=== PATIENT | female | born 1940 | race Hispanic/Latino ===

== ENCOUNTER 2017-06-21 03:33 | Inpatient (IN) | payer MEDICARE, OTHER ==
[~2017-06-21] VITALS: Ht 157.5 cm; Wt 52.2 kg
[~2017-06-21 03:33] MED LIST: ACETAMINOPHN-T1 EACH PO; ALENDRONATE SOD70 MG PO; AMBIEN5 MG PO; Apixaban PO; BENTYL20 MG PO; CETIRIZINE HCL10 MG PO; CITRACAL; CITRACAL + D M1 EACH PO; DETROL LA4 MG PO; ESCITALOPRAM OX10 MG PO; FERROUS SULFAT325 M1 PO; LEVAQUIN500 MG PO; LISINOPRIL10 MG PO; LOPERAMIDE2 MG PO; LORATADINE10 MG PO; LOVASTATIN20 MG PO; MEDROL4 MG/DOSE- PO; METOPROLOL TART25 MG PO; METRONIDAZOLE500 MG PO; PANTOPRAZOLE IV; PENTASA500 MG PO; POTASSIUM GLU2.5 MEQ PO; PREVACID; PREVACID30 MG PO; QUESTRAN PACKET4 GM PO; ULTRAM50 MG PO; Z.0.AMBIEN10 MG PO; Z.0.LEXAPRO10 MG PO; ZOFRAN ODT4 MG PO; [UNRECOGNIZED DRUG - OTHER] PO
[2017-06-21] MEDS ORDERED: SODIUM CHLORIDE 0.9% 1000ML 1,000 ML IV STA ×2 (04:08→06:14)
[2017-06-21] MEDS ORDERED: ONDANSETRON HCL INJ 2 MG/ML VIAL IV STA (04:08)
[2017-06-21] MEDS ORDERED: PANTOPRAZOLE 40 MG 10ML VIAL IV STA (04:08)
[2017-06-21 04:30] LABS: BASOPHILS # (AUTO) 0.1 (0.0-0.1); BASOPHILS % 0.5 % (0.0-1.0); EOSINOPHILS % 0.1 % (0.0-6.0); HEMATOCRIT 32.9 % (34.2-44.1); HEMOGLOBIN 10.3 g/dL (12.0-16.0); LYMPHOCYTES # (AUTO) 0.3 (1.0-3.2); LYMPHOCYTES % 2.4 % (18.0-39.1); MEAN CORPUSCULAR HEMOGLOBIN 26.9 pg (28-32); MEAN CORPUSCULAR HGB CONC 31.3 g/dL (31-35); MEAN CORPUSCULAR VOLUME 85.9 fL (81-99); MONOCYTES # (AUTO) 0.1 (0.2-0.8); MONOCYTES % 1.2 % (4.4-11.3); NEUTROPHILS # (AUTO) 11.4 (2.1-6.9); NEUTROPHILS % 95.5 % (38.7-80.0); PLATELET COUNT 305 x10e3/uL (140-360); RED BLOOD COUNT 3.83 x10e6/uL (3.6-5.1); RED CELL DISTRIBUTION WIDTH 17.4 % (11.7-14.4)
[2017-06-21 04:39] LABS: INR 0.98; PROTHROMBIN TIME 13.5 seconds (11.9-14.5)
[2017-06-21 04:40] LABS: PARTIAL THROMBOPLASTIN TIME 26.7 seconds (23.8-35.5)
[2017-06-21 04:50] LABS: ALANINE AMINOTRANSFERASE 9 IU/L (0-55); ALBUMIN 2.8 g/dL (3.5-5.0); ALBUMIN/GLOBULIN RATIO 0.8 (0.8-2.0); ALKALINE PHOSPHATASE 96 IU/L (40-150); AMYLASE 51 U/L (25-125); ANION GAP 14.3 mmol/L (8-16); BLOOD UREA NITROGEN 15 mg/dL (7-26); BUN/CREATININE RATIO 20 (6-25); CALCIUM 8.2 mg/dL (8.4-10.2); CARBON DIOXIDE 18 mmol/L (22-29); CHLORIDE 109 mmol/L (98-107); CREATINE KINASE 55 IU/L (29-168); CREATININE, SERUM 0.76 mg/dL (0.57-1.11); EST GLOMERULAR FILTRATION RATE > 60 ML/MIN (60-); GLUCOSE 147 mg/dL (74-118); LIPASE 17 U/L (8-78); MAGNESIUM 1.5 MG/DL (1.3-2.1); POTASSIUM 3.3 mmol/L (3.5-5.1); SODIUM 138 mmol/L (136-145)
[2017-06-21 04:52] LABS: B-TYPE NATRIURETIC PEPTIDE2 95.6 pg/mL (0-100)
[2017-06-21 04:56] LABS: TROPONIN I 0.743 ng/mL (0-0.300)
--- NOTE | 2017-06-21 05:09 | Diagnostic Imaging Report ---
EXAM: CHEST 2 VIEWS, PA and lateral DATE: 06/21/2017 4:08 AM Time stamp on exam: 0421 hours INDICATION: Nausea, vomiting COMPARISON: None FINDINGS: LINES/TUBES: None LUNGS: No consolidations or edema. PLEURA: No effusions or pneumothorax. HEART AND MEDIASTINUM: Normal size and contour. BONES AND SOFT TISSUES: No acute findings. Hiatal hernia. IMPRESSION: No acute thoracic abnormality. Signed by: Dr. Deepika Jessica M.D. on 06/21/2017 5:05 AM
--- NOTE | 2017-06-21 05:13 | Diagnostic Imaging Report ---
Exam: Head CT without contrast History: Nausea, vomiting, headache Comparison studies: Previous head CT of 01/07/2014 is currently unavailable on the PACS for comparison. Technique: Axial images were obtained from the skull base to the vertex. Coronal and sagittal images reconstructed from the axial data. Intravenous contrast: None Findings: Scalp: No abnormalities. Bones: The sphenoid wings are demineralized bilaterally with lytic changes. No associated soft tissue mass is identified. Brain sulci: Appropriate for age. Ventricles: Normal in size and configuration. No hydrocephalus. Extra-axial spaces: Mildly prominent axial spaces of CSF density along the right anterior temporal convexity is most likely represents a small arachnoid cyst. Parenchyma: No mass, acute hemorrhage or acute cortical vascular insults. Scattered hypodensities in the supratentorial white matter are nonspecific but most compatible with chronic small vessel ischemic changes. Sellar/suprasellar region: No abnormalities. Craniocervical junction: Patent foramen magnum. No Chiari one malformation. Included paranasal sinuses: Mild inflammatory mucosal thickening in the left maxillary sinus. Incidental findings: Atherosclerotic calcifications in the carotid siphons and intradural vertebral arteries. Bilateral lens replacements related to previous cataract surgery. IMPRESSION: 1. No acute intracranial abnormalities. 2. Mild generalized volume loss. 3. Moderate supratentorial chronic microvascular ischemic changes. 4. Incidental bilateral sphenoid demineralization with lytic changes. Signed by: Dr. Jose Fields M.D. on 06/21/2017 5:47 AM
[2017-06-21] MEDS ORDERED: FAMOTIDINE20 MG PO (05:25)
[2017-06-21] MEDS ORDERED: MOBIC7.5 MG PO (05:25)
[2017-06-21] MEDS ORDERED: ASPIR 8181 MG PO (05:25)
[2017-06-21] MEDS ORDERED: RESTORIL15 MG PO (05:25)
[2017-06-21] MEDS ORDERED: PANTOPRAZOLE SO40 MG PO (05:25)
[2017-06-21] MEDS ORDERED: ASPIRIN 81 MG CHEW TAB PO ONE (05:30)
[2017-06-21] MEDS ORDERED: SODIUM CHLORIDE 0.9% 50ML 50 ML ONE (05:41)
[2017-06-21] MEDS ORDERED: IOPAMIDOL 370 MG/ML 200 ML INFUS..BTL INJ ONE (05:41)
--- NOTE | 2017-06-21 05:48 | Diagnostic Imaging Report ---
EXAM: CT ABDOMEN AND PELVIS with IV CONTRAST DATE: 06/21/2017 4:08 AM Time stamp on Exam: 0512 hours INDICATION: Abdominal pain COMPARISON: None available TECHNIQUE: The abdomen and pelvis were scanned using a multidetector helical scanner. Coronal and sagittal reformations were obtained. Routine protocol performed. IV Contrast: 100 cc Isovue-370 Oral Contrast: Water CTDIvol has been reviewed. It is below the limits set by the Radiation Protocol Committee (RPC). FINDINGS: LOWER THORAX: No consolidations LIVER: No masses BILIARY: Cholelithiasis. No wall thickening or ductal dilation. SPLEEN: No masses PANCREAS: No masses ADRENALS: No nodules KIDNEYS: Symmetric perfusion. No enhancing masses. No hydronephrosis. GI TRACT: Several loops of small bowel with enhancing thickened fletcher and adjacent vascular engorgement. No bowel obstruction. Moderate to large hiatal hernia. Incidental duodenal diverticulum. VESSELS: Marked atherosclerotic change of the abdominal aorta and branches. PERITONEUM/RETROPERITONEUM: Trace free pelvic fluid. LYMPH NODES: Prominent mesenteric lymph nodes. REPRODUCTIVE ORGANS: The uterus and ovaries are not visualized. BLADDER: Unremarkable SOFT TISSUES: Unremarkable BONES: No suspicious bone lesions. IMPRESSION: Nonspecific enteritis involving the distal and terminal ileum with associated vascular congestion and mesenteric lymphadenopathy. These findings were described in a report of a CT of the abdomen and pelvis in 2014 (images not available for comparison), making inflammatory enteritis (Crohn's) a likely cause. Signed by: Dr. Deepika Jessica M.D. on 06/21/2017 5:44 AM
[2017-06-21] MEDS: METRONIDAZOLE 500MG/NS 100ML 100 ML IV SCH ×3 (06:10→17:47)
[2017-06-21 06:11] LABS: BILIRUBIN,URINE 2+ (NEGATIVE); KETONES,URINE NEGATIVE (NEGATIVE); LEUKOCYTE ESTERASE ,URINE TRACE (NEGATIVE); URINE UROBILINOGEN 0.2 mg/dL (0.2 - 1)
[2017-06-21] MEDS ORDERED: ASPIRIN 81 MG CHEW TAB ONE (06:11)
[2017-06-21 06:13] LABS: CLARITY,URINE SL CLOUDY (CLEAR); COLOR,URINE YELLOW (YELLOW); NITRITE,URINE POSITIVE (NEGATIVE); PROTEIN,URINE DIPSTICK 1+ (NEGATIVE)
[2017-06-21] MEDS ORDERED: D5.45%NS/KCL 20MEQ 1,000 ML IV SCH (06:14)
[2017-06-21] MEDS ORDERED: ONDANSETRON HCL INJ 2 MG/ML VIAL IV PRN (06:15)
[2017-06-21 06:35] LABS: RBC,URINE 0-5 /HPF (0-5); WBC,URINE (MAN) 0-5 /HPF (0-5)
[2017-06-21 06:36] LABS: EPITHELIAL CELLS,URINE MODERATE /LPF
[2017-06-21] MEDS: POTASSIUM CHLORIDE 10MEQ/100ML 100 ML IV SCH ×2 (06:49→09:37)
[2017-06-21] MEDS ORDERED: NOREPINEPHRINE BITARTRATE/ NS 250 ML IV STA (07:13)
[2017-06-21] MEDS ORDERED: SODIUM CHLORIDE 0.9% 1000ML 1,000 ML IV SCH (07:15)
[2017-06-21] MEDS ORDERED: NOREPINEPHRINE BITARTRATE/ NS 250 ML ONE ×2 (07:17→07:18)
[2017-06-21] MEDS ORDERED: VANCOMYCIN 1GM/NS 250 ML 250 ML IV ONE (07:30)
--- NOTE | 2017-06-21 08:12 | History and Physical ---
PRIMARY CARE PHYSICIAN: Dr. Fernandez CHIEF COMPLAINT: Nausea, vomiting and diarrhea. HISTORY OF PRESENT ILLNESS: This is a 77-year-old woman with a history of colitis and enteritis, who has had an initial diagnosis of Crohn and subsequent testing revealed that it probably was not Crohn, who has been having intermittent diarrhea for the past 3 years now with worsening symptoms. Therefore, came to the hospital. Here, she was found to have acute enteritis and also found to be hypotensive. She was admitted for further evaluation and management. PAST MEDICAL HISTORY: Acute enteritis, hypokalemia, hypertension, gastroenteritis, atrial fibrillation, depression, Clostridium difficile colitis, urinary tract infection, iron deficiency anemia. PAST SURGICAL HISTORY: Unknown. ALLERGIES: PER ELECTRONIC MEDICAL RECORDS. FAMILY HISTORY/SOCIAL HISTORY: Patient appears to have drank a lot of alcohol. Now does not. She denies any cigarettes or illicits. She lives alone. She is . REVIEW OF SYSTEMS: Denies any dizziness or chest pain. PHYSICAL EXAMINATION VITAL SIGNS: Reviewed. GENERAL: A tired-appearing woman resting in bed. HEENT: Anicteric. CARDIOVASCULAR: Normal S1 and S2. LUNGS: Moderate breath sounds. ABDOMEN: Soft and nondistended. She has tenderness in the right lower quadrant. EXTREMITIES: No edema. SKIN: Dry. PSYCHIATRIC: Flat affect. LABS: Reviewed. MEDICATIONS: Reviewed. ASSESSMENT AND PLAN: This is 77-year-old woman with: 1. Acute enteritis: Will treat with intravenous fluids and broad-spectrum antibiotics. One dose of vancomycin. Continue Flagyl and Zosyn. Follow up cultures. Consult Dr. Helton. 2. Urinary tract infection: Continue Zosyn. Follow up cultures. 3. Gastrointestinal bleed: Positive stool occult blood. Gastroenterology service is consulted. Continue intravenous proton pump inhibitor q.12 h. 4. Severe sepsis: On antibiotics as described above and intravenous fluids. Follow up cultures. Will admit to the intensive care unit. Will treat her with hydrocortisone 100 mg intravenously q.8 h. 5. Atrial fibrillation: Heart rate currently controlled. Will treat with intravenous fluids. Heart rate initially was 115. 6. Normocytic anemia, mild: Will follow. 7. Hypokalemia: Replace and recheck. 8. Prophylaxis: Will use sequential compression devices and proton pump inhibitor. 9. Disposition: Will recheck labs this afternoon. Critical care time more than 35 minutes. Job#: [id number] RI
--- NOTE | 2017-06-21 08:20 | Diagnostic Imaging Report ---
PROCEDURE: A single AP view of the chest. COMPARISON: Chest 2 views 06/21/2017. INDICATIONS: CENTRAL LINE PLACEMENT FINDINGS: Lines/tubes: Right internal jugular temporary central venous catheter with tip projecting over the expected region of the right atrium. Lungs: The lungs are well inflated and clear. There is no evidence of pneumonia or pulmonary edema. Pleura: There is no pleural effusion or pneumothorax. Heart and mediastinum: The heart and the mediastinum are unremarkable. Atherosclerotic calcifications. Bones: No acute bony abnormality. Degenerative changes of the thoracic spine. IMPRESSION: No acute radiographic abnormality. Dictated by: Isaac Dick M.D. on 06/21/2017 at 8:29 Electronically approved by: Isaac Dick M.D. on 06/21/2017 at 8:29
[2017-06-21 08:36] LABS: AMPHETAMINES SCREEN,URINE NEGATIVE (NEGATIVE); BENZODIAZEPINES SCREEN,URINE POSITIVE (NEGATIVE); PHENCYCLIDINE SCREEN,URINE POSITIVE (NEGATIVE)
[2017-06-21] MEDS: PIPER-TAZ 3.375 GM 50 ML IV SCH ×3 (08:43→17:10)
[2017-06-21] MEDS ORDERED: POTASSIUM CHLORIDE 20 MEQ TAB CR PO STA (09:17)
[2017-06-21] MEDS: METOPROLOL TARTRATE 25 MG TAB PO SCH ×2 (09:37→15:59)
[2017-06-21] MEDS: PANTOPRAZOLE 40 MG 10ML VIAL IV SCH ×2 (09:37→22:41)
[2017-06-21] MEDS: SODIUM CHLORIDE 0.9% 1000ML 1,000 ML IV SCH ×2 (09:37→17:10)
[2017-06-21] MEDS: FERROUS SULFATE 325 MG TAB PO SCH (09:37)
--- NOTE | 2017-06-21 10:11 | Consultation ---
DATE OF CONSULTATION: June 21, 2017 CARDIOLOGY CONSULTATION REASON FOR CONSULTATION: Elevated troponin. HPI: This is a 77-year-old female that presented with vomiting, diarrhea and abdominal cramps. According to the patient, for the last 2-3 days she has been having intermittent abdominal pain with nausea, mild vomiting, and cramping. She has a history of Crohn disease in the past. She stated also that emesis was tinged with blood, and she decided to come into the emergency room for evaluation. She had a history of CAD and had a cardiac catheterization in 2015 with medical management. She denies any chest pain, any palpitations, any diaphoresis, or any dizziness. She was found to have a low blood pressure, and she was started on Levophed drip. PAST MEDICAL HISTORY: GERD, depression, CVA, hypertension, ulcerative colitis, anemia, UTI, C. diff, and osteoarthritis. PAST SURGICAL HISTORY: Hysterectomy, left knee surgery. She had appendectomy and cholecystectomy also. FAMILY HISTORY: Noncontributory. SOCIAL HISTORY: She lives at home with family. MEDICATIONS: See med list. ALLERGIES: SHE IS NOT ALLERGIC TO ANY MEDICATIONS. REVIEW OF SYSTEMS: Negative except as mentioned above. PHYSICAL EXAMINATION VITAL SIGNS: Temperature 99, heart rate 95, blood pressure 123/60, respiration 18, oxygen saturation 99% on room. GENERAL: She is alert, awake and oriented times 3. HEENT: Mucous membrane moist. NECK: Supple. LUNGS: With decreased breath sounds. CARDIOVASCULAR: S1 and S2 present. ABDOMEN: Soft. NEUROLOGICAL: Intact. EXTREMITIES: No edema. LABS: Sodium 138, potassium 3.3, chloride 109, CO2 18, BUN 15, creatinine 0.76, glucose 147. White blood cell 11.8, hemoglobin 10.3, hematocrit 32.9, and platelets 305,000. PT 13.5, PTT 26.7 and INR 0.98. IMPRESSION 1. Eez-TD-srzoxvg elevation myocardial infarction. 2. Hypotension. 3. Gastrointestinal bleed. 4. Gastroenteritis. 6. Hypokalemia. ASSESSMENT AND PLAN: Will go ahead and get an echo to reassess the LV and the valve function. Will get serial cardiac enzymes. Try to wean off Levophed drip. Replace potassium. She had a cardiac catheterization in June 2015 with medical management. Further cardiac workup pending clinical course. Thank you for this consultation. DICTATED BY MEAGAN AVENDANO NP Job#: [id number] RI
[2017-06-21 12:29] LABS: CREATINE KINASE MB 9.1 ng/mL (0.00-5.00)
[2017-06-21 12:31] LABS: TROPONIN I 1.973 ng/mL (0-0.300)
[2017-06-21] MEDS: ENOXAPARIN SOD INJ 60 MG/0.6 ML SYR SC SCH ×2 (13:10→22:41)
[2017-06-21] MEDS: HYDROCORTISONE SOD SUCCINATE 100 MG VIAL IV SCH ×2 (13:10→22:51)
[2017-06-21 15:03] LABS: BASOPHILS # (AUTO) 0.1 (0.0-0.1); BASOPHILS % 0.4 % (0.0-1.0); EOSINOPHILS % 0.1 % (0.0-6.0); HEMATOCRIT 27.9 % (34.2-44.1); HEMOGLOBIN 8.7 g/dL (12.0-16.0); LYMPHOCYTES # (AUTO) 0.7 (1.0-3.2); LYMPHOCYTES % 6.1 % (18.0-39.1); MEAN CORPUSCULAR HEMOGLOBIN 26.9 pg (28-32); MEAN CORPUSCULAR HGB CONC 31.2 g/dL (31-35); MEAN CORPUSCULAR VOLUME 86.4 fL (81-99); MONOCYTES # (AUTO) 0.3 (0.2-0.8); MONOCYTES % 2.2 % (4.4-11.3); NEUTROPHILS # (AUTO) 10.2 (2.1-6.9); NEUTROPHILS % 90.8 % (38.7-80.0); PLATELET COUNT 265 x10e3/uL (140-360); RED BLOOD COUNT 3.23 x10e6/uL (3.6-5.1); RED CELL DISTRIBUTION WIDTH 17.6 % (11.7-14.4)
[2017-06-21 16:55] LABS: ANION GAP 12.3 mmol/L (8-16); BLOOD UREA NITROGEN 10 mg/dL (7-26); BUN/CREATININE RATIO 16 (6-25); CARBON DIOXIDE 16 mmol/L (22-29); CHLORIDE 115 mmol/L (98-107); CREATININE, SERUM 0.64 mg/dL (0.57-1.11); EST GLOMERULAR FILTRATION RATE > 60 ML/MIN (60-); GLUCOSE 141 mg/dL (74-118); MAGNESIUM 1.2 MG/DL (1.3-2.1); PHOSPHORUS 2.6 MG/DL (2.3-4.7); POTASSIUM 4.3 mmol/L (3.5-5.1); SODIUM 139 mmol/L (136-145)
[2017-06-21 16:58] LABS: CALCIUM 6.8 mg/dL (8.4-10.2)
[2017-06-21] MEDS ORDERED: CALCIUM CHLORIDE 9.3 MEQ in SODIUM CHLORIDE 0.9% 100 ML 100 ML IV ONE (19:00)
--- NOTE | 2017-06-21 19:32 | Diagnostic Imaging Report ---
PROCEDURE:SMALL BOWEL SERIES COMPARISON:[facility], CT, CT ABDOMEN/PELVIS W, 06/21/2017, 5:09. INDICATIONS:ENTERITIS TEQUNIQUE: A registered nurse maternity radiograph was performed. The patient was given barium to drink and sequential images of the abdomen were obtained through 90 minutes until the contrast had reached the colon. Spot images of the small bowel and terminal ileum were obtained. Fluoro time: 3.3 minutes FINDINGS: Pneumatic Riveter: Nonobstructive bowel gas pattern. Contrast is noted in the bladder. Small bowel: Multiple focal outpouchings are noted in the duodenum, consistent with diverticula. Evaluation of the proximal small bowel is limited by flocculation of contrast. Transit time is normal. There are several loops of distal ileum which show long segments of luminal reduction and cobblestoning of the mucosa, corresponding to previously visualized thickened ileum on CT dated 06/21/2017 The terminal ileum is not well-visualized. No focal mass is seen. CONCLUSION: Findings in the distal ileum consistent with previously visualized enteritis on CT dated 06/21/2017. Inflammatory bowel disease (particularly Crohn's) is a consideration despite the patient's age, given the history of prior episodes. Infectious enteritis is less likely. Eamon Collins M.D. Dictated by: Eamon Collins M.D. on 06/21/2017 at 19:40 Electronically approved by: Eamon Collins M.D. on 06/21/2017 at 19:40
[2017-06-21] MEDS ORDERED: TEMAZEPAM 15 MG CAP PO PRN (20:30)
[2017-06-21 21:07] LABS: BASOPHILS % 0.2 % (0.0-1.0); HEMATOCRIT 25.5 % (34.2-44.1); LYMPHOCYTES # (AUTO) 0.6 (1.0-3.2); MEAN CORPUSCULAR HEMOGLOBIN 26.8 pg (28-32); MEAN CORPUSCULAR VOLUME 86.4 fL (81-99); MONOCYTES # (AUTO) 0.2 (0.2-0.8); MONOCYTES % 2.5 % (4.4-11.3); NEUTROPHILS # (AUTO) 7.1 (2.1-6.9); NEUTROPHILS % 89.1 % (38.7-80.0); PLATELET COUNT 240 x10e3/uL (140-360); RED BLOOD COUNT 2.95 x10e6/uL (3.6-5.1); RED CELL DISTRIBUTION WIDTH 17.6 % (11.7-14.4)
[2017-06-21 21:09] LABS: HEMOGLOBIN 7.9 g/dL (12.0-16.0)
[2017-06-21 21:26] LABS: CREATINE KINASE MB 8.7 ng/mL (0.00-5.00)
[2017-06-21 21:30] LABS: TROPONIN I 1.39 ng/mL (0-0.300)
[2017-06-21] MEDS: MESALAMINE 500 MG CAPCR PO SCH (22:41)
[2017-06-21] MEDS: TEMAZEPAM 15 MG CAP PO SCH (22:41)
[2017-06-22] MEDS: METRONIDAZOLE 500MG/NS 100ML 100 ML IV SCH ×4 (00:27→17:03)
[2017-06-22] MEDS: PIPER-TAZ 3.375 GM 50 ML IV SCH ×4 (00:28→17:55)
[2017-06-22 01:09] VITALS: BP 108/71
--- NOTE | 2017-06-22 01:17 | Consultation ---
DATE OF CONSULTATION: June 21, 2017 This is a 77 year old who has a history of chronic diarrhea with some questionable history of Crohn disease, who also has some abdominal pain along with some nausea, vomiting and diarrhea. She denies any bleeding along with this problem. Her workup so far revealed that her white count is a little bit high at 11.8. The BUN was okay. C. diff is still pending at this point. She had a CT scan of the abdomen and pelvis, which showed nonspecific enteritis in the distal and terminal ileum with congestion and adenopathy. Again, this finding was described in the report of the CT scan of the abdomen and pelvis on December 23, 2016. She did have a colonoscopy on February 16, 2015, with biopsies of the small intestine which was negative except for focal active colitis at the time. She also had small bowel x-rays that was done today, which shows possible enteritis that was seen before. Her other medical problems are significant for history of chronic diarrhea as mentioned before, hypertension, history of atrial fibrillation, history of depression, history of C. diff colitis. ALLERGIES: NONE. SOCIAL HISTORY: Denies any alcohol use. FAMILY HISTORY: Noncontributory. CURRENT MEDICATIONS: Include Flagyl, Zosyn, Lovenox, and now on Solu-Cortef, iron, Protonix, lopressor. REVIEW OF SYSTEMS: Denies any chest pain. No shortness of breath. Denies any dysphagia or odynophagia. Denies any dysuria or hematuria. No syncopal episode. PHYSICAL EXAMINATION GENERAL: Awake, alert and appears to be stable. No acute distress at this point. VITAL SIGNS: Afebrile currently. HEENT: Normocephalic. Sclerae anicteric. NECK: Supple. HEART: Regular. ABDOMEN: Soft. There is mild lower abdominal tenderness. There is no rebound or mass. EXTREMITIES: No clubbing, cyanosis or edema. LAB VALUES: Significant for C. diff is pending. WBC 11.19, hemoglobin 9.7, hematocrit 27.9. BUN of 10, creatinine 0.634, calcium of 6.8. IMPRESSION 1. Chronic diarrhea. 2. Abdominal pain, nausea, vomiting, and diarrhea: Possibly gastroenteritis. However, the ileum shows possible enteritis. I doubt that this is inflammatory bowel disease. Patient has been having this chronic diarrhea for a while. We have biopsies of the ileum, which was negative before. Clostridium difficile is pending at this point. 3. History of atrial fibrillation. 4. History of hypertension. We are going to continue with antibiotics. I am going to follow labs clinically. Job#: [id number] RI cc:MD GITA GARCIA MD
[2017-06-22 03:52] LABS: BASOPHILS % 0.3 % (0.0-1.0); HEMATOCRIT 26.5 % (34.2-44.1); HEMOGLOBIN 8.2 g/dL (12.0-16.0); LYMPHOCYTES # (AUTO) 0.6 (1.0-3.2); LYMPHOCYTES % 8.7 % (18.0-39.1); MEAN CORPUSCULAR HEMOGLOBIN 26.8 pg (28-32); MEAN CORPUSCULAR HGB CONC 30.9 g/dL (31-35); MEAN CORPUSCULAR VOLUME 86.6 fL (81-99); MONOCYTES # (AUTO) 0.2 (0.2-0.8); MONOCYTES % 3.2 % (4.4-11.3); NEUTROPHILS # (AUTO) 5.7 (2.1-6.9); NEUTROPHILS % 87.5 % (38.7-80.0); PLATELET COUNT 233 x10e3/uL (140-360); RED BLOOD COUNT 3.06 x10e6/uL (3.6-5.1); RED CELL DISTRIBUTION WIDTH 17.7 % (11.7-14.4)
[2017-06-22] MEDS: HYDROCORTISONE SOD SUCCINATE 100 MG VIAL IV SCH ×3 (05:27→20:46)
[2017-06-22 06:22] VITALS: BP 126/74
[2017-06-22] MEDS: MESALAMINE 500 MG CAPCR PO SCH ×4 (08:32→20:46)
[2017-06-22] MEDS: FERROUS SULFATE 325 MG TAB PO SCH (08:32)
[2017-06-22] MEDS: METOPROLOL TARTRATE 25 MG TAB PO SCH ×2 (08:32→16:38)
[2017-06-22] MEDS: ENOXAPARIN SOD INJ 60 MG/0.6 ML SYR SC SCH ×2 (08:32→20:46)
[2017-06-22] MEDS: PANTOPRAZOLE 40 MG 10ML VIAL IV SCH ×2 (08:32→20:46)
[2017-06-22 09:07] LABS: ALANINE AMINOTRANSFERASE 10 IU/L (0-55); ALBUMIN 2.5 g/dL (3.5-5.0); ALBUMIN/GLOBULIN RATIO 0.8 (0.8-2.0); ALKALINE PHOSPHATASE 65 IU/L (40-150); ANION GAP 12.4 mmol/L (8-16); BLOOD UREA NITROGEN 8 mg/dL (7-26); BUN/CREATININE RATIO 12 (6-25); CALCIUM 7.5 mg/dL (8.4-10.2); CARBON DIOXIDE 17 mmol/L (22-29); CHLORIDE 114 mmol/L (98-107); CREATININE, SERUM 0.68 mg/dL (0.57-1.11); EST GLOMERULAR FILTRATION RATE > 60 ML/MIN (60-); GLUCOSE 179 mg/dL (74-118); POTASSIUM 4.4 mmol/L (3.5-5.1); SODIUM 139 mmol/L (136-145)
--- NOTE | 2017-06-22 10:36 | Progress Note ---
DATE: June 22, 2017 TIME OF SERVICE: 8:57 a.m. OVERNIGHT: Feeling a little better. REVIEW OF SYSTEMS: Denies any dizziness. VITAL SIGNS: Reviewed. PHYSICAL EXAMINATION GENERAL APPEARANCE: Tired-appearing woman resting in bed. HEENT: Anicteric. CARDIOVASCULAR: Normal S1, S2. LUNGS: She has moderate breath sounds. ABDOMEN: Soft, nontender, nondistended. She has right lower quadrant tenderness. EXTREMITIES: No edema. SKIN: Dry. PSYCHIATRIC: Flat affect. LABORATORIES: Reviewed. MEDICATION: Reviewed. ASSESSMENT AND PLAN: A 77-year-old woman: 1. Acute enteritis. 2. Urinary tract infection. 3. Gastrointestinal bleed. 4. Severe sepsis. 5. Atrial fibrillation. 6. Normocytic anemia. 7. Hypokalemia. 8. Lrk-TM-bltbdjeea myocardial infarction. Plan: 1. Continue IV fluids, IV antibiotics. She received vancomycin, Flagyl, Zosyn. Continue IV steroids. 2. Follow up cultures. 3. Continue heart rate control. 4. Follow up blood count. 5. Replace electrolytes. 6. Hemoglobin today is 8.2. Previously 7.9. 7. Leukocytosis has resolved. 8. Hypocalcemia. Follow up labs. Repeat electrolytes this morning. 9. Elevated troponin. Troponin now trending down. Will defer to cardiology. 10. Follow up P-ANCA and other serologic studies. 11. Small-bowel imaging shows distal ileus consistent with enteritis. 12. Patient on Lovenox q.12 and IV PPI q.12. Job#: [id number] [place]
[2017-06-22 12:54] LABS: BASOPHILS % 0.4 % (0.0-1.0); HEMATOCRIT 29.3 % (34.2-44.1); HEMOGLOBIN 8.7 g/dL (12.0-16.0); LYMPHOCYTES # (AUTO) 0.6 (1.0-3.2); MEAN CORPUSCULAR HEMOGLOBIN 26.9 pg (28-32); MEAN CORPUSCULAR HGB CONC 29.7 g/dL (31-35); MEAN CORPUSCULAR VOLUME 90.4 fL (81-99); MONOCYTES # (AUTO) 0.3 (0.2-0.8); MONOCYTES % 3.8 % (4.4-11.3); NEUTROPHILS % 87.3 % (38.7-80.0); PLATELET COUNT 275 x10e3/uL (140-360); RED BLOOD COUNT 3.24 x10e6/uL (3.6-5.1)
[2017-06-22 15:47] VITALS: BP 143/77
[2017-06-22 16:00] VITALS: BP 143/84
[2017-06-22] MEDS ORDERED: SODIUM CHLORIDE 0.9% 250ML 250 ML ONE (16:07)
[2017-06-22 18:37] LABS: BASOPHILS % 0.3 % (0.0-1.0); HEMATOCRIT 30.6 % (34.2-44.1); HEMOGLOBIN 9.3 g/dL (12.0-16.0); LYMPHOCYTES # (AUTO) 0.8 (1.0-3.2); LYMPHOCYTES % 8.6 % (18.0-39.1); MEAN CORPUSCULAR HEMOGLOBIN 26.9 pg (28-32); MEAN CORPUSCULAR HGB CONC 30.4 g/dL (31-35); MEAN CORPUSCULAR VOLUME 88.4 fL (81-99); MONOCYTES # (AUTO) 0.3 (0.2-0.8); MONOCYTES % 3.2 % (4.4-11.3); NEUTROPHILS # (AUTO) 8.5 (2.1-6.9); NEUTROPHILS % 87.5 % (38.7-80.0); PLATELET COUNT 327 x10e3/uL (140-360); RED BLOOD COUNT 3.46 x10e6/uL (3.6-5.1)
[2017-06-22 20:00] VITALS: BP 156/92
[2017-06-22] MEDS: TEMAZEPAM 15 MG CAP PO SCH (20:15)
[2017-06-23] VITALS: BP 152/91
[2017-06-23] MEDS: PIPER-TAZ 3.375 GM 50 ML IV SCH ×4 (00:22→17:59)
[2017-06-23] MEDS: METRONIDAZOLE 500MG/NS 100ML 100 ML IV SCH ×4 (01:00→18:35)
[2017-06-23 01:22] LABS: BASOPHILS % 0.1 % (0.0-1.0); HEMATOCRIT 28.8 % (34.2-44.1); HEMOGLOBIN 8.9 g/dL (12.0-16.0); LYMPHOCYTES # (AUTO) 0.8 (1.0-3.2); LYMPHOCYTES % 9.4 % (18.0-39.1); MEAN CORPUSCULAR HEMOGLOBIN 26.7 pg (28-32); MEAN CORPUSCULAR HGB CONC 30.9 g/dL (31-35); MEAN CORPUSCULAR VOLUME 86.5 fL (81-99); MONOCYTES # (AUTO) 0.3 (0.2-0.8); MONOCYTES % 3.5 % (4.4-11.3); NEUTROPHILS # (AUTO) 7.4 (2.1-6.9); NEUTROPHILS % 86.4 % (38.7-80.0); PLATELET COUNT 288 x10e3/uL (140-360); RED BLOOD COUNT 3.33 x10e6/uL (3.6-5.1); RED CELL DISTRIBUTION WIDTH 17.6 % (11.7-14.4)
[2017-06-23 04:00] VITALS: BP 144/87
[2017-06-23] MEDS: HYDROCORTISONE SOD SUCCINATE 100 MG VIAL IV SCH ×3 (05:22→21:55)
[2017-06-23 06:34] LABS: BASOPHILS % 0.2 % (0.0-1.0); HEMATOCRIT 27.3 % (34.2-44.1); HEMOGLOBIN 8.5 g/dL (12.0-16.0); LYMPHOCYTES # (AUTO) 1.1 (1.0-3.2); LYMPHOCYTES % 13.4 % (18.0-39.1); MEAN CORPUSCULAR HEMOGLOBIN 26.7 pg (28-32); MEAN CORPUSCULAR HGB CONC 31.1 g/dL (31-35); MEAN CORPUSCULAR VOLUME 85.8 fL (81-99); MONOCYTES # (AUTO) 0.5 (0.2-0.8); MONOCYTES % 6.2 % (4.4-11.3); NEUTROPHILS # (AUTO) 6.5 (2.1-6.9); NEUTROPHILS % 79.6 % (38.7-80.0); PLATELET COUNT 265 x10e3/uL (140-360); RED BLOOD COUNT 3.18 x10e6/uL (3.6-5.1); RED CELL DISTRIBUTION WIDTH 17.8 % (11.7-14.4)
[2017-06-23 08:45] VITALS: BP 172/102
[2017-06-23] MEDS: MESALAMINE 500 MG CAPCR PO SCH ×4 (09:00→21:00)
--- NOTE | 2017-06-23 09:02 | Progress Note ---
DATE: June 23, 2017 TIME: 8 a.m. OVERNIGHT: Patient wants "real food". REVIEW OF SYSTEMS: Denies any dizziness. PHYSICAL EXAMINATION VITAL SIGNS: Reviewed. GENERAL: A tired-appearing woman resting in bed. HEENT: Anicteric. CARDIOVASCULAR: Normal S1 and S2. LUNGS: Moderate breath sounds. ABDOMEN: Soft and nondistended. Right lower quadrant mild tenderness. EXTREMITIES: No edema. SKIN: Dry. PSYCHIATRIC: Flat affect. LABS: Reviewed. MEDICATIONS: Reviewed. ASSESSMENT: A 77-year-old woman with: 1. Acute enteritis. 2. Urinary tract infection. 3. Gastrointestinal bleed. 4. Severe sepsis. 5. Atrial fibrillation. 6. Normocytic anemia. 7. Hypokalemia. 8. Jrd-JH-cfvrjkf elevation myocardial infarction. PLAN 1. Continue IV antibiotics. 2. Patient on clear liquid diet now. 3. Heart rate control. 4. Follow up hemoglobin. 5. Follow BMP and other serologic studies. 6. Continue IV steroids. 7. Patient is on Lovenox q.12 h. in the setting of NSTEMI, ekt-WK-rpisiti elevation myocardial infarction. Also, the patient is on beta scooby. 8. Patient is on mesalamine. 9. Physical therapy. 10. Discharge planning. Job#: [id number] BRISSA
[2017-06-23] MEDS: METOPROLOL TARTRATE 25 MG TAB PO SCH ×2 (09:25→17:59)
[2017-06-23] MEDS: PANTOPRAZOLE 40 MG 10ML VIAL IV SCH ×2 (09:28→21:00)
[2017-06-23] MEDS: FERROUS SULFATE 325 MG TAB PO SCH (09:28)
[2017-06-23] MEDS: ENOXAPARIN SOD INJ 60 MG/0.6 ML SYR SC SCH ×2 (09:28→21:00)
[2017-06-23 12:19] VITALS: BP 155/99
[2017-06-23 12:34] LABS: BASOPHILS % 0.1 % (0.0-1.0); HEMATOCRIT 30.1 % (34.2-44.1); HEMOGLOBIN 9.5 g/dL (12.0-16.0); LYMPHOCYTES % 10.5 % (18.0-39.1); MEAN CORPUSCULAR HEMOGLOBIN 26.8 pg (28-32); MEAN CORPUSCULAR HGB CONC 31.6 g/dL (31-35); MONOCYTES # (AUTO) 0.5 (0.2-0.8); MONOCYTES % 4.9 % (4.4-11.3); NEUTROPHILS # (AUTO) 8.3 (2.1-6.9); PLATELET COUNT 320 x10e3/uL (140-360); RED BLOOD COUNT 3.54 x10e6/uL (3.6-5.1); RED CELL DISTRIBUTION WIDTH 17.7 % (11.7-14.4)
[2017-06-23 16:00] VITALS: BP 137/68
[2017-06-23 20:02] LABS: BASOPHILS % 0.2 % (0.0-1.0); EOSINOPHILS % 0.1 % (0.0-6.0); HEMATOCRIT 28.5 % (34.2-44.1); HEMOGLOBIN 8.9 g/dL (12.0-16.0); LYMPHOCYTES # (AUTO) 0.8 (1.0-3.2); LYMPHOCYTES % 7.6 % (18.0-39.1); MEAN CORPUSCULAR HEMOGLOBIN 26.7 pg (28-32); MEAN CORPUSCULAR HGB CONC 31.2 g/dL (31-35); MEAN CORPUSCULAR VOLUME 85.6 fL (81-99); MONOCYTES # (AUTO) 0.4 (0.2-0.8); MONOCYTES % 3.7 % (4.4-11.3); NEUTROPHILS # (AUTO) 8.5 (2.1-6.9); NEUTROPHILS % 86.1 % (38.7-80.0); PLATELET COUNT 303 x10e3/uL (140-360); RED BLOOD COUNT 3.33 x10e6/uL (3.6-5.1); RED CELL DISTRIBUTION WIDTH 17.8 % (11.7-14.4)
[2017-06-23 20:56] LABS: LYMPHOCYTES % (MANUAL) 7 % (19-48); MONOCYTES % (MANUAL) 4 % (3.4-9.0); NEUTROPHILS % (MANUAL) 89 % (40-74)
[2017-06-23] MEDS: TEMAZEPAM 15 MG CAP PO SCH (21:00)
[2017-06-23 21:01] LABS: ELLIPTOCYTE, RBC MODERATE
[2017-06-23 21:02] LABS: PLATELET ESTIMATE ADEQUATE; PLATELET MORPHOLOGY COMMENT NORMAL; POIKILOCYTOSIS MODERATE; RBC MORPHOLOGY COMMENT ABNORMAL; TEAR DROP CELLS FEW
[2017-06-23 21:04] VITALS: BP 154/96
[2017-06-24] VITALS (7 sets, daily range): BP systolic 136–164; BP diastolic 66–96
[2017-06-24 01:07] LABS: BASOPHILS % 0.2 % (0.0-1.0); HEMATOCRIT 27.9 % (34.2-44.1); HEMOGLOBIN 8.7 g/dL (12.0-16.0); LYMPHOCYTES # (AUTO) 0.7 (1.0-3.2); LYMPHOCYTES % 8.5 % (18.0-39.1); MEAN CORPUSCULAR HEMOGLOBIN 26.9 pg (28-32); MEAN CORPUSCULAR HGB CONC 31.2 g/dL (31-35); MEAN CORPUSCULAR VOLUME 86.1 fL (81-99); MONOCYTES # (AUTO) 0.3 (0.2-0.8); MONOCYTES % 3.4 % (4.4-11.3); NEUTROPHILS # (AUTO) 7.1 (2.1-6.9); NEUTROPHILS % 86.8 % (38.7-80.0); PLATELET COUNT 287 x10e3/uL (140-360); RED BLOOD COUNT 3.24 x10e6/uL (3.6-5.1); RED CELL DISTRIBUTION WIDTH 17.9 % (11.7-14.4)
[2017-06-24] MEDS: HYDROCORTISONE SOD SUCCINATE 100 MG VIAL IV SCH ×3 (05:15→21:50)
[2017-06-24] MEDS: METRONIDAZOLE 500MG/NS 100ML 100 ML IV SCH ×4 (05:15→16:00)
[2017-06-24] MEDS: PIPER-TAZ 3.375 GM 50 ML IV SCH ×4 (05:55→18:08)
[2017-06-24 07:38] LABS: BASOPHILS % 0.1 % (0.0-1.0); HEMATOCRIT 28.2 % (34.2-44.1); HEMOGLOBIN 8.7 g/dL (12.0-16.0); LYMPHOCYTES % 13.2 % (18.0-39.1); MEAN CORPUSCULAR HEMOGLOBIN 26.6 pg (28-32); MEAN CORPUSCULAR HGB CONC 30.9 g/dL (31-35); MEAN CORPUSCULAR VOLUME 86.2 fL (81-99); MONOCYTES # (AUTO) 0.4 (0.2-0.8); MONOCYTES % 5.5 % (4.4-11.3); NEUTROPHILS # (AUTO) 6.1 (2.1-6.9); NEUTROPHILS % 80.3 % (38.7-80.0); PLATELET COUNT 295 x10e3/uL (140-360); RED BLOOD COUNT 3.27 x10e6/uL (3.6-5.1)
[2017-06-24] MEDS: ENOXAPARIN SOD INJ 60 MG/0.6 ML SYR SC SCH ×2 (09:24→21:50)
[2017-06-24] MEDS: MESALAMINE 500 MG CAPCR PO SCH ×4 (09:24→21:00)
[2017-06-24] MEDS: PANTOPRAZOLE 40 MG 10ML VIAL IV SCH ×2 (09:24→21:50)
[2017-06-24] MEDS: FERROUS SULFATE 325 MG TAB PO SCH (09:24)
[2017-06-24] MEDS: METOPROLOL TARTRATE 25 MG TAB PO SCH ×2 (09:24→18:08)
[2017-06-24 11:58] LABS: BASOPHILS % 0.3 % (0.0-1.0); HEMATOCRIT 31.4 % (34.2-44.1); HEMOGLOBIN 9.6 g/dL (12.0-16.0); LYMPHOCYTES # (AUTO) 0.9 (1.0-3.2); LYMPHOCYTES % 7.8 % (18.0-39.1); MEAN CORPUSCULAR HEMOGLOBIN 26.4 pg (28-32); MEAN CORPUSCULAR HGB CONC 30.6 g/dL (31-35); MEAN CORPUSCULAR VOLUME 86.5 fL (81-99); MONOCYTES # (AUTO) 0.7 (0.2-0.8); MONOCYTES % 6.2 % (4.4-11.3); NEUTROPHILS # (AUTO) 9.9 (2.1-6.9); PLATELET COUNT 319 x10e3/uL (140-360); RED BLOOD COUNT 3.63 x10e6/uL (3.6-5.1); RED CELL DISTRIBUTION WIDTH 18.1 % (11.7-14.4)
[2017-06-24 18:24] LABS: BASOPHILS % 0.2 % (0.0-1.0); EOSINOPHILS % 0.1 % (0.0-6.0); HEMATOCRIT 28.7 % (34.2-44.1); HEMOGLOBIN 8.9 g/dL (12.0-16.0); LYMPHOCYTES % 10.2 % (18.0-39.1); MEAN CORPUSCULAR HEMOGLOBIN 26.7 pg (28-32); MEAN CORPUSCULAR VOLUME 86.2 fL (81-99); MONOCYTES # (AUTO) 0.7 (0.2-0.8); MONOCYTES % 7.5 % (4.4-11.3); NEUTROPHILS # (AUTO) 7.9 (2.1-6.9); NEUTROPHILS % 80.2 % (38.7-80.0); PLATELET COUNT 286 x10e3/uL (140-360); RED BLOOD COUNT 3.33 x10e6/uL (3.6-5.1)
[2017-06-24] MEDS: TEMAZEPAM 15 MG CAP PO SCH (22:38)
[2017-06-25] VITALS (7 sets, daily range): BP systolic 145–175; BP diastolic 9–99
[2017-06-25] MEDS: PIPER-TAZ 3.375 GM 50 ML IV SCH ×4 (00:20→17:34)
[2017-06-25] MEDS: METRONIDAZOLE 500MG/NS 100ML 100 ML IV SCH ×5 (00:20→18:08)
[2017-06-25] MEDS: HYDROCORTISONE SOD SUCCINATE 100 MG VIAL IV SCH ×3 (05:07→22:00)
[2017-06-25] MEDS: METOPROLOL TARTRATE 25 MG TAB PO SCH (08:45)
[2017-06-25] MEDS: PANTOPRAZOLE 40 MG 10ML VIAL IV SCH ×2 (08:45→21:01)
[2017-06-25] MEDS: ENOXAPARIN SOD INJ 60 MG/0.6 ML SYR SC SCH ×2 (08:45→21:02)
[2017-06-25] MEDS: FERROUS SULFATE 325 MG TAB PO SCH (08:45)
[2017-06-25] MEDS: MESALAMINE 500 MG CAPCR PO SCH ×5 (09:00→21:02)
--- NOTE | 2017-06-25 09:44 | Progress Note ---
DATE: June 25, 2017 TIME: 7:55 a.m. OVERNIGHT: No events. REVIEW OF SYSTEMS: Denies any dizziness. VITAL SIGNS: Reviewed. PHYSICAL EXAMINATION GENERAL: A tired-appearing woman resting in bed. HEENT: Anicteric. CARDIOVASCULAR: Normal S1 and S2. LUNGS: Moderate breath sounds. ABDOMEN: Soft and nontender. EXTREMITIES: No edema. SKIN: Dry. PSYCHIATRIC: Flat affect. LABS: Reviewed. MEDICATIONS: Reviewed. ASSESSMENT: A 77-year-old woman. 1. Acute enteritis. 2. Urinary tract infection. 3. Gastrointestinal bleed. 4. Severe sepsis. 5. Atrial fibrillation. 6. Normocytic anemia. 7. Hypokalemia. 8. Aod-NU-hmmdmmo elevation myocardial infarction. 9. Escherichia coli urinary tract infection. PLAN 1. Continue IV antibiotics. 2. Continue liquid diet. 3. Continue IV steroids. 4. Continue mesalamine. 5. Patient is on Lovenox treatment dose b.i.d. and beta scooby. 6. E. coli urinary tract infection. Patient is on IV Zosyn. 7. Continue physical therapy. 8. Discharge planning. Job#: [id number]
[2017-06-25] MEDS: NIFEDIPINE CR 30 MG TAB PO SCH ×2 (12:27→21:02)
[2017-06-25] MEDS: METOPROLOL TARTRATE 50 MG TAB PO SCH (21:01)
[2017-06-25] MEDS: TEMAZEPAM 15 MG CAP PO SCH (21:02)
[2017-06-26] VITALS: BP 148/76
[2017-06-26] MEDS: METRONIDAZOLE 500MG/NS 100ML 100 ML IV SCH ×4 (00:31→17:29)
[2017-06-26 04:00] VITALS: BP 132/69
[2017-06-26] MEDS: PIPER-TAZ 3.375 GM 50 ML IV SCH ×5 (06:00→23:48)
[2017-06-26] MEDS: HYDROCORTISONE SOD SUCCINATE 100 MG VIAL IV SCH ×3 (06:00→21:07)
[2017-06-26 07:51] LABS: BASOPHILS % 0.3 % (0.0-1.0); HEMATOCRIT 31.7 % (34.2-44.1); HEMOGLOBIN 10.2 g/dL (12.0-16.0); LYMPHOCYTES # (AUTO) 1.6 (1.0-3.2); LYMPHOCYTES % 13.8 % (18.0-39.1); MEAN CORPUSCULAR HGB CONC 32.2 g/dL (31-35); MEAN CORPUSCULAR VOLUME 83.9 fL (81-99); MONOCYTES # (AUTO) 0.9 (0.2-0.8); MONOCYTES % 7.6 % (4.4-11.3); NEUTROPHILS # (AUTO) 8.8 (2.1-6.9); NEUTROPHILS % 76.7 % (38.7-80.0); PLATELET COUNT 360 x10e3/uL (140-360); RED BLOOD COUNT 3.78 x10e6/uL (3.6-5.1); RED CELL DISTRIBUTION WIDTH 17.9 % (11.7-14.4)
[2017-06-26 08:00] VITALS: BP 136/63
[2017-06-26 08:18] LABS: BLOOD UREA NITROGEN 7 mg/dL (7-26); BUN/CREATININE RATIO 11 (6-25); CALCIUM 7.6 mg/dL (8.4-10.2); CARBON DIOXIDE 32 mmol/L (22-29); CHLORIDE 96 mmol/L (98-107); CREATININE, SERUM 0.65 mg/dL (0.57-1.11); EST GLOMERULAR FILTRATION RATE > 60 ML/MIN (60-); GLUCOSE 170 mg/dL (74-118); SODIUM 140 mmol/L (136-145)
[2017-06-26] MEDS: NIFEDIPINE CR 30 MG TAB PO SCH ×2 (08:51→21:05)
[2017-06-26] MEDS: ENOXAPARIN SOD INJ 60 MG/0.6 ML SYR SC SCH ×2 (08:51→21:06)
[2017-06-26] MEDS: FERROUS SULFATE 325 MG TAB PO SCH (08:51)
[2017-06-26] MEDS: MESALAMINE 500 MG CAPCR PO SCH ×3 (08:51→17:57)
[2017-06-26] MEDS: PANTOPRAZOLE 40 MG 10ML VIAL IV SCH ×2 (08:51→21:05)
[2017-06-26] MEDS: METOPROLOL TARTRATE 50 MG TAB PO SCH ×2 (08:52→21:05)
[2017-06-26 09:22] LABS: BLOOD UREA NITROGEN 7 mg/dL (7-26); BUN/CREATININE RATIO 11 (6-25); CALCIUM 7.4 mg/dL (8.4-10.2); CARBON DIOXIDE 28 mmol/L (22-29); CHLORIDE 98 mmol/L (98-107); CREATININE, SERUM 0.66 mg/dL (0.57-1.11); EST GLOMERULAR FILTRATION RATE > 60 ML/MIN (60-); GLUCOSE 282 mg/dL (74-118); SODIUM 141 mmol/L (136-145)
[2017-06-26] MEDS ORDERED: POTASSIUM CHLORIDE 20MEQ/100ML 200 ML IV ONE (10:30)
[2017-06-26] MEDS ORDERED: POTASSIUM CHLORIDE 20 MEQ TAB CR PO ONE ×2 (10:30→11:15)
[2017-06-26] MEDS: ALPRAZOLAM 0.25 MG TAB PO SCH ×3 (11:05→21:07)
[2017-06-26 12:00] VITALS: BP 142/65
[2017-06-26 16:00] VITALS: BP 123/60
[2017-06-26] MEDS ORDERED: POTASSIUM CHLORIDE 20 MEQ TAB CR PO STA (17:10)
[2017-06-26 20:00] VITALS: BP 125/75
[2017-06-26] MEDS: MESALAMINE 400 MG CAP PO SCH (21:05)
[2017-06-26] MEDS: TEMAZEPAM 15 MG CAP PO SCH (22:56)
[2017-06-27] VITALS (8 sets, daily range): BP systolic 125–170; BP diastolic 18–79
[2017-06-27] MEDS ORDERED: SODIUM CHLORIDE 0.9% 50ML 50 ML ONE (00:24)
[2017-06-27] MEDS: METRONIDAZOLE 500MG/NS 100ML 100 ML IV SCH ×4 (00:42→16:30)
[2017-06-27] MEDS: ALPRAZOLAM 0.25 MG TAB PO SCH ×3 (05:14→21:30)
[2017-06-27] MEDS: HYDROCORTISONE SOD SUCCINATE 100 MG VIAL IV SCH ×3 (05:14→21:30)
[2017-06-27] MEDS: PIPER-TAZ 3.375 GM 50 ML IV SCH ×3 (06:21→17:13)
[2017-06-27 07:26] LABS: BASOPHILS % 0.2 % (0.0-1.0); EOSINOPHILS % 0.3 % (0.0-6.0); HEMATOCRIT 28.3 % (34.2-44.1); HEMOGLOBIN 8.9 g/dL (12.0-16.0); LYMPHOCYTES # (AUTO) 1.4 (1.0-3.2); LYMPHOCYTES % 14.8 % (18.0-39.1); MEAN CORPUSCULAR HEMOGLOBIN 26.9 pg (28-32); MEAN CORPUSCULAR HGB CONC 31.4 g/dL (31-35); MEAN CORPUSCULAR VOLUME 85.5 fL (81-99); MONOCYTES # (AUTO) 0.8 (0.2-0.8); MONOCYTES % 8.8 % (4.4-11.3); NEUTROPHILS # (AUTO) 6.9 (2.1-6.9); NEUTROPHILS % 74.3 % (38.7-80.0); PLATELET COUNT 289 x10e3/uL (140-360); RED BLOOD COUNT 3.31 x10e6/uL (3.6-5.1); RED CELL DISTRIBUTION WIDTH 18.5 % (11.7-14.4)
[2017-06-27 07:39] LABS: ANION GAP 12.8 mmol/L (8-16); BLOOD UREA NITROGEN 8 mg/dL (7-26); BUN/CREATININE RATIO 14 (6-25); CARBON DIOXIDE 31 mmol/L (22-29); CHLORIDE 100 mmol/L (98-107); CREATININE, SERUM 0.58 mg/dL (0.57-1.11); EST GLOMERULAR FILTRATION RATE > 60 ML/MIN (60-); GLUCOSE 139 mg/dL (74-118); SODIUM 141 mmol/L (136-145)
[2017-06-27 07:41] LABS: POTASSIUM 2.8 mmol/L (3.5-5.1)
[2017-06-27] MEDS ORDERED: POTASSIUM CHLORIDE 20MEQ/100ML 200 ML IV ONE (07:45)
--- NOTE | 2017-06-27 08:04 | Progress Note ---
DATE: June 24, 2017 TIME: 8:45 a.m. OVERNIGHT: No events. REVIEW OF SYSTEMS: Denies any dizziness. PHYSICAL EXAMINATION: VITAL SIGNS: Reviewed. GENERAL APPEARANCE: Tired-appearing woman resting in bed. HEENT: Anicteric. CARDIOVASCULAR: Normal S1 and S2. LUNGS: Moderate breath sounds. ABDOMEN: Soft, nontender. EXTREMITIES: No edema. SKIN: Dry. PSYCHIATRIC: Flat affect. LABS: Reviewed. MEDICATIONS: Reviewed. ASSESSMENT: A 77-year-old woman: 1. Acute enteritis. 2. Urinary tract infection with Escherichia coli. 3. Gastrointestinal bleed. 4. Severe sepsis. 5. Atrial fibrillation. 6. Normocytic anemia. 7. Hypokalemia. 8. Non-ST elevation myocardial infarction. PLAN: 1. Continue IV antibiotics. 2. Continue diet. 3. Continue IV steroids. 4. Continue mesalamine. 5. Continue Lovenox b.i.d. and beta scooby. 6. Continue Zosyn for E. coli UTI. 7. Discharge planning. Job#: [id number]
--- NOTE | 2017-06-27 08:06 | Progress Note ---
DATE: June 27, 2017 TIME: 7 a.m. OVERNIGHT: She had some diarrhea. REVIEW OF SYSTEMS: Denies any dizziness. PHYSICAL EXAMINATION VITAL SIGNS: Reviewed. GENERAL: A tired-appearing woman resting in bed. HEENT: Anicteric. CARDIOVASCULAR: Normal S1 and S2. LUNGS: Moderate breath sounds. ABDOMEN: Soft and nontender. EXTREMITIES: No edema. SKIN: Dry. PSYCHIATRIC: Flat affect. LABS: Reviewed. MEDICATIONS: Reviewed. ASSESSMENT: A 77-year-old woman with: 1. Acute enteritis. 2. Severe hypokalemia. 3. Urinary tract infection. 4. Gastrointestinal bleed. 5. Severe sepsis. 6. Atrial fibrillation. 7. Diarrhea. 8. Normocytic anemia. 9. Jpc-EP-ylzqzpo elevation myocardial infarction. 10. Escherichia coli urinary tract infection. PLAN 1. Continue IV antibiotics. 2. Continue IV fluids. 3. Continue IV steroids. 4. Continue mesalamine. 5. Patient on Lovenox. 6. Follow up labs this morning. 7. Replace potassium as appropriate. Job#: [id number] [place]
[2017-06-27] MEDS: PANTOPRAZOLE 40 MG 10ML VIAL IV SCH ×2 (09:10→21:27)
[2017-06-27] MEDS: METOPROLOL TARTRATE 50 MG TAB PO SCH ×2 (09:10→21:29)
[2017-06-27] MEDS: MESALAMINE 400 MG CAP PO SCH ×3 (09:10→21:29)
[2017-06-27] MEDS: FERROUS SULFATE 325 MG TAB PO SCH (09:10)
[2017-06-27] MEDS: NIFEDIPINE CR 30 MG TAB PO SCH ×2 (09:11→21:29)
[2017-06-27] MEDS: ENOXAPARIN SOD INJ 60 MG/0.6 ML SYR SC SCH ×2 (09:11→21:29)
[2017-06-27] MEDS ORDERED: POTASSIUM CHLORIDE 20 MEQ TAB CR PO STA (14:23)
[2017-06-27] MEDS: TEMAZEPAM 15 MG CAP PO SCH (23:08)
[2017-06-28] VITALS (7 sets, daily range): BP systolic 108–188; BP diastolic 59–93
[2017-06-28] MEDS: PIPER-TAZ 3.375 GM 50 ML IV SCH ×4 (00:16→17:36)
[2017-06-28] MEDS: METRONIDAZOLE 500MG/NS 100ML 100 ML IV SCH ×4 (00:51→17:59)
[2017-06-28] MEDS: HYDROCORTISONE SOD SUCCINATE 100 MG VIAL IV SCH ×3 (05:28→22:56)
[2017-06-28] MEDS: ALPRAZOLAM 0.25 MG TAB PO SCH ×3 (05:28→23:55)
[2017-06-28] MEDS: FERROUS SULFATE 325 MG TAB PO SCH (09:29)
[2017-06-28] MEDS: PANTOPRAZOLE 40 MG 10ML VIAL IV SCH ×2 (09:29→20:47)
[2017-06-28] MEDS: NIFEDIPINE CR 30 MG TAB PO SCH ×2 (09:30→20:48)
[2017-06-28] MEDS: MESALAMINE 400 MG CAP PO SCH ×3 (09:30→20:48)
[2017-06-28] MEDS: ENOXAPARIN SOD INJ 60 MG/0.6 ML SYR SC SCH ×2 (09:30→20:48)
[2017-06-28] MEDS: METOPROLOL TARTRATE 50 MG TAB PO SCH ×2 (09:30→20:48)
[2017-06-28] MEDS ORDERED: PEG (High)/E-LYTE SOLN 4,000 ML BTL PO ONE (14:00)
[2017-06-28] MEDS ORDERED: BISACODYL 5 MG TAB EC PO ONE (14:00)
[2017-06-28] MEDS: TEMAZEPAM 15 MG CAP PO SCH (21:36)
[2017-06-29] VITALS (7 sets, daily range): BP systolic 136–195; BP diastolic 71–96
[2017-06-29] MEDS ORDERED: SODIUM CHLORIDE 0.9% 250ML 250 ML ONE (00:12)
[2017-06-29] MEDS: PIPER-TAZ 3.375 GM 50 ML IV SCH ×4 (00:14→23:14)
[2017-06-29] MEDS: METRONIDAZOLE 500MG/NS 100ML 100 ML IV SCH ×4 (00:45→23:13)
[2017-06-29] MEDS: ALPRAZOLAM 0.25 MG TAB PO SCH ×2 (06:00→20:57)
[2017-06-29 06:09] LABS: BASOPHILS % 0.1 % (0.0-1.0); EOSINOPHILS % 0.1 % (0.0-6.0); HEMATOCRIT 30.7 % (34.2-44.1); HEMOGLOBIN 9.6 g/dL (12.0-16.0); LYMPHOCYTES # (AUTO) 1.6 (1.0-3.2); LYMPHOCYTES % 21.6 % (18.0-39.1); MEAN CORPUSCULAR HEMOGLOBIN 27.1 pg (28-32); MEAN CORPUSCULAR HGB CONC 31.3 g/dL (31-35); MEAN CORPUSCULAR VOLUME 86.7 fL (81-99); MONOCYTES # (AUTO) 0.4 (0.2-0.8); MONOCYTES % 5.7 % (4.4-11.3); NEUTROPHILS % 69.4 % (38.7-80.0); PLATELET COUNT 297 x10e3/uL (140-360); RED BLOOD COUNT 3.54 x10e6/uL (3.6-5.1); RED CELL DISTRIBUTION WIDTH 18.9 % (11.7-14.4)
[2017-06-29] MEDS: HYDROCORTISONE SOD SUCCINATE 100 MG VIAL IV SCH (06:19)
[2017-06-29 06:38] LABS: ALANINE AMINOTRANSFERASE 9 IU/L (0-55); ALBUMIN 2.6 g/dL (3.5-5.0); ALKALINE PHOSPHATASE 39 IU/L (40-150); ANION GAP 13.5 mmol/L (8-16); BLOOD UREA NITROGEN 7 mg/dL (7-26); BUN/CREATININE RATIO 13 (6-25); CALCIUM 7.3 mg/dL (8.4-10.2); CARBON DIOXIDE 30 mmol/L (22-29); CHLORIDE 102 mmol/L (98-107); CREATININE, SERUM 0.55 mg/dL (0.57-1.11); EST GLOMERULAR FILTRATION RATE > 60 ML/MIN (60-); GLUCOSE 141 mg/dL (74-118); SODIUM 143 mmol/L (136-145)
[2017-06-29 06:42] LABS: POTASSIUM 2.5 mmol/L (3.5-5.1)
[2017-06-29] MEDS ORDERED: POTASSIUM CHLORIDE 20MEQ/100ML 300 ML IV ONE (07:30)
[2017-06-29] MEDS: FERROUS SULFATE 325 MG TAB PO SCH (07:54)
[2017-06-29] MEDS: MESALAMINE 400 MG CAP PO SCH ×3 (07:55→20:57)
[2017-06-29] MEDS: PANTOPRAZOLE 40 MG 10ML VIAL IV SCH ×2 (08:09→20:57)
[2017-06-29] MEDS: METOPROLOL TARTRATE 50 MG TAB PO SCH ×2 (09:00→15:33)
[2017-06-29] MEDS: NIFEDIPINE CR 30 MG TAB PO SCH ×2 (09:00→15:33)
[2017-06-29] MEDS: ENOXAPARIN SOD INJ 60 MG/0.6 ML SYR SC SCH ×2 (09:00→20:57)
[2017-06-29] MEDS ORDERED: FLUCONAZOLE 100 MG TAB PO ONE (14:00)
[2017-06-29] MEDS ORDERED: ONDANSETRON HCL INJ 2 MG/ML VIAL IV PRN (15:15)
[2017-06-29] MEDS ORDERED: PROPOFOL IV EMULSION 10 MG/ML 50 ML VIAL ONE (16:59)
[2017-06-29] MEDS ORDERED: PROMETHAZINE 12.5MG/ NACL 0.9% 12.5 MG/50 ML BAG IV PRN (17:00)
[2017-06-29] MEDS: HYDRALAZINE HCL 25 MG TAB PO SCH ×2 (17:06→22:30)
--- NOTE | 2017-06-29 17:25 | Progress Note ---
DATE: June 28, 2017 TIME OF SERVICE: 3:30 p.m. SUBJECTIVE: Overnight the patient had some diarrhea. REVIEW OF SYSTEMS: Denies any dizziness. PHYSICAL EXAMINATION VITAL SIGNS: Reviewed. GENERAL: A tired-appearing woman resting in bed. HEENT: Anicteric. CARDIOVASCULAR: Normal S1 and S2. No murmurs. LUNGS: Moderate breath sounds. ABDOMEN: Soft and nontender. EXTREMITIES: No edema. SKIN: Dry. PSYCHIATRIC: Normal affect. LABS: Reviewed. MEDICATIONS: Reviewed. ASSESSMENT: A 77-year-old woman with: 1. Acute enteritis. 2. Severe hypokalemia. 3. Urinary tract infection. 4. Gastrointestinal bleed. 5. Severe sepsis. 6. Atrial fibrillation. 7. Diarrhea. 8. Normocytic anemia. 9. Dkf-BZ-zsflvlj elevation myocardial infarction. 10. Escherichia coli urinary tract infection. PLAN 1. Continue IV antibiotics. 2. Continue replacement of potassium. 3. Continue steroid therapy. 4. Reintroduce diet and use antiemetics. 5. Discharge planning. Job#: [id number]
--- NOTE | 2017-06-29 17:35 | Progress Note ---
DATE: June 29, 2017 TIME OF SERVICE: 4:55 p.m. SUBJECTIVE: Overnight no events. REVIEW OF SYSTEMS: Denies any dizziness. PHYSICAL EXAMINATION VITAL SIGNS: Reviewed. GENERAL: A tired-appearing woman resting in bed. HEENT: Anicteric. CARDIOVASCULAR: Normal S1 and S2. No murmurs. LUNGS: Moderate breath sounds. ABDOMEN: Soft and nontender. EXTREMITIES: No edema. SKIN: Dry. PSYCHIATRIC: Flat affect. LABS: Reviewed. MEDICATIONS: Reviewed. ASSESSMENT: A 77-year-old woman with: 1. Acute enteritis. 2. Severe hypokalemia. 3. Urinary tract infection. 4. Gastrointestinal bleed. 5. Severe sepsis. 6. Atrial fibrillation. 7. Diarrhea. 8. Normocytic anemia. 9. Kww-NK-gcdoqob elevation myocardial infarction. 10. Escherichia coli urinary tract infection. PLAN 1. Continue IV antibiotics. 2. Continue Azolimine. 3. Continue Apresoline. 4. Continue fluconazole. 5. Continue Flagyl and Zosyn. 6. Potassium has improved. 7. The patient has tolerated diet. Will continue antiemetics and replace potassium as appropriate. 8. Plan discharge planning tomorrow. Job#: [id number]
[2017-06-29] MEDS ORDERED: TEMAZEPAM 15 MG CAP PO SCH (21:00)
[2017-06-29] MEDS: POTASSIUM CHLORIDE 20 MEQ TAB CR PO SCH ×2 (22:30→22:46)
[2017-06-30] VITALS: BP 108/65
[2017-06-30 04:00] VITALS: BP 138/78
[2017-06-30] MEDS: PIPER-TAZ 3.375 GM 50 ML IV SCH ×2 (05:41→12:45)
[2017-06-30] MEDS: METRONIDAZOLE 500MG/NS 100ML 100 ML IV SCH ×2 (05:41→11:33)
[2017-06-30] MEDS: HYDRALAZINE HCL 25 MG TAB PO SCH ×2 (05:41→16:24)
[2017-06-30] MEDS: ALPRAZOLAM 0.25 MG TAB PO SCH ×2 (05:42→16:23)
[2017-06-30 06:54] LABS: BASOPHILS % 0.3 % (0.0-1.0); EOSINOPHILS # (AUTO) 0.1 (0.0-0.4); EOSINOPHILS % 0.8 % (0.0-6.0); HEMATOCRIT 31.9 % (34.2-44.1); HEMOGLOBIN 9.9 g/dL (12.0-16.0); LYMPHOCYTES # (AUTO) 2.9 (1.0-3.2); LYMPHOCYTES % 25.9 % (18.0-39.1); MEAN CORPUSCULAR HEMOGLOBIN 27.1 pg (28-32); MEAN CORPUSCULAR VOLUME 87.4 fL (81-99); MONOCYTES # (AUTO) 0.7 (0.2-0.8); MONOCYTES % 5.8 % (4.4-11.3); NEUTROPHILS # (AUTO) 7.5 (2.1-6.9); NEUTROPHILS % 65.9 % (38.7-80.0); PLATELET COUNT 276 x10e3/uL (140-360); RED BLOOD COUNT 3.65 x10e6/uL (3.6-5.1); RED CELL DISTRIBUTION WIDTH 19.9 % (11.7-14.4)
[2017-06-30 07:09] LABS: ANION GAP 13.7 mmol/L (8-16); BLOOD UREA NITROGEN 8 mg/dL (7-26); BUN/CREATININE RATIO 14 (6-25); CALCIUM 7.6 mg/dL (8.4-10.2); CARBON DIOXIDE 27 mmol/L (22-29); CHLORIDE 105 mmol/L (98-107); CREATININE, SERUM 0.57 mg/dL (0.57-1.11); EST GLOMERULAR FILTRATION RATE > 60 ML/MIN (60-); GLUCOSE 136 mg/dL (74-118); POTASSIUM 3.7 mmol/L (3.5-5.1); SODIUM 142 mmol/L (136-145)
[2017-06-30 08:00] VITALS: BP 114/61
[2017-06-30] MEDS ORDERED: POTASSIUM CHLO20 ME1 PO (08:33)
[2017-06-30] MEDS ORDERED: HYDRALAZINE HCL25 MG PO (08:33)
[2017-06-30] MEDS ORDERED: ZOFRAN ODT4 MG PO (08:33)
[2017-06-30] MEDS ORDERED: NIFEDIPINE ER30 M1 PO (08:33)
[2017-06-30] MEDS ORDERED: Mesalamine PO (08:33)
[2017-06-30] MEDS ORDERED: PANTOPRAZOLE SO40 MG PO (08:33)
[2017-06-30] MEDS ORDERED: FLUCONAZOLE 100 MG TAB PO SCH ×2 (09:00)
[2017-06-30] MEDS ORDERED: POTASSIUM CHLORIDE 20 MEQ TAB CR PO SCH (09:00)
[2017-06-30] MEDS ORDERED: FERROUS SULFATE 325 MG TAB PO SCH (09:00)
[2017-06-30] MEDS: PANTOPRAZOLE 40 MG 10ML VIAL IV SCH (09:07)
[2017-06-30] MEDS: MESALAMINE 400 MG CAP PO SCH ×2 (09:08→16:23)
[2017-06-30] MEDS: NIFEDIPINE CR 30 MG TAB PO SCH (09:08)
[2017-06-30] MEDS: METOPROLOL TARTRATE 50 MG TAB PO SCH (09:08)
[2017-06-30] MEDS: ENOXAPARIN SOD INJ 60 MG/0.6 ML SYR SC SCH (09:08)
[2017-06-30] MEDS ORDERED: FLAGYL500 MG PO (09:41)
--- NOTE | 2017-06-30 10:27 | Discharge Summary ---
PRINCIPAL DIAGNOSES 1. Acute enteritis. 2. Severe hypokalemia. 3. Escherichia coli urinary tract infection. 4. Recurrent gastrointestinal bleed. 5. Severe sepsis. 6. Atrial fibrillation. 7. Diarrhea. 8. Normocytic anemia. 9. Mxq-YN-pplgzsiir myocardial infarction. SECONDARY DIAGNOSIS: Atrial fibrillation. CHIEF COMPLAINT: Nausea, vomiting, diarrhea. HISTORY OF PRESENT ILLNESS: This is a 77-year-old women developing nausea, vomiting, and diarrhea. Please refer to the H and P for further details. HOSPITAL COURSE: The patient had diarrhea with severe hypokalemia. She received repeated doses of IV potassium and oral potassium. She had acute enteritis. Testing for recurrent metabolic disease was negative. GI service assisted in management. The patient will need to follow up closely as an outpatient. The patient has been started on mesalamine. The patient has received IV antibiotics throughout the hospitalization. She had a urinary tract infection treated with antibiotics. She had bleeding that has resolved. The severe sepsis has also resolved. Atrial fibrillation: The heart rate is controlled. The diarrhea is intermittent but is somewhat resolved. She had tdc-CU-abzfcjvqn SC and E. coli urinary tract infection. The nss-AG-xgimteitu SC was treated medically. The patient will need to follow up with cardiology as an outpatient and with GI service. DISCHARGE MEDICATIONS: Per electronic medical record and include mesalamine and Flagyl. FOLLOWUP 1. Follow up with primary care doctor in 1 week. 2. Follow up with GI service in 2 weeks. 3. Follow up with cardiology in 2 weeks. CONDITION ON DISCHARGE: Stable and improving. DISCHARGE LOCATION: Home with home health and physical therapy. GITA KERR MD Job#: [id number]
[2017-06-30 10:32] VITALS: BP 114/61
[2017-06-30 12:00] VITALS: BP 136/79
[2017-06-30 16:00] VITALS: BP 128/79
== END 2017-06-30 19:01 | disposition home health service (06) | DRG 871 ==
LOC: ER 03:33 → ERHOLD 06:39 → EDBEDREQSVC 07:47 → MED/SURG2 06-22 15:08 → UNDODISIN 06-29 14:12
PROVIDERS: ADMIT Internal Medicine; ATTEND Internal Medicine
PROC: 3E033XZ Introduction of Vasopressor into Peripheral Vein, Percutaneous Approach (ICD-10-PCS; 2017-06-21)
PROC: 02H633Z Insertion of Infusion Device into Right Atrium, Percutaneous Approach (ICD-10-PCS; 2017-06-21)
PROC: 0DB98ZX Excision of Duodenum, Via Natural or Artificial Opening Endoscopic, Diagnostic (ICD-10-PCS; 2017-06-29)
PROC: 0DB78ZX Excision of Stomach, Pylorus, Via Natural or Artificial Opening Endoscopic, Diagnostic (ICD-10-PCS; 2017-06-29)
PROC: 0DB38ZX Excision of Lower Esophagus, Via Natural or Artificial Opening Endoscopic, Diagnostic (ICD-10-PCS; 2017-06-29)
PROC: 0DBB8ZX Excision of Ileum, Via Natural or Artificial Opening Endoscopic, Diagnostic (ICD-10-PCS; principal; 2017-06-29 13:30)
PROC: 0DBE8ZX Excision of Large Intestine, Via Natural or Artificial Opening Endoscopic, Diagnostic (ICD-10-PCS; 2017-06-29 13:30)
DX: A41.9 Sepsis, unspecified organism (principal); I21.4 Non-ST elevation (NSTEMI) myocardial infarction; I95.9 Hypotension, unspecified; E86.0 Dehydration; I48.91 Unspecified atrial fibrillation; B37.81 Candidal esophagitis; N39.0 Urinary tract infection, site not specified; K52.9 Noninfective gastroenteritis and colitis, unspecified; R65.20 Severe sepsis without septic shock; I10 Essential (primary) hypertension; E87.6 Hypokalemia; F32.9 Major depressive disorder, single episode, unspecified; M19.90 Unspecified osteoarthritis, unspecified site; K29.70 Gastritis, unspecified, without bleeding; K44.9 Diaphragmatic hernia without obstruction or gangrene; D64.9 Anemia, unspecified; Z79.01 Long term (current) use of anticoagulants; Z79.82 Long term (current) use of aspirin; B96.20 Unspecified Escherichia coli [E. coli] as the cause of diseases classified elsewhere
CPT/HCPCS: 36415; 43239; 45380; 70450; 71010; 71020; 74177; 74250; 80048; 80053; 80307; 81001; 82150; 82270; 82550; 82553; 83605; 83690; 83735; 83880; 84100; 84132; 84484; 85025; 85610; 85651; 85730; 86021; 86140; 86850; 86900; 87040; 87086; 87186; 87400; 87493; 88305; 88312; 93005; 93306; 99284; J1650; J1720; J2405; J2543; J3370; J3480; J7030; J7050; Q9967

== ENCOUNTER 2017-09-08 09:58 | Emergency (ER) | payer MEDICARE ==
[~2017-09-08] VITALS: Ht 157.5 cm; Wt 52.2 kg
[~2017-09-08 09:58] MED LIST changes: +ASPIR 8181 MG PO; +FAMOTIDINE20 MG PO; +FLAGYL500 MG PO; +HYDRALAZINE HCL25 MG PO; +MOBIC7.5 MG PO; +Mesalamine PO; +NIFEDIPINE ER30 M1 PO; +PANTOPRAZOLE SO40 MG PO; +POTASSIUM CHLO20 ME1 PO; +RESTORIL15 MG PO
--- OUTSIDE RECORDS SUMMARY | 2017-09-08 10:01 | XMS REPORT ---
Author Author [facility] Address Unknown Phone Unavailable Care Team Providers Care [employer] Manager Name Role Phone GITA KERR Unavailable Unavailable Problems This patient has no known problems. Allergies, Adverse Reactions, Alerts This patient has no known allergies or adverse reactions. Medications This patient has no known medications. Results Test Description Test Time Test Comments Text Results Atomic Results Result Comments SMALL BOWEL SERIES [place] [address] Patient Name: NIKA BLAKE MR #: [id number] : 1940 Age/Sex: 77/F Req #: [id number] Adm Physician: GITA KERR MD Ordered by: TAYA ARTHUR MD Report #: [id number] Location: [facility] Room/Bed: [place] [address] Procedure: [id number] DX/SMALL BOWEL SERIES Exam Date : 06/21/17 Exam Time: 1400 REPORT STATUS: Signed PROCEDURE: SMALL BOWEL SERIES COMPARISON: [facility], CT, CT ABDOMEN/PELVIS W, 06/21/2017, 5:09. INDICATIONS: ENTERITIS TEQUNIQUE: A powdered metal supervisor radiograph was performed. The patient was given barium to drink and sequential images of the abdomen were obtained through 90 minutes until the contrast had reached the colon. Spot images of the small bowel and terminal ileum were obtained. Fluoro time: 3.3 minutes FINDINGS: Reporter: Nonobstructive bowel gas pattern. Contrast is noted in the bladder. Small bowel: Multiple focal outpouchings are noted in the duodenum, consistent with diverticula. Evaluation of the proximal small bowel is limited by flocculation of contrast. Transit time is normal. There are several loops of distal ileum which show long segments of luminal reduction and cobblestoning of the mucosa, corresponding to previously visualized thickened ileum on CT dated 06/21/2017 The terminal ileum is not well-visualized. No focal mass is seen. CONCLUSION: Findings in the distal ileum consistent with previously visualized enteritis on CT dated 06/21/2017. Inflammatory bowel disease (particularly Crohn's) is a consideration despite the patient's age, given the history of prior episodes. Infectious enteritis is less likely. Thanh Collins M.D. Dictated by: Thanh Collins M.D. on 06/21/2017 at 19:40 Electronically approved by: Thanh Collins M.D. on 06/21/2017 at 19:40 Dictated By: THANH COLLINS MD 39 Transcribed By: MEGHAN on 06/21/171939 COPY TO: TAYA ARTHUR MD CHEST XRAY LINE PLACEMENT [place] [address] Patient Name: NIKA BLAKE MR #: [id number] : 1940 Age/Sex: 77/F Req #: [id number] Adm Physician: GITA EKRR MD Ordered by: MILLA LEON MD Report #: [id number] Location: [facility] Room/Bed: [place] [address] Procedure: [id number] DX/CHEST XRAY LINE PLACEMENT Exam Date: Exam Time: REPORT STATUS: Signed PROCEDURE: A single AP view of the chest. COMPARISON: Chest 2 views . INDICATIONS: CENTRAL LINE PLACEMENT FINDINGS: Lines/tubes: Right internal jugular temporary central venous catheter with tip projecting over the expected region of the right atrium. Lungs: The lungs are well inflated and clear. There is no evidence of pneumonia or pulmonary edema. Pleura: There is no pleural effusion or pneumothorax. Heart and mediastinum: The heart and the mediastinum are unremarkable. Atherosclerotic calcifications. Bones: No acute bony abnormality. Degenerative changes of the thoracic spine. IMPRESSION: No acute radiographic abnormality. Dictated by: Usha Shah M.D. on 2017 at 8:29 Electronically approved by: Usha Shah M.D. on 06/21/2017 at 8:29 Dictated By: USHA SHAH MD 8 Transcribed By: MEGHAN on 06/21/17828 COPY TO: MILLA LEON MD CHEST 2 VIEWS [place] [address] Patient Name: NIKA BLAKE MR #: [id number] : 1940 Age/Sex: 77/F Req # : [id number] Adm Physician: Ordered by: DRE TAVERA MD Report #: [id number] Location: ER Room/Bed: Procedure: [id number] DX/CHEST 2 VIEWS Exam Date: Exam Time: REPORT STATUS: Signed EXAM: CHEST 2 VIEWS, PA and lateral DATE: 06/21/2017 4 :08 AM Time stamp on exam: 0421 hours INDICATION: Nausea, vomiting COMPARISON: None FINDINGS: LINES/TUBES: None LUNGS: No consolidations or edema. PLEURA: No effusions or pneumothorax. HEART AND MEDIASTINUM: Normal size and contour. BONES AND SOFT TISSUES: No acute findings. Hiatal hernia. IMPRESSION: No acute thoracic abnormality. Signed by: Dr. Taryn Dsouza M.D. on 06/21/2017 5:05 AM Dictated By: TARYN DSOUZA MD 4 COPY TO: DRE TAVERA MD CT ABDOMEN/PELVIS W [place] [address] Patient Name: NIKA BLAKE MR #: [id number] : 1940 Age/Sex: 77/F Req #: [id number] Adm Physician: Ordered by: DRE TAVERA MD Report #: [id number] Location: ER Room/Bed: Procedure: [id number] CT/CT ABDOMEN/PELVIS W Exam Date: Exam Time: REPORT STATUS: Signed EXAM: CT ABDOMEN AND PELVIS with IV CONTRAST DATE: 06/21/2017 4:08 AM Time stamp on Exam: 0512 hours INDICATION: Abdominal pain COMPARISON: None available TECHNIQUE: The abdomen and pelvis were scanned using a multidetector helical scanner. Coronal and sagittal reformations were obtained. Routine protocol performed. IV Contrast: 100 cc Isovue-370 Oral Contrast: Water CTDIvol has been reviewed. It is below the limits set by the Radiation Protocol Committee (RPC) . FINDINGS: LOWER THORAX: No consolidations LIVER: No masses BILIARY: Cholelithiasis. No wall thickening or ductal dilation. SPLEEN: No masses PANCREAS: No masses ADRENALS: No nodules KIDNEYS: Symmetric perfusion. No enhancing masses. No hydronephrosis. GI TRACT: Several loops of small bowel with enhancing thickened fletcher and adjacent vascular engorgement. No bowel obstruction. Moderate to large hiatal hernia. Incidental duodenal diverticulum. VESSELS: Marked atherosclerotic change of the abdominal aorta and branches. PERITONEUM/RETROPERITONEUM: Trace free pelvic fluid. LYMPH NODES: Prominent mesenteric lymph nodes. REPRODUCTIVE ORGANS: The uterus and ovaries are not visualized. BLADDER: Unremarkable SOFT TISSUES: Unremarkable BONES: No suspicious bone lesions. IMPRESSION: Nonspecific enteritis involving the distal and terminal ileum with associated vascular congestion and mesenteric lymphadenopathy. These findings were described in a report of a CT of the abdomen and pelvis in 2013 (images not available for comparison), making inflammatory enteritis (Crohn's) a likely cause. Signed by: Dr. Taryn Dsouza M.D. on 06/21/2017 5:44 AM Dictated By: TARYN DSOUZA MD Transcribed By: NINO on 06/21/17543 COPY TO: DRE TAVERA MD CT BRAIN WO [place] [address] Patient Name: NIKA BLAKE MR #: [id number] : 1940 Age/Sex: 77/F Req # : [id number] Adm Physician: Ordered by: DRE TAVERA MD Report #: [id number] Location: ER Room/Bed: Procedure: [id number] CT/CT BRAIN WO Exam Date: Exam Time: REPORT STATUS: Signed Exam: Head CT without contrast History: Nausea, vomiting, headache Comparison studies: Previous head CT of 01/07/2014 is currently unavailable on the PACS for comparison. Technique: Axial images were obtained from the skull base to the vertex. Coronal and sagittal images reconstructed from the axial data. Intravenous contrast: None Findings: Scalp: No abnormalities. Bones: The sphenoid wings are demineralized bilaterally with lytic changes. No associated soft tissue mass is identified. Brain sulci: Appropriate for age. Ventricles: Normal in size and configuration. No hydrocephalus. Extra-axial spaces: Mildly prominent axial spaces of CSF density along the right anterior temporal convexity is most likely represents a small arachnoid cyst. Parenchyma: No mass, acute hemorrhage or acute cortical vascular insults. Scattered hypodensities in the supratentorial white matter are nonspecific but most compatible with chronic small vessel ischemic changes. Sellar/suprasellar region: No abnormalities. Craniocervical junction: Patent foramen magnum. No Chiari one malformation. Included paranasal sinuses: Mild inflammatory mucosal thickening in the left maxillary sinus. Incidental findings: Atherosclerotic calcifications in the carotid siphons and intradural vertebral arteries. Bilateral lens replacements related to previous cataract surgery. IMPRESSION: 1. No acute intracranial abnormalities. 2. Mild generalized volume loss. 3. Moderate supratentorial chronic microvascular ischemic changes. 4. Incidental bilateral sphenoid demineralization with lytic changes. Signed by: Dr. Claudia Fields M.D. on 06/21/2017 5:47 AM Dictated By: CLAUDIA FIELDS MD 6 Transcribed By: NINO on 06/21/17546 COPY TO: DRE TAVERA MD
[2017-09-08 10:28] LABS: BASOPHILS # (AUTO) 0.1 (0.0-0.1); BASOPHILS % 0.7 % (0.0-1.0); EOSINOPHILS % 0.3 % (0.0-6.0); HEMOGLOBIN 10.4 g/dL (12.0-16.0); LYMPHOCYTES # (AUTO) 0.8 (1.0-3.2); LYMPHOCYTES % 12.2 % (18.0-39.1); MEAN CORPUSCULAR HEMOGLOBIN 27.4 pg (28-32); MEAN CORPUSCULAR HGB CONC 31.5 g/dL (31-35); MEAN CORPUSCULAR VOLUME 87.1 fL (81-99); MONOCYTES # (AUTO) 0.9 (0.2-0.8); MONOCYTES % 12.6 % (4.4-11.3); NEUTROPHILS % 73.8 % (38.7-80.0); PLATELET COUNT 280 x10e3/uL (140-360); RED BLOOD COUNT 3.79 x10e6/uL (3.6-5.1); RED CELL DISTRIBUTION WIDTH 16.4 % (11.7-14.4)
[2017-09-08 10:29] LABS: BILIRUBIN,URINE 1+ (NEGATIVE); KETONES,URINE NEGATIVE (NEGATIVE); LEUKOCYTE ESTERASE ,URINE 1+ (NEGATIVE); NITRITE,URINE POSITIVE (NEGATIVE); PROTEIN,URINE DIPSTICK NEGATIVE (NEGATIVE); URINE UROBILINOGEN 0.2 mg/dL (0.2 - 1)
[2017-09-08 10:30] LABS: CLARITY,URINE CLOUDY (CLEAR); COLOR,URINE YELLOW (YELLOW)
[2017-09-08] MEDS: SODIUM CHLORIDE 0.9% 1000ML 1,000 ML IV STA ×2 (10:38→12:00)
[2017-09-08 10:48] LABS: ALANINE AMINOTRANSFERASE 6 IU/L (0-55); ALBUMIN 2.5 g/dL (3.5-5.0); ALBUMIN/GLOBULIN RATIO 0.7 (0.8-2.0); ALKALINE PHOSPHATASE 62 IU/L (40-150); ANION GAP 11.5 mmol/L (8-16); BLOOD UREA NITROGEN 13 mg/dL (7-26); BUN/CREATININE RATIO 17 (6-25); CARBON DIOXIDE 19 mmol/L (22-29); CHLORIDE 110 mmol/L (98-107); CREATINE KINASE 30 IU/L (29-168); CREATININE, SERUM 0.76 mg/dL (0.57-1.11); EST GLOMERULAR FILTRATION RATE > 60 ML/MIN (60-); GLUCOSE 111 mg/dL (74-118); POTASSIUM 3.5 mmol/L (3.5-5.1); SODIUM 137 mmol/L (136-145)
[2017-09-08] MEDS ORDERED: MECLIZINE HCL 12.5 MG TAB PO ONE (11:00)
--- NOTE | 2017-09-08 11:01 | Diagnostic Imaging Report ---
EXAMINATION: Head CT HISTORY: Weakness, vertigo, pain COMPARISON: Head CT on 06/21/2017 TECHNIQUE: Multidetector axial images were obtained without contrast from the foramen magnum to the vertex . The images were reconstructed using brain and bone algorithms. Thin section brain images were reformatted into coronal and sagittal planes. Intravenous contrast: None. Motion/streaking artifact limits the evaluation of the skull base and posterior cranial fossa. FINDINGS: Parenchyma: 1. Unchanged nonspecific moderate confluent white matter chronic microvascular ischemic changes. 2. No mass or hemorrhage. No CT evidence of acute territorial vascular insult. Extra-axial spaces:No abnormal density. No extra-axial fluid collections Brain volume: Normal for age. Ventricles: No hydrocephalus or displacement. Arteries: No density suggestive of thrombus. Dural sinuses: No abnormal density. Extra-axial spaces: No abnormal density. Foramen magnum: No mass, Chiari malformation, or basilar invagination. Sella: No obvious mass. Paranasal/mastoid sinuses: Imaged portions unremarkable. Skull/Scalp: Unchanged previously described bilateral sphenoid demineralization with lytic changes, no associated soft tissue mass IMPRESSION: 1. No acute intracranial hemorrhage or CT evidence of acute territorial cortical vascular insults. 2. Stable moderate chronic microvascular ischemic changes. 3. Unchanged nonspecific lytic lesions in the sphenoid bone bilaterally compared to head CT on 06/21/2017. Correlation with past medical history and/or bone scan is recommended for further evaluation if clinically indicated. Signed by: Dr. Елена Maxwell M.D. on 09/08/2017 10:58 AM
[2017-09-08 11:05] LABS: BACTERIA,URINE MODERATE /HPF; EPITHELIAL CELLS,URINE RARE /LPF; URIC ACID CRYSTALS,URINE MANY (FEW)
[2017-09-08 11:19] LABS: BAND NEUTROPHILS % (MANUAL) 18 %; EOSINOPHILS % (MANUAL) 1 % (0-7); LYMPHOCYTES % (MANUAL) 14 % (19-48); MONOCYTES % (MANUAL) 15 % (3.4-9.0); NEUTROPHILS % (MANUAL) 50 % (40-74)
[2017-09-08 11:20] LABS: PLATELET ESTIMATE ADEQUATE; PLATELET MORPHOLOGY COMMENT NORMAL; RBC MORPHOLOGY COMMENT NORMAL
--- NOTE | 2017-09-08 11:31 | Diagnostic Imaging Report ---
PROCEDURE: Frontal and lateral views of the chest. COMPARISON: Portable chest 06/21/2017. INDICATIONS: WEAKNESS, RIGHT ARM PAIN FINDINGS: Lines/tubes: None. Lungs: The lungs are well inflated and clear. There is no evidence of pneumonia or pulmonary edema. Pleura: There is no pleural effusion or pneumothorax. Heart and mediastinum: The heart and the mediastinum are normal. Atherosclerotic calcifications. Bones: No acute bony abnormality. Degenerative changes of the thoracic spine. IMPRESSION: No acute radiographic abnormality. Dictated by: Isaac Dick M.D. on 09/08/2017 at 11:32 Electronically approved by: Isaac Dick M.D. on 09/08/2017 at 11:32
[2017-09-08 13:48] VITALS: BP 121/64
[2017-09-13] MEDS ORDERED: KEFLEX500 MG PO (08:00)
[2017-09-13] MEDS ORDERED: ZOFRAN ODT4 MG PO (08:00)
[2017-11-09] MEDS ORDERED: FLAGYL500 MG PO (06:17)
[2017-11-09] MEDS ORDERED: PREDNISONE20 MG PO (06:17)
[2017-11-09] MEDS ORDERED: CIPRO500 MG PO (06:17)
[2017-11-09] MEDS ORDERED: ZOFRAN ODT4 MG PO (06:17)
== END 2017-09-08 14:15 | disposition home or self-care (01) ==
LOC: ER 09:58
DX: R42 Dizziness and giddiness (principal); N39.0 Urinary tract infection, site not specified; R11.0 Nausea
CPT/HCPCS: 36415; 70450; 71046; 80053; 81001; 82550; 82553; 84484; 85025; 85730; 87400; 93005; 99284; J7030

== ENCOUNTER 2017-09-09 18:30 | Inpatient (IN) | payer MEDICARE ==
[~2017-09-09] VITALS: Ht 157.5 cm; Wt 56.8 kg
[2017-09-09 19:09] LABS: BASOPHILS # (AUTO) 0.1 (0.0-0.1); BASOPHILS % 0.6 % (0.0-1.0); EOSINOPHILS % 0.1 % (0.0-6.0); HEMATOCRIT 30.8 % (34.2-44.1); HEMOGLOBIN 10.1 g/dL (12.0-16.0); LYMPHOCYTES # (AUTO) 0.4 (1.0-3.2); LYMPHOCYTES % 3.5 % (18.0-39.1); MEAN CORPUSCULAR HEMOGLOBIN 27.6 pg (28-32); MEAN CORPUSCULAR HGB CONC 32.8 g/dL (31-35); MEAN CORPUSCULAR VOLUME 84.2 fL (81-99); MONOCYTES # (AUTO) 0.9 (0.2-0.8); MONOCYTES % 7.2 % (4.4-11.3); PLATELET COUNT 286 x10e3/uL (140-360); RED BLOOD COUNT 3.66 x10e6/uL (3.6-5.1); RED CELL DISTRIBUTION WIDTH 16.3 % (11.7-14.4)
[2017-09-09 19:19] LABS: INR 1.22; PARTIAL THROMBOPLASTIN TIME 30.9 seconds (23.8-35.5); PROTHROMBIN TIME 14.5 seconds (11.9-14.5)
--- NOTE | 2017-09-09 19:26 | Diagnostic Imaging Report ---
EXAMINATION: Head CT HISTORY: Status post fall, dizziness, weakness, fever COMPARISON: Head CT on 08/29/2017 TECHNIQUE: Multidetector axial images were obtained without contrast from the foramen magnum to the vertex . The images were reconstructed using brain and bone algorithms. Thin section brain images were reformatted into coronal and sagittal planes. Intravenous contrast: None. Motion/streaking artifact limits the evaluation of the skull base and posterior cranial fossa. FINDINGS: Parenchyma: 1. Persistent moderate confluent chronic microvascular ischemic changes in the supratentorial white matter. 2. No mass or hemorrhage. No CT evidence of acute territorial vascular insult. Extra-axial spaces:No abnormal density. No extra-axial fluid collections Brain volume: Normal for age. Ventricles: No hydrocephalus or displacement. Arteries: No density suggestive of thrombus. Dural sinuses: No abnormal density. Extra-axial spaces: No abnormal density. Foramen magnum: No mass, Chiari malformation, or basilar invagination. Sella: No obvious mass. Paranasal/mastoid sinuses: Imaged portions unremarkable. Skull/Scalp: Unchanged previously described bilateral sphenoid demineralization with lytic changes, no associated soft tissue mass IMPRESSION: 1. No acute intracranial hemorrhage or cortical infarct. 2. Moderate chronic microvascular ischemic changes, stable when compared to recent head CTs on 09/08/2017 and 06/21/2017 Signed by: Dr. Елена Maxwell M.D. on 09/09/2017 7:22 PM
--- NOTE | 2017-09-09 19:28 | Diagnostic Imaging Report ---
CHEST SINGLE (PORTABLE), 09/09/2017 6:32 PM Technique: CHEST SINGLE (PORTABLE) Comparison: 09/08/2017 Clinical history: Fall, weakness, fever Findings: Heart/mediastinum: Mildly enlarged cardiomediastinal silhouette, accentuated by portable technique. Aortic calcifications. Hiatal hernia. Lungs/pleural spaces: No consolidation or edema. No effusion or pneumothorax. Impression: 1. Lines/Tubes: None 2. No acute abnormality. Signed by: Dr Merry Stovall MD on 09/09/2017 7:24 PM
[2017-09-09 19:37] LABS: ALANINE AMINOTRANSFERASE 8 IU/L (0-55); ALBUMIN 2.6 g/dL (3.5-5.0); ALBUMIN/GLOBULIN RATIO 0.8 (0.8-2.0); ALKALINE PHOSPHATASE 109 IU/L (40-150); BLOOD UREA NITROGEN 11 mg/dL (7-26); BUN/CREATININE RATIO 15 (6-25); CALCIUM 8.2 mg/dL (8.4-10.2); CARBON DIOXIDE 17 mmol/L (22-29); CHLORIDE 109 mmol/L (98-107); CREATINE KINASE 66 IU/L (29-168); CREATININE, SERUM 0.71 mg/dL (0.57-1.11); EST GLOMERULAR FILTRATION RATE > 60 ML/MIN (60-); GLUCOSE 206 mg/dL (74-118); SODIUM 137 mmol/L (136-145)
[2017-09-09] MEDS ORDERED: POTASSIUM CHLORIDE 20MEQ/15ML UDC PO STA (19:57)
[2017-09-09] MEDS ORDERED: ONDANSETRON HCL INJ 2 MG/ML VIAL IV PRN (20:00)
[2017-09-09] MEDS ORDERED: ACETAMINOPHEN 325 MG TAB PO PRN (20:00)
[2017-09-09] MEDS ORDERED: KCL 20MEQ/.9 SOD CHL 1,000 ML IV ONE (20:00)
[2017-09-09] MEDS ORDERED: SODIUM CHLORIDE 0.9% 1000ML 1,000 ML IV ONE (20:00)
[2017-09-09] MEDS ORDERED: MAGNESIUM SULFATE 2GM/50ML 50 ML IV ONE ×2 (20:15→23:00)
[2017-09-09 20:24] LABS: CLARITY,URINE CLOUDY (CLEAR); LEUKOCYTE ESTERASE ,URINE 1+ (NEGATIVE)
[2017-09-09] MEDS ORDERED: PANTOPRAZOLE 40 MG 10ML VIAL IV STA (20:24)
[2017-09-09 20:25] LABS: BILIRUBIN,URINE NEGATIVE (NEGATIVE); COLOR,URINE YELLOW (YELLOW); KETONES,URINE NEGATIVE (NEGATIVE); NITRITE,URINE POSITIVE (NEGATIVE); PROTEIN,URINE DIPSTICK TRACE (NEGATIVE); URINE UROBILINOGEN 0.2 mg/dL (0.2 - 1)
[2017-09-09] MEDS ORDERED: ASPIRIN 81 MG CHEW TAB PO ONE (20:30)
[2017-09-09] MEDS: CEFTRIAXONE SOD 1 GM VIAL IV SCH (20:33)
[2017-09-09 20:35] LABS: ANISOCYTOSIS SLIGHT; BAND NEUTROPHILS % (MANUAL) 14 %; LYMPHOCYTES % (MANUAL) 4 % (19-48); MONOCYTES % (MANUAL) 2 % (3.4-9.0); NEUTROPHILS % (MANUAL) 80 % (40-74); PLATELET ESTIMATE ADEQUATE; PLATELET MORPHOLOGY COMMENT NORMAL; RBC MORPHOLOGY COMMENT NORMAL
[2017-09-09 20:43] LABS: WBC,URINE (MAN) >50 /HPF (0-5)
[2017-09-09 20:44] LABS: BACTERIA,URINE MANY /HPF; EPITHELIAL CELLS,URINE MANY /LPF; RBC,URINE 21-50 /HPF (0-5)
[2017-09-09] MEDS ORDERED: SODIUM CHLORIDE 0.9% 500ML 500 ML ONE ×2 (20:46→22:06)
[2017-09-09] MEDS ORDERED: SODIUM CHLORIDE 0.9% 500ML 500 ML IV ONE ×4 (21:00→23:15)
[2017-09-09 23:20] LABS: BASOPHILS % 0.5 % (0.0-1.0); EOSINOPHILS % 0.1 % (0.0-6.0); HEMATOCRIT 26.2 % (34.2-44.1); HEMOGLOBIN 8.2 g/dL (12.0-16.0); LYMPHOCYTES # (AUTO) 0.9 (1.0-3.2); LYMPHOCYTES % 11.3 % (18.0-39.1); MEAN CORPUSCULAR HEMOGLOBIN 27.8 pg (28-32); MEAN CORPUSCULAR HGB CONC 31.3 g/dL (31-35); MONOCYTES # (AUTO) 0.7 (0.2-0.8); NEUTROPHILS # (AUTO) 6.5 (2.1-6.9); NEUTROPHILS % 79.6 % (38.7-80.0); RED BLOOD COUNT 2.95 x10e6/uL (3.6-5.1); RED CELL DISTRIBUTION WIDTH 16.5 % (11.7-14.4)
[2017-09-09 23:26] LABS: MEAN CORPUSCULAR VOLUME 88.8 fL (81-99); PLATELET COUNT 238 x10e3/uL (140-360)
[2017-09-09 23:38] LABS: INR 1.33; PARTIAL THROMBOPLASTIN TIME 33.2 seconds (23.8-35.5); PROTHROMBIN TIME 15.5 seconds (11.9-14.5)
[2017-09-09 23:41] LABS: ANION GAP 11.3 mmol/L (8-16); BLOOD UREA NITROGEN 9 mg/dL (7-26); BUN/CREATININE RATIO 14 (6-25); CALCIUM 7.3 mg/dL (8.4-10.2); CARBON DIOXIDE 16 mmol/L (22-29); CHLORIDE 112 mmol/L (98-107); CREATININE, SERUM 0.65 mg/dL (0.57-1.11); EST GLOMERULAR FILTRATION RATE > 60 ML/MIN (60-); GLUCOSE 171 mg/dL (74-118); MAGNESIUM 2.3 MG/DL (1.3-2.1); POTASSIUM 3.3 mmol/L (3.5-5.1); SODIUM 136 mmol/L (136-145)
[2017-09-09 23:44] LABS: CREATINE KINASE 135 IU/L (29-168)
[2017-09-10] VITALS (49 sets, daily range): BP systolic 80–154; BP diastolic 51–113
[2017-09-10] MEDS ORDERED: FUROSEMIDE INJ 10 MG/ML 2 ML VIAL IV PRN
[2017-09-10] MEDS ORDERED: SODIUM CHLORIDE 0.9% 250ML 250 ML IV ONE
[2017-09-10 00:01] LABS: THYROID STIMULATING HORMONE 1.924 uIU/mL (0.350-4.940)
[2017-09-10] MEDS ORDERED: VANCOMYCIN 1GM/NS 250 ML 250 ML ONE (00:28)
[2017-09-10] MEDS ORDERED: VANCOMYCIN 1GM/NS 250 ML 250 ML IV STA (00:54)
[2017-09-10] MEDS ORDERED: NOREPINEPHRINE INJ 4MG/4ML 8 MG in DEXTROSE 5% 250ML 242 ML IV PRN (01:00)
[2017-09-10] MEDS ORDERED: NOREPINEPHRINE 8 MG/D5W 250 ML 250 ML ONE (01:12)
[2017-09-10] MEDS ORDERED: SODIUM CHLORIDE 0.9% 1000ML 1,000 ML ONE (01:26)
--- NOTE | 2017-09-10 01:34 | Diagnostic Imaging Report ---
CHEST SINGLE (PORTABLE), 09/10/2017 12:54 AM Technique: CHEST SINGLE (PORTABLE) Comparison: Previous day Clinical history: \S\RIGHT SC CENTRAL LINE PLACEMENT Findings: See Impression Impression: 1. Lines/Tubes: Right subclavian central venous catheter placement with tip overlying the jugular vein; recommend repositioning. 2. Otherwise stable chest. No pneumothorax. Signed by: Dr Merry Stovall MD on 09/10/2017 1:30 AM
[2017-09-10] MEDS: PANTOPRAZOLE 40 MG 10ML VIAL IV SCH (08:22)
[2017-09-10] MEDS: CEFTRIAXONE SOD 1 GM VIAL IV SCH ×2 (08:22→20:45)
[2017-09-10 08:53] LABS: BASOPHILS % 0.5 % (0.0-1.0); EOSINOPHILS # (AUTO) 0.1 (0.0-0.4); EOSINOPHILS % 1.2 % (0.0-6.0); HEMATOCRIT 28.9 % (34.2-44.1); HEMOGLOBIN 9.2 g/dL (12.0-16.0); LYMPHOCYTES # (AUTO) 1.2 (1.0-3.2); LYMPHOCYTES % 15.8 % (18.0-39.1); MEAN CORPUSCULAR HEMOGLOBIN 27.8 pg (28-32); MEAN CORPUSCULAR HGB CONC 31.8 g/dL (31-35); MEAN CORPUSCULAR VOLUME 87.3 fL (81-99); MONOCYTES # (AUTO) 0.8 (0.2-0.8); MONOCYTES % 10.3 % (4.4-11.3); NEUTROPHILS # (AUTO) 5.3 (2.1-6.9); NEUTROPHILS % 71.1 % (38.7-80.0); PLATELET COUNT 267 x10e3/uL (140-360); RED BLOOD COUNT 3.31 x10e6/uL (3.6-5.1); RED CELL DISTRIBUTION WIDTH 16.6 % (11.7-14.4)
[2017-09-10 09:31] LABS: ALANINE AMINOTRANSFERASE 8 IU/L (0-55); ALBUMIN 2.2 g/dL (3.5-5.0); ALBUMIN/GLOBULIN RATIO 0.9 (0.8-2.0); ALKALINE PHOSPHATASE 81 IU/L (40-150); ANION GAP 8.8 mmol/L (8-16); BLOOD UREA NITROGEN 7 mg/dL (7-26); BUN/CREATININE RATIO 13 (6-25); CALCIUM 7.1 mg/dL (8.4-10.2); CARBON DIOXIDE 16 mmol/L (22-29); CHLORIDE 115 mmol/L (98-107); CREATININE, SERUM 0.56 mg/dL (0.57-1.11); EST GLOMERULAR FILTRATION RATE > 60 ML/MIN (60-); GLUCOSE 109 mg/dL (74-118); POTASSIUM 3.8 mmol/L (3.5-5.1); SODIUM 136 mmol/L (136-145)
[2017-09-10 09:38] LABS: CREATINE KINASE MB 6.6 ng/mL (0-5.0)
[2017-09-10 11:11] LABS: BAND NEUTROPHILS % (MANUAL) 24 %; EOSINOPHILS % (MANUAL) 2 % (0-7); LYMPHOCYTES % (MANUAL) 19 % (19-48); MONOCYTES % (MANUAL) 5 % (3.4-9.0); NEUTROPHILS % (MANUAL) 50 % (40-74); PLATELET ESTIMATE ADEQUATE; PLATELET MORPHOLOGY COMMENT NORMAL; RBC MORPHOLOGY COMMENT NORMAL
[2017-09-10 14:46] LABS: CREATINE KINASE MB 5.5 ng/mL (0-5.0)
--- NOTE | 2017-09-10 19:15 | History and Physical ---
PRIMARY CARE PHYSICIAN: Dr. Fernandez. CHIEF COMPLAINT: Fever, low blood pressure, nausea and vomiting. HISTORY OF PRESENT ILLNESS: This is a 77-year-old woman with a history of E. coli urinary tract infection now developing fever, nausea and vomiting and urinary discomfort and was brought to the hospital. Here she was found to have urinary tract infection with low blood pressure, signs of sepsis. She is admitted to the ICU for further management. Denies any chest pain or shortness of breath. PAST MEDICAL HISTORY: E. coli urinary tract infection, severe hypokalemia, acute enteritis, recurrent intestinal bleeding, severe sepsis, atrial fibrillation, diarrhea, normocytic anemia, non-ST elevation DC, depression, Clostridium difficile colitis, iron deficiency anemia. PAST SURGICAL HISTORY: None. ALLERGIES: PER ELECTRONIC MEDICAL RECORDS. FAMILY HISTORY/SOCIAL HISTORY: History of alcohol use but quit. No illicits, no cigarettes. She lives alone and she is . MEDICATIONS: Per electronic medical records. REVIEW OF SYSTEMS: Denies any chest pain. PHYSICAL EXAMINATION VITAL SIGNS: Reviewed. GENERAL APPEARANCE: A tired-appearing woman resting in the bed. HEENT: Anicteric. Pupils responsive to light. No oral lesions. CARDIOVASCULAR: She has a 3/6 systolic ejection murmur. LUNGS: Moderate breath sounds, ABDOMEN: Soft and nontender. Nondistended. EXTREMITIES: There is no edema or calf tenderness. NEUROLOGIC: Alert and oriented x3. Moving all extremities. SKIN: Dry. PSYCHIATRIC: Normal affect. LABS: Reviewed. MEDICATIONS: Reviewed. ASSESSMENT AND PLAN: A 77-year-old woman. 1. Sepsis. This is due to urinary tract infection. Continue antibiotics and fluids. 2. Urinary tract infection. Continue antibiotics and she has received fluid. 3. Coronary artery disease. Continue home medication. Will continue aspirin. 4. Atrial fibrillation. Rate currently controlled. Monitor by telemetry. 5. Normocytic anemia. Mild to moderate. Will continue to follow. 6. Hypomagnesemia. Replace and recheck. 7. Hypokalemia. Replace potassium. 8. Elevated troponin. This seems to be non-evolving. Will follow. 9. Prophylaxis: Use proton pump inhibitor and Lovenox. DISPOSITION: Monitor closely in the ICU. She can be transitioned out to the floor with telemetry. Continue vancomycin and ceftriaxone. Critical care time more than 35 minutes. Job#: [id number] GH
[2017-09-11] VITALS (7 sets, daily range): BP systolic 126–147; BP diastolic 62–72
[2017-09-11 04:02] LABS: CREATINE KINASE MB 3.3 ng/mL (0-5.0)
[2017-09-11] MEDS: CEFTRIAXONE SOD 1 GM VIAL IV SCH ×2 (08:00→21:31)
[2017-09-11] MEDS: PANTOPRAZOLE 40 MG 10ML VIAL IV SCH (09:00)
--- NOTE | 2017-09-11 11:03 | Diagnostic Imaging Report ---
Non-tunneled Central Venous Catheter Revision 09/11/2017 Pre-Procedure Diagnosis: Malpositioned right subclavian central venous catheter. Post-procedure Diagnosis:Malpositioned right subclavian central venous catheter Textbook Associate: Priti Vaz Runner Man: None Sedation: None. 1% lidocaine local anesthesia. Radiation Dose:1.12 mGy (cumulative air kerma) Fluoroscopy time:0.3 minutes Estimate blood loss: <5 mL Blood administered: None Complications: None Implants/Grafts: 16 cm 7-Cuban 3 lumen CVC Specimen: None Procedure: Informed consent was obtained and the patient positioned supine in the fluoroscopy suite. The indwelling subclavian central venous catheter was prepped and draped in standard fashion. The indwelling catheter was removed over an 035 wire. The wire was repositioned from the right internal jugular vein to the superior vena cava under fluoroscopic guidance. A new 7-Cuban 16 cm 3 lm central venous catheter was positioned at the low SVC/superior atrial-caval junction under fluoroscopy. At the end of the procedure the catheter was flushed, secured to the skin and a sterile dressing applied. The patient tolerated the procedure well and without immediate complication. Findings: Initial radiograph demonstrated the previously placed subclavian central venous catheter was malpositioned in the right internal jugular vein. Impression: Successful repositioning/exchange of a non-tunneled right subclavian central venous catheter using fluoroscopic guidance. This report was generated with voice-recognition technology. Errors in roller helper can occur. Please interpret accordingly and contact a radiologist if there are any questions regarding the report. Signed by: Dr. Mayur Vaz M.D. on 09/11/2017 10:59 AM
--- NOTE | 2017-09-11 11:03 | Diagnostic Imaging Report ---
Non-tunneled Central Venous Catheter Revision 09/11/2017 Pre-Procedure Diagnosis: Malpositioned right subclavian central venous catheter. Post-procedure Diagnosis:Malpositioned right subclavian central venous catheter [employer] Officer: Priti Vaz Solution Professional: None Sedation: None. 1% lidocaine local anesthesia. Radiation Dose:1.12 mGy (cumulative air kerma) Fluoroscopy time:0.3 minutes Estimate blood loss: <5 mL Blood administered: None Complications: None Implants/Grafts: 16 cm 7-Niuean 3 lumen CVC Specimen: None Procedure: Informed consent was obtained and the patient positioned supine in the fluoroscopy suite. The indwelling subclavian central venous catheter was prepped and draped in standard fashion. The indwelling catheter was removed over an 035 wire. The wire was repositioned from the right internal jugular vein to the superior vena cava under fluoroscopic guidance. A new 7-Niuean 16 cm 3 lm central venous catheter was positioned at the low SVC/superior atrial-caval junction under fluoroscopy. At the end of the procedure the catheter was flushed, secured to the skin and a sterile dressing applied. The patient tolerated the procedure well and without immediate complication. Findings: Initial radiograph demonstrated the previously placed subclavian central venous catheter was malpositioned in the right internal jugular vein. Impression: Successful repositioning/exchange of a non-tunneled right subclavian central venous catheter using fluoroscopic guidance. This report was generated with voice-recognition technology. Errors in ingot supervisor can occur. Please interpret accordingly and contact a radiologist if there are any questions regarding the report. Signed by: Dr. Mayur Vaz M.D. on 09/11/2017 10:59 AM
[2017-09-11 11:24] LABS: ANION GAP 11.1 mmol/L (8-16); BLOOD UREA NITROGEN 5 mg/dL (7-26); BUN/CREATININE RATIO 8 (6-25); CALCIUM 7.8 mg/dL (8.4-10.2); CARBON DIOXIDE 21 mmol/L (22-29); CHLORIDE 111 mmol/L (98-107); CREATININE, SERUM 0.61 mg/dL (0.57-1.11); EST GLOMERULAR FILTRATION RATE > 60 ML/MIN (60-); GLUCOSE 111 mg/dL (74-118); PHOSPHORUS 2.5 MG/DL (2.3-4.7); POTASSIUM 4.1 mmol/L (3.5-5.1); SODIUM 139 mmol/L (136-145)
[2017-09-11] MEDS: ENOXAPARIN SOD INJ 40 MG/0.4 ML SYR SC SCH (17:00)
[2017-09-11] MEDS: TEMAZEPAM 15 MG CAP PO PRN (22:38)
[2017-09-12] VITALS: BP 124/71
[2017-09-12 04:05] VITALS: BP 148/78
--- NOTE | 2017-09-12 07:33 | Progress Note ---
DATE: September 11, 2017 TIME: 6 a.m. OVERNIGHT: No events. REVIEW OF SYSTEMS: Denies any dizziness. PHYSICAL EXAMINATION VITAL SIGNS: Reviewed. GENERAL: A tired-appearing woman resting in bed. HEENT: Anicteric. CARDIOVASCULAR: Normal S1 and S2. A 3/6 systolic murmur. LUNGS: Moderate breath sounds. ABDOMEN: Soft, nontender and nondistended. EXTREMITIES: No edema. SKIN: Dry. PSYCHIATRIC: Flat affect. NEUROLOGICAL: Alert and oriented times 3. LABS: Reviewed. MEDICATIONS: Reviewed. ASSESSMENT: A 77-year-old woman with: 1. Sepsis. 2. Urinary tract infection. 3. Coronary artery disease. 4. Atrial fibrillation. 5. Normocytic anemia. 6. Hypomagnesemia. 7. Hypokalemia. 8. Elevated troponin. PLAN 1. This is not acute coronary syndrome. 2. Continue antibiotics. 3. Follow up cultures. 4. Continue other medications for coronary artery disease and atrial fibrillation. 5. Continue to follow up blood counts. Job#: [id number] BRISSA
--- NOTE | 2017-09-12 07:36 | Progress Note ---
DATE: September 12, 2017 TIME: 7:10 a.m. OVERNIGHT: No events. REVIEW OF SYSTEMS: Denies any dizziness. PHYSICAL EXAMINATION VITAL SIGNS: Reviewed. GENERAL: A tired-appearing woman resting in bed. HEENT: Anicteric. CARDIOVASCULAR: Normal S1 and S2. A 2-3/6 systolic murmur. LUNGS: Moderate breath sounds. ABDOMEN: Soft and nontender. EXTREMITIES: No edema. SKIN: Dry. PSYCHIATRIC: Normal affect. LABS: Reviewed. MEDICATIONS: Reviewed. ASSESSMENT: A 77-year-old woman with: 1. Sepsis. 2. Urinary tract infection with gram-negative agustina. 3. Coronary artery disease. 4. Atrial fibrillation. 5. Normocytic anemia. 6. Hypomagnesemia. 7. Hypokalemia. 8. Elevated troponin without acute coronary syndrome. PLAN 1. Continue antibiotics. The patient remains on IV ceftriaxone. 2. Leukocytosis, resolving. 3. Gram-negative agustina in the urine. Awaiting speciation and sensitivity. 4. Hemoglobin has remained stable. Continue to follow. 5. Follow up labs. 6. Continue current care. Discharge planning. Job#: [id number] BRISSA
[2017-09-12 07:54] VITALS: BP 144/74
[2017-09-12] MEDS: CEFTRIAXONE SOD 1 GM VIAL IV SCH ×2 (08:00→20:43)
[2017-09-12] MEDS: PANTOPRAZOLE 40 MG 10ML VIAL IV SCH (09:00)
[2017-09-12 12:28] VITALS: BP 122/70
[2017-09-12 16:18] VITALS: BP 152/72
[2017-09-12] MEDS: ENOXAPARIN SOD INJ 40 MG/0.4 ML SYR SC SCH (17:00)
[2017-09-12 20:00] VITALS: BP 152/77
[2017-09-12] MEDS: TEMAZEPAM 15 MG CAP PO PRN (22:42)
[2017-09-13] VITALS: BP 144/70
[2017-09-13 01:20] VITALS: BP 152/77
[2017-09-13 04:00] VITALS: BP 152/79
[2017-09-13 07:46] VITALS: BP 162/81
[2017-09-13] MEDS ORDERED: ZOFRAN ODT4 MG PO (08:00)
[2017-09-13] MEDS ORDERED: KEFLEX500 MG PO (08:00)
[2017-09-13] MEDS: CEFTRIAXONE SOD 1 GM VIAL IV SCH (08:00)
[2017-09-13] MEDS: PANTOPRAZOLE 40 MG 10ML VIAL IV SCH (09:00)
--- NOTE | 2017-09-14 07:55 | Discharge Summary ---
PRINCIPAL DIAGNOSES 1. Sepsis. 2. Urinary tract infection with Escherichia coli. 3. Coronary artery disease. 4. Atrial fibrillation. 5. Normocytic anemia. 6. Hypomagnesemia. 7. Hypokalemia. 8. Elevated troponin without acute coronary syndrome. SECONDARY DIAGNOSIS: Atrial fibrillation. CHIEF COMPLAINT: Fever with low blood pressure. HISTORY OF PRESENT ILLNESS: This is a 77-year-old woman who developed fever and low blood pressure. Refer to the H and P for further details. HOSPITAL COURSE: The patient was found to be septic. She had a urinary tract infection with E. coli treated with antibiotics. She will be discharged home with Keflex for an additional day. She had coronary artery disease and atrial fibrillation treated with medications. Will continue. Blood pressure has improved prior to being discharged home. She had normocytic anemia. Her hypomagnesemia and hypokalemia were both replaced. Her troponin was not evolving, and this did not represent acute coronary syndrome. The patient was subsequently transitioned out of the hospital for continued care. DISCHARGE MEDICATIONS: Per electronic medical record and include Keflex. FOLLOWUP: Primary care doctor in 1 week. CONDITION ON DISCHARGE: Stable and improving. DISCHARGE LOCATION: Home. GITA KERR MD Job#: [id number] [place]
== END 2017-09-13 09:50 | disposition home or self-care (01) | DRG 853 ==
LOC: ER 18:30 → ERHOLD 20:11 → MED/SURG 20:19 → ERHOLD 23:01 → ICU 09-10 00:13 → MED/SURG3 09-10 17:46 → ICU 09-10 17:48 → MED/SURG3 09-10 20:06
PROVIDERS: ADMIT Internal Medicine; ATTEND Internal Medicine
PROC: 02HV33Z Insertion of Infusion Device into Superior Vena Cava, Percutaneous Approach (ICD-10-PCS; principal; 2017-09-09)
PROC: 02PY33Z Removal of Infusion Device from Great Vessel, Percutaneous Approach (ICD-10-PCS; 2017-09-11)
PROC: 02HV33Z Insertion of Infusion Device into Superior Vena Cava, Percutaneous Approach (ICD-10-PCS; 2017-09-11)
DX: A41.9 Sepsis, unspecified organism (principal); R65.21 Severe sepsis with septic shock; I21.4 Non-ST elevation (NSTEMI) myocardial infarction; I95.9 Hypotension, unspecified; I48.91 Unspecified atrial fibrillation; N30.00 Acute cystitis without hematuria; D64.9 Anemia, unspecified; E83.42 Hypomagnesemia; T82.524A Displacement of infusion catheter, initial encounter; E87.6 Hypokalemia; R53.1 Weakness; W19.XXXA Unspecified fall, initial encounter; I25.10 Atherosclerotic heart disease of native coronary artery without angina pectoris; B96.20 Unspecified Escherichia coli [E. coli] as the cause of diseases classified elsewhere
CPT/HCPCS: 36415; 36555; 36580; 70450; 71045; 74470; 80048; 80053; 81001; 82550; 82553; 83605; 83735; 84100; 84443; 84484; 85025; 85610; 85730; 86850; 86900; 86920; 87040; 87086; 87186; 87400; 93005; 96360; 96365; 96374; 97139; 99284; C1751; J0696; J1650; J3370; J7030; J7040

== ENCOUNTER 2017-11-07 12:20 | Observation (INO) | payer MEDICARE ==
[~2017-11-07] VITALS: Ht 157.5 cm; Wt 53.8 kg
[~2017-11-07 12:20] MED LIST changes: +KEFLEX500 MG PO
--- OUTSIDE RECORDS SUMMARY | 2017-11-07 12:23 | XMS REPORT | Continuity of Care Document ---
Author Author [facility] Organization [facility] Address [address] [place] [address] Phone Unavailable Care Team Providers Care Clinical Informatics Specialist Name Role Phone CLAUDIA GOODWIN (NON STAFF) PCP Insurance Providers Guarantor McintyreGeorgeSoni Address [address] [place] [address] Email PTDECLINED Payer Copiny [facility] Policy Number [id number] Subscriber's Name Soni Mcintyre Relationship 18 Self / Same As Patient Group Name [facility] [facility] Effective Date 15 Payer Medicare A & B Policy Number [id number] Subscriber's Name Soni Mcintyre Relationship 18 Self / Same As Patient Group Number [id number] Group Name RETIRED Effective Date 04 Advance Directives Directive Response Recorded Date/Time Does the patient have an advance directive? No 09/10/17 2:38am If yes, [facility]? No 09/10/17 2:38am If not on file with [facility] will patient provide a copy? No 09/10/17 2:38am Do you have a Directive to Physician? No 09/09/17 7:16pm Do you have a Medical Power of Research Instructor? No 09/09/17 7:16pm Do you have an out of hospital Do Not Resuscitate Order? No 09/09/17 7:16pm Do you have any special needs we should be aware of? No 09/09/17 7:16pm Do you have a support person here with you today? Yes 09/09/17 7:16pm Did patient receive Notice of Privacy Practices? Yes 09/09/17 7:16pm Did patient receive patient rights and responsibilities? Yes 09/09/17 7:16pm Problems Medical Problem Onset Date Status Abdominal pain 02/12/2015 Acute Chest pain 06/19/2015 Acute Chronic anemia Unknown Colitis 02/12/2015 Acute Elevated troponin 12/26/2014 Acute Enteritis 12/26/2014 Acute Fall Unknown Fever 12/26/2014 Acute Fever 06/19/2015 Acute Guaiac positive stools Unknown Non-STEMI (non-ST elevated myocardial infarction) Unknown UTI (urinary tract infection) 06/19/2015 Acute Volume depletion 06/19/2015 Acute Vomiting 06/19/2015 Acute Vomiting and diarrhea Unknown Weakness 02/12/2015 Acute Medications Current Home Medications Medication Dose Units Route Directions Days Qty Instructions Start Date Alendronate Sodium 70 Mg Tablet 70 Mg Oral Use As Directed as needed for Mild Pain (1-3) take 1 TABLET EVERY WEEK FOR BONES. Apixaban 2.5 Mg Tablet 5 Mg Oral Every 12 Hours 30 Days 11/20/15 Aspirin (Aspir 81) 81 Mg Tablet. 81 Mg Oral Daily Calcium Citrate/Vitamin D3 (Citracal + D Maximum Caplet) 1 Each Tablet 1 Tab Oral Daily Cephalexin Monohydrate (Keflex) 500 Mg Capsule 500 Mg Oral Every 12 Hours 10 09/13/17 Cetirizine Hcl 10 Mg Tablet 10 Mg Oral Daily Cholestyramine (With Sugar) (Questran Packet) 4 Gm Packet 4 Gm Oral Twice A Day Dicyclomine Hcl (Bentyl) 20 Mg Tablet 20 Mg Oral Four Times Daily 90 Tab 02/18/15 Escitalopram Oxalate 10 Mg Tablet 10 Mg Oral Daily Famotidine 20 Mg Tab 20 Mg Oral Twice A Day 30 Tab Ferrous Sulfate 325 Mg Tablet. 325 Mg Oral Daily Hydralazine Hcl 25 Mg Tab 25 Mg Oral Every 8 Hours 30 Days 06/30/17 Lansoprazole (Prevacid) 30 Mg Capsule. 30 Mg Oral Daily Lisinopril 10 Mg Tablet 10 Mg Oral Daily 30 Tab Loperamide Hcl (Loperamide) 2 Mg Tablet 2 Mg Oral Before Meals as needed for Diarrhea Loratadine 10 Mg Tablet 10 Mg Oral Daily 30 Tab Lovastatin 20 Mg Tablet 20 Mg Oral Daily Mesalamine 400 Mg Cap 800 Mg Oral Three Times A Day 30 Days Mesalamine (Pentasa) 500 Mg Capcr 1,000 Mg Oral Four Times Daily 30 Tab 02/18/15 Metoprolol Tartrate 25 Mg Tablet 25 Mg Oral Twice A Day Metronidazole (Flagyl) 500 Mg Tablet 500 Mg Oral Three Times A Day 7 Days 06/30/17 Nifedipine (Nifedipine Er) 30 Mg Tab.er.24 30 Mg Oral Every 12 Hours 30 Days 06/30/17 Ondansetron (Zofran Odt) 4 Mg Tab.rapdis 4 Mg Oral Twice A Day as needed for Nausea And Vomiting Ondansetron (Zofran Odt) 4 Mg Tab.rapdis 4 Mg Oral Every 6 Hours 10 Days 06/30/17 Ondansetron (Zofran Odt) 4 Mg Tab.rapdis 4 Mg Oral Q4-6H Prn 12 Pantoprazole Sodium (Protonix) 40 Mg Tablet. 40 Mg Oral Daily Pantoprazole Sodium (Protonix) 40 Mg Tablet. 40 Mg Oral Every 12 Hours 30 Days 06/30/17 Potassium Chloride 20 Meq Tab.er.prt 20 Meq Oral Daily 10 Days Potassium Gluconate 2.5 Meq Tablet 1 Cap Oral Twice A Day as needed for Diarrhea 7 Days Temazepam (Restoril) 15 Mg Capsule 15 Mg Oral Bedtime 30 Tab Tolterodine Tartrate (Detrol La) 4 Mg Cap.er.24h 4 Mg Oral Daily 30 Cap Past Home Medications Medication Directions Ordered Status Levofloxacin (Levaquin) 500 Mg Tablet, 500 Mg Oral Daily 11/20/15 Discontinued Levofloxacin (Levaquin) 500 Mg Tablet, 500 Mg Oral Daily 02/18/15 Discontinued Meloxicam (Mobic*) 7.5 Mg Tablet, 7.5 Mg Oral Daily Discontinued Methylprednisolone (Medrol Dose Pack) 4 Mg/Dose Pack Tab, 4 Mg Oral Daily 03/27 Discontinued Metronidazole 500 Mg Tablet, 500 Mg Oral Three Times A Day 02/18/15 Discontinued Pantoprazole , 40 Mg Intraven Daily Discontinued Tramadol Hcl (Ultram) 50 Mg Tablet, 50 Mg Oral Twice A Day as needed for Pain Discontinued Tramadol Hcl/Acetaminophen (Acetaminophn-Tramadol 325-37.5) 1 Each Tablet, 37.5 -325 Mg Oral Every 6 Hours Discontinued Zolpidem Tartrate (Ambien) 5 Mg Tablet, 5 Mg Oral As Needed as needed for Insomnia Discontinued Social History Social History Problem Response Recorded Date/Time Onset Date Status Hx Psychiatric Problems No 09/10/2017 2:38am Not Applicable Not Applicable Hx Eating Disorder No 09/10/2017 2:38am Not Applicable Not Applicable Hx Substance Use Disorder No 09/10/2017 2:38am Not Applicable Not Applicable Hx Depression Yes 09/10/2017 2:38am Not Applicable Not Applicable Hx Alcohol Use No 09/10/2017 2:38am Not Applicable Not Applicable Hx Substance Use Treatment No 09/10/2017 2:38am Not Applicable Not Applicable Hx Physical Abuse No 09/10/2017 2:38am Not Applicable Not Applicable Smoking Status Start Date Stop Date Never Smoker Hospital Discharge Instructions No hospital discharge instruction information available. Plan of Care Discharge Date 09/13/17 9:50am Disposition HOME, SELF-CARE Instructions/Education Provided Urinary Tract Infection - Women Prescriptions See Medication Section Referrals pcp (Internal Medicine) Order Date: 5-7 Days Entered Date: 09/13/2017 8:00am Functional Status Query Response Date Recorded Assistive Devices None September 10, 2017 2:48am Ambulation Ability Independent September 10, 2017 2:48am Toileting Ability Independent September 12, 2017 6:42pm Allergies, Adverse Reactions, Alerts No known allergies. Immunizations No immunization information available. Vital Signs Acute Vital Signs Vital Response Date/Time Temperature (Fahrenheit) 96.9 degrees F (97.6 - 99.5) 09/13/2017 7:46am Pulse Pulse Rate (adult) 72 bpm (60 - 90) 09/13/2017 7:46am Respiratory Rate 18 bpm (12 - 24) 09/13/2017 7:46am Blood Pressure 162/81 mm Hg 09/13/2017 7:46am Height 5 ft 2 in 09/09/2017 6:48pm Weight 125.19 lb 09/11/2017 12:20am Body Mass Index 22.9 kg/m^2 09/11/2017 12:20am Results Laboratory Results Test Name Result Units Flags Reference Collection Date/Time Result Date/ Time Comments Poikilocytosis MODERATE 06/23/2017 7:44pm 06/23/2017 9:02pm Tear Drop Cells FEW 06/23/2017 7:44pm 06/23/2017 9:02pm Elliptocytes MODERATE 06/23/2017 7:44pm 06/23/2017 9:02pm Erythrocyte Sedimentation Rate 16 mm/hr 0-20 06/23/2017 12:23pm 2017 1:10pm Urine Opiates Screen NEGATIVE NEGATIVE 06/21/2017 6:00am 06/21/2017 8 :37am Urine Barbiturates Screen NEGATIVE NEGATIVE 06/21/2017 6:00am 2017 8:37am Urine Phencyclidine Screen POSITIVE H NEGATIVE 06/21/2017 6:00am 06/21 8:37am This test provides only a screen. Positive results should be repeated by a confirmatory test. Urine Amphetamines Screen NEGATIVE NEGATIVE 06/21/2017 6:00am 2017 8:37am Urine Benzodiazepines Screen POSITIVE H NEGATIVE 06/21/2017 6:00am 03/2018 8:37am This test provides only a screen. Positive results should be repeated by a confirmatory test. Urine Cocaine Screen NEGATIVE NEGATIVE 06/21/2017 6:00am 06/21/2017 8 :37am Urine Cannabinoids Screen NEGATIVE NEGATIVE 06/21/2017 6:00am 2017 8:37am THESE RESULTS ARE FOR MEDICAL TREATMENT ONLY *THIS REPORT CONTAINS UNCONFIRMED SCREENING RESULTS* POSITIVE RESULTS WILL BE CONFIRMED BY REFERENCE LAB UPON REQUEST CUT-OFF DRUG CLASS CONCENTRATION ng/mL Amphetamines 1000 Methamphetamines 1000 Cocaine 300 Opiate 300 Phencyclidine 25 Cannabinoid 50 Barbiturates 300 Benzodiazepine 300 Methadone 300 B-Type Natriuretic Peptide 95.6 pg/mL 0-100 06/21/2017 4:00am 2017 4:55am Amylase Level 51 U/L 25-125 06/21/2017 4:00am 06/21/2017 4:51am Lipase 17 U/L 8-78 06/21/2017 4:00am 06/21/2017 4:51am p-ANCA Titer <1:20 titer Neg:<1:20 06/21/2017 8:37am 06/26/2017 9:20pm The presence of positive fluorescence exhibiting P-ANCA or C-ANCA patterns alone is not specific for the diagnosis of Conor's Granulomatosis (WG) or microscopic polyangiitis. Decisions about treatment should not be based solely on ANCA IFA results. The International ANCA Group Consensus recommends follow up testing of positive sera with both OK- 3 and MPO-ANCA enzyme immunoassays. As many as 5% serum samples are positive only by EIA. Ref. AM J Clin Pathol 1999;111:507-513. c-ANCA Titer <1:20 titer Neg:<1:20 06/21/2017 8:37am 06/26/2017 9:20pm Atypical p-ANCA <1:20 titer Neg:<1:20 06/21/2017 8:37am 06/26/2017 9: 20pm The atypical pANCA pattern has been observed in a significant percentage of patients with ulcerative colitis, primary sclerosing cholangitis and autoimmune hepatitis. Performed at: - [facility] [id number] [place]: Jan Vaz MD, Phone: [phone] C-Reactive Protein 110.5 mg/L H 0.0-4.9 06/22/2017 8:07am 06/23/2017 10: 22am Performed at: - [facility] [id number] [place]: Gregg Rivera MD, Phone: [phone] Stool Occult Blood POSITIVE H NEGATIVE 06/21/2017 5:10am 06/21/2017 5: 48am Clostridium Difficile Toxin A & B NEGATIVE NEGATIVE 06/21/2017 2:40pm 06/22/2017 1:01pm Testing on stool aspirate specimens is outside nurse coordinator claims since specimen type not validated on this assay. Basophils % (Manual) 1 % 0-1.5 09/08/2017 10:12am 09/08/2017 11:20am Reactive Lymphocytes 1 09/08/2017 10:12am 09/08/2017 11:20am Urine Uric Acid Crystals MANY H FEW 09/08/2017 10:01am 09/08/2017 11: 06am White Blood Count 7.48 x10e3/uL 4.8-10.8 09/10/2017 8:37am 09/10/2017 9 :39am Red Blood Count 3.31 x10e6/uL L 3.6-5.1 09/10/2017 8:37am 09/10/2017 9: 39am Hemoglobin 9.2 g/dL L 12.0-16.0 09/10/2017 8:37am 09/10/2017 9:39am Hematocrit 28.9 % L 34.2-44.1 09/10/2017 8:37am 09/10/2017 9:39am Mean Corpuscular Volume 87.3 fL 81-99 09/10/2017 8:37am 09/10/2017 9: 39am Mean Corpuscular Hemoglobin 27.8 pg L 28-32 09/10/2017 8:37am 2017 9:39am Mean Corpuscular Hemoglobin Concent 31.8 g/dL 31-35 09/10/2017 8:37am 09/10/2017 9:39am Red Cell Distribution Width 16.6 % H 11.7-14.4 09/10/2017 8:37am 2017 9:39am Platelet Count 267 x10e3/uL 140-360 09/10/2017 8:37am 09/10/2017 9: 39am Neutrophils (%) (Auto) 71.1 % 38.7-80.0 09/10/2017 8:37am 09/10/2017 9: 39am Lymphocytes (%) (Auto) 15.8 % L 18.0-39.1 09/10/2017 8:37am 09/10/2017 9 :39am Monocytes (%) (Auto) 10.3 % 4.4-11.3 09/10/2017 8:37am 09/10/2017 9: 39am Eosinophils (%) (Auto) 1.2 % 0.0-6.0 09/10/2017 8:37am 09/10/2017 9: 39am Basophils (%) (Auto) 0.5 % 0.0-1.0 09/10/2017 8:37am 09/10/2017 9:39am IM GRANULOCYTES % 1.1 % H 0.0-1.0 09/10/2017 8:3709/10/2017 9:39am Neutrophils # (Auto) 5.3 2.1-6.9 09/10/2017 8:37am 09/10/2017 9:39am Lymphocytes # (Auto) 1.2 1.0-3.2 09/10/2017 8:37am 09/10/2017 9:39am Monocytes # (Auto) 0.8 0.2-0.8 09/10/2017 8:37am 09/10/2017 9:39am Eosinophils # (Auto) 0.1 0.0-0.4 09/10/2017 8:37am 09/10/2017 9:39am Basophils # (Auto) 0.0 0.0-0.1 09/10/2017 8:3709/10/2017 9:39am Absolute Immature Granulocyte (auto 0.08 x10e3/uL 0-0.1 09/10/2017 8: 3709/10/2017 9:39am Differential Total Cells Counted 100 09/10/2017 8:37am 09/10/2017 11:11am Neutrophils % (Manual) 50 % 40-74 09/10/2017 8:3709/10/2017 11:11am Band Neutrophils % 24 % 09/10/2017 8:37am 09/10/2017 11:11am Lymphocytes % (Manual) 19 % 19-48 09/10/2017 8:37am 09/10/2017 11:11am Monocytes % (Manual) 5 % 3.4-9.0 09/10/2017 8:37am 09/10/2017 11:11am Eosinophils % (Manual) 2 % 0-7 09/10/2017 8:3709/10/2017 11:11am Platelet Estimate ADEQUATE 09/10/2017 8:37am 09/10/2017 11:11am Platelet Morphology Comment NORMAL 09/10/2017 8:37am 09/10/2017 11: 11am Anisocytosis SLIGHT 09/09/2017 6:50pm 09/09/2017 8:35pm Red Cell Morphology Comment NORMAL 09/10/2017 8:37am 09/10/2017 11: 11am Prothrombin Time 15.5 seconds H 11.9-14.5 09/09/2017 11:25pm 09/09/2017 11:40pm Prothromb Time International Ratio 1.33 09/09/2017 11:25pm 2017 11:40pm Oral Anticoagulant Therapy INR Values: 1. Low Intensity Therapy 1.5 - 2.0 2. Moderate Intensity Therapy 2.0 - 3.0 3. High Intensity Therapy(1) 2.5 - 3.5 4. High Intensity Therapy(2) 3.0 - 4.0 5. Panic Value INR > 5.0 Activated Partial Thromboplast Time 33.2 seconds 23.8-35.5 09/09/2017 11 :25pm 09/09/2017 11:40pm Urine Color YELLOW YELLOW 09/09/2017 7:53pm 09/09/2017 8:25pm Urine Clarity CLOUDY H CLEAR 09/09/2017 7:53pm 09/09/2017 8:25pm Urine Specific [place] 1.015 1.010-1.025 09/09/2017 7:53pm 2017 8:25pm Urine pH 5 5 - 7 09/09/2017 7:53pm 09/09/2017 8:25pm Urine Leukocyte Esterase 1+ H NEGATIVE 09/09/2017 7:53pm 09/09/2017 8: 25pm Urine Nitrite POSITIVE H NEGATIVE 09/09/2017 7:53pm 09/09/2017 8:25pm Urine Protein TRACE H NEGATIVE 09/09/2017 7:53pm 09/09/2017 8:25pm Urine Glucose (UA) NEGATIVE NEGATIVE 09/09/2017 7:53pm 09/09/2017 8: 25pm Urine Ketones NEGATIVE NEGATIVE 09/09/2017 7:53pm 09/09/2017 8:25pm Urine Urobilinogen 0.2 mg/dL 0.2 - 1 09/09/2017 7:53pm 09/09/2017 8: 25pm Urine Bilirubin NEGATIVE NEGATIVE 09/09/2017 7:53pm 09/09/2017 8: 25pm Urine Blood 4+ H NEGATIVE 09/09/2017 7:53pm 09/09/2017 8:25pm Urine WBC >50 /HPF H 0-5 09/09/2017 7:53pm 09/09/2017 8:44pm Urine RBC 21-50 /HPF H 0-5 09/09/2017 7:53pm 09/09/2017 8:44pm Urine Bacteria MANY /HPF H NONE 09/09/2017 7:53pm 09/09/2017 8:44pm Urine Epithelial Cells MANY /LPF NONE 09/09/2017 7:53pm 09/09/2017 8: 44pm Sodium Level 139 mmol/L 136-145 09/11/2017 10:49am 09/11/2017 11:26am Potassium Level 4.1 mmol/L 3.5-5.1 09/11/2017 10:49am 09/11/2017 11: 26am Chloride Level 111 mmol/L H 98-107 09/11/2017 10:49am 09/11/2017 11: 26am Influenza Virus Types A,B Antigen NEGATIVE NEGATIVE 09/09/2017 6:50pm 09/09/2017 7:43pm Carbon Dioxide Level 21 mmol/L L 22-29 09/11/2017 10:49am 09/11/2017 11: 26am Anion Gap 11.1 mmol/L 8-16 09/11/2017 10:49am 09/11/2017 11:26am Blood Urea Nitrogen 5 mg/dL L 7-09/11/2017 10:49am 09/11/2017 11: 26am Creatinine 0.61 mg/dL 0.57-1.11 09/11/2017 10:49am 09/11/2017 11:26am BUN/Creatinine Ratio 8 6-25 09/11/2017 10:49am 09/11/2017 11:26am Estimat Glomerular Filtration Rate > 60 ML/MIN 60- 09/11/2017 10:49am 09/11/2017 11:26am Ranges were taken from the National Kidney Disease Education Program and the National Kidney Foundation literature. Reference ranges: 60 or greater: Normal 16-59 (for 3 consecutive months): Chronic kidney disease 15 or less: Kidney failure Glucose Level 111 mg/dL 74-118 09/11/2017 10:49am 09/11/2017 11:26am Calcium Level 7.8 mg/dL L 8.4-10.2 09/11/2017 10:49am 09/11/2017 11: 26am Lactic Acid Level 17.4 MG/DL 4.5-19.8 09/09/2017 11:25pm 09/09/2017 11: 44pm Phosphorus Level 2.5 MG/DL 2.3-4.7 09/11/2017 10:49am 09/11/2017 11: 26am Magnesium Level 2.0 MG/DL 1.3-2.1 09/11/2017 10:49am 09/11/2017 11: 26am Total Bilirubin 0.2 mg/dL 0.2-1.2 09/10/2017 8:37am 09/10/2017 9:39am Aspartate Amino Transf (AST/SGOT) 16 IU/L 5-34 09/10/2017 8:37am 2017 9:39am Alanine Aminotransferase (ALT/SGPT) 8 IU/L 0-55 09/10/2017 8:37am 09/10 9:39am Total Protein 4.7 g/dL L 6.5-8.1 09/10/2017 8:37am 09/10/2017 9:39am Albumin 2.2 g/dL L 3.5-5.0 09/10/2017 8:37am 09/10/2017 9:39am Globulin 2.5 g/dL 2.3-3.5 09/10/2017 8:37am 09/10/2017 9:39am Albumin/Globulin Ratio 0.9 0.8-2.0 09/10/2017 8:37am 09/10/2017 9: 39am Alkaline Phosphatase 81 IU/L 40-150 09/10/2017 8:37am 09/10/2017 9: 39am Creatine Kinase 136 IU/L 29-168 09/11/2017 12:20am 09/11/2017 3:57am Creatine Kinase MB 3.30 ng/mL 0-5.0 09/11/2017 12:20am 09/11/2017 4: 04am Troponin I 0.355 ng/mL H 0-0.300 09/11/2017 12:20am 09/11/2017 4:04am Thyroid Stimulating Hormone (TSH) 1.924 uIU/mL 0.350-4.940 09/09/2017 11 :05pm 09/10/2017 12:03am Microbiology Results Procedure Source Organism/Result Collection Date/Time Result Date/Time Result Status Urine Culture Urine,Clean Catch ESCHERICHIA COLI 06/21/2017 6:00am 2017 8:22am Final Urine Culture Urine,Catheterized ESCHERICHIA COLI 09/09/2017 7:53pm 2017 7:48am Final Blood Culture Blood NO GROWTH AFTER 72 HOURS 7:40pm 09/12/2017 8:02pm Preliminary Procedures Procedure Status Date Provider(s) EXCISION OF ILEUM, ENDO, DIAGN Completed 06/29/17 TAYA ARTHUR MD EXCISION OF LARGE INTESTINE, ENDO, DIAGN Completed 06/29/17 TAYA ARTHUR MD EXCISION OF DUODENUM, ENDO, DIAGN Completed 06/29/17 TAYA ARTHUR MD EXCISION OF STOMACH, PYLORUS, ENDO, DIAGN Completed 06/29/17 TAYA ARTHUR MD EXCISION OF LOWER ESOPHAGUS, ENDO, DIAGN Completed 06/29/17 TAYA ARTHUR MD INTRODUCTION OF VASOPRESSOR INTO PERIPH VEIN, PERC APPROACH Completed DRE TAVERA MD INSERTION OF INFUSION DEVICE INTO R ATRIUM, PERC APPROACH Completed 06/21/17 MILLA LEON MD Computed tomography of brain without radiopaque contrast Active 06/21/17 DRE TAVERA MD Computed tomography of abdomen and pelvis with contrast Active 06/21/17 DRE TAVERA MD X-ray of chest, two views Active 06/21/17 DRE TAVERA MD Computed tomography of brain without radiopaque contrast Active 09/08/17 RASHID CRUZ CHEF CONCIERGE X-ray of chest, two views Active 09/08/17 RASHID PAT CHEF CONCIERGE Computed tomography of brain without radiopaque contrast Active 09/09/17 ADAM LO CHEF CONCIERGE Encounters Encounter Location Arrival/Admit Date Discharge/Depart Date Attending Provider Discharged Inpatient [facility] 09/09/17 8:11pm 09/13/17 9:50am GITA KERR MD Departed Emergency Room [facility] 09/08/17 9:58am 2:15pm GERTRUDE CHANEY MD Discharged Inpatient [facility] 06/21/17 6:39am 06/30/17 7:01pm GITA KERR MD
[2017-11-07] MEDS ORDERED: MELOXICAM7.5 MG PO (12:45)
[2017-11-07] MEDS ORDERED: ONDANSETRON HCL INJ 2 MG/ML VIAL IV STA (12:46)
[2017-11-07] MEDS ORDERED: SODIUM CHLORIDE 0.9% 1000ML 1,000 ML IV SCH (13:00)
[2017-11-07] MEDS ORDERED: ONDANSETRON HCL 4 MG ORAL DISINTEGRATING TAB SL ONE (13:00)
[2017-11-07 13:01] LABS: BASOPHILS # (AUTO) 0.1 (0.0-0.1); BASOPHILS % 0.8 % (0.0-1.0); EOSINOPHILS # (AUTO) 0.1 (0.0-0.4); EOSINOPHILS % 0.7 % (0.0-6.0); HEMATOCRIT 33.4 % (34.2-44.1); HEMOGLOBIN 10.5 g/dL (12.0-16.0); LYMPHOCYTES # (AUTO) 1.5 (1.0-3.2); LYMPHOCYTES % 21.1 % (18.0-39.1); MEAN CORPUSCULAR HEMOGLOBIN 26.7 pg (28-32); MEAN CORPUSCULAR HGB CONC 31.4 g/dL (31-35); MONOCYTES # (AUTO) 0.8 (0.2-0.8); MONOCYTES % 11.6 % (4.4-11.3); NEUTROPHILS # (AUTO) 4.7 (2.1-6.9); NEUTROPHILS % 65.4 % (38.7-80.0); PLATELET COUNT 320 x10e3/uL (140-360); RED BLOOD COUNT 3.93 x10e6/uL (3.6-5.1); RED CELL DISTRIBUTION WIDTH 16.2 % (11.7-14.4)
[2017-11-07 13:19] LABS: ALANINE AMINOTRANSFERASE 7 IU/L (0-55); ALBUMIN 2.7 g/dL (3.5-5.0); ALBUMIN/GLOBULIN RATIO 0.8 (0.8-2.0); ALKALINE PHOSPHATASE 69 IU/L (40-150); ANION GAP 12.8 mmol/L (8-16); BLOOD UREA NITROGEN 12 mg/dL (7-26); BUN/CREATININE RATIO 16 (6-25); CALCIUM 7.9 mg/dL (8.4-10.2); CARBON DIOXIDE 24 mmol/L (22-29); CHLORIDE 105 mmol/L (98-107); CREATINE KINASE 47 IU/L (29-168); CREATININE, SERUM 0.77 mg/dL (0.57-1.11); EST GLOMERULAR FILTRATION RATE > 60 ML/MIN (60-); GLUCOSE 90 mg/dL (74-118); LIPASE 12 U/L (8-78); SODIUM 139 mmol/L (136-145)
[2017-11-07 13:23] LABS: POTASSIUM 2.8 mmol/L (3.5-5.1)
[2017-11-07] MEDS ORDERED: POTASSIUM CHLORIDE 20 MEQ TAB CR PO NR (14:30)
[2017-11-07 14:36] LABS: BILIRUBIN,URINE NEGATIVE (NEGATIVE); CLARITY,URINE CLEAR (CLEAR); COLOR,URINE YELLOW (YELLOW); KETONES,URINE NEGATIVE (NEGATIVE); LEUKOCYTE ESTERASE ,URINE NEGATIVE (NEGATIVE); NITRITE,URINE NEGATIVE (NEGATIVE); PROTEIN,URINE DIPSTICK NEGATIVE (NEGATIVE); URINE UROBILINOGEN 0.2 mg/dL (0.2 - 1)
[2017-11-07 14:48] LABS: EPITHELIAL CELLS,URINE MANY /LPF; MUCUS,URINE FEW (RARE); RBC,URINE 0-5 /HPF (0-5); WBC,URINE (MAN) 0-5 /HPF (0-5)
--- NOTE | 2017-11-07 14:57 | Diagnostic Imaging Report ---
PROCEDURE: CT ABDOMEN AND PELVIS WITH CONTRAST TECHNIQUE: The abdomen and pelvis were scanned utilizing a multidetector helical scanner from the diaphragm to the lesser trochanter after the IV administration of 100 cc of Isovue 370 and the oral administration of water. Coronal and sagittal multiplanar reformations were obtained. COMPARISON: [facility], CT, CT ABDOMEN/PELVIS W, 12/25/2014, 23:02. [facility], CT, CT ABDOMEN/PELVIS W, 06/21/2017, 5:09. INDICATIONS: ABDOMEN PAIN FINDINGS: LOWER THORAX: Stable moderate hiatal hernia. Mild atelectatic changes in bilateral lower lobes. Mild cardiomegaly. HEPATOBILIARY: No focal hepatic lesions. Stable mild central intrahepatic biliary ductal dilatation and mild dilation of the common bile duct. No intraluminal filling defects. Cholelithiasis. No wall thickening or pericholecystic fluid.. SPLEEN: No splenomegaly. PANCREAS: No focal masses or ductal dilatation. 2.4 x 3.0 cm duodenal diverticulum between the second portion of the duodenum and pancreatic head (series 2, image 35). ADRENALS: No adrenal nodules. KIDNEYS/URETERS: No hydronephrosis, stones, or solid mass lesions. PELVIC ORGANS/BLADDER: Moderately distended bladder, without focal lesions. Uterus is not visualized. No adnexal masses. PERITONEUM / RETROPERITONEUM: Trace free fluid in the pelvic cul-de-sac. LYMPH NODES: Enlarged mesenteric node, measuring 1.1 cm in short axis (series 2, image 52). There are multiple prominent mesenteric nodes, which measure 0.8-0.9 cm in short axis (for example series 2, images 55, 51, 57 and, 59). VESSELS: Moderate calcification of the aorta and iliac vessels. Celiac trunk, superior and inferior mesenteric, and bilateral renal arteries are patent. Portal, superior mesenteric, and splenic veins are patent. GI TRACT: Multiple loops of distal ileum, extending to the terminal ileum show moderate to marked wall thickening with mucosal enhancement, increased vascularity and mild surrounding stranding, similar in appearance to prior CT dated 06/21/2017, 12/25/2014 and 06/19/2015. No foci of extraluminal air or well-defined enhancing fluid collections. Duodenum and jejunum show no wall thickening. Large bowel is unremarkable. No bowel obstruction or dilation. BONES AND SOFT TISSUES: Unremarkable. IMPRESSION: 1. Findings consistent with enteritis involving the ilium and extending to the terminal ileum. Given the recurrent nature of the findings, as noted on prior CTs, inflammatory bowel disease (particularly Crohn's) is a primary consideration, despite the patient's advanced age. No evidence of perforation or abscess formation. 2. Prominent and single enlarged mesenteric nodes, likely reactive. 3. Stable mild central intrahepatic biliary ductal dilation and mild dilation of the common bile duct. Cholelithiasis, without CT evidence of cholecystitis. 4. Stable moderate hiatal hernia. Eamon Collins M.D. Dictated by: Eamon Collins M.D. on 11/07/2017 at 15:00 Electronically approved by: Eamon Collins M.D. on 11/07/2017 at 15:00
[2017-11-07] MEDS ORDERED: MORPHINE SULFATE 2 MG/ML SYR IV PRN (15:45)
[2017-11-07] MEDS ORDERED: ONDANSETRON HCL INJ 2 MG/ML VIAL IV PRN (15:45)
[2017-11-07] MEDS: SODIUM CHLORIDE 0.9% 1000ML 1,000 ML IV SCH ×2 (16:58→23:43)
[2017-11-07] MEDS ORDERED: ONDANSETRON HCL 4 MG ORAL DISINTEGRATING TAB PO PRN (17:45)
--- NOTE | 2017-11-07 20:25 | Consultation ---
DATE OF CONSULTATION: November 07, 2017 GASTROENTEROLOGY CONSULTATION REASON FOR CONSULTATION: Gastroenteritis. HISTORY OF PRESENT ILLNESS: Ms. Mcintyre is a pleasant 77-year-old woman with a history of chronic ileitis and recurrent gastroenteritis. She is followed with Dr. Helton. She has been accused of having Crohn's disease in the past, but most recently says Dr. Helton did not think that she actually had Crohn's. She is not on any chronic medications for this. She does report several recent episodes and that she gets better when she is on antibiotics. The abdominal pain is primarily in the right lower midquadrant and nonradiating aside for some generalization of nausea and vomiting. She has had diarrhea with multiple episodes. She has some subjective fever. She has not had any travel or sick exposures nor any unusual foods as a trigger. PAST MEDICAL HISTORY: Enteritis, E. coli urinary tract infections, history of hyperkalemia, gastrointestinal bleeding, history of atrial fibrillation, diarrhea, anemia, coronary artery disease with [id number] [place], depression, history of C. diff, and iron deficiency anemia. Outpatient chart from Dr. Helton is reviewed. SURGICAL HISTORY: None significant. MEDICATIONS: Reviewed. Please see MAR medication reconciliation form. ALLERGIES: REVIEWED. SOCIAL HISTORY: Prior alcohol. No tobacco or illicit substances. She is . REVIEW OF SYSTEMS: Reviewed and positive for that mentioned in HPI, as well as generalized fatigue, malaise and weakness. PHYSICAL EXAMINATION GENERAL: Pleasant, alert and in no acute distress. Laying in bed. HEENT: Pupils equal, round and reactive to light. NECK: Supple. LUNGS: Clear. CARDIOVASCULAR: S1 and S2. She has a systolic ejection murmur. ABDOMEN: Soft. Is tender in the right lower quadrant. Rest of the abdomen reviewed. No guarding or mass. EXTREMITIES: No clubbing, cyanosis or edema. PSYCH: Calm and cooperative. NEUROLOGIC: Nonfocal. HEM/ONC: No adenopathy. Electronic health records were reviewed for laboratory and radiological data, as well as history. ASSESSMENT 1. Diarrhea. 2. Right lower quadrant pain. 3. Enteritis. 4. Possible history of Crohn's disease, but with negative pathology on prior colonoscopy in 2014. Apparently, had a history of Clostridium difficile per some of the chart. Will go ahead and order stool studies. Agree with enteric antibodies. Here at least the last 2 C. diff have been checked, including one in June and were negative. It may be that she would benefit from mesalamine or steroids. For now, will go ahead and rule out infectious and treat with antibiotics and see how she progresses. Thank you very much for asking me to see Ms. Mcintyre. Any questions or concerns, please do not hesitate to contact me. I will follow with you. Job#: [id number]
[2017-11-07] MEDS ORDERED: SODIUM CHLORIDE 0.9% 50ML 50 ML ONE (20:41)
[2017-11-07] MEDS ORDERED: IOPAMIDOL 370 MG/ML 200 ML INFUS..BTL INJ ONE (20:41)
[2017-11-07 21:24] VITALS: BP 145/78
[2017-11-07 21:27] VITALS: BP 145/78
[2017-11-07] MEDS: CIPROFLOXACIN 400 MG/D5W 200ML 200 ML IV SCH (21:39)
[2017-11-07] MEDS: METRONIDAZOLE 500MG/NS 100ML 100 ML IV SCH (22:54)
[2017-11-07] MEDS: TEMAZEPAM 15 MG CAP PO PRN (23:30)
[2017-11-08] VITALS (7 sets, daily range): BP systolic 121–147; BP diastolic 62–72
[2017-11-08 06:14] LABS: BASOPHILS % 0.6 % (0.0-1.0); EOSINOPHILS # (AUTO) 0.1 (0.0-0.4); EOSINOPHILS % 1.9 % (0.0-6.0); HEMATOCRIT 28.6 % (34.2-44.1); HEMOGLOBIN 8.9 g/dL (12.0-16.0); LYMPHOCYTES # (AUTO) 1.1 (1.0-3.2); LYMPHOCYTES % 22.7 % (18.0-39.1); MEAN CORPUSCULAR HEMOGLOBIN 26.6 pg (28-32); MEAN CORPUSCULAR HGB CONC 31.1 g/dL (31-35); MEAN CORPUSCULAR VOLUME 85.4 fL (81-99); MONOCYTES # (AUTO) 0.7 (0.2-0.8); MONOCYTES % 15.2 % (4.4-11.3); NEUTROPHILS # (AUTO) 2.8 (2.1-6.9); NEUTROPHILS % 59.2 % (38.7-80.0); PLATELET COUNT 286 x10e3/uL (140-360); RED BLOOD COUNT 3.35 x10e6/uL (3.6-5.1); RED CELL DISTRIBUTION WIDTH 16.5 % (11.7-14.4)
[2017-11-08] MEDS: METRONIDAZOLE 500MG/NS 100ML 100 ML IV SCH ×3 (06:37→21:51)
[2017-11-08 06:38] LABS: ALANINE AMINOTRANSFERASE 6 IU/L (0-55); ALBUMIN 2.1 g/dL (3.5-5.0); ALBUMIN/GLOBULIN RATIO 0.8 (0.8-2.0); ALKALINE PHOSPHATASE 60 IU/L (40-150); ANION GAP 11.5 mmol/L (8-16); BLOOD UREA NITROGEN 9 mg/dL (7-26); BUN/CREATININE RATIO 15 (6-25); CALCIUM 7.5 mg/dL (8.4-10.2); CARBON DIOXIDE 20 mmol/L (22-29); CHLORIDE 114 mmol/L (98-107); CREATININE, SERUM 0.59 mg/dL (0.57-1.11); EST GLOMERULAR FILTRATION RATE > 60 ML/MIN (60-); GLUCOSE 88 mg/dL (74-118); POTASSIUM 3.5 mmol/L (3.5-5.1); SODIUM 142 mmol/L (136-145)
--- NOTE | 2017-11-08 07:36 | History and Physical ---
PRIMARY CARE PHYSICIAN: Dr. Fernandez. CHIEF COMPLAINT: Diarrhea, nausea and vomiting. HISTORY OF PRESENT ILLNESS: This 77-year-old woman, with a history of C. difficile colitis and possible Crohn's disease, is now developing nausea, vomiting, and diarrhea, ongoing for about 3 days. Therefore, she came to the hospital. She described the diarrhea as watery. Had mild abdominal discomfort. PAST MEDICAL HISTORY 1. E. coli urinary tract infection. 2. Severe hypokalemia. 3. Acute gastroenteritis. 4. Recurrent intestinal bleeding. 5. Severe sepsis. 6. Atrial fibrillation. 7. Diarrhea. 8. Normocytic anemia. 9. Nbc-AM-uwlhfnqhj AL. 10. Depression. 11. C. difficile colitis. 12. Iron deficiency anemia. 13. Sepsis. 14. Hypomagnesemia. 15. Hypokalemia. PAST SURGICAL HISTORY: None. ALLERGIES: PER ELECTRONIC MEDICAL RECORD. FAMILY HISTORY AND SOCIAL HISTORY: History of alcohol, but quit. No illicits or cigarettes. She lives alone and is . MEDICATIONS: Per electronic medical record. REVIEW OF SYSTEMS: Denies any dizziness or chest pain. PHYSICAL EXAMINATION VITAL SIGNS: Reviewed. GENERAL: A tired-appearing woman resting in bed. HEENT: Anicteric. Pupils are responsive to light. No oral lesions. CARDIOVASCULAR: Normal S1 and S2. LUNGS: Moderate breath sounds. ABDOMEN: Soft, nondistended. Lower abdominal discomfort. No rebound or guarding. EXTREMITIES: No edema. SKIN: Dry. PSYCHIATRIC: Flat affect. LABS: Reviewed. MEDICATIONS: Reviewed. ASSESSMENT AND PLAN: A 77-year-old woman. 1. Acute enteritis. Continue Flagyl and Levaquin and rehydration. 2. Hypokalemia. Replace and recheck. 3. Atrial fibrillation. Rate control. 4. Iron deficiency anemia. Transfusion, ferrous sulfate. 5. Hypertension. Add antihypertensive medication. 6. Prophylaxis: Use SCDs and Pepcid. 7. Disposition: Obtain stool for C. diff. Continue with Flagyl and Cipro. Follow up GI recommendations. Job#: [id number]
[2017-11-08] MEDS: SODIUM CHLORIDE 0.9% 1000ML 1,000 ML IV SCH ×3 (07:43→21:00)
[2017-11-08] MEDS: POTASSIUM CHLORIDE 20 MEQ TAB CR PO SCH (10:38)
[2017-11-08] MEDS: FERROUS SULFATE 325 MG TAB PO SCH (10:38)
[2017-11-08] MEDS: CIPROFLOXACIN 400 MG/D5W 200ML 200 ML IV SCH ×2 (10:38→20:11)
[2017-11-08] MEDS: LORATADINE 10 MG TAB PO SCH (10:38)
[2017-11-08] MEDS: METOPROLOL TARTRATE 25 MG TAB PO SCH ×2 (10:39→17:43)
[2017-11-08] MEDS: LISINOPRIL 10 MG TAB PO SCH (10:39)
[2017-11-08] MEDS: PANTOPRAZOLE SOD 40 MG TABEC PO SCH (10:39)
[2017-11-08] MEDS: FAMOTIDINE 20 MG TAB PO SCH ×2 (10:39→17:43)
[2017-11-08] MEDS: MESALAMINE 500 MG CAPCR PO SCH ×4 (10:39→21:00)
[2017-11-08] MEDS: HYDRALAZINE HCL 25 MG TAB PO SCH ×2 (14:04→21:51)
[2017-11-08] MEDS ORDERED: TEMAZEPAM 15 MG CAP PO SCH (21:00)
[2017-11-08] MEDS: TEMAZEPAM 15 MG CAP PO PRN (23:28)
[2017-11-09] VITALS: BP 110/58
[2017-11-09 05:00] VITALS: BP 146/69
[2017-11-09] MEDS: METRONIDAZOLE 500MG/NS 100ML 100 ML IV SCH ×2 (05:25→13:25)
[2017-11-09] MEDS: HYDRALAZINE HCL 25 MG TAB PO SCH ×2 (05:25→13:25)
[2017-11-09] MEDS ORDERED: CIPRO500 MG PO (06:17)
[2017-11-09] MEDS ORDERED: FLAGYL500 MG PO (06:17)
[2017-11-09] MEDS ORDERED: PREDNISONE20 MG PO (06:17)
[2017-11-09] MEDS ORDERED: ZOFRAN ODT4 MG PO (06:17)
[2017-11-09 07:25] VITALS: BP 154/79
--- NOTE | 2017-11-09 07:40 | Discharge Summary ---
PRINCIPAL DIAGNOSES 1. Acute enteritis. 2. Hypokalemia. 3. Atrial fibrillation. 4. Iron deficiency anemia. 5. Hypertension. SECONDARY DIAGNOSIS: Hypertension. CHIEF COMPLAINT: Nausea, vomiting and diarrhea. HISTORY OF PRESENT ILLNESS: A 77-year-old woman with nausea, vomiting and diarrhea. Please refer to the H and P for further details. HOSPITAL COURSE: The patient was found to have acute enteritis treated with Flagyl, Levaquin and steroids. She had hypokalemia, which was replaced. Atrial fibrillation with rate control. Iron deficiency anemia treated with ferrous sulfate. She had hypertension. Blood pressure controlled with medication regimen. The patient is doing well. No diarrhea overnight. Will recheck the potassium this morning, and discharge the patient later on today. DISCHARGE MEDICATIONS: Per electronic medical records. FOLLOWUP 1. Primary care doctor in 1 week. 2. GI service in 2 weeks. GITA KERR MD Job#: [id number] [place]
[2017-11-09 07:51] VITALS: BP 154/79
[2017-11-09] MEDS: POTASSIUM CHLORIDE 20 MEQ TAB CR PO SCH (09:30)
[2017-11-09] MEDS: SODIUM CHLORIDE 0.9% 1000ML 1,000 ML IV SCH (09:30)
[2017-11-09] MEDS: CIPROFLOXACIN 400 MG/D5W 200ML 200 ML IV SCH (09:30)
[2017-11-09] MEDS: MESALAMINE 500 MG CAPCR PO SCH ×2 (09:30→13:25)
[2017-11-09] MEDS: LORATADINE 10 MG TAB PO SCH (09:30)
[2017-11-09] MEDS: FERROUS SULFATE 325 MG TAB PO SCH (09:30)
[2017-11-09] MEDS: PANTOPRAZOLE SOD 40 MG TABEC PO SCH (09:31)
[2017-11-09] MEDS: LISINOPRIL 10 MG TAB PO SCH (09:31)
[2017-11-09] MEDS: FAMOTIDINE 20 MG TAB PO SCH (09:31)
[2017-11-09] MEDS: METOPROLOL TARTRATE 25 MG TAB PO SCH (09:32)
[2017-11-09 11:32] VITALS: BP 151/75
[2017-11-09 15:34] VITALS: BP 147/67
== END 2017-11-09 16:29 | disposition home or self-care (01) ==
LOC: ER 12:20 → ERHOLD 15:49 → IMCU 20:10
PROVIDERS: ADMIT Internal Medicine; ATTEND Internal Medicine
DX: K52.9 Noninfective gastroenteritis and colitis, unspecified (principal); E87.6 Hypokalemia; I10 Essential (primary) hypertension; E78.5 Hyperlipidemia, unspecified; Z91.81 History of falling; Z87.440 Personal history of urinary (tract) infections; I48.91 Unspecified atrial fibrillation; Z79.01 Long term (current) use of anticoagulants; D50.9 Iron deficiency anemia, unspecified
CPT/HCPCS: 36415 ×3; 74177; 80053 ×2; 81001; 82550; 82553; 83690; 84132; 84484; 85025 ×2; 87045; 87177; 87328; 87493; 93005; 97116; 97161; 99284; G0378 ×3; G8978; G8979; J0744 ×2; J7030 ×3; Q9967; S0164 ×2

== ENCOUNTER 2017-12-21 08:16 | Inpatient (IN) | payer MEDICARE ==
[~2017-12-21] VITALS: Ht 157.5 cm; Wt 55.4 kg
[~2017-12-21 08:16] MED LIST changes: +CIPRO500 MG PO; +MELOXICAM7.5 MG PO; +PREDNISONE20 MG PO
[2017-12-21] MEDS ORDERED: DICYCLOMINE HCL 20 MG/2 ML VIAL IM ONE (09:15)
[2017-12-21] MEDS ORDERED: SODIUM CHLORIDE 0.9% 1000ML 1,000 ML IV ONE (09:15)
[2017-12-21 09:18] LABS: BILIRUBIN,URINE NEGATIVE (NEGATIVE); CLARITY,URINE CLOUDY (CLEAR); COLOR,URINE YELLOW (YELLOW); KETONES,URINE NEGATIVE (NEGATIVE); LEUKOCYTE ESTERASE ,URINE NEGATIVE (NEGATIVE); NITRITE,URINE NEGATIVE (NEGATIVE); PROTEIN,URINE DIPSTICK NEGATIVE (NEGATIVE); URINE UROBILINOGEN 0.2 mg/dL (0.2 - 1)
[2017-12-21] MEDS ORDERED: KETOROLAC TROMETHAMINE 30 MG/ML VIAL IV ONE (09:30)
[2017-12-21 09:34] LABS: BASOPHILS # (AUTO) 0.1 (0.0-0.1); BASOPHILS % 0.4 % (0.0-1.0); EOSINOPHILS % 0.3 % (0.0-6.0); HEMATOCRIT 38.4 % (34.2-44.1); HEMOGLOBIN 12.2 g/dL (12.0-16.0); LYMPHOCYTES # (AUTO) 0.8 (1.0-3.2); LYMPHOCYTES % 7.2 % (18.0-39.1); MEAN CORPUSCULAR HEMOGLOBIN 27.9 pg (28-32); MEAN CORPUSCULAR HGB CONC 31.8 g/dL (31-35); MEAN CORPUSCULAR VOLUME 87.7 fL (81-99); MONOCYTES # (AUTO) 0.9 (0.2-0.8); MONOCYTES % 7.8 % (4.4-11.3); NEUTROPHILS # (AUTO) 9.7 (2.1-6.9); PLATELET COUNT 259 x10e3/uL (140-360); RED BLOOD COUNT 4.38 x10e6/uL (3.6-5.1); RED CELL DISTRIBUTION WIDTH 17.2 % (11.7-14.4)
[2017-12-21 09:35] LABS: URIC ACID CRYSTALS,URINE MODERATE (FEW)
[2017-12-21 09:37] LABS: EPITHELIAL CELLS,URINE RARE /LPF
[2017-12-21 09:53] LABS: ALBUMIN/GLOBULIN RATIO 0.9 (0.8-2.0); ALKALINE PHOSPHATASE 60 IU/L (40-150); ANION GAP 15.5 mmol/L (8-16); BLOOD UREA NITROGEN 10 mg/dL (7-26); BUN/CREATININE RATIO 13 (6-25); CALCIUM 8.7 mg/dL (8.4-10.2); CARBON DIOXIDE 24 mmol/L (22-29); CHLORIDE 101 mmol/L (98-107); CREATININE, SERUM 0.78 mg/dL (0.57-1.11); EST GLOMERULAR FILTRATION RATE > 60 ML/MIN (60-); GLUCOSE 164 mg/dL (74-118); LIPASE 10 U/L (8-78); POTASSIUM 3.5 mmol/L (3.5-5.1); SODIUM 137 mmol/L (136-145)
[2017-12-21 09:56] LABS: ALANINE AMINOTRANSFERASE < 6 IU/L (0-55)
--- NOTE | 2017-12-21 10:03 | Diagnostic Imaging Report ---
PROCEDURE:X-RAY ABDOMEN, ACUTE SERIES COMPARISON:CT abdomen/pelvis 11/07/17. INDICATIONS:EPIGASTRIC PAIN FINDINGS: There are dilated small bowel loops which measure up to 3.7 cm. There is air within nondilated large bowel loops. Multiple air-fluid levels are seen on the upright radiograph. Findings are consistent with partial small bowel obstruction. No evidence of free air. Calcifications in the right lower quadrant represent calcified lymph nodes as seen on prior CT. Single AP radiograph of the chest demonstrates clear lungs and unremarkable cardiomediastinal silhouette. Atherosclerotic calcifications are present in the aortic arch. No acute bony findings. CONCLUSION: Findings consistent with partial small bowel obstruction. No evidence of free air. Clear lungs. Dictated by: MEDINA IVAN M.D. on 12/21/2017 at 10:08 Electronically approved by: MEDINA IVNA M.D. on 12/21/2017 at 10:08
[2017-12-21] MEDS ORDERED: DIATRIZOATE MEGL/DIATRIZOA SOD 30 ML BTL PO ONE (10:56)
--- NOTE | 2017-12-21 13:07 | Diagnostic Imaging Report ---
PROCEDURE: CT ABDOMEN AND PELVIS WITH CONTRAST TECHNIQUE: The abdomen and pelvis were scanned utilizing a multidetector helical scanner from the diaphragm to the lesser trochanter after the IV administration of 100 cc of Isovue 370 and the oral administration of dilute Gastrografin. Coronal and sagittal multiplanar reformations were obtained. COMPARISON: [facility], CT, CT ABDOMEN/PELVIS W, 11/16/2015, 11:37. [facility], CT, CT ABDOMEN/PELVIS W, 06/21/2017, 5:09. [facility], CT, CT ABDOMEN/PELVIS W, 11/07/2017, 13:48. INDICATIONS: ABDOMINAL PAIN. R/O OBSTRUCTION FINDINGS: LOWER THORAX: Linear atelectatic changes in the posterior right lower lobe (series 2, image 11). Stable moderate hiatal hernia. Mild cardiomegaly. HEPATOBILIARY: No focal hepatic lesions. Decreased prominence of the central intrahepatic bile ducts. Stable mild dilation of the common bile duct, which measures approximately 7 mm at the tariq hepatis. Stable gallstones, with the largest measuring approximate 7 mm in the dependent portion of the gallbladder lumen. No wall thickening. SPLEEN: No splenomegaly. PANCREAS: No focal masses or ductal dilatation. Stable duodenal diverticulum between the second portion of the duodenum and pancreatic head (series 2 image 33). ADRENALS: No adrenal nodules. KIDNEYS/URETERS: No hydronephrosis, stones, or solid mass lesions. PELVIC ORGANS/BLADDER: Bladder is moderately distended, without focal lesions. Uterus is not visualized. No adnexal masses. PERITONEUM / RETROPERITONEUM: Small amount of free fluid in the posterior pelvis (series 2, image 71). No free air. LYMPH NODES: Multiple enlarged lymph nodes are again noted in the central mesentery, which measure 1.1 cm in short axis (series 2, images 51, 53). There are multiple prominent mesenteric lymph nodes which measure approximately 8-9 mm, similar to prior exam, particularly along the ileocolic vessel distribution. No retroperitoneal, pelvic, or inguinal adenopathy. VESSELS: Moderate calcification of the aorta and iliac vessels. Celiac trunk, superior and inferior mesenteric, and bilateral renal arteries are patent. Portal, superior mesenteric, and splenic veins are patent. GI TRACT: Multiple loops of moderately dilated small bowel involving predominantly the ileum are noted in the anterior peritoneum, with a maximal measurement of approximately 3.2 cm (for example series 2, images 41 and 53). Several loops of distal ileum show moderate wall thickening, prominent wall enhancement and increased vascularity/prominence of the vasa recta, extending to the terminal ileum (for example, series 2, images 65, 70 and sagittal image 47 and coronal image 35). No obstructing mass. Jejunum, stomach, and duodenum are unremarkable. Large bowel is mostly decompressed and unremarkable. BONES AND SOFT TISSUES: No aggressive lytic lesions. Soft tissues are grossly unremarkable.. IMPRESSION: 1. Findings consistent with enteritis involving the ilium and extending to the terminal ileum, similar in appearance to prior exams dated 11/07/2017, 11/16/2015 and 06/21/2017. Given the recurrent nature of the findings, inflammatory bowel disease is a primary consideration (particularly Crohn's disease) despite the patient's age. Infectious enteritis is less likely. No evidence of perforation or adjacent abscess formation. 2. Multiple loops of moderately dilated small bowel, without a definite transition point, likely representing a reactive ileus. 3. Prominent mesenteric nodes, likely reactive. 4. Small amount of free fluid in the pelvis, likely reactive. 5. Stable cholelithiasis and mild dilation of the common bile duct. No CT evidence of cholecystitis. 6. Stable moderate hiatal hernia. Eamon Collins M.D. Dictated by: Eamon Collins M.D. on 12/21/2017 at 13:11 Electronically approved by: Eamon Collins M.D. on 12/21/2017 at 13:11
[2017-12-21] MEDS ORDERED: METHYLPREDNISOLONE SOD SUCC 125 MG/2ML VIAL IV ONE (14:00)
[2017-12-21] MEDS ORDERED: ONDANSETRON HCL INJ 2 MG/ML VIAL IV PRN (15:00)
[2017-12-21] MEDS ORDERED: SODIUM CHLORIDE 0.9% 50ML 50 ML ONE (15:02)
[2017-12-21] MEDS ORDERED: IOPAMIDOL 370 MG/ML 200 ML INFUS..BTL INJ ONE (15:02)
[2017-12-21] MEDS: DICYCLOMINE HCL 10 MG CAP PO SCH ×2 (15:17→21:00)
[2017-12-21] MEDS: SODIUM CHLORIDE 0.9% 1000ML 1,000 ML IV SCH (15:25)
[2017-12-21 16:30] VITALS: BP 145/68
[2017-12-21] MEDS: FAMOTIDINE 20 MG/2 ML VIAL IV SCH (17:38)
[2017-12-21] MEDS: TEMAZEPAM 15 MG CAP PO SCH (21:00)
[2017-12-21] MEDS: METHYLPREDNISOLONE SOD SUCC 40 MG/ML VIAL IV SCH (22:00)
[2017-12-22] MEDS: SODIUM CHLORIDE 0.9% 1000ML 1,000 ML IV SCH ×3 (00:50→16:16)
[2017-12-22 05:38] LABS: BASOPHILS % 0.1 % (0.0-1.0); HEMATOCRIT 32.4 % (34.2-44.1); HEMOGLOBIN 10.2 g/dL (12.0-16.0); LYMPHOCYTES # (AUTO) 0.5 (1.0-3.2); LYMPHOCYTES % 5.5 % (18.0-39.1); MEAN CORPUSCULAR HEMOGLOBIN 27.7 pg (28-32); MEAN CORPUSCULAR HGB CONC 31.5 g/dL (31-35); MONOCYTES # (AUTO) 0.3 (0.2-0.8); MONOCYTES % 3.3 % (4.4-11.3); NEUTROPHILS # (AUTO) 7.7 (2.1-6.9); NEUTROPHILS % 90.9 % (38.7-80.0); PLATELET COUNT 249 x10e3/uL (140-360); RED BLOOD COUNT 3.68 x10e6/uL (3.6-5.1); RED CELL DISTRIBUTION WIDTH 17.2 % (11.7-14.4)
[2017-12-22 05:59] LABS: ALANINE AMINOTRANSFERASE < 6 IU/L (0-55); ALBUMIN 2.6 g/dL (3.5-5.0); ALKALINE PHOSPHATASE 54 IU/L (40-150); ANION GAP 11.4 mmol/L (8-16); BLOOD UREA NITROGEN 9 mg/dL (7-26); BUN/CREATININE RATIO 13 (6-25); CALCIUM 7.8 mg/dL (8.4-10.2); CARBON DIOXIDE 21 mmol/L (22-29); CHLORIDE 108 mmol/L (98-107); CREATININE, SERUM 0.67 mg/dL (0.57-1.11); EST GLOMERULAR FILTRATION RATE > 60 ML/MIN (60-); GLUCOSE 181 mg/dL (74-118); POTASSIUM 4.4 mmol/L (3.5-5.1); SODIUM 136 mmol/L (136-145)
[2017-12-22] MEDS: METHYLPREDNISOLONE SOD SUCC 40 MG/ML VIAL IV SCH ×3 (06:00→21:48)
[2017-12-22 08:00] VITALS: BP 152/70
--- NOTE | 2017-12-22 08:32 | History and Physical ---
PRIMARY CARE PHYSICIAN: Dr. Fernandez CHIEF COMPLAINT: Abdominal pain. HISTORY OF PRESENT ILLNESS: A 77-year-old woman who developed midabdominal pain prompting visit to the hospital. She admits to being constipated as well. Here she was found to have a partial small-bowel obstruction/ileus and enteritis. She is admitted for further evaluation and management. PAST MEDICAL HISTORY: E. coli urinary tract infection, severe hypokalemia, acute gastroenteritis, recurrent intestinal bleeding, severe sepsis, atrial fibrillation, diarrhea, normocytic anemia, yuj-EM-kyyonunsq AK, depression, C. difficile colitis, iron deficiency anemia, sepsis, hypomagnesemia, hypokalemia, acute enteritis. PAST SURGICAL HISTORY: None. ALLERGIES: PER ELECTRONIC MEDICAL RECORD. FAMILY HISTORY/SOCIAL HISTORY: Patient lives alone and is . History of alcohol but quit. No illicits or cigarettes. MEDICATIONS: Per electronic medical record. REVIEW OF SYSTEMS: Denies any dizziness, chest pain, shortness of breath, fever, chills, sweats, nausea, vomiting, diarrhea, leg pain, or back pain. PHYSICAL EXAMINATION VITAL SIGNS: Have been reviewed. GENERAL: A tired-appearing woman resting in bed. HEENT: Anicteric. Pupils respond to light. No oral lesions. CARDIOVASCULAR: Normal S1 and S2. LUNGS: Moderate breath sounds. ABDOMEN: Soft and nondistended. Minimal tenderness in the midabdomen. EXTREMITIES: No edema or calf tenderness. NEUROLOGICAL: Alert and oriented times 3. Moving all extremities. SKIN: Dry. PSYCHIATRIC: Normal affect. LABS: Reviewed. MEDICATIONS: Reviewed. ASSESSMENT: A 77-year-old woman with: 1. Partial small-bowel obstruction/ileus. 2. Acute enteritis. 3. Cholelithiasis. 4. Atrial fibrillation. 5. Depression. 6. Normocytic anemia. 7. Metabolic acidosis. PLAN 1. Will treat with Flagyl and IV fluids. 2. Continue steroid treatment. 3. Consultation with Dr. Osullivan. 4. Mesalamine. 5. Follow up labs. 6. Use SCD and Pepcid for prophylaxis. Job#: [id number] CT
[2017-12-22] MEDS: FAMOTIDINE 20 MG/2 ML VIAL IV SCH ×2 (08:36→17:46)
[2017-12-22] MEDS: DICYCLOMINE HCL 10 MG CAP PO SCH ×3 (08:37→21:48)
[2017-12-22] MEDS: MESALAMINE 400 MG CAP PO SCH (08:37)
[2017-12-22 09:00] VITALS: BP 152/70
[2017-12-22] MEDS ORDERED: MESALAMINE 400 MG CAP PO ONE (09:00)
[2017-12-22 12:00] VITALS: BP 149/69
[2017-12-22] MEDS ORDERED: METRONIDAZOLE 500MG/NS 100ML 100 ML IV SCH (14:00)
[2017-12-22] MEDS: METRONIDAZOLE 500 MG TAB PO SCH ×2 (14:21→21:48)
[2017-12-22 16:00] VITALS: BP 150/76
[2017-12-22 20:00] VITALS: BP 139/72
--- NOTE | 2017-12-22 20:09 | Consultation ---
DATE OF CONSULTATION: December 22, 2017 GASTROENTEROLOGY CONSULTATION REASON FOR CONSULTATION: Chronic midabdominal with recurrent lower abdominal pain for more than 4 years. HISTORY OF PRESENT ILLNESS: A 77-year-old female who has been admitted in this hospital several times in the last 4 years with midabdominal pain. Abdominal pain is 6/10 in intensity, mostly in the lower quadrant, nonradiating and intermittent in nature. Has no exacerbation, exacerbating or relieving factor. It has some relation with meals. She has noticed with some meals she gets more pain than when she is fasting. She has had upper endoscopy, as well as colonoscopy in June this year. Upper endoscopy was unremarkable. Small bowel biopsy and gastric biopsies were also nonspecific. Small bowel biopsy was normal. Colonoscopy with terminal ileal intubation showed normal colonic mucosa. Biopsy from the terminal ileum was normal. Random colon biopsies were normal. On this admission, the patient presented with the same screening complaint of abdominal pain, which sort of became more recurrent in the last couple of days, more intensified. CT of the abdomen on this admission showed terminal ileal dilated loops with some enteritis and ileal wall thickening concerning for inflammatory versus ischemic enteritis. Blood work unremarkable with white count of 11.61. She is not anemic. Hemoglobin is 12.2. Hematocrit 38.4. She denies any extra intestinal complains. On anticoagulant. REVIEW OF SYSTEMS: A 12-point system reviewed. Symptomatology is limited to the GI system. PAST SURGICAL HISTORY: None. PAST MEDICAL HISTORY: Recurrent UTI, atrial fibrillation (not on any anticoagulants), intermittent diarrhea, coronary artery disease history, prior MRI, depression, history of C. difficile colitis. FAMILY HISTORY: Negative for any GI or [employer] malignancies. SOCIAL HISTORY: Lives by herself and . No smoking, alcohol or any illicit drug use. ALLERGIES: NO KNOWN DRUG ALLERGIES. HOME MEDICATIONS: Alendronate, aspirin, calcium, sertraline, cholestyramine, ciprofloxacin, dicyclomine, citalopram, famotidine, ferrous sulfate, hydralazine, lansoprazole, lisinopril, loperamide, loratadine, lovastatin, meloxicam, mesalamine, metronidazole, nifedipine, Zofran, pantoprazole, potassium chloride, prednisone, temazepam, and apixaban. PHYSICAL EXAMINATION VITAL SIGNS: Temperature 96.4, pulse 76, respirations 18, blood pressure 150/76, oxygen saturation 95% on room air. GENERAL: Not in any acute distress. HEENT: Oral mucosa is moist. Anicteric sclerae. NECK: No neck or axillary adenopathy. CV: S1 and S2 regular. LUNGS: Bilaterally grossly clear. ABDOMEN: Soft. Mild lower quadrant tenderness on deep palpation without rebound, rigidity or guarding. No palpable mass or hernia. EXTREMITIES: Warm. No leg edema. LABS: WBC 8.5, hemoglobin 10.2, hematocrit 32.4, MCV 88, platelet count 249,000. Sodium 136, potassium 4.4, chloride 108, bicarb 21, BUN 9, creatinine 0.67, glucose 181. Liver enzymes showed total bilirubin 0.6, AST 10, ALT 6, alkaline phosphatase 54. CT of the abdomen and pelvis with IV and oral contrast showed finding consistent with: 1. Enteritis involving the ileum and extending to the terminal ileum, similar in appearance to prior exam dated November 07, 2017, November 15, 2017, and June 21, 2017. Given the recurrent nature of the findings, inflammatory bowel disease is a primary consideration (particularly Crohn's disease), despite the patient's age. Infectious enteritis is less likely. No evidence of perforation or and adjacent abscess. 2. Multiple loops of moderately dilated small bowel without definite transition point, likely representing reactive ileus. 3. Prominent mesenteric lymph node, likely reactive. 4. Small amount of free fluid in the pelvis, likely reactive. 5. Stable cholelithiasis and mild dilatation of common bile duct. No CT evidence of cholecystitis. 6. Stable moderate hiatal hernia. IMPRESSION: Chronic abdominal pain, which is intermittent in nature with off and on diarrhea. Computerized tomography finding which described above is quite chronic. PLAN: Continue present medical management. Supportive care. Check inflammatory marker, such as sed rate or C-reactive protein. If the patient develops any diarrhea, then send the stool studies for culture, wbcs lactoferrin, calprotectin, rule out C. diff as well. I strongly suspect the patient may be having chronic mesenteric ischemia causing this abdominal pain. However, her symptoms are not classic. Usually, a patient develops postprandial abdominal pain in mesenteric ischemia with a profound weight loss. Patient's are usually afraid of eating. However, given the chronicity without much diarrhea, I will entertain CT angiogram of the abdomen to demonstrate the anatomy of the vascularity of the distal structure. Outpatient small bowel capsule exam that was also done will also give a better picture of small bowel mucosa. Surgical consult will also be helpful. Will continue to monitor her clinically. I thank Dr. Luiz Gray for allowing me to participate in the care of this patient. Job#: [id number] [place]
--- NOTE | 2017-12-22 20:42 | Progress Note ---
DATE: December 22, 2017 SUBJECTIVE: Patient reports diffuse lower abdominal pain. She has had a few loose stools today. No blood in the stool. REVIEW OF SYSTEMS GENERAL: No fever or chills. RESPIRATORY: No cough or expectoration. CVS: No chest pain, palpitations. MEDICATIONS: Reviewed MAR. She is being given Solu-Medrol 40 mg IV q.8 h. PHYSICAL EXAMINATION VITAL SIGNS: Temperature 96.4, pulse 76, respiration 18, blood pressure 150/76, oxygen saturation 95% on room air. GENERAL: Not in any acute distress. HEENT: Oral mucosa is moist. Anicteric sclerae. CVS: S1, S2 regular. LUNGS: Bilaterally grossly clear. ABDOMEN: Soft, mild lower quadrant tenderness on deep palpation, without rebound, rigidity or guarding. Positive bowel sound. EXTREMITIES: Warm. No leg edema. LABS: WBC 10.2 down from 12.2, hemoglobin 8.5 from 11.61, hematocrit 32.4, platelet count 249,000. Chemistry, sodium 136, potassium 4.4, chloride 108, bicarb 21, BUN 9, creatinine 0.67, glucose 181. Liver enzymes normal. ASSESSMENT 1. Chronic lower abdominal pain, with off and on diarrhea. Lower abdominal bloating especially after eating. CT showing distal small bowel thickening, which is chronic. Prometheus test has been done in the office by Dr. Osullivan that is highly suspicious for inflammatory bowel disease. C-reactive protein is pending. Patient is empirically being treated with the steroid on the line of acute exacerbation of Crohn's disease. 2. I suspect possibility of chronic mesenteric ischemia; therefore, CT angiogram of the abdomen and pelvis is being ordered. 3. There is a possibility of bacterial overgrowth. Therefore, give her a trial of Xifaxan. PLAN: Continue present care. Obtain surgical consult. Add sed rate. My partner, Dr. Abraham, will follow the patient tomorrow. Job#: [id number] CQ
--- NOTE | 2017-12-22 21:11 | Consultation ---
DATE OF CONSULTATION: December 22, 2017 CHIEF COMPLAINT: Abdominal distention. HISTORY OF PRESENT ILLNESS: The patient is 77-year-old female with history of recurrent abdominal distention with constipations in the last 3 weeks, worsening in the last few days. She denies vomiting, fever, chills, or diarrhea. PAST MEDICAL HISTORY: Significant for atrial fibrillation, chronic anemia, hyperlipidemia, hypertension, history of [place], depression. SURGICAL HISTORY: Positive for hysterectomy. SOCIAL HABITS: No smoking or alcohol abuse. REVIEW OF SYSTEMS: No chest pain, shortness of breath, or cough. ALLERGIES: NO DRUG ALLERGIES. PHYSICAL EXAMINATION: VITAL SIGNS: Stable, afebrile. GENERAL: Patient is awake, alert, in mild discomfort. HEENT: Sclerae anicteric. NECK: Supple. LUNGS: Clear. HEART: Irregular rate and rhythm. No murmurs. ABDOMEN: Mild to moderate distention with mild guarding in the periumbilical area without rebound. EXTREMITIES: Without cyanosis or edema. LABORATORY DATA: White cell count is 8.5, creatinine is 0.7. Liver function tests within normal limits. CT of the abdomen showed evidence of enteritis involving the terminal ileum. There are multiple loops of moderately dilated small bowel without transitional point suggesting ileus. ASSESSMENT: Chronic recurrent abdominal distention with small bowel dilatation without obvious transitional point. This could represent a partial obstruction from adhesions. PLAN: Monitor abdominal exam and x-ray. Repeat CT scan if symptoms worsen. Thank you for consultation. Job#: [id number]
[2017-12-22] MEDS: RIFAXIMIN 200 MG TAB PO SCH (21:48)
[2017-12-22] MEDS: TEMAZEPAM 15 MG CAP PO SCH (21:48)
[2017-12-23] VITALS (7 sets, daily range): BP systolic 140–179; BP diastolic 67–84
[2017-12-23] MEDS: SODIUM CHLORIDE 0.9% 1000ML 1,000 ML IV SCH ×2 (02:50→16:45)
--- NOTE | 2017-12-23 05:05 | Diagnostic Imaging Report ---
EXAM: CTA ABD/PELVIS DATE: 12/23/2017 2:52 AM INDICATION: \S\CT Angio of ABD/Pelvis r/o mesenteric ischemia \[id number] \S\0350 \S\Y COMPARISON: 12.21.17 TECHNIQUE: The abdomen and pelvis were scanned using a multidetector helical scanner. Coronal and sagittal reformations were obtained. CT angiogram mesenteric ischemia protocol was performed. IV Contrast: 100 ml Isovue 300/370 FINDINGS: Evaluation of abdominal pelvic organs is somewhat degraded due to arterial phase imaging. LOWER THORAX: Increased small effusions with associated atelectasis. LIVER/BILIARY: No masses. No ductal dilatation. GALLBLADDER: Cholelithiasis. SPLEEN: Unremarkable PANCREAS: Unremarkable ADRENALS: No nodules KIDNEYS: Symmetric perfusion. No enhancing masses. No hydronephrosis. GI TRACT: Stable moderate hiatal hernia. Persistent distal/ileal small bowel wall segmental thickening and hyperemia, seen over multiple priors. Interval improvement in small bowel dilatation. VESSELS: Aorta, iliac and visualized femoral arteries are patent, normal caliber. Moderate calcified and noncalcified atherosclerotic plaque of the abdominal aorta and common iliac arteries, mild of the external and internal iliac arteries. Celiac axis, SMA, bilateral renal arteries, and SEBASTIAN are patent, normal caliber. PERITONEUM/RETROPERITONEUM: Mild abdominal and mesenteric edema/free fluid, decreased from prior. No free air. LYMPH NODES: Scattered prominent mesenteric lymph nodes, likely reactive. REPRODUCTIVE ORGANS/BLADDER: Hysterectomy. Otherwise unremarkable. SOFT TISSUES: Unremarkable BONES: No suspicious bone lesions. IMPRESSION: 1. Enteritis, similar in appearance and location over multiple priors from 2013. Favor inflammatory etiology such as Crohn's. Improved small bowel dilation and free fluid/edema from most recent prior. 2. Central mesenteric arteries are patent, normal caliber. Signed by: Dr Merry Stovall MD on 12/23/2017 5:02 AM
[2017-12-23] MEDS: METHYLPREDNISOLONE SOD SUCC 40 MG/ML VIAL IV SCH ×3 (05:28→22:00)
[2017-12-23] MEDS: METRONIDAZOLE 500 MG TAB PO SCH ×3 (05:28→22:00)
[2017-12-23] MEDS ORDERED: IOPAMIDOL 370 MG/ML 200 ML INFUS..BTL INJ ONE (07:12)
[2017-12-23] MEDS ORDERED: SODIUM CHLORIDE 0.9% 100 ML ONE (07:12)
[2017-12-23] MEDS: FAMOTIDINE 20 MG/2 ML VIAL IV SCH ×2 (08:57→16:47)
[2017-12-23] MEDS: MESALAMINE 400 MG CAP PO SCH (08:57)
[2017-12-23] MEDS: RIFAXIMIN 200 MG TAB PO SCH ×2 (08:57→21:00)
[2017-12-23] MEDS: DICYCLOMINE HCL 10 MG CAP PO SCH ×3 (08:57→21:00)
[2017-12-23] MEDS: HYDRALAZINE HCL 25 MG TAB PO SCH ×2 (16:45→21:00)
[2017-12-23] MEDS: NIFEDIPINE CR 30 MG TAB PO SCH (16:47)
[2017-12-23] MEDS: TEMAZEPAM 15 MG CAP PO SCH (22:00)
[2017-12-24] VITALS: BP 156/76
[2017-12-24] MEDS: SODIUM CHLORIDE 0.9% 1000ML 1,000 ML IV SCH ×2 (02:50→12:50)
[2017-12-24] MEDS: METRONIDAZOLE 500 MG TAB PO SCH ×2 (05:23→14:00)
[2017-12-24] MEDS: METHYLPREDNISOLONE SOD SUCC 40 MG/ML VIAL IV SCH ×2 (05:23→14:00)
[2017-12-24 05:43] VITALS: BP_SYST 138
[2017-12-24 08:00] VITALS: BP 159/77
[2017-12-24] MEDS: FAMOTIDINE 20 MG/2 ML VIAL IV SCH (08:27)
[2017-12-24] MEDS: DICYCLOMINE HCL 10 MG CAP PO SCH (08:28)
[2017-12-24] MEDS: HYDRALAZINE HCL 25 MG TAB PO SCH (08:28)
[2017-12-24] MEDS: MESALAMINE 400 MG CAP PO SCH (08:29)
[2017-12-24] MEDS: NIFEDIPINE CR 30 MG TAB PO SCH (08:30)
[2017-12-24] MEDS: RIFAXIMIN 200 MG TAB PO SCH (08:43)
[2017-12-24 09:00] VITALS: BP 159/77
[2017-12-24] MEDS ORDERED: LISINOPRIL 10 MG TAB PO SCH (09:00)
[2017-12-24 12:23] VITALS: BP 170/78
[2017-12-24] MEDS ORDERED: DICYCLOMINE HCL10 MG PO (12:30)
[2017-12-24] MEDS ORDERED: XIFAXAN200 MG PO (12:30)
[2017-12-24] MEDS ORDERED: Mesalamine PO (12:30)
--- NOTE | 2017-12-24 17:05 | Discharge Summary ---
PRINCIPAL DIAGNOSES 1. Acute enteritis. 2. Cholelithiasis. 3. Atrial fibrillation. 4. Depression. 5. Normocytic anemia. 6. Metabolic acidosis. SECONDARY DIAGNOSES 1. Escherichia coli urinary tract infection. 2. Severe hypokalemia. 3. Acute gastroenteritis. 4. Recurrent intestinal bleeding. 5. Severe sepsis. 6. Atrial fibrillation. 7. Diarrhea. 8. Normocytic anemia. 9. Yye-YT-hkijkll elevation myocardial infarction. 10. Depression. 11. Clostridium difficile colitis. 12. Iron deficiency anemia. 13. Sepsis. 14. Hypomagnesemia. 15. Hypokalemia. 16. Acute enteritis. CHIEF COMPLAINT: This 77-year-old woman developed midabdominal pain on the day she was admitted. The patient presented with report of constipation as well. HOSPITAL COURSE: Upon admission, the patient was found to have partial small-bowel obstruction, ileus and enteritis, and was admitted for workup with IV fluids, Flagyl, steroid treatments, GI consult, and mesalamine, and followup labs. Consult was obtained the same day at which time GI obtained surgical consult and sed rate, and a trial of Xifaxan. On that day the evening of December 22, 2017, surgical consult was obtained at which time surgery recommended to monitor abdominal exam and x-ray. Repeat CT scan if symptoms worsened. CT was performed on the early a.m. of December 23, 2017. She was found to have positive enteritis similar in appearance and location as prior imaging all the way back to 2013. Positive inflammatory etiology indicative of Crohn. However, had improved small bowel dilation and improved free fluid edema from previous imaging. Of note, the central mesenteric arteries were patent with normal caliber. Thus, surgery deferred further intervention depending on abdominal exam. Over the course of the next 24 hours following imaging, symptoms improved dramatically per the patient and per provider exams. GI continued with recommendation of anti-infectives and considered enteritis most likely Crohn disease. On the day, December 24, 2017, the patient was found to have no fever, marked reduction in abdominal symptoms, ambulating ad mynor, and advancing diet as tolerated with flatus and 1 small bowel movement this day per RN. DISCHARGE MEDICATIONS: New prescriptions include: 1. Dicyclomine 10 mg p.o. t.i.d. 2. Rifaximin 200 mg tablets 2.5 tablets or 500 mg p.o. q.12 h. 3. Mesalamine 400 mg p.o. once daily. 4. The patient is to continue her home medications which include sodium 70 mg p.o. once daily as needed for mild pain. 5. Aspirin 81 mg. 6. Citracal plus D-max once daily. 7. Sertraline 10 mg p.o. daily. 8. Questran packet twice daily. 9. Escitalopram oxalate 10 mg tab once daily. 10. Pepcid 20 mg b.i.d. 11. Ferrous sulfate 325 mg once daily. 12. Hydralazine 25 mg q.8 h. 13. Prevacid 30 mg p.o. daily. 14. Lisinopril 10 mg p.o. daily. 15. Loperamide as needed p.r.n. diarrhea. 16. Loratadine 10 mg p.o. daily. 17. Lovastatin 20 mg p.o. daily. 18. Meloxicam 7.5 mg once daily. 19. Nifedipine 30 mg tabs ER once every 12 hours. 20. Zofran q.6 h. as needed. 21. Protonix 40 mg once daily. 22. Supplemental potassium chloride 20 mEq every day. 23. Prednisone 20 mg tablets once daily. 24. Restoril at night 50 mg. 25. Detrol LA 4 mg daily. 26. Eliquis 5 mg p.o. q.12 h. FOLLOWUP/REFERRALS: The patient was to notify Dr. Jose Fernandez, PCP, for followup with him in 5-7 days, and to notify gastroenterology, Dr. Kofi Pandya, tomorrow on Monday for followup appointment within 3 days, or to seek care for fever or any other concerns. CONDITION ON DISCHARGE: Improved. DICTATED BY BRITTNEY HORTON, PATRICIA GITA KERR MD Job#: [id number] MS
[2017-12-27 04:10] LABS: ENDOMYSIAL ANTIBODIES, IGA Negative (Negative)
== END 2017-12-24 14:16 | disposition home or self-care (01) | DRG 386 ==
LOC: ER 08:16 → ERHOLD 14:50 → MED/SURG2 16:39
PROVIDERS: ADMIT Internal Medicine; ATTEND Internal Medicine
DX: K50.90 Crohn's disease, unspecified, without complications (principal); E87.2 Acidosis; K80.20 Calculus of gallbladder without cholecystitis without obstruction; I48.91 Unspecified atrial fibrillation; D64.9 Anemia, unspecified; F32.9 Major depressive disorder, single episode, unspecified; B96.20 Unspecified Escherichia coli [E. coli] as the cause of diseases classified elsewhere; E87.6 Hypokalemia
CPT/HCPCS: 36415; 74022; 74174; 74177; 80053; 81001; 82784; 83516; 83605; 83690; 84550; 85025; 85651; 86140; 86256; 87340; 96361; 99284; J0500; J1885; J2920; J2930; J7030; J7050; Q9967

== ENCOUNTER 2018-08-27 09:47 | Emergency (ER) | payer MEDICARE, OTHER ==
[~2018-08-27] VITALS: Ht 157.5 cm; Wt 55.3 kg
[~2018-08-27 09:47] MED LIST changes: +DICYCLOMINE HCL10 MG PO; +XIFAXAN200 MG PO
--- OUTSIDE RECORDS SUMMARY | 2018-08-27 09:52 | XMS REPORT | CCD ---
Author Author Auto Generated Organization [facility] Address Unknown Phone Unavailable Care Team Providers Care Assistant Professor Of Criminal Justice Name Role Phone Charisma Negro CP Unavailable Beryl Guevara CP Unavailable Opal Alanis CP Dakota Velazquez CP Unavailable Cora Preston CP Unavailable Alena Bhandari CP Linn Ricci CP Unavailable ChartServer, Login CP Unavailable Bayron Valdez CP Victorina Hernandez CP Maurice Julien CP Unavailable Gi Staley CP Unavailable Mel Esparza CP Unavailable SYSTEM, SYSTEM CP Unavailable Carlos Pfeiffer CP Unavailable Matteo Storey CP Jose Fernandez CP Bri Conn CP Madelaine Proctor CP [phone] Allergies, Adverse Reactions, Alerts Substance Reaction Status NKDA ?? Active Medications Medication Instructions Start Date End Date Status ondansetron 4 mg 1 tab, Route: PO, ONCE, Start date: 02/23/2011 02/23/2011 Completed oral tablet, 02/23/11 17:25:00, Stop date: disintegrating 02/23/11 17:25:00 morphine Sulfate 4 mg, Route: IM, ONCE, Start date: 02/23/2011 02/23/2011 Completed 02/23/11 17:25:00, Stop date: 02/23/11 17:25:00 Unknown Home Substitution Allowed 02/23/2011 ?? Ordered Medication Vital Signs Most recent to oldest [Reference Range]: 1 2 3 Height 157.48 cm (02/23/2011 11:22:00) ? Temperature Oral [96.4-99.1 DegF] 97.8 DegF (02/23/2011 13:47:00) ?? 97.6 DegF (02/23/2011 11:22:00) ? Systolic Blood Pressure [90-140 mmHg] 171 mmHg *HI* (02/23/2011 20:52:00) ?? 148 mmHg *HI* (02/23/2011 13:47:00) ?? 148 mmHg *HI* (02/23/2011 11:22:00) ?? Diastolic Blood Pressure [60-90 mmHg] 73 mmHg (02/23/2011 20:52:00) ?? 75 mmHg (02/23/2011 13:47:00) ?? 80 mmHg (02/23/2011 11:22:00) ?? Respiratory Rate [14-20 BRMIN] 16 BRMIN (02/23/2011 20:52:00) ?? 18 BRMIN (02/23/2011 13:47:00) ?? 17 BRMIN (02/23/2011 11:22:00) ?? Peripheral Pulse Rate [60-100 bpm] 79 bpm (02/23/2011 20:52:00) ?? 73 bpm (02/23/2011 13:47:00) ?? 83 bpm (02/23/2011 11:22:00) ?? Weight 55.000 kg (02/23/2011 11:22:00) ? Results URINALYSIS Most recent to oldest [Reference Range]: 1 UA Turbidity [>Clear] Slight *ABN* (02/23/2011 20:45:00) ?? UA Color [>Yellow] Yellow *NA* (02/23/2011 20:45:00) ?? UA pH [5.0-8.0] 6.5 (02/23/2011 20:45:00) ?? UA Spec Grav [<<=1.030] 1.020 (02/23/2011 20:45:00) ?? UA Glucose [>Negative mg/dL] Negative mg/dL *NA* (02/23/2011 20:45:00) ?? UA Blood [>Negative] Negative (02/23/2011 20:45:00) ?? UA Ketones [>Negative mg/dL] Negative mg/dL *NA* (02/23/2011 20:45:00) ?? UA Protein [>Negative mg/dL] Negative mg/dL (02/23/2011 20:45:00) ?? UA Urobilinogen [0.1-1.0 mg/dL] <=1.0 mg/dL *NA* (02/23/2011 20:45:00) ?? UA Bili [>Negative] Negative *NA* (02/23/2011 20:45:00) ?? UA Leuk Est [>Negative] Small *ABN* (02/23/2011 20:45:00) ?? UA Nitrite [>Negative] Negative (02/23/2011 20:45:00) ?? UA WBC [0-5 /HPF] 4 /HPF (02/23/2011 20:45:00) ?? UA RBC [0-2 /HPF] 1 /HPF (02/23/2011 20:45:00) ?? UA Bacteria [>None Seen /HPF] Occasional /HPF *NA* (02/23/2011 20:45:00) ?? UA Sq Epi [>Few /LPF] Many /LPF *ABN* (02/23/2011 20:45:00) ?? UA Mucus [>None Seen /LPF] Few /LPF *NA* (02/23/2011 20:45:00) ?? CHEMISTRY Most recent to oldest [Reference Range]: 1 Sodium Lvl [135-145 mEq/L] 140 mEq/L (02/23/2011 20:45:00) ?? Potassium Lvl [3.5-5.1 mEq/L] 3.6 mEq/L (02/23/2011 20:45:00) ?? Chloride Lvl [95-109 mEq/L] 106 mEq/L (02/23/2011 20:45:00) ?? CO2 [24-32 mEq/L] 25 mEq/L (02/23/2011 20:45:00) ?? AGAP [10.0-20.0 mEq/L] 12.6 mEq/L (02/23/2011 20:45:00) ?? Creatinine Lvl [0.5-1.4 mg/dL] 0.7 mg/dL (02/23/2011 20:45:00) ?? BUN [7-22 mg/dL] 9 mg/dL (02/23/2011 20:45:00) ?? B/C Ratio [6-25] 13 (02/23/2011 20:45:00) ?? Glucose Lvl 124 mg/dL 1 *NA* (02/23/2011 20:45:00) ?? Total Protein [6.4-8.4 g/dL] 7.0 g/dL (02/23/2011 20:45:00) ?? Albumin Lvl [3.5-5.0 g/dL] 3.0 g/dL *LOW* (02/23/2011 20:45:00) ?? Globulin [2.0-4.0 g/dL] 4.0 g/dL (02/23/2011 20:45:00) ?? A/G Ratio [0.7-1.6] 0.8 (02/23/2011 20:45:00) ?? Calcium Lvl [8.5-10.5 mg/dL] 8.2 mg/dL *LOW* (02/23/2011 20:45:00) ?? ALT [0-65 U/L] 14 U/L (02/23/2011 20:45:00) ?? AST [0-37 U/L] 12 U/L (02/23/2011 20:45:00) ?? Alk Phos [39-136 U/L] 55 U/L (02/23/2011 20:45:00) ?? Bili Total [0.2-1.3 mg/dL] 0.3 mg/dL (02/23/2011 20:45:00) ?? 1Interpretive Data: Reference Ranges : 0 - 7 days : 41 - 90 mg/dL7 days - 150 yrs : 70 - 99 mg/dL (fasting), based on the clinical recommendations of the [employer]. HEMATOLOGY Most recent to oldest [Reference Range]: 1 WBC [3.7-10.4 K/CMM] 7.3 K/CMM (02/23/2011 20:45:00) ?? RBC [4.20-5.40 M/CMM] 3.54 M/CMM *LOW* (02/23/2011 20:45:00) ?? Hgb [12.0-16.0 g/dL] 9.3 g/dL *LOW* (02/23/2011 20:45:00) ?? Hct [36.0-48.0 %] 28.7 % *LOW* (02/23/2011 20:45:00) ?? MCV [81.0-99.0 fL] 81.2 fL (02/23/2011 20:45:00) ?? MCH [27.0-31.0 pg] 26.3 pg *LOW* (02/23/2011 20:45:00) ?? MCHC [32.0-36.0 g/dL] 32.4 g/dL (02/23/2011 20:45:00) ?? RDW [11.5-14.5 %] 18.8 % *HI* (02/23/2011 20:45:00) ?? Platelet [133-450 K/CMM] 373 K/CMM (02/23/2011 20:45:00) ?? MPV [7.4-10.4 fL] 7.6 fL (02/23/2011 20:45:00) ?? Segs [45.0-75.0 %] 77.9 % *HI* (02/23/2011 20:45:00) ?? Lymphocytes [20.0-40.0 %] 15.0 % *LOW* (02/23/2011 20:45:00) ?? Monocytes [2.0-12.0 %] 5.7 % (02/23/2011 20:45:00) ?? Eosinophils [0.0-4.0 %] 0.7 % (02/23/2011 20:45:00) ?? Basophils [0.0-1.0 %] 0.7 % (02/23/2011 20:45:00) ?? Segs-Bands # [1.5-8.1 K/CMM] 5.7 K/CMM (02/23/2011 20:45:00) ?? Lymphocytes # [1.0-5.5 K/CMM] 1.1 K/CMM (02/23/2011 20:45:00) ?? Monocytes # [0.0-0.8 K/CMM] 0.4 K/CMM (02/23/2011 20:45:00) ?? Eosinophils # [0.0-0.5 K/CMM] 0.0 K/CMM (02/23/2011 20:45:00) ?? Basophils # [0.0-0.2 K/CMM] 0.0 K/CMM (02/23/2011 20:45:00) ?? PT [12.0-14.7 seconds] 13.6 seconds (02/23/2011 20:45:00) ?? INR [0.85-1.17] 1.04 2 (02/23/2011 20:45:00) ?? PTT [22.9-35.8 seconds] 27.5 seconds 3 (02/23/2011 20:45:00) ?? 2Interpretive Data: RECOMMENDED RANGES FOR PROTIME INR: 2.0-3.0 for most medical and surgical thromboembolic states. 2.5-3.5 for artificial heart valves and recurrent embolism.INR SHOULD BE USED ONLY FOR PATIENTS ON STABLE ANTICOAGULANT THERAPY. 3Interpretive Data: Heparin Therapeutic Range: 57 - 92 Seconds
--- OUTSIDE RECORDS SUMMARY | 2018-08-27 09:52 | XMS REPORT | Summary of Care ---
Author Author [facility] [place] Organization [facility] [place] Address Unknown Phone Unavailable Encounter HQ Encntr_alias(FIN) [id number] Date(s): 09/22/17 - 09/22/17 [facility] [place] [address] [place] [phone] Discharge Disposition: Home or Self Care Attending Physician: Jose Fernandez MD Vital Signs No data available for this section Problem List No data available for this section Allergies, Adverse Reactions, Alerts Substance Reaction Severity Status NKDA Active Medications No data available for this section Results No data available for this section Immunizations No data available for this section Procedures No data available for this section Social History No data available for this section Assessment and Plan No data available for this section
--- OUTSIDE RECORDS SUMMARY | 2018-08-27 09:52 | XMS REPORT | Continuity of Care Document ---
Author Author [facility] Interface Address Unknown Phone Unavailable Problems Problem Status Onset Date Classification Date Reported Comments Source M81.0 - AGE-RELATED OSTEOPOROSIS W/O C Active 09/13/2017 [facility] [place] M25.561 - PAIN IN RIGHT KNEE Active 03/31/2016 [facility] [place] BENIGN THYROID CYST Active 2012 [place] Active 02/23/2011 [facility] CEREBRAL CONTUSION, LEWIS ZYGOMATIC ARCH FX Active 02/23/2011 [facility] CYST OF THYROID Active [facility] Medications Medication Details Route Status Patient Instructions Ordering Provider Order Date Source Vicodin 5/500 oral tablet 1 tab, PO, Q4-6H, PRN, 30 tab, for Pain, Substitution Allowed, Maintenance PO Active [facility] 02/24/2011 [facility] acetaminophen-hydrocodone 500 mg-5 mg oral tablet 1 tab, Route: PO, Drug Form: TAB, ONCE, STAT, Start date: 02/24/11 0:11:00, Stop date: 02/24/11 0:11:00 PO No Longer Active Wyatt 02/24/2011 [facility] morphine Sulfate 2 mg, Route: IVP, ONCE, Priority: STAT, Start date: 02/23/11 22:35:00, Stop date: 02/23/11 22:35:00 IVP No Longer Active Yoel 02/24/2011 [facility] Unknown Home Medication Substitution Allowed Active 02/23/2011 [facility] ondansetron 4 mg oral tablet, disintegrating 1 tab, Route: PO, ONCE, Start date: 02/23/11 17:25:00, Stop date: 02/23/11 17:25:00 PO No Longer Active David 02/23/2011 [facility] morphine Sulfate 4 mg, Route: IM, ONCE, Start date: 02/23/11 17:25:00, Stop date: 02/23/11 17:25:00 IM No Longer Active David 02/23/2011 [facility] Allergies, Adverse Reactions, Alerts Substance Category Reaction Severity Reaction type Status Date Reported Comments Source Immunizations Immunization Date Given Site Status Last Updated Comments Source Results Order Name Results Value Reference Range Date Interpretation Comments Source Bone Density DXA [employer] MA Bone Density DXA [employer] MA BONE DENSITY ASSESSMENT: 09/22/2017 CLINICAL DATA: Post menopausal. Osteoporosis. Osteoporosis/Osteoporosis RISK FACTORS: . FINDINGS: Bone density evaluation was performed 09/22/2017 on the right femur neck using a Hologic unit. The BMD average for the exam is 0.591 g/cm2. The T-score is -2.30 and the Z-score is -0.20. This matches the World Health Organization's criteria for osteopenia and places the patient at a medium risk for fracture. An additional bone density evaluation was performed 09/22/2017 on the left femur neck using a Hologic unit. The BMD average for the exam is 0.586 g/cm2. The T- score is -2.40 and the Z-score is -0.20. This matches the World Health Organization's criteria for osteopenia and places the patient at a medium risk for fracture. An additional bone density evaluation was performed 09/22/2017 on the right hip using a Hologic unit. The BMD average for the exam is 0.606 g/cm2. The T-score is -2.80 and the Z-score is -0.70. This matches the World Health Organization's criteria for osteoporosis and places the patient at a high risk for fracture. An additional bone density evaluation was performed 09/22/2017 on the left hip using a Hologic unit. The BMD average for the exam is 0.627 g/cm2. The T-score is -2.60 and the Z-score is -0.50. This matches the World Health Organization's criteria for osteoporosis and places the patient at a high risk for fracture. An additional bone density evaluation was performed 09/22/2017 on the AP L1-L4 region of spine using a Hologic unit. Complete risk assessment of this region was not determined. An additional bone density evaluation was performed 09/22/2017 on the AP L1-L4 region of spine using a Hologic unit. The BMD average for the exam is 0.764 g/cm2. The T-score is -2.60. This matches the World Health Organization's criteria for osteoporosis and places the patient at a high risk for fracture. IMPRESSION: OSTEOPOROSIS Patient is at high risk for fracture. This exam was interpreted at [id number] for SARAH Alvarez 15. Bo Delgado M.D., cm/slim:09/22/2017 11:51:51 Cigar Bander Hand(s): Lauren BASURTO)(Taylor), [facility] 09/22/2017 - - Read by: Ismael Brice MD Dictated Date/time: 09/22/17 11:51 Electronically Signed by: Ismael Brice MD 09/22/17 11:51 [facility] K[facility] 1-2 Views unilateral DX Knee 1-2 Views unilateral DX Right Knee x-ray 2 views History: 76-year-old female with right knee pain. Comparison: None. Findings: Bones are osteopenic. Bones are aligned and there is no fracture or subluxation. Joint spaces are narrowed at all 3 compartments suggesting cartilage loss. There are small osteophytes at posterior tibial plateau margin and at superior patellar contour. A small knee effusion is present. The patella appears eccentric and mild displaced lateral. No soft tissue calcifications seen. Impression: No acute knee abnormality. Bones are osteopenic with narrowing of 4 Narrowing of 3 compartments of knee with small tibial plateau osteophytes concordant with moderate osteoarthritis. 04/04/2016 - - Read by: Sriram Rutledge MD Dictated Date/time: 04/04/16 14:23 Electronically Signed by: Sriram Rutledge 04/04/16 14:29 FINAL REPORT [place] Bone Density-Dual Energy Absorptionmetry Bone Density-Dual Energy Absorptionmetry - Bone Density-Dual Energy Absorptionmetry BONE DENSITY EVALUATION: 12/17/2012 CLINICAL DATA: Post menopausal. RISK FACTORS: . FINDINGS: Bone density evaluation was performed 12/17/2012 on the AP L1-L4 region of spine using Lunar [employer] Energy X-Ray Absorptiometry. The BMD average for the exam is 0.850 g/cm2. The T-score is -2.70 and the Z-score is -0.80. These values indicate 90.0% for age-matched controls. This matches the World Health Organization's criteria for osteoporosis and places the patient at a high risk for fracture. An additional bone density evaluation was performed 12/17/2012 on the right femur neck using Lunar [employer] Energy X-Ray Absorptiometry. The BMD average for the exam is 0.800 g/cm2. The T-score is -1.70 and the Z-score is 0.30. These values indicate 106.0% for age-matched controls. This matches the World Health Organization's criteria for osteopenia and places the patient at a medium risk for fracture. An additional bone density evaluation was performed 12/17/2012 on the right hip using Lunar [employer] Energy X-Ray Absorptiometry. The BMD average for the exam is 0.756 g/cm2. The T-score is -2.00 and the Z-score is -0.20. These values indicate 97.0% for age-matched controls. This matches the World Health Organization's criteria for osteopenia and places the patient at a medium risk for fracture. An additional bone density evaluation was performed 12/17/2012 on the left femur neck using Lunar Dual Energy X-Ray Absorptiometry. The BMD average for the exam is 0.783 g/cm2. The T-score is -1.80 and the Z-score is 0.20. These values indicate 103.0% for age-matched controls. This matches the World Health Organization's criteria for osteopenia and places the patient at a medium risk for fracture. An additional bone density evaluation was performed 12/17/2012 on the left hip using Lunar [employer] X-Ray Absorptiometry. The BMD average for the exam is 0.738 g/cm2. The T-score is -2.10 and the Z-score is -0.30. These values indicate 95.0% for age-matched controls. This matches the World Health Organization's criteria for osteopenia and places the patient at a medium risk for fracture. IMPRESSION: OSTEOPOROSIS Patient is at high risk for fracture. Patient consult w/primary care provider is recommended. Brisa webb/slim:12/17/2012 15:36:20 Cigar Bander Hand: [place] Alexander [facility] 12/17/2012 - - Read by: Brisa Alanis Dictated Date/time: 12/17/12 15:36 Electronically Signed by: Brisa Alanis MD 12/17/12 15:36 FINAL REPORT [facility] [place] Digital Mammo Screening Lewis MA Digital Mammo Screening Lewis MA - DIGITAL MAMMO SCREENING LEWIS MA BILATERAL DIGITAL SCREENING MAMMOGRAM WITH CAD: 12/17/2012 CLINICAL: Routine. Current study was evaluated with a Computer Aided Detection (CAD) system. No prior exams were available for comparison. There are scattered fibroglandular elements in both breasts that could obscure a lesion on mammography. No significant masses, calcifications, or other findings are seen in either breast. IMPRESSION: NEGATIVE There is no mammographic evidence of malignancy. A screening mammogram in one year is recommended. Dr. Carson Hale M.D. eoc/penrad:12/26/2012 17:10:22 Cigar Bander Hand: Shahida LISA(Chuy)(Taylor), [facility] letter sent: Normal exam Mammogram BI-RADS: 1 Negative 12/17/2012 - - Read by: Carson Hale Dictated Date/time: 12/26/12 17:10 Electronically Signed by: Carson Hale MD 12/26/12 17:10 FINAL REPORT [facility] CHEMISTRY BUN 9.0 mg/dL 7 - 22 02/24/2011 Normal [facility] CHEMISTRY Creatinine Lvl 0.7 mg/dL 0.5 - 1.4 02/24/2011 Normal [facility] CHEMISTRY Chloride Lvl 106.0 meq/L 95 - 109 02/24/2011 Normal [facility] CHEMISTRY Sodium Lvl 140.0 meq/L 135 - 145 02/24/2011 Normal [facility] CHEMISTRY Potassium Lvl 3.6 meq/L 3.5 - 5.1 02/24/2011 Normal [facility] CHEMISTRY Alk Phos 55.0 U/L 39 - 136 02/24/2011 Normal [facility] CHEMISTRY Bili Total 0.3 mg/dL 0.2 - 1.3 02/24/2011 Normal [facility] CHEMISTRY Glucose Lvl 124.0 mg/dL 02/24/2011 NA 1Interpretive Data: Reference Ranges : 0 - 7 days : 41 - 90 mg/dL7 days - 150 yrs : 70 - 99 mg/dL (fasting), based on the clinical recommendations of the [place] [employer]. [facility] CHEMISTRY AST 12.0 U/L 0 - 37 02/24/2011 Normal [facility] CHEMISTRY CO2 25.0 meq/L 24 - 32 02/24/2011 Normal [facility] CHEMISTRY Albumin Lvl 3.0 g/dL 3.5 - 5.0 02/24/2011 LOW [facility] CHEMISTRY ALT 14.0 U/L 0 - 65 02/24/2011 Normal [facility] CHEMISTRY Calcium Lvl 8.2 mg/dL 8.5 - 10.5 02/24/2011 LOW [facility] CHEMISTRY Total Protein 7.0 g/dL 6.4 - 8.4 02/24/2011 Normal [facility] CHEMISTRY Globulin 4.0 g/dL 2.0 - 4.0 02/24/2011 Normal [facility] CHEMISTRY A/G Ratio 0.8 0.7 - 1.6 02/24/2011 Normal [facility] CHEMISTRY B/C Ratio 13.0 6 - 25 02/24/2011 Normal [facility] CHEMISTRY AGAP 12.6 meq/L 10.0 - 20.0 02/24/2011 Normal [facility] HEMATOLOGY INR 1.04 0.85 - 1.17 02/24/2011 Normal 2Interpretive Data: RECOMMENDED RANGES FOR PROTIME INR: 2.0-3.0 for most medical and surgical thromboembolic states. 2.5-3.5 for artificial heart valves and recurrent embolism.INR SHOULD BE USED ONLY FOR PATIENTS ON STABLE ANTICOAGULANT THERAPY. [facility] HEMATOLOGY PT 13.6 s 12.0 - 14.7 02/24/2011 [facility] HEMATOLOGY PTT 27.5 s 22.9 - 35.8 02/24/2011 Normal 3Interpretive Data: Heparin Therapeutic Range: 57 - 92 Seconds [facility] HEMATOLOGY Hgb 9.3 g/dL 12.0 - 16.0 02/24/2011 [facility] HEMATOLOGY MCV 81.2 fL 81.0 - 99.0 02/24/2011 Normal [facility] HEMATOLOGY Hct 28.7 % 36.0 - 48.0 02/24/2011 [facility] HEMATOLOGY MCHC 32.4 g/dL 32.0 - 36.0 02/24/2011 Normal [facility] HEMATOLOGY MCH 26.3 pg 27.0 - 31.0 02/24/2011 [facility] HEMATOLOGY RDW 18.8 % 11.5 - 14.5 02/24/2011 [place] [facility] HEMATOLOGY MPV 7.6 fL 7.4 - 10.4 02/24/2011 Normal [facility] HEMATOLOGY Platelet 373.0 K/CMM 133 - 450 02/24/2011 Normal [facility] HEMATOLOGY WBC 7.3 K/CMM 3.7 - 10.4 02/24/2011 Normal [facility] HEMATOLOGY RBC 3.54 M/CMM 4.20 - 5.40 02/24/2011 LOW [facility] HEMATOLOGY Basophils # 0.0 K/CMM 0.0 - 0.2 02/24/2011 Normal [facility] HEMATOLOGY Monocytes # 0.4 K/CMM 0.0 - 0.8 02/24/2011 Normal [facility] HEMATOLOGY Eosinophils # 0.0 K/CMM 0.0 - 0.5 02/24/2011 Normal [facility] HEMATOLOGY Segs 77.9 % 45.0 - 75.0 02/24/2011 HI [facility] HEMATOLOGY Basophils 0.7 % 0.0 - 1.0 02/24/2011 Normal [facility] HEMATOLOGY Segs-Bands # 5.7 K/CMM 1.5 - 8.1 02/24/2011 Normal [facility] HEMATOLOGY Eosinophils 0.7 % 0.0 - 4.0 02/24/2011 Normal [facility] HEMATOLOGY Lymphocytes # 1.1 K/CMM 1.0 - 5.5 02/24/2011 Normal [facility] HEMATOLOGY Monocytes 5.7 % 2.0 - 12.0 02/24/2011 Normal [facility] HEMATOLOGY Lymphocytes 15.0 % 20.0 - 40.0 02/24/2011 LOW [facility] URINALYSIS UA Urobilinogen <=1.0 mg/dL
*NA*
(02/23/2011 20:45:00) <sup>??</sup> 0.1 - 1.0 02/24/2011 NA [facility] URINALYSIS UA Leuk Est Small *ABN* (02/23/2011 20:45:00) ?? >Negative 02/24/2011 ABN [facility] URINALYSIS UA Nitrite Negative (02/23/2011 20:45:00) ?? >Negative 02/24/2011 Normal [facility] URINALYSIS UA RBC 1.0 /HPF 0 - 2 02/24/2011 Normal [facility] URINALYSIS UA WBC 4.0 /HPF 0 - 5 02/24/2011 Normal [facility] URINALYSIS UA Sq Epi Many /LPF *ABN* (02/23/2011 20:45:00) ?? >Few 02/24/2011 ABN [facility] URINALYSIS UA Bacteria Occasional /HPF *NA* (02/23/2011 20:45:00) ?? >None Seen 02/24/2011 NA [facility] URINALYSIS UA Mucus Few /LPF *NA* (02/23/2011 20:45:00) ?? >None Seen 02/24/2011 NA [facility] URINALYSIS UA Bili Negative *NA* (02/23/2011 20:45:00) ?? >Negative 02/24/2011 NA [facility] URINALYSIS UA Blood Negative (02/23/2011 20:45:00) ?? >Negative 02/24/2011 Normal [facility] URINALYSIS UA Ketones Negative mg/dL *NA* (02/23/2011 20:45:00) ?? >Negative 02/24/2011 NA [facility] URINALYSIS UA Turbidity Slight *ABN* (02/23/2011 20:45:00) ?? >Clear 02/24/2011 ABN [facility] URINALYSIS UA Spec Grav 1.02 <<=1.030 02/24/2011 Normal [facility] URINALYSIS UA Color Yellow *NA* (02/23/2011 20:45:00) ?? >Yellow 02/24/2011 NA [facility] URINALYSIS UA pH 6.5 5.0 - 8.0 02/24/2011 Normal [facility] URINALYSIS UA Protein Negative mg/dL (02/23/2011 20:45:00) ?? >Negative 02/24/2011 Normal [facility] URINALYSIS UA Glucose Negative mg/dL *NA* (02/23/2011 20:45:00) ?? >Negative 02/24/2011 [facility] Vital Signs Vital Sign Value Date Comments Source Temperature Oral (F) 97.1 F 02/24/2011 [facility] Systolic (mm Hg) 119.0 02/24/2011 [facility] Diastolic (mm Hg) 62.0 02/24/2011 [facility] Peripheral Pulse Rate 71.0 02/24/2011 [facility] Respitory Rate 18.0 02/24/2011 [facility] Height 157.48 cm 02/24/2011 [facility] Weight 54.545 02/24/2011 [facility] Respitory Rate 16.0 02/24/2011 [facility] Peripheral Pulse Rate 72.0 02/24/2011 [facility] Temperature Oral (F) 98.0 F 02/24/2011 [facility] Systolic (mm Hg) 161.0 02/24/2011 [facility] Diastolic (mm Hg) 81.0 02/24/2011 [facility] Respitory Rate 16.0 02/24/2011 [facility] Peripheral Pulse Rate 79.0 02/24/2011 [facility] Diastolic (mm Hg) 73.0 02/24/2011 [facility] Systolic (mm Hg) 171.0 02/24/2011 [facility] Weight 54.545 02/24/2011 [facility] Height 157.48 cm 02/24/2011 [facility] Diastolic (mm Hg) 89.0 02/24/2011 [facility] Systolic (mm Hg) 157.0 02/24/2011 [facility] Respitory Rate 18.0 02/24/2011 [facility] Peripheral Pulse Rate 74.0 02/24/2011 [facility] Respitory Rate 18.0 02/23/2011 [facility] Temperature Oral (F) 97.8 F 02/23/2011 [facility] Peripheral Pulse Rate 73.0 02/23/2011 [facility] Diastolic (mm Hg) 75.0 02/23/2011 [facility] Systolic (mm Hg) 148.0 02/23/2011 [facility] Weight 55.0 02/23/2011 [facility] Height 157.48 cm 02/23/2011 [facility] Respitory Rate 17.0 02/23/2011 [facility] Peripheral Pulse Rate 83.0 02/23/2011 [facility] Temperature Oral (F) 97.6 F 02/23/2011 [facility] Diastolic (mm Hg) 80.0 02/23/2011 [facility] Systolic (mm Hg) 148.0 02/23/2011 [facility] Encounters Location Location Details Encounter Type Encounter Number Reason For Visit Attending Provider ADM Date DC Date Status Source [facility] Emergency [id number] KARIE CARRASCO 02/23/2011 02/23/2011 Active [facility] Emergency [id number] MARIANO CAICEDO 02/23/2011 02/24/2011 Active [facility] Not Sent Outpatient [id number] BENIGN THYROID CYST NON PHYSICIAN 03/12/2012 Active [facility] [place] Out[facility] Diag Services [id number] Jose Fernandez 04/04/2016 04/05/2016 [facility] [place] [facility] [place] Out[facility] [id number] Jose Fernandez 09/22/2017 09/23/2017 [facility] [place] Procedures Procedure Code Date Perfomer Comments Source
--- OUTSIDE RECORDS SUMMARY | 2018-08-27 09:52 | XMS REPORT | CCD ---
Author Author Auto Generated Organization [facility] Address Unknown Phone Unavailable Care Team Providers Care Metal Storage Worker Name Role Phone ChartServer, Login CP Unavailable Madelaine Proctor CP [phone] Allergies, Adverse Reactions, Alerts Substance Reaction Status NKDA ?? Active
--- OUTSIDE RECORDS SUMMARY | 2018-08-27 09:52 | XMS REPORT | CCD ---
Author Author Auto Generated Organization [facility] [place] Address Unknown Phone Unavailable Care Team Providers Care Clinical Practitioner Name Role Phone Jessica Hennessy CP Allergies, Adverse Reactions, Alerts Substance Reaction Status NKDA Active
--- OUTSIDE RECORDS SUMMARY | 2018-08-27 09:52 | XMS REPORT | Summary of Care ---
Author Author [facility] [place] Organization [facility] [place] Address Unknown Phone Unavailable Encounter HQ Encntr_alias(FIN) [id number] Date(s): 04/04/16 - 04/04/16 [facility] [place] [address] [place] [address]- [phone] Discharge Disposition: Home or Self Care Attending [...]
--- OUTSIDE RECORDS SUMMARY | 2018-08-27 09:52 | XMS REPORT | CCD ---
Author Author Auto Generated Organization [facility] Address Unknown Phone Unavailable Care Team Providers Care Inside Phone Sales Name Role Phone Ayla Gonzalez CP Mamta Judd Riaz CP [phone] Na Henriquez V CP [phone] Mahogany Diallo CP Unavailable Betsey Sanabria CP ChartServer, Login CP Unavailable Bayron Valdez RP Tato Schneider CP Claribel Barton CP Unavailable Eladio Masterson CP Unavailable [facility] Unavailable Madelaine Proctor CP [phone] Isaac Pineda CP Allergies, Adverse Reactions, Alerts Substance Reaction Status NKDA ?? Active Medications Medication Instructions Start Date End Date Status acetaminophen-hydroc 1 tab, Route: PO, Drug Form: TAB, 02/24/2011 02/24/2011 Completed odone 500 mg-5 mg ONCE, STAT, Start date: 02/24/11 oral tablet 0:11:00, Stop date: 02/24/11 0:11:00 morphine Sulfate 2 mg, Route: IVP, ONCE, Priority: 02/23/2011 02/23/2011 Completed STAT, Start date: 02/23/11 22:35:00, Stop date: 02/23/11 22:35:00 Vicodin 5/500 oral 1 tab, PO, Q4-6H, PRN, 30 tab, for 02/24/2011 03/01/2011 Ordered tablet Pain, Substitution Allowed, Maintenance Vital Signs Most recent to oldest [Reference Range]: 1 2 3 Height 157.48 cm (02/23/2011 22:05:00) ?? 157.48 cm (02/23/2011 20:17:00) ? Temperature Oral [96.4-99.1 DegF] 97.1 DegF (02/24/2011 01:20:00) ?? 98.0 DegF (02/23/2011 22:05:00) ? Systolic Blood Pressure [90-140 mmHg] 119 mmHg (02/24/2011 01:20:00) ?? 161 mmHg *HI* (02/23/2011 22:05:00) ?? 157 mmHg *HI* (02/23/2011 20:17:00) ?? Diastolic Blood Pressure [60-90 mmHg] 62 mmHg (02/24/2011 01:20:00) ?? 81 mmHg (02/23/2011 22:05:00) ?? 89 mmHg (02/23/2011 20:17:00) ?? Respiratory Rate [14-20 BRMIN] 18 BRMIN (02/24/2011 01:20:00) ?? 16 BRMIN (02/23/2011 22:05:00) ?? 18 BRMIN (02/23/2011 20:17:00) ?? Peripheral Pulse Rate [60-100 bpm] 71 bpm (02/24/2011 01:20:00) ?? 72 bpm (02/23/2011 22:05:00) ?? 74 bpm (02/23/2011 20:17:00) ?? Weight 54.545 kg (02/23/2011 22:05:00) ?? 54.545 kg (02/23/2011 20:17:00) ?
[2018-08-27 11:19] LABS: BASOPHILS % 0.6 % (0.0-1.0); EOSINOPHILS % 0.9 % (0.0-6.0); HEMOGLOBIN 11.4 g/dL (12.0-16.0); LYMPHOCYTES # (AUTO) 0.7 (1.0-3.2); LYMPHOCYTES % 20.7 % (18.0-39.1); MEAN CORPUSCULAR HEMOGLOBIN 28.8 pg (28-32); MEAN CORPUSCULAR HGB CONC 30.8 g/dL (31-35); MEAN CORPUSCULAR VOLUME 93.4 fL (81-99); MONOCYTES # (AUTO) 0.4 (0.2-0.8); MONOCYTES % 10.3 % (4.4-11.3); NEUTROPHILS # (AUTO) 2.3 (2.1-6.9); NEUTROPHILS % 67.2 % (38.7-80.0); PLATELET COUNT 244 x10e3/uL (140-360); RED BLOOD COUNT 3.96 x10e6/uL (3.6-5.1); RED CELL DISTRIBUTION WIDTH 16.7 % (11.7-14.4)
[2018-08-27 11:40] LABS: ALANINE AMINOTRANSFERASE 6 IU/L (0-55); ALBUMIN 3.2 g/dL (3.5-5.0); ALKALINE PHOSPHATASE 45 IU/L (40-150); BLOOD UREA NITROGEN 8 mg/dL (7-26); BUN/CREATININE RATIO 11 (6-25); CALCIUM 8.4 mg/dL (8.4-10.2); CARBON DIOXIDE 27 mmol/L (22-29); CHLORIDE 108 mmol/L (98-107); CREATINE KINASE 34 IU/L (29-168); CREATININE, SERUM 0.74 mg/dL (0.57-1.11); EST GLOMERULAR FILTRATION RATE > 60 ML/MIN (60-); GLUCOSE 150 mg/dL (74-118); SODIUM 144 mmol/L (136-145)
--- NOTE | 2018-08-27 12:02 | Diagnostic Imaging Report ---
EXAM: CHEST 2 VIEWS, PA and lateral DATE: 08/27/2018 Time stamp on exam: 10:31 AM INDICATION: Cough COMPARISON: None FINDINGS: LINES/TUBES: None LUNGS: No consolidations or edema. PLEURA: No effusions or pneumothorax. HEART AND MEDIASTINUM: Normal size and contour. Calcification within the aorta. BONES AND SOFT TISSUES: No acute findings. Large air-containing middle mediastinal structure compatible with a hiatal hernia. IMPRESSION: No acute thoracic abnormality. Signed by: Dr. Memo Merrill DO on 08/27/2018 11:59 AM
[2018-08-27 12:31] VITALS: BP 156/72
== END 2018-08-27 12:40 | disposition home or self-care (01) ==
LOC: ER 09:47
DX: R05 Cough (principal); J20.9 Acute bronchitis, unspecified; R00.2 Palpitations; R73.9 Hyperglycemia, unspecified; I10 Essential (primary) hypertension; E78.5 Hyperlipidemia, unspecified; K21.9 Gastro-esophageal reflux disease without esophagitis
CPT/HCPCS: 36415; 71046; 80053; 82550; 82553; 84484; 85025; 87400; 93005; 99284

== ENCOUNTER 2018-12-26 21:25 | Observation (INO) | payer MEDICARE ==
[~2018-12-26] VITALS: Ht 157.5 cm; Wt 56.8 kg
--- OUTSIDE RECORDS SUMMARY | 2018-12-26 21:29 | XMS REPORT | Continuity of Care Document ---
Author Author [employer] Organization [employer] Address Unknown Phone Unavailable Care Team Providers [employer] Name Role Phone [employer] Unavailable Unavailable Problems Problem Status Onset Date Classification Date Reported Comments Source M81.0 - AGE-RELATED OSTEOPOROSIS W/O C Active 09/13/2017 [facility] [place] M25.561 - PAIN IN RIGHT KNEE Active 03/31/2016 [facility] [place] BENIGN THYROID CYST Active 2012 [place] Active 02/23/2011 [facility] [place] CEREBRAL CONTUSION, LEWIS ZYGOMATIC ARCH FX Active 02/23/2011 [facility] CYST OF THYROID Active [facility] Medications Medication Details Route Status Patient Instructions Ordering Provider Order Date Source Vicodin 5/500 oral tablet 1 tab, PO, Q4-6H, PRN, 30 tab, for Pain, Substitution Allowed, Maintenance PO Active [facility] 02/24/2011 [facility] acetaminophen-hydrocodone 500 mg-5 mg oral tablet 1 tab, Route: PO, Drug Form: TAB, ONCE, STAT, Start date: 02/24/11 0:11:00, Stop date: 02/24/11 0:11:00 PO No Longer Active Wyatt 02/24/2011 [facility] morphine Sulfate 2 mg, Route: IVP, ONCE, Priority: STAT, Start date: 02/23/11 22:35:00, Stop date: 02/23/11 22:35:00 IVP No Longer Active Yoel 02/24/2011 [facility] Unknown Home Medication Substitution Allowed Active 02/23/2011 [facility] [place] ondansetron 4 mg oral tablet, disintegrating 1 tab, Route: PO, ONCE, Start date: 02/23/11 17:25:00, Stop date: 02/23/11 17:25:00 PO No Longer Active David 02/23/2011 [facility] [place] morphine Sulfate 4 mg, Route: IM, ONCE, Start date: 02/23/11 17:25:00, Stop date: 02/23/11 17:25:00 IM No Longer Active David 02/23/2011 [facility] [place] Allergies, Adverse Reactions, Alerts No Known Medication Allergies Immunizations No Data Provided for This Section Results Order Name Results Value Reference Range Date Interpretation Comments Source CHEMISTRY BUN 9.0 7 - 22 02/24/2011 Normal [facility] [place] CHEMISTRY Creatinine Lvl 0.7 0.5 - 1.4 02/24/2011 Normal [facility] [place] CHEMISTRY Chloride Lvl 106.0 95 - 109 02/24/2011 Normal [facility] [place] CHEMISTRY Sodium Lvl 140.0 135 - 145 02/24/2011 Normal [facility] [place] CHEMISTRY Potassium Lvl 3.6 3.5 - 5.1 02/24/2011 Normal [facility] [place] CHEMISTRY Alk Phos 55.0 39 - 136 02/24/2011 Normal [facility] [place] CHEMISTRY Bili Total 0.3 0.2 - 1.3 02/24/2011 Normal [facility] [place] CHEMISTRY Glucose Lvl 124.0 02/24/2011 NA <sup>1</sup>Interpretive Data: Reference Ranges : 0 - 7 days : 41 - 90 mg/dL 7 days - 150 yrs : 70 - 99 mg/dL (fasting), based on the clinical recommendations of the [place] [employer]. [facility] [place] CHEMISTRY AST 12.0 0 - 37 02/24/2011 Normal [facility] [place] CHEMISTRY CO2 25.0 24 - 32 02/24/2011 Normal [facility] [place] CHEMISTRY Albumin Lvl 3.0 3.5 - 5.0 02/24/2011 LOW [facility] [place] CHEMISTRY ALT 14.0 0 - 65 02/24/2011 Normal [facility] [place] CHEMISTRY Calcium Lvl 8.2 8.5 - 10.5 02/24/2011 LOW [facility] [place] CHEMISTRY Total Protein 7.0 6.4 - 8.4 02/24/2011 Normal [facility] [place] CHEMISTRY Globulin 4.0 2.0 - 4.0 02/24/2011 Normal [facility] [place] CHEMISTRY A/G Ratio 0.8 0.7 - 1.6 02/24/2011 Normal [facility] [place] CHEMISTRY B/C Ratio 13.0 6 - 25 02/24/2011 Normal [facility] [place] CHEMISTRY AGAP 12.6 10.0 - 20.0 02/24/2011 Normal [facility] [place] HEMATOLOGY INR 1.04 0.85 - 1.17 02/24/2011 Normal <sup>2</sup>Interpretive Data: RECOMMENDED RANGES FOR PROTIME INR: 2.0-3.0 for most medical and surgical thromboembolic states. 2.5-3.5 for artificial heart valves and recurrent embolism. INR SHOULD BE USED ONLY FOR PATIENTS ON STABLE ANTICOAGULANT THERAPY. [facility] [place] HEMATOLOGY PT 13.6 12.0 - 14.7 02/24/2011 Normal [facility] [place] HEMATOLOGY PTT 27.5 22.9 - 35.8 02/24/2011 Normal <sup>3</sup>Interpretive Data: Heparin Therapeutic Range: 57 - 92 Seconds [facility] [place] HEMATOLOGY Hgb 9.3 12.0 - 16.0 02/24/2011 [facility] HEMATOLOGY MCV 81.2 81.0 - 99.0 02/24/2011 Normal [facility] [place] HEMATOLOGY Hct 28.7 36.0 - 48.0 02/24/2011 [facility] HEMATOLOGY MCHC 32.4 32.0 - 36.0 02/24/2011 Normal [facility] [place] HEMATOLOGY MCH 26.3 27.0 - 31.0 02/24/2011 [facility] HEMATOLOGY RDW 18.8 11.5 - 14.5 02/24/2011 [facility] HEMATOLOGY MPV 7.6 7.4 - 10.4 02/24/2011 Normal [facility] [place] HEMATOLOGY Platelet 373.0 133 - 450 02/24/2011 Normal [facility] [place] HEMATOLOGY WBC 7.3 3.7 - 10.4 02/24/2011 Normal [facility] [place] HEMATOLOGY RBC 3.54 4.20 - 5.40 02/24/2011 [facility] HEMATOLOGY Basophils # 0.0 0.0 - 0.2 02/24/2011 Normal [facility] [place] HEMATOLOGY Monocytes # 0.4 0.0 - 0.8 02/24/2011 [facility] HEMATOLOGY Eosinophils # 0.0 0.0 - 0.5 02/24/2011 Normal [facility] [place] HEMATOLOGY Segs 77.9 45.0 - 75.0 02/24/2011 [facility] HEMATOLOGY Basophils 0.7 0.0 - 1.0 02/24/2011 Normal [facility] [place] HEMATOLOGY Segs-Bands # 5.7 1.5 - 8.1 02/24/2011 [facility] HEMATOLOGY Eosinophils 0.7 0.0 - 4.0 02/24/2011 [facility] HEMATOLOGY Lymphocytes # 1.1 1.0 - 5.5 02/24/2011 [facility] HEMATOLOGY Monocytes 5.7 2.0 - 12.0 02/24/2011 Normal [facility] [place] HEMATOLOGY Lymphocytes 15.0 20.0 - 40.0 02/24/2011 LOW [facility] [place] URINALYSIS UA Urobilinogen ?? 0.1 - 1.0 02/24/2011 NA [facility] [place] URINALYSIS UA Leuk Est Small *ABN* (02/23/2011 20:45:00) ?? >Negative 02/24/2011 ABN [facility] [place] URINALYSIS UA Nitrite Negative (02/23/2011 20:45:00) ?? >Negative 02/24/2011 Normal [facility] [place] URINALYSIS UA RBC 1.0 0 - 2 02/24/2011 Normal [facility] [place] URINALYSIS UA WBC 4.0 0 - 5 02/24/2011 Normal [facility] [place] URINALYSIS UA Sq Epi Many /LPF *ABN* (02/23/2011 20:45:00) ?? >Few 02/24/2011 ABN [facility] [place] URINALYSIS UA Bacteria Occasional /HPF *NA* (02/23/2011 20:45:00) ?? >None Seen 02/24/2011 NA [facility] [place] URINALYSIS UA Mucus Few /LPF *NA* (02/23/2011 20:45:00) ?? >None Seen 02/24/2011 [facility] URINALYSIS UA Bili Negative *NA* (02/23/2011 20:45:00) ?? >Negative 02/24/2011 NA [facility] URINALYSIS UA Blood Negative (02/23/2011 20:45:00) ?? >Negative 02/24/2011 Normal [facility] [place] URINALYSIS UA Ketones Negative mg/dL *NA* (02/23/2011 20:45:00) ?? >Negative 02/24/2011 NA [facility] URINALYSIS UA Turbidity Slight *ABN* (02/23/2011 20:45:00) ?? >Clear 02/24/2011 ABN [facility] URINALYSIS UA Spec Grav 1.02 <<=1.030 02/24/2011 Normal [facility] [place] URINALYSIS UA Color Yellow *NA* (02/23/2011 20:45:00) ?? >Yellow 02/24/2011 [facility] URINALYSIS UA pH 6.5 5.0 - 8.0 02/24/2011 Normal [facility] [place] URINALYSIS UA Protein Negative mg/dL (02/23/2011 20:45:00) ?? >Negative 02/24/2011 Normal [facility] [place] URINALYSIS UA Glucose Negative mg/dL *NA* (02/23/2011 20:45:00) ?? >Negative 02/24/2011 NA [facility] Pathology Reports No Data Provided for This Section Diagnostic Reports Report Value Date Source Bone Density DXA [employer] MA BONE [...] for fracture. This exam was interpreted at [id number] for SARAH Cohen 15. Bo Delgado M.D. cm/penrad:09/22/2017 11:51:51 Assistant Mechanic(s): Lauren Hamilton RT(R)(M), [facility] 09/22/2017 [place] [facility] Knee 1-2 Views unilateral DX Right Knee [...] plateau osteophytes concordant with moderate osteoarthritis. 04/04/2016 [place] Bone Density-Dual Energy Absorptionmetry - Bone Density- [employer] Absorptionmetry BONE DENSITY EVALUATION: 12/17/2012 CLINICAL [...] consult w/primary care provider is recommended. Brisa Alanis /penrad:12/17/2012 15:36:20 Assistant Mechanic: Dallas Alexander [facility] 12/17/2012 [facility] Digital Mammo Screening Lewis MA - DIGITAL [...] recommended. Dr. Carson Hale M.D. eoc/penrad:12/26/2012 17:10:22 Assistant Mechanic: Shhaida Elkins RT(Chuy)(M), [facility] letter sent: Normal exam Mammogram BI-RADS: 1 Negative 12/17/2012 [place] [facility] Consultation Notes No Data Provided for This Section Discharge Summaries No Data Provided for This Section History and Physicals No Data Provided for This Section Vital Signs Vital Sign Value Date Comments Source Temperature Oral (F) 97.1 F 02/24/2011 [facility] Systolic (mm Hg) 119.0 02/24/2011 [facility] Diastolic (mm Hg) 62.0 02/24/2011 [facility] Peripheral Pulse Rate 71.0 02/24/2011 [facility] Respitory Rate 18.0 02/24/2011 [facility] Height 157.48 cm 02/24/2011 [facility] Weight 54.545 02/24/2011 [facility] Respitory Rate 16.0 02/24/2011 [facility] Peripheral Pulse Rate 72.0 02/24/2011 [facility] Temperature Oral (F) 98.0 F 02/24/2011 [facility] Systolic (mm Hg) 161.0 02/24/2011 [facility] Diastolic (mm Hg) 81.0 02/24/2011 [facility] Respitory Rate 16.0 02/24/2011 [facility] [place] Peripheral Pulse Rate 79.0 02/24/2011 [facility] [place] Diastolic (mm Hg) 73.0 02/24/2011 [facility] Systolic (mm Hg) 171.0 02/24/2011 [facility] Weight 54.545 02/24/2011 [facility] Height 157.48 cm 02/24/2011 [facility] Diastolic (mm Hg) 89.0 02/24/2011 [facility] Systolic (mm Hg) 157.0 02/24/2011 [facility] Respitory Rate 18.0 02/24/2011 [facility] Peripheral Pulse Rate 74.0 02/24/2011 [facility] Respitory Rate 18.0 02/23/2011 [facility] [place] Temperature Oral (F) 97.8 F 02/23/2011 [facility] [place] Peripheral Pulse Rate 73.0 02/23/2011 [facility] [place] Diastolic (mm Hg) 75.0 02/23/2011 [facility] [place] Systolic (mm Hg) 148.0 02/23/2011 [facility] Weight 55.0 02/23/2011 [facility] Height 157.48 cm 02/23/2011 [facility] Respitory Rate 17.0 02/23/2011 [facility] Peripheral Pulse Rate 83.0 02/23/2011 [facility] Temperature Oral (F) 97.6 F 02/23/2011 [facility] [place] Diastolic (mm Hg) 80.0 02/23/2011 [facility] Systolic (mm Hg) 148.0 02/23/2011 [facility] [place] Encounters Location Location Details Encounter Type Encounter Number Reason For Visit Attending Provider ADM Date DC Date Status Source [facility] Emergency [id number] KARIE DANILO 02/23/2011 02/23/2011 Discharged [facility] Emergency [id number] MARIANO CAICEDO 02/23/2011 02/24/2011 Discharged [facility] Not Sent Outpatient [id number] BENIGN THYROID CYST NON PHYSICIAN 03/12/2012 [place] [facility] [place] [facility] [id number] Jose Fernandez 04/04/2016 04/05/2016 [facility] [place] [facility] [id number] Jose Fernandez 09/22/2017 09/23/2017 [facility] [place] Procedures No Data Provided for This Section Assessment and Plan No Data Provided for This Section Plan of Care No Data Provided for This Section Social History Social History Date Source No data available for this section 09/23/2017 [facility] [place] Family History No Data Provided for This Section Advance Directives No Data Provided for This Section Functional Status No Data Provided for This Section
[2018-12-26] MEDS ORDERED: ONDANSETRON HCL INJ 2MG/ML 2ML 2 MG/ML VIAL IV STA (22:24)
[2018-12-26] MEDS ORDERED: SODIUM CHLORIDE 0.9% 1000ML 1,000 ML IV ONE (22:30)
[2018-12-26 22:49] LABS: BASOPHILS # (AUTO) 0.1 (0.0-0.1); BASOPHILS % 0.6 % (0.0-1.0); EOSINOPHILS % 0.2 % (0.0-6.0); HEMOGLOBIN 11.3 g/dL (12.0-16.0); LYMPHOCYTES # (AUTO) 0.7 (1.0-3.2); LYMPHOCYTES % 4.8 % (18.0-39.1); MEAN CORPUSCULAR HGB CONC 32.3 g/dL (31-35); MONOCYTES # (AUTO) 0.7 (0.2-0.8); NEUTROPHILS # (AUTO) 12.5 (2.1-6.9); NEUTROPHILS % 88.6 % (38.7-80.0); PLATELET COUNT 380 x10e3/uL (140-360); RED BLOOD COUNT 3.89 x10e6/uL (3.6-5.1); RED CELL DISTRIBUTION WIDTH 16.9 % (11.7-14.4)
[2018-12-26 23:07] LABS: ALANINE AMINOTRANSFERASE < 6 IU/L (0-55); ALBUMIN 3.4 g/dL (3.5-5.0); ALKALINE PHOSPHATASE 60 IU/L (40-150); ANION GAP 14.7 mmol/L (8-16); BLOOD UREA NITROGEN 12 mg/dL (7-26); BUN/CREATININE RATIO 17 (6-25); CALCIUM 9.3 mg/dL (8.4-10.2); CARBON DIOXIDE 23 mmol/L (22-29); CHLORIDE 103 mmol/L (98-107); CREATINE KINASE 50 IU/L (29-168); CREATININE, SERUM 0.71 mg/dL (0.57-1.11); EST GLOMERULAR FILTRATION RATE > 60 ML/MIN (60-); GLUCOSE 178 mg/dL (74-118); POTASSIUM 3.7 mmol/L (3.5-5.1); SODIUM 137 mmol/L (136-145)
[2018-12-26 23:18] LABS: AMYLASE 60 U/L (25-125); LIPASE 36 U/L (8-78)
[2018-12-26] MEDS ORDERED: IOPAMIDOL 370 MG/ML 200 ML INFUS..BTL INJ ONE (23:21)
[2018-12-26] MEDS ORDERED: SODIUM CHLORIDE 0.9% 50ML 50 ML ONE (23:21)
[2018-12-26 23:44] LABS: BILIRUBIN,URINE NEGATIVE (NEGATIVE); CLARITY,URINE CLOUDY (CLEAR); COLOR,URINE YELLOW (YELLOW); KETONES,URINE NEGATIVE (NEGATIVE); LEUKOCYTE ESTERASE ,URINE NEGATIVE (NEGATIVE); NITRITE,URINE NEGATIVE (NEGATIVE); PROTEIN,URINE DIPSTICK NEGATIVE (NEGATIVE); URINE UROBILINOGEN 0.2 mg/dL (0.2 - 1)
[2018-12-26 23:54] LABS: BACTERIA,URINE MANY /HPF; EPITHELIAL CELLS,URINE FEW /LPF
[2018-12-27] VITALS (8 sets, daily range): BP systolic 110–144; BP diastolic 57–67
--- NOTE | 2018-12-27 00:03 | Diagnostic Imaging Report ---
EXAMINATION: Head CT without contrast. HISTORY:Headache, high blood pressure. COMPARISON:CT brain from 09/09/2017. TECHNIQUE: Multidetector axial images were obtained from the foramen magnum to the vertex without contrast. The images were reconstructed using brain and bone algorithms. Thin section brain images were reformatted into coronal and sagittal planes. Dose modulation, iterative reconstruction, and/or weight based adjustment of the mA/kV was utilized to reduce the radiation dose to as low as reasonably achievable. Intravenous contrast: None IMAGE QUALITY: Acceptable. FINDINGS: Skull/scalp: No lytic or blastic. lesions. No surgical changes. Unchanged bilateral sphenoid wing osseous demineralization with lytic changes. Parenchyma: Nonspecific bilateral frontoparietal patchy white matter hypodensity are likely related to small vessel ischemic changes. No acute hemorrhage, mass or acute major vascular territorial infarct. Arteries: No density suggestive of thrombosis. Dural sinuses: No abnormal density suggestive of thrombosis. Ventricles: No hydrocephalus or displacement. Extra-axial spaces: No abnormal density. Brain volume: Generalized age-related cerebral volume loss. Craniocervical junction: No mass, Chiari malformation, or basilar invagination. Sella: No mass. Paranasal/mastoid sinuses: Imaged portions unremarkable. IMPRESSION: No acute intracranial abnormality, particularly no acute hemorrhage, mass or acute major vascular territorial infarct. Mild to moderate supratentorial white matter microvascular ischemic changes. Generalized age-related cerebral volume loss. Signed by: Dr. Geraldine Peralta M.D. on 12/26/2018 11:59 PM
--- NOTE | 2018-12-27 00:22 | Diagnostic Imaging Report ---
EXAM: CT of the abdomen and pelvis WITH contrast HISTORY: High blood pressure, abdominal pain, vomiting COMPARISON: CT of the pelvis December 23, 2017. TECHNIQUE: The abdomen and pelvis were scanned utilizing a multidetector helical scanner. Coronal and sagittal reformats are provided. PROTOCOL: Routine IV CONTRAST: 100 cc of Isovue-370. ORAL CONTRAST: Water RADIATION DOSE: Total DLP: 209.34 mGy*cm Estimated effective dose: (DLP x 0.015 x size factor) Dose modulation, iterative reconstruction, and/or weight based adjustment of the mA/kV was utilized to reduce the radiation dose to as low as reasonably achievable. COMPLICATIONS: None FINDINGS: LOWER THORAX: Interval resolution of the pleural effusions and adjacent atelectasis. LIVER/BILIARY: No masses. The common bile duct remains prominent, 1 cm in diameter. GALLBLADDER: Cholelithiasis. SPLEEN: Unremarkable PANCREAS: Unremarkable ADRENALS: No nodules KIDNEYS: Symmetric perfusion. No enhancing masses. No hydronephrosis. GI TRACT: Stable moderate hiatal hernia containing the proximal stomach. Additional segmentals of small bowel wall thickening and hyperemia, for example the right lower quadrant coronal image 19 Persistent distal/ileal small bowel wall segmental thickening and hyperemia, seen over multiple priors. Multiple loops of fluid-filled more proximal small bowel measuring up to 3.2 cm in diameter. VESSELS: Diffuse scattered atherosclerotic vascular calcifications. PERITONEUM/RETROPERITONEUM: Slightly increased free fluid within the pelvis. No free air. LYMPH NODES: Scattered prominent mesenteric lymph nodes, measuring up to 1 cm in short axis, likely reactive. REPRODUCTIVE ORGANS/BLADDER: Hysterectomy. The urinary bladder is predominantly decompressed. SOFT TISSUES: Unremarkable BONES: Stable hemangioma and bone islands within the L5 vertebral body. IMPRESSION: 1. Findings remain compatible with multifocal enteritis, increased hyperemia, bowel wall thickening and segmental narrowing since December 2017. Crohn's disease remains a favored diagnosis. Findings compatible with associated partial functional distal small bowel obstruction. 2. Cholelithiasis with persistent prominence of the common bile duct, but no CT findings to suggest acute cholecystitis. Signed by: Dr. Marc Mejias D.O., M.M.M. on 12/27/2018 12:19 AM
[2018-12-27] MEDS: SODIUM CHLORIDE 0.9% 1000ML 1,000 ML IV SCH ×3 (00:40→12:36)
[2018-12-27] MEDS ORDERED: ONDANSETRON HCL INJ 2MG/ML 2ML 2 MG/ML VIAL IV PRN (00:45)
--- OUTSIDE RECORDS SUMMARY | 2018-12-27 00:47 | XMS REPORT | Continuity of Care Document ---
Author Author [place] Organization [place] Address Unknown Phone Unavailable Care Team Providers Care Director Software Development Name Role Phone [email or web address] Unavailable Unavailable Problems Problem Status Onset Date Classification Date Reported Comments Source M81.0 - AGE-RELATED OSTEOPOROSIS W/O C Active 09/13/2017 [facility] M25.561 - PAIN IN RIGHT KNEE Active 03/31/2016 [facility] BENIGN THYROID CYST Active [place] Active 02/23/2011 [facility] CEREBRAL CONTUSION, LEWIS ZYGOMATIC ARCH FX Active 02/23/2011 [facility] CYST OF THYROID Active [facility] Medications Medication Details Route Status Patient Instructions Ordering Provider Order Date Source Vicodin 5/500 oral tablet 1 tab, PO, Q4-6H, PRN, 30 tab, for Pain, Substitution Allowed, Maintenance PO Active [facility] 02/24/2011 [facility] acetaminophen-hydrocodone 500 mg-5 mg oral tablet 1 tab, Route: PO, Drug Form: TAB, ONCE, STAT, Start date: 02/24/11 0:11:00, Stop date: 02/24/11 0:11:00 PO No Longer Active Wyatt 02/24/2011 [facility] morphine Sulfate 2 mg, Route: IVP, ONCE, Priority: STAT, Start date: 02/23/11 22:35:00, Stop date: 02/23/11 22:35:00 IVP No Longer Active Yeol 02/24/2011 [facility] Unknown Home Medication Substitution Allowed Active 02/23/2011 [facility] ondansetron 4 mg oral tablet, disintegrating 1 tab, Route: PO, ONCE, Start date: 02/23/11 17:25:00, Stop date: 02/23/11 17:25:00 PO No Longer Active David 02/23/2011 [facility] morphine Sulfate 4 mg, Route: IM, ONCE, Start date: 02/23/11 17:25:00, Stop date: 02/23/11 17:25:00 IM No Longer Active David 02/23/2011 [facility] Allergies, Adverse Reactions, Alerts No Known Medication Allergies Immunizations No Data Provided for This Section Results Order Name Results Value Reference Range Date Interpretation Comments Source CHEMISTRY BUN 9.0 7 - 22 02/24/2011 Normal [facility] CHEMISTRY Creatinine Lvl 0.7 0.5 - 1.4 02/24/2011 Normal [facility] CHEMISTRY Chloride Lvl 106.0 95 - 109 02/24/2011 Normal [facility] CHEMISTRY Sodium Lvl 140.0 135 - 145 02/24/2011 Normal [facility] CHEMISTRY Potassium Lvl 3.6 3.5 - 5.1 02/24/2011 Normal [facility] CHEMISTRY Alk Phos 55.0 39 - 136 02/24/2011 Normal [facility] CHEMISTRY Bili Total 0.3 0.2 - 1.3 02/24/2011 Normal [facility] CHEMISTRY Glucose Lvl 124.0 02/24/2011 NA <sup>1</sup>Interpretive Data: Reference Ranges : 0 - 7 days : 41 - 90 mg/dL 7 days - 150 yrs : 70 - 99 mg/dL (fasting), based on the clinical recommendations of the [employer]. [facility] CHEMISTRY AST 12.0 0 - 37 02/24/2011 Normal [facility] CHEMISTRY CO2 25.0 24 - 32 02/24/2011 Normal [facility] CHEMISTRY Albumin Lvl 3.0 3.5 - 5.0 02/24/2011 LOW [facility] CHEMISTRY ALT 14.0 0 - 65 02/24/2011 Normal [facility] CHEMISTRY Calcium Lvl 8.2 8.5 - 10.5 02/24/2011 LOW [facility] CHEMISTRY Total Protein 7.0 6.4 - 8.4 02/24/2011 Normal [facility] CHEMISTRY Globulin 4.0 2.0 - 4.0 02/24/2011 Normal [facility] CHEMISTRY A/G Ratio 0.8 0.7 - 1.6 02/24/2011 Normal [facility] CHEMISTRY B/C Ratio 13.0 6 - 25 02/24/2011 Normal [facility] CHEMISTRY AGAP 12.6 10.0 - 20.0 02/24/2011 Normal [facility] HEMATOLOGY INR 1.04 0.85 - 1.17 02/24/2011 Normal <sup>2</sup>Interpretive Data: RECOMMENDED RANGES FOR PROTIME INR: 2.0-3.0 for most medical and surgical thromboembolic states. 2.5-3.5 for artificial heart valves and recurrent embolism. INR SHOULD BE USED ONLY FOR PATIENTS ON STABLE ANTICOAGULANT THERAPY. [facility] HEMATOLOGY PT 13.6 12.0 - 14.7 02/24/2011 Normal [facility] HEMATOLOGY PTT 27.5 22.9 - 35.8 02/24/2011 Normal <sup>3</sup>Interpretive Data: Heparin Therapeutic Range: 57 - 92 Seconds [facility] HEMATOLOGY Hgb 9.3 12.0 - 16.0 02/24/2011 [facility] HEMAT[facility] MCV 81.2 81.0 - 99.0 02/24/2011 Normal [facility] HEMATOLOGY Hct 28.7 36.0 - 48.0 02/24/2011 [facility] HEMATOLOGY MCHC 32.4 32.0 - 36.0 02/24/2011 Normal [facility] HEMATOLOGY MCH 26.3 27.0 - 31.0 02/24/2011 [facility] HEMATOLOGY RDW 18.8 11.5 - 14.5 02/24/2011 [facility] HEMATOLOGY MPV 7.6 7.4 - 10.4 02/24/2011 Normal [facility] HEMATOLOGY Platelet 373.0 133 - 450 02/24/2011 Normal [facility] HEMATOLOGY WBC 7.3 3.7 - 10.4 02/24/2011 Normal [facility] HEMATOLOGY RBC 3.54 4.20 - 5.40 02/24/2011 [facility] HEMATOLOGY Basophils # 0.0 0.0 - 0.2 02/24/2011 Normal [facility] HEMATOLOGY Monocytes # 0.4 0.0 - 0.8 02/24/2011 [facility] HEMATOLOGY Eosinophils # 0.0 0.0 - 0.5 02/24/2011 Normal [facility] HEMATOLOGY Segs 77.9 45.0 - 75.0 02/24/2011 [facility] HEMATOLOGY Basophils 0.7 0.0 - 1.0 02/24/2011 Normal [facility] HEMATOLOGY Segs-Bands # 5.7 1.5 - 8.1 02/24/2011 [facility] HEMATOLOGY Eosinophils 0.7 0.0 - 4.0 02/24/2011 [facility] HEMATOLOGY Lymphocytes # 1.1 1.0 - 5.5 02/24/2011 [facility] HEMATOLOGY Monocytes 5.7 2.0 - 12.0 02/24/2011 Normal [facility] HEMATOLOGY Lymphocytes 15.0 20.0 - 40.0 02/24/2011 LOW [facility] URINALYSIS UA Urobilinogen ?? 0.1 - 1.0 02/24/2011 NA [facility] URINALYSIS UA Leuk Est Small *ABN* (02/23/2011 20:45:00) ?? >Negative 02/24/2011 ABN [facility] URINALYSIS UA Nitrite Negative (02/23/2011 20:45:00) ?? >Negative 02/24/2011 Normal [facility] URINALYSIS UA RBC 1.0 0 - 2 02/24/2011 Normal [facility] URINALYSIS UA WBC 4.0 0 - 5 02/24/2011 Normal [facility] URINALYSIS UA Sq Epi Many /LPF *ABN* (02/23/2011 20:45:00) ?? >Few 02/24/2011 ABN [facility] URINALYSIS UA Bacteria Occasional /HPF *NA* (02/23/2011 20:45:00) ?? >None Seen 02/24/2011 NA [facility] URINALYSIS UA Mucus Few /LPF *NA* (02/23/2011 20:45:00) ?? >None Seen 02/24/2011 [facility] URINALYSIS UA Bili Negative *NA* (02/23/2011 20:45:00) ?? >Negative 02/24/2011 NA [facility] URINALYSIS UA Blood Negative (02/23/2011 20:45:00) ?? >Negative 02/24/2011 Normal [facility] URINALYSIS UA Ketones Negative mg/dL *NA* (02/23/2011 20:45:00) ?? >Negative 02/24/2011 NA [facility] URINALYSIS UA Turbidity Slight *ABN* (02/23/2011 20:45:00) ?? >Clear 02/24/2011 ABN [facility] URINALYSIS UA Spec Grav 1.02 <<=1.030 02/24/2011 Normal [facility] URINALYSIS UA Color Yellow *NA* (02/23/2011 20:45:00) ?? >Yellow 02/24/2011 [facility] URINALYSIS UA pH 6.5 5.0 - 8.0 02/24/2011 Normal [facility] URINALYSIS UA Protein Negative mg/dL (02/23/2011 20:45:00) ?? >Negative 02/24/2011 Normal [facility] URINALYSIS UA Glucose Negative mg/dL *NA* (02/23/2011 20:45:00) ?? >Negative 02/24/2011 NA [facility] Pathology Reports No Data Provided for This [...] for fracture. This exam was interpreted at [id number] for SARAH Cohen 15. Bo Delgado M.D. cm/penrad:09/22/2017 11:51:51 Bucket Chucker(s): Lauren Hamilton RT(R)(M), [facility] 09/22/2017 [place] Knee 1-2 Views unilateral [...] provider is recommended. Brisa Alanis /penrad:12/17/2012 15:36:20 Bucket Chucker: Dallas Alexander [facility] 12/17/2012 [facility] Digital Mammo Screening Lewis MA - DIGITAL [...] recommended. Dr. Carson Hale M.D. eoc/penrad:12/26/2012 17:10:22 Bucket Chucker: Shahida Elkins RT(Chuy)(M[facility]: Normal exam Mammogram BI-RADS: 1 Negative 12/17/2012 [place] [facility] Consultation Notes No Data Provided for This Section Discharge Summaries No Data Provided for This Section History and Physicals No Data Provided for This Section Vital Signs Vital Sign Value Date Comments Source Temperature Oral (F) 97.1 F 02/24/2011 [facility] Systolic (mm Hg) 119.0 02/24/2011 [facility] Diastolic (mm Hg) 62.0 02/24/2011 [facility] Peripheral Pulse Rate 71.0 02/24/2011 [facility] Respitory Rate 18.0 02/24/2011 [facility] Height 157.48 cm 02/24/2011 [facility] Weight 54.545 02/24/2011 [facility] Respitory Rate 16.0 02/24/2011 [facility] Peripheral Pulse Rate 72.0 02/24/2011 [facility] Temperature Oral (F) 98.0 F 02/24/2011 [facility] Systolic (mm Hg) 161.0 02/24/2011 [facility] Diastolic (mm Hg) 81.0 02/24/2011 [facility] Respitory Rate 16.0 02/24/2011 [facility] Peripheral Pulse Rate 79.0 02/24/2011 [facility] Diastolic (mm Hg) 73.0 02/24/2011 [facility] Systolic (mm Hg) 171.0 02/24/2011 [facility] Weight 54.545 02/24/2011 [facility] Height 157.48 cm 02/24/2011 [facility] Diastolic (mm Hg) 89.0 02/24/2011 [facility] Systolic (mm Hg) 157.0 02/24/2011 [facility] Respitory Rate 18.0 02/24/2011 [facility] Peripheral Pulse Rate 74.0 02/24/2011 [facility] Respitory Rate 18.0 02/23/2011 [facility] Temperature Oral (F) 97.8 F 02/23/2011 [facility] Peripheral Pulse Rate 73.0 02/23/2011 [facility] Diastolic (mm Hg) 75.0 02/23/2011 [facility] Systolic (mm Hg) 148.0 02/23/2011 [facility] Weight 55.0 02/23/2011 [facility] Height 157.48 cm 02/23/2011 [facility] Respitory Rate 17.0 02/23/2011 [facility] Peripheral Pulse Rate 83.0 02/23/2011 [facility] Temperature Oral (F) 97.6 F 02/23/2011 [facility] Diastolic (mm Hg) 80.0 02/23/2011 [facility] Systolic (mm Hg) 148.0 02/23/2011 [facility] Encounters Location Location Details Encounter Type Encounter Number Reason For Visit Attending Provider ADM Date DC Date Status Source [facility] Emergency [id number] KARIE DANILO 02/23/2011 02/23/2011 Discharged [facility] Emergency [id number] MARIANO CAICEDO 02/23/2011 02/24/2011 Discharged [facility] Not Sent Outpatient [id number] BENIGN THYROID CYST NON PHYSICIAN 03/12/2012 [place] [facility] [id number] Jose Fernandez 04/04/2016 04/05/2016 [facility] [id number] Jose Fernandez 09/22/2017 09/23/2017 [facility] Procedures No Data Provided for This Section Assessment and Plan No Data Provided for This Section Plan of Care No Data Provided for This Section Social History Social History Date Source No data available for this section 09/23/2017 [facility] Family History No Data Provided for This Section Advance Directives No Data Provided for This Section Functional Status No Data Provided for This Section
[2018-12-27] MEDS: CEFTRIAXONE SOD 1 GM/NS 50 ML 50 ML IV SCH ×2 (00:56→01:33)
[2018-12-27] MEDS ORDERED: SERTRALINE HCL50 MG PO (01:04)
[2018-12-27] MEDS ORDERED: AZATHIOPRINE50 MG PO (01:04)
[2018-12-27] MEDS ORDERED: AMBIEN10 MG PO (01:04)
[2018-12-27] MEDS ORDERED: ZOLPIDEM TARTRATE 10 MG TAB PO PRN (01:45)
--- NOTE | 2018-12-27 02:15 | NUR ---
Pt received from ER. Pt A&O and in no apparent distress. Pt on room air and no tele. All safety measures ensured, bed alarm on, and pt call [facility] near. Pt encouraged to use call [facility] for assistance.
--- NOTE | 2018-12-27 07:00 | NUR ---
BEDSIDE SHIFT REPORT RECEIVED FROM THE MANAGER MECHANICAL RN. PT DENIES NEEDS AT THIS TIME.
--- NOTE | 2018-12-27 11:00 | NUR ---
PT C/O ABDOMINAL PAIN. PAGED DR KERR. NO NEW ORDERS RECEIVED.
--- NOTE | 2018-12-27 12:00 | NUR ---
PAGED DR. KERR REGARDING PAIN MED
--- NOTE | 2018-12-27 13:00 | NUR ---
WALKING ROUNDS COMPLETED. PT RESTING ON BED. DENIES NEEDS AT THIS TIME.
[2018-12-27] MEDS ORDERED: ACETAMINOPHEN 325 MG TAB PO PRN (15:30)
--- NOTE | 2018-12-27 16:21 | NUR ---
PRIMARY CARE PHYSICIAN: Dr. Fernandez CHIEF COMPLAINT: Abdominal pain. HISTORY OF PRESENT ILLNESS: A 78-year-old woman with abdominal pain and diarrhea; Hx of enteritis. PAST MEDICAL HISTORY: E. coli urinary tract infection, severe hypokalemia, acute gastroenteritis, recurrent intestinal bleeding, severe sepsis, atrial fibrillation, diarrhea, normocytic anemia, nnd-YC-svcyjwwte DC, depression, C. difficile colitis, iron deficiency anemia, sepsis, hypomagnesemia, hypokalemia, acute enteritis. PAST SURGICAL HISTORY: None. ALLERGIES: PER ELECTRONIC MEDICAL RECORD. FAMILY HISTORY/SOCIAL HISTORY: Patient lives alone and is . History of alcohol but quit. No illicits or cigarettes. MEDICATIONS: Per electronic medical record. REVIEW OF SYSTEMS: Denies any dizziness, chest pain, shortness of breath, fever, chills, sweats, nausea, vomiting, diarrhea, leg pain, or back pain. PHYSICAL EXAMINATION VITAL SIGNS: Have been reviewed. GENERAL: A tired-appearing woman resting in bed. HEENT: Anicteric. Pupils respond to light. No oral lesions. CARDIOVASCULAR: Normal S1 and S2. LUNGS: Moderate breath sounds. ABDOMEN: diffusely tender abdomen EXTREMITIES: No edema or calf tenderness. NEUROLOGICAL: Alert and oriented times 3. Moving all extremities. SKIN: Dry. PSYCHIATRIC: Normal affect. LABS: Reviewed. MEDICATIONS: Reviewed. ASSESSMENT: A 78-year-old woman with: UTI Enteritis Cholelithiasis- old HTN PAF PLAN IV flagyl/levaquin; IV hydration Resume steroids/mesalamine F/u with GI outpt scd dipso: Luiz Gray MD, PhD.
--- NOTE | 2018-12-27 16:40 | NUR ---
SCD'S ARE ON WITH THE PT
[2018-12-27] MEDS: HYDRALAZINE HCL 25 MG TAB PO SCH ×2 (16:51→22:00)
[2018-12-27] MEDS: METRONIDAZOLE 500MG/NS 100ML 100 ML IV SCH (16:53)
[2018-12-27] MEDS ORDERED: FAMOTIDINE 20 MG TAB PO SCH (17:00)
--- NOTE | 2018-12-27 19:00 | NUR ---
BEDSIDE SHIFT REPORT GIVEN TO THE THREAD TWISTER RN. PT DENIED FURTHER NEEDS.
[2018-12-27] MEDS: NIFEDIPINE CR 30 MG TAB PO SCH (21:00)
[2018-12-27] MEDS: RIFAXIMIN 200 MG TAB PO SCH (22:00)
[2018-12-28] MEDS: CEFTRIAXONE SOD 1 GM/NS 50 ML 50 ML IV SCH (01:11)
[2018-12-28] MEDS: SODIUM CHLORIDE 0.9% 1000ML 1,000 ML IV SCH ×3 (01:11→16:00)
[2018-12-28 04:00] VITALS: BP 136/67
[2018-12-28 05:25] LABS: BASOPHILS # (AUTO) 0.1 (0.0-0.1); BASOPHILS % 1.3 % (0.0-1.0); EOSINOPHILS # (AUTO) 0.1 (0.0-0.4); EOSINOPHILS % 1.9 % (0.0-6.0); HEMATOCRIT 28.3 % (34.2-44.1); HEMOGLOBIN 8.9 g/dL (12.0-16.0); LYMPHOCYTES # (AUTO) 0.7 (1.0-3.2); LYMPHOCYTES % 17.3 % (18.0-39.1); MEAN CORPUSCULAR HEMOGLOBIN 28.9 pg (28-32); MEAN CORPUSCULAR HGB CONC 31.4 g/dL (31-35); MEAN CORPUSCULAR VOLUME 91.9 fL (81-99); MONOCYTES # (AUTO) 0.4 (0.2-0.8); MONOCYTES % 9.9 % (4.4-11.3); NEUTROPHILS # (AUTO) 2.6 (2.1-6.9); NEUTROPHILS % 69.1 % (38.7-80.0); PLATELET COUNT 267 x10e3/uL (140-360); RED BLOOD COUNT 3.08 x10e6/uL (3.6-5.1); RED CELL DISTRIBUTION WIDTH 17.3 % (11.7-14.4)
[2018-12-28 06:01] LABS: ALBUMIN 2.7 g/dL (3.5-5.0); ALKALINE PHOSPHATASE 42 IU/L (40-150); BLOOD UREA NITROGEN 5 mg/dL (7-26); BUN/CREATININE RATIO 9 (6-25); CALCIUM 7.8 mg/dL (8.4-10.2); CARBON DIOXIDE 24 mmol/L (22-29); CHLORIDE 112 mmol/L (98-107); CREATININE, SERUM 0.56 mg/dL (0.57-1.11); EST GLOMERULAR FILTRATION RATE > 60 ML/MIN (60-); GLUCOSE 90 mg/dL (74-118); SODIUM 141 mmol/L (136-145)
[2018-12-28 06:02] LABS: ALANINE AMINOTRANSFERASE < 6 IU/L (0-55)
[2018-12-28] MEDS: METRONIDAZOLE 500MG/NS 100ML 100 ML IV SCH ×2 (06:21→16:20)
[2018-12-28] MEDS: HYDRALAZINE HCL 25 MG TAB PO SCH ×2 (06:29→13:22)
--- NOTE | 2018-12-28 06:48 | NUR ---
IM- progress note o/n no events REVIEW OF SYSTEMS: Denies any dizziness, chest pain, shortness of breath, fever, chills, sweats, nausea, vomiting, diarrhea, leg pain, or back pain. PHYSICAL EXAMINATION VITAL SIGNS: Have been reviewed. GENERAL: A tired-appearing woman resting in bed. HEENT: Anicteric. Pupils respond to light. No oral lesions. CARDIOVASCULAR: Normal S1 and S2. LUNGS: Moderate breath sounds. ABDOMEN: diffusely tender abdomen EXTREMITIES: No edema or calf tenderness. NEUROLOGICAL: Alert and oriented times 3. Moving all extremities. SKIN: Dry. PSYCHIATRIC: Normal affect. LABS: Reviewed. MEDICATIONS: Reviewed. ASSESSMENT: A 78-year-old woman with: UTI Enteritis Cholelithiasis- old HTN PAF PLAN IV flagyl/levaquin; IV hydration Resume steroids/mesalamine F/u with GI outpt scd dipso: 12/27 drop in counts; advance to soft GI diet. Luiz Gray MD, PhD.
[2018-12-28] MEDS ORDERED: FLAGYL500 MG PEG (07:22)
[2018-12-28] MEDS ORDERED: KEFLEX500 MG PO (07:22)
--- NOTE | 2018-12-28 07:24 | NUR ---
Bedside report and walking rounds complete with day shift RN. Pt resting in bed and in no apparent distress.
--- NOTE | 2018-12-28 07:30 | NUR ---
Bedside hand off report received from DARRYL Cagle. Pt is lying in bed, AAOx3 with no acute distress noted, denies having chest pain at this time, resp is even and unlabored. Call light and personal items are within reach, bed is locked and side rails up x2 for safety. Will continue to monitor.
[2018-12-28 08:00] VITALS: BP_SYST 150; BP_DIAS 51; BP_DIAS 69
[2018-12-28] MEDS: RIFAXIMIN 200 MG TAB PO SCH (08:51)
[2018-12-28] MEDS: FAMOTIDINE 20 MG TAB PO SCH ×2 (08:51→16:00)
[2018-12-28] MEDS: NIFEDIPINE CR 30 MG TAB PO SCH (08:51)
[2018-12-28] MEDS ORDERED: FERROUS SULFATE 325 MG TAB PO SCH (09:00)
[2018-12-28] MEDS ORDERED: MESALAMINE 400 MG PO SCH (09:00)
[2018-12-28] MEDS ORDERED: SERTRALINE HCL 50 MG TAB PO SCH (09:00)
[2018-12-28] MEDS ORDERED: PREDNISONE 20 MG TAB PO SCH (09:00)
[2018-12-28] MEDS ORDERED: MESALAMINE 400 MG CAP PO SCH (09:00)
[2018-12-28] MEDS ORDERED: ONDANSETRON HCL 4 MG ORAL DISINTEGRATING TAB PO PRN (09:15)
[2018-12-28 11:55] VITALS: BP 142/69
--- NOTE | 2018-12-28 15:55 | NUR ---
Hand off report given to DARRYL Riebiro. Pt is AAOx3 in no acute distress noted, resp even and unlabored.
[2018-12-28 16:00] VITALS: BP 115/58
--- NOTE | 2018-12-28 16:04 | NUR ---
CALLED [facility] REGARDING PATIENT BEING DISCHARGED, DR. PELAYO DID NOT ANSWER, WILL CALL BACK IF CALL IS NOT RETURNED.
--- NOTE | 2018-12-28 19:00 | NUR ---
Got report from previous nurse. patient is ready to be discharge. sitting in bed. call light within reach.
[2018-12-28] MEDS ORDERED: METRONIDAZOLE500 MG PO ×2 (19:54→20:00)
--- NOTE | 2018-12-28 20:00 | NUR ---
Took out IV and cath attached. Patient given discharge orders and understood them. Patient collected belongs.
--- NOTE | 2018-12-28 20:53 | NUR ---
Patient left via wheelchair to her son's car. Patient in no pain or distress. Patient is A&Ox3.
== END 2018-12-28 20:53 | disposition home or self-care (01) ==
LOC: ER 21:25 → ERHOLD 12-27 00:41 → IMCU 12-27 01:50
PROVIDERS: ADMIT Internal Medicine; ATTEND Internal Medicine
DX: N30.01 Acute cystitis with hematuria (principal); R10.84 Generalized abdominal pain; R11.2 Nausea with vomiting, unspecified; I10 Essential (primary) hypertension; D64.9 Anemia, unspecified; K21.9 Gastro-esophageal reflux disease without esophagitis; E78.5 Hyperlipidemia, unspecified; M19.90 Unspecified osteoarthritis, unspecified site; Z87.440 Personal history of urinary (tract) infections; Z82.49 Family history of ischemic heart disease and other diseases of the circulatory system; Z88.8 Allergy status to other drugs, medicaments and biological substances; Z91.040 Latex allergy status; R51 Headache; K80.20 Calculus of gallbladder without cholecystitis without obstruction; K52.9 Noninfective gastroenteritis and colitis, unspecified; I48.0 Paroxysmal atrial fibrillation
CPT/HCPCS: 36415 ×2; 70450; 74177; 80053 ×2; 81001; 82150; 82550; 82553; 83690; 84484; 85025 ×2; 93005; 99284; G0378 ×2; J0696 ×2; J2405; J7030 ×3; J7512; Q9967

== ENCOUNTER 2020-02-08 10:50 | Emergency (ER) | payer MEDICARE ==
[~2020-02-08] VITALS: Ht 157.5 cm; Wt 56.7 kg
[~2020-02-08 10:50] MED LIST changes: +AMBIEN10 MG PO; +AZATHIOPRINE50 MG PO; +FLAGYL500 MG PEG; +SERTRALINE HCL50 MG PO
[2020-02-08] MEDS ORDERED: SODIUM CHLORIDE 0.9% 1000ML 1,000 ML IV STA (11:10)
[2020-02-08] MEDS ORDERED: ONDANSETRON HCL INJ 2MG/ML 2ML 2 MG/ML VIAL IV ONE (11:30)
[2020-02-08 11:45] LABS: CLARITY,URINE CLEAR (CLEAR); COLOR,URINE YELLOW (YELLOW); LEUKOCYTE ESTERASE ,URINE NEGATIVE (NEGATIVE); NITRITE,URINE NEGATIVE (NEGATIVE); PROTEIN,URINE DIPSTICK 1+ (NEGATIVE)
[2020-02-08 11:46] LABS: BILIRUBIN,URINE SMALL (NEGATIVE); KETONES,URINE TRACE (NEGATIVE); URINE UROBILINOGEN 0.2 mg/dL (0.2 - 1)
[2020-02-08 11:47] LABS: BASOPHILS # (AUTO) 0.1 (0.0-0.1); BASOPHILS % 0.7 % (0.0-1.0); EOSINOPHILS # (AUTO) 0.1 (0.0-0.4); EOSINOPHILS % 0.9 % (0.0-6.0); HEMATOCRIT 33.2 % (34.2-44.1); HEMOGLOBIN 10.4 g/dL (12.0-16.0); LYMPHOCYTES % 12.5 % (18.0-39.1); MEAN CORPUSCULAR HEMOGLOBIN 27.7 pg (28-32); MEAN CORPUSCULAR HGB CONC 31.3 g/dL (31-35); MEAN CORPUSCULAR VOLUME 88.3 fL (81-99); MONOCYTES # (AUTO) 0.8 (0.2-0.8); MONOCYTES % 9.9 % (4.4-11.3); NEUTROPHILS # (AUTO) 5.8 (2.1-6.9); NEUTROPHILS % 75.5 % (38.7-80.0); PLATELET COUNT 334 x10e3/uL (140-360); RED BLOOD COUNT 3.76 x10e6/uL (3.6-5.1)
--- OUTSIDE RECORDS SUMMARY | 2020-02-08 11:50 | XMS REPORT | Continuity of Care Document ---
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 CYST OF THYROID Active [facility] Medications Medication Details Route Status Patient Instructions Ordering Provider Order Date Source Vicodin 5/500 oral tablet 1 ta b, PO, Q4-6H, PRN, 30 tab, for Pain, Substitution Allowed, Maintenance PO Active Brow n 02/24/2011 [facility] acetaminophen-hydrocodone 500 mg-5 mg oral tablet 1 tab, Route: PO, Drug Form: TAB, ONCE, STAT, Start date: 02/24/11 0:11:00, Stop date: 02/24/11 0:11:00 PO No Longer Active Radecki 02/24/2011 [facility] Ce nter morphine Sulfate 2 mg, Route: IVP, ONCE, Priority: STAT, Start date: 02/23/11 22:35:00, Stop date: 02/23/11 22:35:00 IVP No Longer Active Brown 02/24/2011 [facility] Unknown Home Medication Substi tution Allowed Active 02/23/2011 [facility] ondansetron 4 mg oral tablet, disintegrating 1 tab, Route: PO, ONCE, Start date: 02/23/11 17:25:00, Stop date: 02/23/11 17:25:00 PO No Longer Active David 2010 [facility] morphine Sulfate 4 mg, Route: IM, ONCE, Start date: 09/14/11 17:25:00, Stop date: 02/23/11 17:25:00 IM No Longer Active David 02/23/2011 [facility] Allergies, Adverse Reactions, Alerts No Known Medication Allergies Immunizations No Data Provided for This Section Results Order Name Results Value Reference Range Date Interpretation Comments Source CHEMISTRY BUN 9.0 7 - 22 02/24/2011 Normal [facility] CHEMISTRY Creatinine Lvl 0.7 0.5 - 1.4 02/24/2011 Normal [facility] CHEMISTRY Chloride Lvl 106.0 95 - 109 02/24/2011 Normal [facility] CHEMISTRY Sodium Lvl 140.0 135 - 145 02/24/2011 Normal [facility] CHEMISTRY Potassium Lvl 3.6 3.5 - 5.1 02/24/2011 Normal [facility] CHEMISTRY Alk Phos 55.0 39 - 136 02/24/2011 Normal [facility] CHEMISTRY Bili Total 0.3 0.2 - 1.3 02/24/2011 Normal [facility] CHEMISTRY Glucose Lvl 124.0 02/24/2011 NA <sup>1</sup>Interpretive Data: Reference Ranges : 0 - 7 days : 41 - 90 mg/dL 7 days - 150 yrs : 70 - 99 mg/dL (fasting), based on the clinical recommendations of the [place] [employer]. [facility] CHEMISTRY AST 12.0 0 - 37 02/24/2011 Normal [facility] CHEMISTRY CO2 25.0 24 - 32 02/24/2011 Normal [facility] CHEMISTRY Albumin Lvl 3.0 3.5 - 5.0 02/24/2011 LOW [facility] CHEMISTRY ALT 14.0 0 - 65 02/24/2011 Normal [facility] CHEMISTRY Calcium Lvl 8.2 8.5 - 10.5 02/24/2011 LOW [facility] CHEMISTRY Total Protein 7.0 6.4 - 8.4 02/24/2011 Normal [facility] CHEMISTRY Globulin 4.0 2.0 - 4.0 02/24/2011 Normal [facility] CHEMISTRY A/G Ratio 0.8 0.7 - 1.6 02/24/2011 Normal [facility] CHEMISTRY B/C Ratio 13.0 6 - 25 02/24/2011 Normal [facility] CHEMISTRY AGAP 12.6 10.0 - 20.0 02/24/2011 Normal [facility] HEMATOLOGY INR 1.04 0.85 - 1.17 02/24/2011 Normal <sup>2</sup>Interpretive Data: RECOMMEND ED RANGES FOR PROTIME INR: 2.0-3.0 for most medical and surgical thromboembolic states. 2.5-3.5 for artificial heart valves and recurrent embolism. INR SHOULD BE USED ONLY FOR PATIENTS ON STABLE ANTICOAGULANT THERAPY. [facility] HEMATOLOGY PT 13.6 12.0 - 14.7 02/24/2011 Normal [facility] HEMATOLOGY PTT 27.5 22.9 - 35.8 02/24/2011 Normal <sup>3</sup>Interpretive Data: Heparin T herapeutic Range: 57 - 92 Seconds [facility] HEMATOLOGY Hgb 9.3 12.0 - 16.0 02/24/2011 LOW [facility] HEMATOLOGY MCV 81.2 81.0 - 99.0 02/24/2011 Normal [facility] HEMATOLOGY Hct 28.7 36.0 - 48.0 02/24/[address] [facility] HEMATOLOGY MCHC 32.4 32.0 - 36.0 02/24/2011 Normal [facility] HEMATOLOGY MCH 26.3 27.0 - 31.0 02/24/[address] [facility] HEMATOLOGY RDW 18.8 11.5 - 14.5 02/24/2011 [facility] HEMATOLOGY MPV 7.6 7.4 - 10.4 02/24/2011 Normal [facility] HEMATOLOGY Platelet 373.0 133 - 450 02/24/2011 Normal [facility] HEMATOLOGY WBC 7.3 3.7 - 10.4 02/24/2011 [facility] HEMATOLOGY RBC 3.54 4.20 - 5.40 02/24/[address] [facility] HEMATOLOGY Basophils # 0.0 0.0 - 0.2 02/24/2011 Normal [facility] HEMATOLOGY Monocytes # 0.4 0.0 - 0.8 02/24/2011 [facility] HEMATOLOGY Eosinophils # 0.0 0.0 - 0.5 02/24/2011 Normal [facility] HEMATOLOGY Segs 77.9 45.0 - 75.0 02/24/2011 [facility] HEMATOLOGY Basophils 0.7 0.0 - 1.0 02/24/2011 Normal [facility] HEMATOLOGY Segs-Bands # 5.7 1.5 - 8.1 02/24/2011 [facility] HEMATOLOGY Eosinophils 0.7 0.0 - 4.0 02/24/2011 [facility] HEMATOLOGY Lymphocytes # 1.1 1.0 - 5.5 02/24/2011 Normal [facility] HEMATOLOGY Monocytes 5.7 2.0 - 12.0 02/24/2011 Normal [facility] HEMATOLOGY Lymphocytes 15.0 20.0 - 40.0 02/24/2011 LOW [facility] URINALYSIS UA Urobilinogen ?? 0.1 - 1.0 02/24/2011 NA [facility] URINALYSIS UA Leuk Est Small *ABN* (02/23/2011 20:45:00) ?? >Nega tive 02/24/2011 ABN [facility] URINALYSIS UA Nitrite Negat denice (02/23/2011 20:45:00) ?? >Nega tive 02/24/2011 Normal [facility] URINALYSIS UA RBC 1.0 0 - 2 02/24/2011 Normal [facility] URINALYSIS UA WBC 4.0 0 - 5 02/24/2011 Normal [facility] URINALYSIS UA Sq Epi Many /LPF *ABN* (02/23/2011 20:45:00) ?? >Few 02/24/2011 ABN [facility] URINALYSIS UA Bacteria Occas ional /HPF *NA* (02/23/2011 20:45:00) ?? >None Seen 02/24/2011 [facility] URINALYSIS UA Mucus Few / LPF *NA* (02/23/2011 20:45:00) ?? >None Seen 02/24/2011 [facility] URINALYSIS UA Bili Negat denice *NA* (02/23/2011 20:45:00) ?? >Nega tive 02/24/2011 NA [facility] URINALYSIS UA Blood Negat denice (02/23/2011 20:45:00) ?? >Nega tive 02/24/2011 Normal [facility] URINALYSIS UA Ketones Negat denice mg/dL *NA* (02/23/2011 20:45:00) ?? >Nega tive 02/24/2011 [facility] URINALYSIS UA Turbidity Sligh t *ABN* (02/23/2011 20:45:00) ?? >Clear 02/24/2011 ABN [facility] URINALYSIS UA Spec Grav 1.02 <<=1.030 02/24/2011 Normal [facility] URINALYSIS UA Color Yello w *NA* (02/23/2011 20:45:00) ?? >[place] ow 02/24/2011 NA [facility] URINALYSIS UA pH 6.5 5.0 - 8.0 02/24/2011 Normal [facility] URINALYSIS UA Protein Negat denice mg/dL (02/23/2011 20:45:00) ?? >Nega tive 02/24/2011 Normal [facility] URINALYSIS UA Glucose Negat denice mg/dL *NA* (02/23/2011 20:45:00) ?? >Nega tive 02/24/2011 NA [facility] Pathology Reports No Data Provided for This [...] for fracture. This exam was interpreted at [id number] for SARAH Alvarez 15. Bo Delgado M.D., cm/slim:09/22/2017 11:51:51 Derrick Hand(s): Lauren Hamilton RT(R)(M), [facility] [place] 09/22/2017 [place] Floyd Knee 1-2 Views unilateral DX R ight Knee x-ray 2 views History: 76-year-old female [...] the AP L1-L4 region of spine using [employer] X-Ray Absorptiometry. The BMD average [...] care provider is recommended. Brisa webb/slim:12/17/2012 15:36:20 Derrick Hand: Dallas Alexander [facility] 12/17/2012 [place] [facility] MA - DIGITAL [...] recommended. Dr. Carson Hale M.D. eoc/penrad:12/26/2012 17:10:22 Derrick Hand: Shahida Elkins RT(R)(M), [facility] letter sent: Normal exam Mammogram BI[facility]RADS: 1 [facility] [place] [facility] Notes No Data Provided for This Section Discharge Summaries No Data Provided for This Section History and Physicals No Data Provided for This Section Vital Signs Vital Sign Value Date Comments Source Temperature Oral (F) 97.1 F 02/24/2011 [facility] Systolic (mm Hg) 119.0 02/24/2011 [facility] Diastolic (mm Hg) 62.0 02/24/2011 [facility] Peripheral Pulse Rate 71.0 02/24/2011 [facility] Respitory Rate 18.0 02/24/2011 [facility] Height 157.48 cm 02/24/2011 [facility] Weight 54.545 02/24/2011 [facility] Respitory Rate 16.0 02/24/2011 [facility] Peripheral Pulse Rate 72.0 02/24/2011 [facility] Temperature Oral (F) 98.0 F 02/24/2011 [facility] Systolic (mm Hg) 161.0 02/24/2011 [facility] Diastolic (mm Hg) 81.0 02/24/2011 [facility] Respitory Rate 16.0 02/24/2011 [facility] Peripheral Pulse Rate 79.0 02/24/2011 [facility] Diastolic (mm Hg) 73.0 02/24/2011 [facility] Systolic (mm Hg) 171.0 02/24/2011 [facility] Weight 54.545 02/24/2011 [facility] Height 157.48 cm 02/24/2011 [facility] Diastolic (mm Hg) 89.0 02/24/2011 [facility] Systolic (mm Hg) 157.0 02/24/2011 [facility] Respitory Rate 18.0 02/24/2011 [facility] Peripheral Pulse Rate 74.0 02/24/2011 [facility] Respitory Rate 18.0 02/23/2011 [facility] Temperature Oral (F) 97.8 F 02/23/2011 [facility] Peripheral Pulse Rate 73.0 02/23/2011 [facility] Diastolic (mm Hg) 75.0 02/23/2011 [facility] Systolic (mm Hg) 148.0 02/23/2011 [facility] Weight 55.0 02/23/2011 [facility] Height 157.48 cm 02/23/2011 [facility] Respitory Rate 17.0 02/23/2011 [facility] Peripheral Pulse Rate 83.0 02/23/2011 [facility] Temperature Oral (F) 97.6 F 02/23/2011 [facility] Diastolic (mm Hg) 80.0 02/23/2011 [facility] Systolic (mm Hg) 148.0 02/23/2011 [facility] Encounters Location Location Details Encounter Type Encounter Number Reason For Visit Attending Provider ADM Date DC Date Status Source [facility] Emergency [id number] KARIE HAMMERSHABNAM 02/23/2011 02/23/2011 Discharged [facility] Emergency [id number] MARIANO CAICEDO 02/23/2011 02/24/[address] [facility] Not Sent Ou tpatient [id number] BENIGN THYROID CY ST NON PHYSICIAN 03/12/2012 [address] [facility] [place] [facility] [id number] 02 Jose Fernandez 04/04/2016 04/05/[address] [facility] [place] [facility] [place] [facility] [id number] 03 Jose Fernandez 09/22/2017 09/23/2017 [facility] [place] Procedures No Data Provided for This Section Assessment and Plan No Data Provided for This Section Plan of Care No Data Provided for This Section Social History Social History Date Source No data available for this section 09/23/2017 [facility] [place] Family History No Data Provided for This Section Advance Directives No Data Provided for This Section Functional Status No Data Provided for This Section
--- OUTSIDE RECORDS SUMMARY | 2020-02-08 11:51 | XMS REPORT | Continuity of Care Document ---
Author Author [facility] t Organization [facility] Address [address] [phone] Phone Unavailable Care Team Providers Care Rough Patcher Name Role Phone Frankie MCKEE PCP MARIO GARAY Attphys Unavailable Riaz MAO Attphys Unavailable Tre COLLINS Attphys Unavailable LUIZ KERR Attphys Unavailable Brooks Fernandez Attphys GERTRUDE CHANEY Attphys Unavailable LUIZ KERR Admphys Unavailable Payers Payer Name Policy Type Policy Number Effective Date Expiration Date [facility] Medicare A & B [id number] 2004 00:00:00 [facility] TM [id number] [facility] Cigna Hmo [id number] 2015 00:00:00 [facility] Problems Condition Name Condition Details Condition Category Status Onset Date Resolution Date Last Treatment Date Treating Clinician Comments Source M81.0 - AGE-RELATED OSTEOPOROSIS W/O C M81.0 - AGE- RELATED OSTEOPOROSIS W/O C Active 09/13/2017 [facility] [place] Diagnosis Active 2017-09-13 00:01:00 2017-09-22 09:41:00 Taylor Euceda M25.561 - PAIN IN RIGHT KNEE M 25.561 - PAIN IN RIGHT KNEE Active 03/31/2016 [facility] [place] Diagnosis Active 2016-03-31 00:0 1:00 2016-04-04 11:57:00 Todd Euceda Chest pain Chest pain Problem Active 2015-06-19 00:00:00 [facility] Fever Fever Problem Active 2015-06-19 00:00:00 [facility] Urinary tract infection UTI (urinary tract infection) Problem Active 2015-06-19 00:00:00 [facility] Volume depletion Volume depletion Problem Active 2015-06-19 00:00:00 [facility] Vomiting Vomiting Problem Active 2015-06-19 00:00:00 [facility] Abdominal pain Abdominal pain Problem Active 2015-02-12 00:00:00 [facility] Non-specific colitis Colitis Problem Active 2015-02-12 00:00:00 [facility] Weakness Weakness Problem Active 2015-02-12 00:00:00 [facility] Enteritis Enteritis Problem Active 2014-12-26 00:00:00 [facility] Fever Fever Problem Active 2014-12-26 00:00:00 [facility] Elevated troponin level Elevated troponin Problem Active 00:00:00 [facility] BENIGN THYROID CYST THOMAS GN THYROID CYST Active 2012 [facility] Diagnosis Active 2012 00:00:00 2012-03-12 14:25:00 [facility] FALL FALL Active 02/23/2011 [facility] Diagnosis Active 2011-02-23 07:00:00 2011-02-23 18:51:00 [facility] CEREBRAL CONTUSION, MICHELE ZYGOMATIC ARCH FX CEREBRAL CONTUSION, MICHELE ZYGOMATIC ARCH FX Active 02/23/2011 [facility] Diagnosis Active 2011-02-23 00:00:00 2011-02-23 23:41:00 [facility] Chronic anemia Chronic anemia Problem Active [facility] Fall Fall Problem Active [facility] Occult blood in stools Guaiac positive stools Problem Active [facility] Non-ST elevation (NSTEMI) myocardial infarction Non-ST EDMUNDO (non-ST elevated myocardial infarction) Problem Active [facility] Vomiting and diarrhea Vomiting and diarrhea Problem Active [facility] CYST OF THYROID CYST OF THYROID Active [facility] Active 2012-03-12 14:25:00 [facility] Allergies, Adverse Reactions, Alerts Allergy Name Allergy Type Status Severity Reaction(s) Onset Date Inacti ve Date Treating Clinician Comments Source No Known Allergies DA Active U 2019-03-24 00:00:00 [facility] Latex Allergy to Substance Active Moderate Rahses 2018-12-27 00:00:00 [facility] Pregabalin Propensity to adverse reactions Active Moderate Drow siness 2018-12-27 00:00:00 [facility] No Known Allergies DA Active U 2018-07-16 00:00:00 [facility] No Known Allergies DA Active U 2016-05-01 00:00:00 [facility] Social History Social Habit Start Date Stop Date Quantity Comments Source Social History 2017-09-23 04:59:00 2017-09-23 04:59:00 [facility] Medications Ordered Medication Name Filled Medication Name Start Date Stop Da te Current Medication? Ordering Clinician Indication Dosage Frequency Signature (SIG) Comments Components Source Cephalexin Monohydrate (Keflex) 500 Mg Capsule Cephale marvin Monohydrate (Keflex) 500 Mg Capsule 2018-12-28 00:00:00 Yes Luiz Kerr Md 500 Every 12 Hours [facility] Dicyclomine Hcl 10 Mg Capsule Dicyclomine Hcl 10 Mg Capsule 2017 00:00:00 Yes Margo Yañez Np 10 Three Times A Day [facility] Mesalamine 400 Mg Cap Mesalamine 400 Mg Cap 2017-12-24 00:00:00 Yes Margo Yañez Np 400 Daily [facility] Rifaximin (Xifaxan) 200 Mg Tablet Rifaximin (Xifaxan) 200 Mg Tablet 2017-12-24 00:00:00 Yes Margo Yañez Np 500 Every 12 Hours [facility] Prednisone 20 Mg Tab Prednisone 20 Mg Tab 2017-11-09 00:00:00 Yes Luiz Kerr Md 20 Daily [facility] Ciprofloxacin Hcl (Cipro) 500 Mg Tablet, 500 Mg Oral C iprofloxacin Hcl (Cipro) 500 Mg Tablet, 500 Mg Oral 2017-11-09 00:00:00 2017-12-24 00:00:00 No Luiz Kerr Md 500 Every 12 Hours [facility] Metronidazole (Flagyl) 500 Mg Tablet, 500 Mg Oral Metr onidazole (Flagyl) 500 Mg Tablet, 500 Mg Oral 2017-11-09 00:00:00 2017-12-24 00:00:00 No Luiz garcia Md 500 Three Times A Day [facility] Ondansetron (Zofran Odt) 4 Mg Tab.rapdis, 4 Mg Oral On dansetron (Zofran Odt) 4 Mg Tab.rapdis, 4 Mg Oral 2017-11-09 00:00:00 2017-12-24 00:00:00 No Luiz Kerr Md 4 Q4-6H Prn [facility] Ondansetron (Zofran Odt) 4 Mg Tab.rapdis, 4 Mg Oral On dansetron (Zofran Odt) 4 Mg Tab.rapdis, 4 Mg Oral 2017-09-13 00:00:00 2017-12-24 00:00:00 No Luiz Kerr Md 4 Q4-6H Prn [facility] Cephalexin Monohydrate (Keflex) 500 Mg Capsule, 500 Mg Oral Cephalexin Monohydrate (Keflex) 500 Mg Capsule, 500 Mg Oral 2017-09-13 00:00:00 11-09 00:00:00 No Luiz Kerr Md 500 Every 12 Hours [facility] Hydralazine Hcl 25 Mg Tab Hydralazine Hcl 25 Mg Tab 2017-06-30 00:00: 00 Yes Luiz Kerr Md 25 Every 8 Hours [facility] Nifedipine (Nifedipine Er) 30 Mg Tab.er.24 Nifedipine (Nifedipine Er) 30 Mg Tab.er.24 2017-06-30 00:00:00 Yes Luiz Kerr Md 30 Every 12 Hours [facility] Ondansetron (Zofran Odt) 4 Mg Tab.rapdis Ondansetron ( Zofran Odt) 4 Mg Tab.rapdis 2017-06-30 00:00:00 Yes Luiz Kerr Md 4 Ever y 6 Hours [facility] Potassium Chloride 20 Meq Tab.er.prt Potassium Chloride 20 M eq Tab.er.prt 2017-06-30 00:00:00 Yes Luiz Kerr Md 20 Daily [facility] Mesalamine 400 Mg Cap, 800 Mg Oral Mesalamine 400 Mg Cap, 80 0 Mg Oral 2017-06-30 00:00:00 2017-11-09 00:00:00 No Luiz Kerr Md 800 Three Ti mes A Day [facility] Metronidazole (Flagyl) 500 Mg Tablet, 500 Mg Oral Metr onidazole (Flagyl) 500 Mg Tablet, 500 Mg Oral 2017-06-30 00:00:00 2017-11-09 00:00:00 No Luiz garcia Md 500 Three Times A Day [facility] Pantoprazole Sodium (Protonix) 40 Mg Tablet., 40 Mg Oral Pantoprazole Sodium (Protonix) 40 Mg Tablet.dr, 40 Mg Oral 2017-06-30 00:00:00 2017-11-09 00:00:00 No Luiz Kerr Md 40 Every 12 Hours I [facility] Apixaban 2.5 Mg Tablet Apixaban 2.5 Mg Tablet 2015-11-20 00:00:00 Yes Ruy Patel Md 5 Every 12 Hours [facility] Levofloxacin (Levaquin) 500 Mg Tablet, 500 Mg Oral Lev ofloxacin (Levaquin) 500 Mg Tablet, 500 Mg Oral 2015-11-20 00:00:00 2017-06-30 00:00:00 Camelia Patel Md 500 Daily [facility] Methylprednisolone (Medrol Dose Pack) 4 Mg/Dose Pack T ab, 4 Mg Oral Methylprednisolone (Medrol Dose Pack) 4 Mg/Dose Pack Tab, 4 Mg Oral 2015-11-20 00:00:00 2017-06-30 00:00:00 No Ruy Patel Md 4 Daily [facility] Dicyclomine Hcl (Bentyl) 20 Mg Tablet, 20 Mg Oral Dicy clomine Hcl (Bentyl) 20 Mg Tablet, 20 Mg Oral 2015-02-18 00:00:00 2017-12-24 00:00:00 No Marilee Patel Md 20 Four Times Daily [facility] Mesalamine (Pentasa) 500 Mg Capcr, 1000 Mg Oral Mesala mine (Pentasa) 500 Mg Capcr, 1000 Mg Oral 2015-02-18 00:00:00 2017-12-24 00:00:00 Camelia Patel Md 1000 Four Times Daily [facility] Levofloxacin (Levaquin) 500 Mg Tablet, 500 Mg Oral Lev ofloxacin (Levaquin) 500 Mg Tablet, 500 Mg Oral 2015-02-18 00:00:00 2015-11-16 00:00:00 Camelia Patel Md 500 Daily [facility] Metronidazole 500 Mg Tablet, 500 Mg Oral Metronidazole 500 Mg Tablet, 500 Mg Oral 2015-02-18 00:00:00 2015-11-16 00:00:00 Camelia grady Md 500 Three Times A Day [facility] Vicodin 5/500 oral tablet 2011-02-24 05:58:12 Yes Gerardo Diallo 1 tab, PO, Q4-6H, PRN, 30 tab, for Pain, Substit ution Allowed, Maintenance [facility] acetaminophen-hydrocodone 500 mg-5 mg oral tablet 05:11:00 No Tato Schneider 1 tab, Rout e: PO, Drug Form: TAB, ONCE, STAT, Start date: 02/24/11 0:11:00, Stop date: 02/24/11 0:11:00 [facility] morphine Sulfate 2011-02-24 03:35:00 No Mahogany Burrell 2 mg, Route: IVP, ONCE, Priority: STAT, Start date: 02/23/11 22:35:00, Stop date: 02/23/11 22:35:00 [facility] [place] Unknown Home Medication 2011-02-23 22:32:47 Yes Substitution Allowed [facility] ondansetron 4 mg oral tablet, disintegrating 2011-02-23 22 :25:00 No Victorina Hernandez 1 tab, Route: PO , ONCE, Start date: 02/23/11 17:25:00, Stop date: 02/23/11 17:25:00 [facility] morphine Sulfate 2011-02-23 22:25:00 No Victorina Hernandez 4 mg, Route: IM, ONCE, Start date: 02/23/11 17:25:00, Stop date: 02/23/11 17:25:00 [facility] Azathioprine 50 Mg Tab Azathioprine 50 Mg Tab Yes 150 Daily [facility] Calcium Citrate/Vitamin D3 (Citracal + D Maximum Moisés t) 1 Each Tablet Calcium Citrate/Vitamin D3 (Citracal + D Maximum Caplet) 1 Each Tablet Y es 1 Daily [facility] Famotidine 20 Mg Tab Famotidine 20 Mg Tab Yes 20 Twice A Day [facility] Ferrous Sulfate 325 Mg Tablet. Ferrous Sulfate 325 Mg Tablet. Yes 325 Daily [facility] Lisinopril 10 Mg Tablet Lisinopril 10 Mg Tablet Yes 10 Daily [facility] Lovastatin 20 Mg Tablet Lovastatin 20 Mg Tablet Yes 20 Daily [facility] Metronidazole 500 Mg Tablet Metronidazole 500 Mg Tablet Yes 500 Every 8 Hours [facility] Sertraline Hcl 50 Mg Tablet Sertraline Hcl 50 Mg Tablet Yes 25 Daily [facility] Tolterodine Tartrate (Detrol La) 4 Mg Cap.er.24h Tolte rodine Tartrate (Detrol La) 4 Mg Cap.er.24h Yes 4 Daily [facility] Zolpidem Tartrate (Ambien) 10 Mg Tablet Zolpidem Tartrate (A mbien) 10 Mg Tablet Yes 10 Bedtime as needed for Insomnia [facility] Alendronate Sodium 70 Mg Tablet, 70 Mg Oral Alendronat e Sodium 70 Mg Tablet, 70 Mg Oral 2018-12-27 00:00:00 No 70 Use As Directed as needed for Mild Pain (1-3) [facility] Aspirin (Aspir 81) 81 Mg Tablet., 81 Mg Oral Aspirin (Aspir 81) 81 Mg Tablet., 81 Mg Oral 2018-12-27 00:00:00 No 81 Da toya [facility] Cetirizine Hcl 10 Mg Tablet, 10 Mg Oral Cetirizine Hcl 10 Mg Tablet, 10 Mg Oral 2018-12-27 00:00:00 No 10 Daily [facility] Cholestyramine (With Sugar) (Questran Packet) 4 Gm Pac ket, 4 Gm Oral Cholestyramine (With Sugar) (Questran Packet) 4 Gm Packet, 4 Gm Oral 2018-12-27 00:00:00 No 4 Twice A Day [facility] Escitalopram Oxalate 10 Mg Tablet, 10 Mg Oral Escitalo pram Oxalate 10 Mg Tablet, 10 Mg Oral 2018-12-27 00:00:00 No 10 Daily [facility] Lansoprazole (Prevacid) 30 Mg Capsule.dr, 30 Mg Oral L ansoprazole (Prevacid) 30 Mg Capsule.dr, 30 Mg Oral 2018-12-27 00:00:00 No 30 Daily [facility] Loperamide Hcl (Loperamide) 2 Mg Tablet, 2 Mg Oral Lop eramide Hcl (Loperamide) 2 Mg Tablet, 2 Mg Oral 2018-12-27 00:00:00 No 2 Before Meals as needed for Diarrhea [facility] Loratadine 10 Mg Tablet, 10 Mg Oral Loratadine 10 Mg Tablet, 10 Mg Oral 2018-12-27 00:00:00 No 10 Daily [facility] Meloxicam 7.5 Mg Tablet, 7.5 Mg Oral Meloxicam 7.5 Mg Tablet, 7. 5 Mg Oral 2018-12-27 00:00:00 No 7.5 Daily [facility] Pantoprazole Sodium (Protonix) 40 Mg Tablet.dr, 40 Mg Oral Pantoprazole Sodium (Protonix) 40 Mg Tablet., 40 Mg Oral 2018-12-27 00:00:00 No 40 Daily [facility] Temazepam (Restoril) 15 Mg Capsule, 15 Mg Oral Temazep am (Restoril) 15 Mg Capsule, 15 Mg Oral 2018-12-27 00:00:00 No 15 Bedt salvador [facility] Ondansetron (Zofran Odt) 4 Mg Tab.rapdis, 4 Mg Oral On dansetron (Zofran Odt) 4 Mg Tab.rapdis, 4 Mg Oral 2017-12-24 00:00:00 No 4 Twice A Day as needed for Nausea And Vomiting [facility] Metoprolol Tartrate 25 Mg Tablet, 25 Mg Oral Metoprolo l Tartrate 25 Mg Tablet, 25 Mg Oral 2017-11-09 00:00:00 No 25 Twice A Day [facility] Potassium Gluconate 2.5 Meq Tablet, 1 Cap Oral Potassi um Gluconate 2.5 Meq Tablet, 1 Cap Oral 2017-11-09 00:00:00 No 1 Twice A Day as needed for Diarrhea [facility] Meloxicam (Mobic*) 7.5 Mg Tablet, 7.5 Mg Oral Meloxica m (Mobic*) 7.5 Mg Tablet, 7.5 Mg Oral 2017-06-30 00:00:00 No 7.5 Daily [facility] Pantoprazole , 40 Mg Intraven Pantoprazole , 40 Mg Intraven 2017-06-21 00:00:00 No 40 Daily [facility] Tramadol Hcl (Ultram) 50 Mg Tablet, 50 Mg Oral Tramado l Hcl (Ultram) 50 Mg Tablet, 50 Mg Oral 2015-11-16 00:00:00 No 50 Twice A Day as needed for Pain [facility] Zolpidem Tartrate (Ambien) 5 Mg Tablet, 5 Mg Oral Zolp idem Tartrate (Ambien) 5 Mg Tablet, 5 Mg Oral 2015-11-16 00:00:00 No 5 As Needed as needed for Insomnia [facility] Tramadol Hcl/Acetaminophen (Acetaminophn -Tramadol 325-37.5) 1 Each Tablet, 37.5- 325 Mg Oral Tramadol Hcl/Acetaminophen (Acetaminophn -Tramadol 325-37.5) 1 Each Tablet, 37.5-325 Mg Oral 2013-12-09 00:00:00 No Every 6 Hours [facility] Vital Signs Vital Name Observation Time Observation Value Comments Source Temperature Oral (F) 2011-02-24 06:20:00 97.1 F [facility] [place] Systolic (mm Hg) 2011-02-24 06:20:00 [facility] [place] Diastolic (mm Hg) 2011-02-24 06:20:00 [facility] [place] Peripheral Pulse Rate 2011-02-24 06:20:00 [facility] [place] Respitory Rate 2011-02-24 06:20:00 [facility] [place] Height 2011-02-24 03:05:00 157.48 cm [facility] [place] Weight 2011-02-24 03:05:00 [facility] [place] Respitory Rate 2011-02-24 03:05:00 [facility] [place] Peripheral Pulse Rate 2011-02-24 03:05:00 [facility] [place] Temperature Oral (F) 2011-02-24 03:05:00 98.0 F [facility] [place] Systolic (mm Hg) 2011-02-24 03:05:00 Gaeb rial [place] Diastolic (mm Hg) 2011-02-24 03:05:00 Mem [facility] [place] Respitory Rate 2011-02-24 01:52:00 Memori [facility] [place] Peripheral Pulse Rate 2011-02-24 01:52:00 [facility] [place] Diastolic (mm Hg) 2011-02-24 01:52:00 [facility] [place] Systolic (mm Hg) 2011-02-24 01:52:00 Gabe [facility] [place] Weight 2011-02-24 01:17:00 [facility] [place] Height 2011-02-24 01:17:00 157.48 cm [facility] [place] Diastolic (mm Hg) 2011-02-24 01:17:00 [facility] [place] Systolic (mm Hg) 2011-02-24 01:17:00 Gabe [facility] [place] Respitory Rate 2011-02-24 01:17:00 [facility] [place] Peripheral Pulse Rate 2011-02-24 01:17:00 [facility] [place] Respitory Rate 2011-02-23 18:47:00 [facility] [place] Temperature Oral (F) 2011-02-23 18:47:00 97.8 F [facility] [place] Peripheral Pulse Rate 2011-02-23 18:47:00 [facility] [place] Diastolic (mm Hg) 2011-02-23 18:47:00 [facility] [place] Systolic (mm Hg) 2011-02-23 18:47:00 Gabe [facility] [place] Weight 2011-02-23 16:22:00 [facility] [place] Height 2011-02-23 16:22:00 157.48 cm [facility] [place] Respitory Rate 2011-02-23 16:22:00 [facility] [place] Peripheral Pulse Rate 2011-02-23 16:22:00 [facility] [place] Temperature Oral (F) 2011-02-23 16:22:00 97.6 F [facility] [place] Diastolic (mm Hg) 2011-02-23 16:22:00 [facility] [place] Systolic (mm Hg) 2011-02-23 16:22:00 [facility] [place] Procedures Procedure Date / Time Performed Performing Clinician [facility] e Computed tomography of abdomen and pelvis with contrast 2019 00:00:00 DRE TAVERA [facility] Computed tomography of brain without radiopaque contrast 201 02-16-17 00:00:00 RASHID MAO [facility] Computed tomography of abdomen and pelvis with contrast 2018 00:00:00 RASHID MAO [facility] X-ray of chest, two views 2018-08-27 00:00:00 ARTHUR COLLINS V [facility] Encounters Start Date/Time End Date/Time Encounter Type Admission Type Att[facility] Care Department Encounter ID Source 2019-06-22 15:31:00 2019-06-22 23:13:00 Departed Emergency Room 1 MARIO GARAY [facility] [id number] [facility] 2018-12-27 00:41:00 2018-12-28 20:53:00 Discharged Inpatient (obs) 1 RASHID MAO [facility] [id number] [facility] 2018-08-27 09:47:00 2018-08-27 12:40:00 Departed Emergency Room 1 ARTHUR COLLINS [facility] [id number] [facility] 2017-12-21 14:50:00 2017-12-24 14:16:00 Discharged Inpatient 1 LUIZ KERR [facility] [id number] [facility] 2017-11-07 15:49:00 2017-11-09 16:29:00 Discharged Inpatient (obs) 1 ARTHUR COLLINS [facility] [id number] [facility] 2017-09-22 09:32:00 2017-09-22 23:59:00 Outpatient Claudia Delarosa [facility] [id number] 2017-09-09 20:11:00 2017-09-13 09:50:00 Discharged Inpatient ER LUIZ KERR [facility] [id number] [facility] 2017-09-08 09:58:00 2017-09-08 14:15:00 Departed Emergency Room ER GERTRUDE CHANEY [facility] [id number] [facility] 2017-06-21 06:39:00 2017-06-30 19:01:00 Discharged Inpatient ER LUIZ KERR [facility] [id number] [facility] 2016-04-04 11:47:00 2016-04-04 23:59:00 [id number] Results Test Description Test Time Test Comments Results Result Comments Source CT ABDOMEN/PELVIS W 2019-06-22 21:04:00 [place] [address] Patient Name: NIKA BLAKE MR #: [id number] : 1940 Age/Sex: 79/F Req #: [id number] Adm Physician: Ordered by: DRE TAVERA MD Report #: [id number] Location: ER Room/Bed: Procedure: [id number] CT/CT ABDOMEN/PELVIS W Exam Date: 06/22/19 Exam Time: 2049 REPORT STATUS: Signed EXAMINATION: CT of the abdomen and pelvis with contrast. TECHNIQUE: Spiral CT images of the abdomen and pelvis were performed from the lung bases to the lesser trochanters after the intravenous administration of 100 cc Isovue-370. Coronal and sagittal reformatted images were obtained. COMPARISON: CT abdomen and pelvis with contrast 12/26/2018 CLINICAL HISTORY:Right upper quadrant and midepigastric pain, diarrhea DISCUSSION: ABDOMEN/PELVIS: LOWER THORAX:Mild cardiomegaly, unchanged. Linear and reticular opacities in the dependent lower lobes compatible with subsegmental atelectasis. Large hiatal hernia also unc hanged. HEPATOBILIARY: No focal hepatic lesions. No intra-or extrahepatic biliary ductal dilation. Radiopaque calculi within an under distended gallbladder. SPLEEN: No splenomegaly. PANCREAS: No focal masses or ductal dilatation. ADRENALS: No adrenal nodules. KIDNEYS/URETERS: No hydronephrosis, stones, or solid mass lesions. PELVIC ORGANS/BLADDER: The urinary bladder is unremarkable. Uterus is not identified and may have been resected. No adnexal mass. PERITONEUM/RETROPERITONEUM: Small volume pelvic ascites, average attenuation 10-15 Hounsfield units. No pneumoperitoneum. LYMPH NODES: No pelvic sidewall or retroperitoneal lymphadenopathy. Multiple mildly enlarged mesenteric lymph nodes for example in the lower abdomen measuring 1 cm short axis (series 2 image 53). VESSELS: Atherosclerotic calcification of the abdominal aorta, major branch vessels, and iliac arterial systems without aneurysmal dilatation. GI TRACT: The large bowel shows no distention or wall thickening. Narrowing of the transverse colon and at the splenic flexure presumably due to peristalsis. The appendix is not identified. There is concentric wall thickening, mucosal enhancement, and adjacent mesenteric stranding involving the terminal ileum similar to prior. Duodenal diverticulum. Large proximal jejunal diverticulum. The degree of upstream small bowel dilatation is less when compared to 12/26/2018. BONES AND SOFT TISSUE: Diffuse osteopenia. No acute osseous abnormalities. No focal soft tissue abnormalities. IMPRESSION: Overall similar findings of nonspecific distal enteritis with reactive mesenteric lymphadenopathy and free pelvic fluid compared to the examination of 12/26/2018. Findings are again concerning for inflammatory bowel disease (Crohn's disease). No lincoln perforation or drainable fluid collection. No upstream small bowel dilatation to suggest high-grade obstruction. Persistent findings include choleli thiasis, large hiatal hernia, and atherosclerotic vascular disease. Signed by: Dr. Claudia Canas M.D. on 06/22/2019 9:18 PM Dictated By: CLAUDIA CANAS MD 17 Transcribed By: NINO on 06/22/192117 COPY TO: DRE TAVERA MD Creatine Kinase MB 2019-06-22 20:21:00 Test Item Creatine Kinase MB (test code = 60058-7) 1.30 0-5.0 [facility] [id number] 20:21:00* Test Item Value Reference Range Interpretation Comments Troponin I (test code = SOI0798) 0.005 0-0.300 [facility] [id number] 20:06:00* Test Item Value Reference Range Interpretation Comments Sodium Level (test code = 2951-2) 144 136-145 [facility] [id number] 20:06:00* Test Item Value Reference Range Interpretation Comments Potassium Level (test code = 2823-3) 3.2 3.5-5.1 L [facility]lor[facility] [id number] 20:06:00* Test Item Value Reference Range Interpretation Comments Chloride Level (test code = 2075-0) 110 98-107 H [facility]bon Dioxide [id number] 20:06:00* Test Item Value Reference Range Interpretation Comments Carbon Dioxide Level (test code = 2028-9) 23 22-29 [facility] [id number] 20:06:00* Test Item Value Reference Range Interpretation Comments Anion Gap (test code = 86847-0) 14.2 8-16 [facility] Urea [id number] 20:06:00* Test Item Value Reference Range Interpretation Comments Blood Urea Nitrogen (test code = 3094-0) 11 7-26 [facility]ptownCreatinine2020-01-11 20:06:00* Test Item Value Reference Range Interpretation Comments Creatinine (test code = 2160-0) 0.68 0.57-1.11 [facility]ptownBUN/Creatinine Xkikc1831-87-78 20:06:00* Test Item Value Reference Range Interpretation Comments BUN/Creatinine Ratio (test code = 3097-3) 16 6-25 [facility] UptownEstimat Glomerular Filtration Rate 2019-06-22 20:06:00* Test Item Value Reference Range Interpretation Comments Estimat Glomerular Filtration Rate (test code = 198739807) > 60 >60 Ranges were taken from the National Kidney Disease Education Program and the [facility] Foundation literature.Reference ranges:60 or greater: Vsrovk68-41 ( for 3 consecutive months): Chronic kidney disease 15 or less: Kidney failureBaylor Scott & [facility] – UptownGlucose Zvfdd3703-95-59 20:06:00* Test Item Value Reference Range Interpretation Comments Glucose Level (test code = ZNR0915) 129 74-118 H [facility] UptownCalcium Vgwqb2498-54-37 20:06:00* Test Item Value Reference Range Interpretation Comments Calcium Level (test code = 34973-5) 8.5 8.4-10.2 [facility] UptownMagnesium Nfevt3523-17-72 20:06:00* Test Item Value Reference Range Interpretation Comments Magnesium Level (test code = 30860-1) 1.4 1.3-2.1 [facility] UptownTotal Zjfmzierz1901-59-96 20:06:00* Test Item Value Reference Range Interpretation Comments Total Bilirubin (test code = 1975-2) 0.2 0.2-1.2 [facility] UptownAspartate Amino Transf (AST/SGOT) 2019-06-22 20:06:00* Test Item Value Reference Range Interpretation Comments Aspartate Amino Transf (AST/SGOT) (test code = Aspartate Amino Transf (AST/SGOT)) 10 5-34 [facility] UptownAlanine Aminotransferase (ALT/SGPT) 2019-06-22 20:06:00* Test Item Value Reference Range Interpretation Comments Alanine Aminotransferase (ALT/SGPT) (test code = 1742-6) < 6 0-55 [facility] UptownTotal Bajqltk4203-84-36 20:06:00* Test Item Value Reference Range Interpretation Comments Total Protein (test code = 2885-2) 6.8 6.5-8.1 [facility] UptownAlbumin2020-01-11 20:06:00* Test Item Value Reference Range Interpretation Comments Albumin (test code = 1751-7) 3.2 3.5-5.0 L [facility] UptownGlobulin2020-01-11 20:06:00* Test Item Value Reference Range Interpretation Comments Globulin (test code = 14969-9) 3.6 2.3-3.5 H [facility] UptownAlbumin/Globulin Htoty4516-81-55 20:06:00 * Test Item Value Reference Range Interpretation Comments Albumin/Globulin Ratio (test code = 1759-0) 0.9 0.8-2.0 [facility] UptownAlkaline Szhqihqyknn1233-56-81 20:06:00* Test Item Value Reference Range Interpretation Comments Alkaline Phosphatase (test code = 6768-6) 58 40-150 [facility] UptownCreatine Blqgvo1906-13-41 20:06:00* Test Item Value Reference Range Interpretation Comments Creatine Kinase (test code = 2157-6) 57 29-168 [facility] UptownAmylase Qadtl3641-97-68 20:06:00* Test Item Value Reference Range Interpretation Comments Amylase Level (test code = 1798-8) 58 25-125 [facility] UptownLipase2020-01-11 20:06:00* Test Item Value Reference Range Interpretation Comments Lipase (test code = 3040-3) 15 8-78 [facility] UptownProthrombin Fiuw1145-08-94 20:04:00* Test Item Value Reference Range Interpretation Comments Prothrombin Time (test code = 5902-2) 13.5 11.9-14.5 [facility] UptownProthromb Time International Ratio 2019-06-22 20:04:00* Test Item Value Reference Range Interpretation Comments Prothromb Time International Ratio (test code = 6301-6) 0.98 Oral Anticoagulant Therapy INR Values:1. Low Intensity Therapy 1.5 - 2.02 . Moderate Intensity Therapy 2.0 - 3.03. High Intensity Therapy(1) 2.5 - 3. 54. High Intensity Therapy(2) 3.0 - 4.05. Panic Value INR > 5.0 [facility] UptownActivated Partial Thromboplast Time 2019-06-22 20:04:00* Test Item Value Reference Range Interpretation Comments Activated Partial Thromboplast Time (test code = 41847-2) 28.8 23.8-35.5 [facility] UptownWhite Blood Itapp1361-67-80 19:27:00* Test Item Value Reference Range Interpretation Comments White Blood Count (test code = 6690-2) 7.56 4.8-10.8 [facility] UptownRed Blood Pdkvo6977-67-46 19:27:00* Test Item Value Reference Range Interpretation Comments Red Blood Count (test code = 789-8) 3.71 3.6-5.1 [facility] UptownHemoglobin2020-01-11 19:27:00* Test Item Value Reference Range Interpretation Comments Hemoglobin (test code = 66788-8) 10.6 12.0-16.0 L [facility] UptownHematocrit2020-01-11 19:27:00* Test Item Value Reference Range Interpretation Comments Hematocrit (test code = 4544-3) 33.3 34.2-44.1 L [facility] UptownMean Corpuscular Gajvic1177-72-44 19:27:00* Test Item Value Reference Range Interpretation Comments Mean Corpuscular Volume (test code = 787-2) 89.8 81-99 [facility] UptownMean Corpuscular Ynxhxwhnjv6225-53-77 19:27:00* Test Item Value Reference Range Interpretation Comments Mean Corpuscular Hemoglobin (test code = 785-6) 28.6 28-32 [facility] UptownMean Corpuscular Hemoglobin Concent 2019-06-22 19:27:00* Test Item Value Reference Range Interpretation Comments Mean Corpuscular Hemoglobin Concent (test code = 786-4) 31.8 31-35 [facility] UptownRed Cell Distribution Iedrx8010-03-24 19:27:00* Test Item Value Reference Range Interpretation Comments Red Cell Distribution Width (test code = 47436-6) 15.9 11.7 -14.4 H [facility] UptownPlatelet Vsskc9207-30-42 19:27:00* Test Item Value Reference Range Interpretation Comments Platelet Count (test code = 777-3) 295 140-360 [facility] UptownNeutrophils (%) (Auto)2019-06-22 19:27:00 * Test Item Value Reference Range Interpretation Comments Neutrophils (%) (Auto) (test code = 99401-2) 81.8 38.7-80.0 H [facility] UptownLymphocytes (%) (Auto)2019-06-22 19:27:00 * Test Item Value Reference Range Interpretation Comments Lymphocytes (%) (Auto) (test code = 736-9) 10.2 18.0-39.1 L [facility] UptownMonocytes (%) (Auto)2019-06-22 19:27:00* Test Item Value Reference Range Interpretation Comments Monocytes (%) (Auto) (test code = 5905-5) 6.3 4.4-11.3 [facility]ptownEosinophils (%) (Auto)2019-06-22 19:27:00 * Test Item Value Reference Range Interpretation Comments Eosinophils (%) (Auto) (test code = 713-8) 0.5 0.0-6.0 [facility] UptownBasophils (%) (Auto)2019-06-22 19:27:00* Test Item Value Reference Range Interpretation Comments Basophils (%) (Auto) (test code = 706-2) 0.7 0.0-1.0 [facility] UptownIM GRANULOCYTES %2019-06-22 19:27:00* Test Item Value Reference Range Interpretation Comments IM GRANULOCYTES % (test code = IM GRANULOCYTES %) 0.5 0.0- 1.0 [facility] UptownNeutrophils # (Auto)2019-06-22 19:27:00* Test Item Value Reference Range Interpretation Comments Neutrophils # (Auto) (test code = 751-8) 6.2 2.1-6.9 [facility] UptownLymphocytes # (Auto)2019-06-22 19:27:00* Test Item Value Reference Range Interpretation Comments Lymphocytes # (Auto) (test code = 02985-4) 0.8 1.0-3.2 L [facility] UptownMonocytes # (Auto)2019-06-22 19:27:00* Test Item Value Reference Range Interpretation Comments Monocytes # (Auto) (test code = 742-7) 0.5 0.2-0.8 [facility]ptownEosinophils # (Auto)2019-06-22 19:27:00* Test Item Value Reference Range Interpretation Comments Eosinophils # (Auto) (test code = 711-2) 0.0 0.0-0.4 [facility] UptownBasophils # (Auto)2019-06-22 19:27:00* Test Item Value Reference Range Interpretation Comments Basophils # (Auto) (test code = 704-7) 0.1 0.0-0.1 [facility] UptownAbsolute Immature Granulocyte (auto 2019-06-22 19:27:00* Test Item Value Reference Range Interpretation Comments Absolute Immature Granulocyte (auto (orin t code = Absolute Immature Granulocyte (auto) 0.04 0-0.1 [facility] UptownUrine RRI9454-32-01 17:48:00* Test Item Value Reference Range Interpretation Comments Urine WBC (test code = 5821-4) >50 0-5 H [facility] UptownUrine ZQD7954-97-94 17:48:00* Test Item Value Reference Range Interpretation Comments Urine RBC (test code = 08133-4) 21-50 0-5 H [facility] UptownUrine Mddtsjho3256-53-12 17:48:00* Test Item Value Reference Range Interpretation Comments Urine Bacteria (test code = 89765-1) MANY NONE H [facility] UptownUrine Epithelial Hphyx8286-42-81 17:48:00 * Test Item Value Reference Range Interpretation Comments Urine Epithelial Cells (test code = 44420-5) FEW NONE [facility] SINGLE (PORTABLE)2019-06-22 17:36:00 [facility] [address] [place] [address] Patient Name: NIKA BLAKE MR #: [id number] : 1940 Age/Sex: 79/F Req #: [id number] Adm Physician: Ordered by: DRE TAVERA MD Report #: [id number] Location: ER Room/Bed: Procedure: [id number] DX/ CHEST SINGLE (PORTABLE) Exam Date: 06/22/19 Exam Tre e: 1718 REPORT STATUS: Signed EX AMINATION: CHEST SINGLE (PORTABLE) COMPARISON: Chest x-ray 08/27/2018 INDICATION: Abdominal pain DISCUSSION: Frontal view of the chest ob tained at 1718 hours. HEART AND MEDIASTINUM: The heart is top normal in si ze. Stable calcifications throughout the aorta. Hiatal hernia is redemonstrate d. LINES: None. LUNGS: Mild hyperinflation. No interstitial thickeni ng. No mass or infiltrate. Calcifications throughout the tracheal bronchial tr ee. PLEURA: No pleural effusion or pneumothorax. BONES AND SOFT TISSU ES: No focal osseous lesion. The soft tissues are normal. IMPRESSION: No acute cardiopulmonary disease. Stable pulmonary hyperinflation and hiatal hernia. Signed by: Dr. Tracy Novak MD on 06/22/2019 5:38 PM D ictated By: TRACY NOVAK MD 37 Transcribed By: NINO on 06/22/191737 COPY TO: DRE ALEMAN MD Urine Irpso7749-76-16 17:22:00* Test Item Value Reference Range Interpretation Comments Urine Color (test code = 5778-6) YELLOW YELLOW [facility] UptownUrine Pzswtga4914-49-43 17:22:00* Test Item Value Reference Range Interpretation Comments Urine Clarity (test code = 26654-9) CLOUDY CLEAR H [facility] UptownUrine Specific Bdqxycc1708-26-45 17:22:00 * Test Item Value Reference Range Interpretation Comments Urine Specific [place] (test code = 5811-5) 1.030 1.010-1.02 5 H [facility] UptownUrine bA8527-93-85 17:22:00* Test Item Value Reference Range Interpretation Comments Urine pH (test code = 52448-4) 6 5-7 [facility] UptownUrine Leukocyte Rrdzmszz8084-95-76 17:22:00* Test Item Value Reference Range Interpretation Comments Urine Leukocyte Esterase (test code = 5799-2) MODERATE NEGATIVE [facility] UptownUrine Btxlgak9521-14-82 17:22:00* Test Item Value Reference Range Interpretation Comments Urine Nitrite (test code = 12529-2) NEGATIVE NEGATIVE [facility] UptownUrine Vlteuyb9210-00-16 17:22:00* Test Item Value Reference Range Interpretation Comments Urine Protein (test code = 5804-0) NEGATIVE NEGATIVE [facility] UptownUrine Glucose (UA)2019-06-22 17:22:00* Test Item Value Reference Range Interpretation Comments Urine Glucose (UA) (test code = 2349-9) NEGATIVE NEGATIVE [facility] Bvzifvm1381-09-83 17:22:00* Test Item Value Reference Range Interpretation Comments Urine Ketones (test code = 45111-5) NEGATIVE NEGATIVE [facility] UptownUrine Plxloiwxsyoo5827-13-08 17:22:00* Test Item Value Reference Range Interpretation Comments Urine Urobilinogen (test code = 21139-9) 0.2 0.2-1 [facility] UptownUrine Osopgtqtt2870-87-68 17:22:00* Test Item Value Reference Range Interpretation Comments Urine Bilirubin (test code = 1978-6) NEGATIVE NEGATIVE [facility] UptownUrine Nkirf3039-49-93 17:22:00* Test Item Value Reference Range Interpretation Comments Urine Blood (test code = 74908-0) 3+ NEGATIVE [facility] Levellandodium Smecd5899-42-88 06:02:00* Test Item Value Reference Range Interpretation Comments Sodium Level (test code = 2951-2) 141 136-145 [facility] UptownPotassium Pvcpn5203-80-38 06:02:00* Test Item Value Reference Range Interpretation Comments Potassium Level (test code = 2823-3) 4.0 3.5-5.1 [facility] UptownChloride Psbdr6976-44-02 06:02:00* Test Item Value Reference Range Interpretation Comments Chloride Level (test code = 2075-0) 112 98-107 H [facility] UptownCarbon Dioxide Ewyyz0155-16-64 06:02:00* Test Item Value Reference Range Interpretation Comments Carbon Dioxide Level (test code = 2028-9) 24 22-29 [facility] UptownAnion Rtd5782-45-00 06:02:00* Test Item Value Reference Range Interpretation Comments Anion Gap (test code = 08944-8) 9.0 8-16 [facility] UptownBlood Urea Vbxqqgwo1257-06-19 06:02:00* Test Item Value Reference Range Interpretation Comments Blood Urea Nitrogen (test code = 3094-0) 5 7-26 L [facility] UptownCreatinine2019-07-19 06:02:00* Test Item Value Reference Range Interpretation Comments Creatinine (test code = 2160-0) 0.56 0.57-1.11 L [facility] UptownBUN/Creatinine Srwvn5313-08-86 06:02:00* Test Item Value Reference Range Interpretation Comments BUN/Creatinine Ratio (test code = 3097-3) 9 6-25 [facility] UptownEstimat Glomerular Filtration Rate 2018-12-28 06:02:00* Test Item Value Reference Range Interpretation Comments Estimat Glomerular Filtration Rate (test code = 572181864) > 60 >60 Ranges were taken from the National Kidney Disease Education Program and the [facility] literature.Reference ranges:60 or greater: Kueqgc44-34 ( for 3 consecutive months): Chronic kidney disease 15 or less: Kidney failureBaylor Scott & White Medical Center – UptownGlucose Znebz4509-14-62 06:02:00* Test Item Value Reference Range Interpretation Comments Glucose Level (test code = YOI6347) 90 74-118 [facility] UptownCalcium Whdcl4438-07-75 06:02:00* Test Item Value Reference Range Interpretation Comments Calcium Level (test code = 19229-7) 7.8 8.4-10.2 L [facility] UptownTotal Dqdcqedoj6890-67-97 06:02:00* Test Item Value Reference Range Interpretation Comments Total Bilirubin (test code = 1975-2) 0.2 0.2-1.2 [facility] UptownAspartate Amino Transf (AST/SGOT) 2018-12-28 06:02:00* Test Item Value Reference Range Interpretation Comments Aspartate Amino Transf (AST/SGOT) (test code = Aspartate Amino Transf (AST/SGOT)) 9 5-34 [facility] UptownAlanine Aminotransferase (ALT/SGPT) 2018-12-28 06:02:00* Test Item Value Reference Range Interpretation Comments Alanine Aminotransferase (ALT/SGPT) (test code = 1742-6) < 6 0-55 [facility] Laketal Fkfdgqk6076-60-30 06:02:00* Test Item Value Reference Range Interpretation Comments Total Protein (test code = 2885-2) 5.3 6.5-8.1 L [facility] UptownAlbumin2019-07-19 06:02:00* Test Item Value Reference Range Interpretation Comments Albumin (test code = 1751-7) 2.7 3.5-5.0 L [facility] UptownGlobulin2019-07-19 06:02:00* Test Item Value Reference Range Interpretation Comments Globulin (test code = 89371-6) 2.6 2.3-3.5 [facility] UptownAlbumin/Globulin Steix7232-32-51 06:02:00 * Test Item Value Reference Range Interpretation Comments Albumin/Globulin Ratio (test code = 1759-0) 1.0 0.8-2.0 [facility] UptownAlkaline Qzkmlkybrio0805-52-28 06:02:00* Test Item Value Reference Range Interpretation Comments Alkaline Phosphatase (test code = 6768-6) 42 40-150 [facility] UptownWhite Blood Kqifh4930-48-20 05:27:00* Test Item Value Reference Range Interpretation Comments White Blood Count (test code = 6690-2) 3.75 4.8-10.8 L [facility] UptownRed Blood Bcoku4521-15-54 05:27:00* Test Item Value Reference Range Interpretation Comments Red Blood Count (test code = 789-8) 3.08 3.6-5.1 L [facility] UptownHemoglobin2019-07-19 05:27:00* Test Item Value Reference Range Interpretation Comments Hemoglobin (test code = 89491-4) 8.9 12.0-16.0 L [facility] UptownHematocrit2019-07-19 05:27:00* Test Item Value Reference Range Interpretation Comments Hematocrit (test code = 4544-3) 28.3 34.2-44.1 L [facility] UptownMean Corpuscular Fchxls6568-32-36 05:27:00* Test Item Value Reference Range Interpretation Comments Mean Corpuscular Volume (test code = 787-2) 91.9 81-99 [facility] UptownMean Corpuscular Quzvivpfiq5956-94-12 05:27:00* Test Item Value Reference Range Interpretation Comments Mean Corpuscular Hemoglobin (test code = 785-6) 28.9 28-32 [facility] UptownMean Corpuscular Hemoglobin Concent 2018-12-28 05:27:00* Test Item Value Reference Range Interpretation Comments Mean Corpuscular Hemoglobin Concent (test code = 786-4) 31.4 31-35 [facility] UptownRed Cell Distribution Ammou2000-34-56 05:27:00* Test Item Value Reference Range Interpretation Comments Red Cell Distribution Width (test code = 43000-7) 17.3 11.7 -14.4 H [facility] UptownPlatelet Effeo0756-39-01 05:27:00* Test Item Value Reference Range Interpretation Comments Platelet Count (test code = 777-3) 267 140-360 [facility] UptownNeutrophils (%) (Auto)2018-12-28 05:27:00 * Test Item Value Reference Range Interpretation Comments Neutrophils (%) (Auto) (test code = 94509-1) 69.1 38.7-80.0 [facility] UptownLymphocytes (%) (Auto)2018-12-28 05:27:00 * Test Item Value Reference Range Interpretation Comments Lymphocytes (%) (Auto) (test code = 736-9) 17.3 18.0-39.1 L [facility] UptownMonocytes (%) (Auto)2018-12-28 05:27:00* Test Item Value Reference Range Interpretation Comments Monocytes (%) (Auto) (test code = 5905-5) 9.9 4.4-11.3 [facility] UptownEosinophils (%) (Auto)2018-12-28 05:27:00 * Test Item Value Reference Range Interpretation Comments Eosinophils (%) (Auto) (test code = 713-8) 1.9 0.0-6.0 [facility] UptownBasophils (%) (Auto)2018-12-28 05:27:00* Test Item Value Reference Range Interpretation Comments Basophils (%) (Auto) (test code = 706-2) 1.3 0.0-1.0 H [facility] UptownIM GRANULOCYTES %2018-12-28 05:27:00* Test Item Value Reference Range Interpretation Comments IM GRANULOCYTES % (test code = IM GRANULOCYTES %) 0.5 0.0- 1.0 [facility] UptownNeutrophils # (Auto)2018-12-28 05:27:00* Test Item Value Reference Range Interpretation Comments Neutrophils # (Auto) (test code = 751-8) 2.6 2.1-6.9 [facility] UptownLymphocytes # (Auto)2018-12-28 05:27:00* Test Item Value Reference Range Interpretation Comments Lymphocytes # (Auto) (test code = 45103-9) 0.7 1.0-3.2 L [facility] UptownMonocytes # (Auto)2018-12-28 05:27:00* Test Item Value Reference Range Interpretation Comments Monocytes # (Auto) (test code = 742-7) 0.4 0.2-0.8 [facility]ptownEosinophils # (Auto)2018-12-28 05:27:00* Test Item Value Reference Range Interpretation Comments Eosinophils # (Auto) (test code = 711-2) 0.1 0.0-0.4 [facility]ptownBasophils # (Auto)2018-12-28 05:27:00* Test Item Value Reference Range Interpretation Comments Basophils # (Auto) (test code = 704-7) 0.1 0.0-0.1 [facility] UptownAbsolute Immature Granulocyte (auto 2018-12-28 05:27:00* Test Item Value Reference Range Interpretation Comments Absolute Immature Granulocyte (auto (orin t code = Absolute Immature Granulocyte (auto) 0.02 0-0.1 [facility] UptownUrine LVJ0277-62-86 23:54:00* Test Item Value Reference Range Interpretation Comments Urine WBC (test code = 5821-4) 11-20 0-5 H [facility] UptownUrine LWL5248-46-38 23:54:00* Test Item Value Reference Range Interpretation Comments Urine RBC (test code = 99206-2) 6-10 0-5 H [facility] UptownUrine Jpwogubs4048-80-97 23:54:00* Test Item Value Reference Range Interpretation Comments Urine Bacteria (test code = 84557-7) MANY NONE H [facility] UptownUrine Epithelial Vjhst2111-77-05 23:54:00 * Test Item Value Reference Range Interpretation Comments Urine Epithelial Cells (test code = 31644-5) FEW NONE [facility] UptownCT BRAIN RA2759-16-06 23:54:00 [facility] [address] [address] Patient Name: NIKA BLAKE MR #: [id number] : 1940 Age/Sex: 78/F Req #: [id number] [facility] Physician: Ordered by: RASHID MAO MD Report #: [id number] Location: ER Room/Bed: Procedure: 0717-[address]/CT BRAIN WO Exam Date: 12/26/18 Exam Time: REPORT STATUS: Signed EXAMINA TION: Head CT without contrast. HISTORY:Headache, high blood pressure. COMPARISON:CT brain from 09/09/2017. TECHNIQUE: Multidetector axial images were obtained from the foramen magnum to the vertex without contrast. The im ages were reconstructed using brain and bone algorithms. Thin section brain i mages were reformatted into coronal and sagittal planes. Dose modulation, it erative reconstruction, and/or weight based adjustment of the mA/kV was utiliz ed to reduce the radiation dose to as low as reasonably achievable. Intra venous contrast: None IMAGE QUALITY: Acceptable. FINDINGS: Sku ll/scalp: No lytic or blastic. lesions. No surgical changes. Unchanged bilate ral sphenoid wing osseous demineralization with lytic changes. Parenchyma: Nonspecific bilateral frontoparietal patchy white matter hypodensity are like ly related to small vessel ischemic changes. No acute hemorrhage, mass or acut e major vascular territorial infarct. Arteries: No density suggestive of t hrombosis. Dural sinuses: No abnormal density suggestive of thrombosis. Ventricles: No hydrocephalus or displacement. Extra-axial spaces: No abnormal density. Brain volume: Generalized age-related cerebral volu me loss. Craniocervical junction: No mass, Chiari malformation, or basilar invagination. Sella: No mass. Paranasal/mastoid sinuses: Imaged portions unremarkable. IMPRESSION: No acute intracranial abnormality, particularly no acute hemorrhage, mass or acute major vascular territorial inf arct. Mild to moderate supratentorial white matter microvascular ischemic c hanges. Generalized age-related cerebral volume loss. Signed by: Dr. Diogo Peralta M.D. on 12/26/2018 11:59 PM Dictated By: ISAC Otto 58 Transcribed By : NINO on 12/26/182358 COPY TO: RASHID MAO MD CT ABDOMEN/PELVIS G3350-22-31 23:49:[address] [place] [address] Patient Name: NIKA BLAKE MR #: [id number] : 1940 Age/Sex: 78/F Req #: [id number] Adm Physician: Ordered by: RASHID MAO MD Report #: [id number] Location: ER Room/Bed: Procedure: 0717-[address]/CT ABDOMEN/PELVIS W Exam Date: 12/26/18 Exam Time: 2325 REPORT STATUS: Signed EXAM: CT of the abdomen and pelvis WITH contrast HISTORY: High blood pre ssure, abdominal pain, vomiting COMPARISON: CT of the pelvis December 23, 2017. TECHNIQUE: The abdomen and pelvis were scanned utilizing a multidetector helical scanner. Coronal and sagittal reformats are provided. P ROTOCOL: Routine IV CONTRAST: 100 cc of Isovue-370. ORAL CONTRAST: Water RADIATION DOSE: Total DLP: 209.34 mGy*cm Estimated effective dose: (DLP x 0.015 x size factor) Dose modulation, iterative reconstruction, and/or weight based adjustment of t he mA/kV was utilized to reduce the radiation dose to as low as reasonably ach ievable. COMPLICATIONS: None FINDINGS: LOWER THORAX: Interv al resolution of the pleural effusions and adjacent atelectasis. LIVER/BI LIARY: No masses. The common bile duct remains prominent, 1 cm in diameter. GALLBLADDER: Cholelithiasis. SPLEEN: Unremarkable PANCREAS: Unremarkable ADRENALS: No nodules KIDNEYS: Symmetric perfusion. No enhancing masses. No hydronephrosis. GI TRACT: Stable moderate hiatal hernia containing t he proximal stomach. Additional segmentals of small bowel wall thickening and hyperemia, for example the right lower quadrant coronal image 19 Persistent distal/ileal small bowel wall segmental thickening and hyperemia, seen over m ultiple priors. Multiple loops of fluid-filled more proximal small bowel measu ring up to 3.2 cm in diameter. VESSELS: Diffuse scattered atheroscleroti c vascular calcifications. PERITONEUM/RETROPERITONEUM: Slightly increased f ree fluid within the pelvis. No free air. LYMPH NODES: Scattered prominent m esenteric lymph nodes, measuring up to 1 cm in short axis, likely reactive. REPRODUCTIVE ORGANS/BLADDER: Hysterectomy. The urinary bladder is predominant ly decompressed. SOFT TISSUES: Unremarkable BONES: Stable hemangioma an d bone islands within the L5 vertebral body. IMPRESSION: 1. Findings rem ain compatible with multifocal enteritis, increased hyperemia, bowel wall thic kening and segmental narrowing since December 2017. Crohn's disease remains a favo red diagnosis. Findings compatible with associated partial functional distal small bowel obstruction. 2. Cholelithiasis with persistent prominence of the common bile duct, but no CT findings to suggest acute cholecystitis. Sig artur by: Sumanth MistryO., M.M.M. on 12/27/2018 12:19 AM Dictated By: CINDY LEHMAN DO Trans cribed By: NINO on 12/27/1818 COPY TO: RASHID MAO MD Urine Xlgze2465-04-61 23:44:00* Test Item Value Reference Range Interpretation Comments Urine Color (test code = 5778-6) YELLOW YELLOW [facility] Tdrtpir3458-87-05 23:44:00* Test Item Value Reference Range Interpretation Comments Urine Clarity (test code = 92231-9) CLOUDY CLEAR H [facility]ptownUrine Specific Umoteto9128-86-97 23:44:00 * Test Item Value Reference Range Interpretation Comments Urine Specific [place] (test code = 5811-5) 1.020 1.010-1.02 5 [facility]ownUrine jT2556-82-31 23:44:00* Test Item Value Reference Range Interpretation Comments Urine pH (test code = 08581-6) 6 5-7 [facility]ownU[facility] Leukocyte Wqvzmpus0553-97-37 23:44:00* Test Item Value Reference Range Interpretation Comments Urine Leukocyte Esterase (test code = 64891-8) NEGATIVE NEGATIV E [facility]ownUrine Smnanxp7275-25-08 23:44:00* Test Item Value Reference Range Interpretation Comments Urine Nitrite (test code = 66392-4) NEGATIVE NEGATIVE [facility]ownUrine Qjyghwf8244-11-46 23:44:00* Test Item Value Reference Range Interpretation Comments Urine Protein (test code = 01720-1) NEGATIVE NEGATIVE [facility]ownUrine Glucose (UA)2018-12-26 23:44:00* Test Item Value Reference Range Interpretation Comments Urine Glucose (UA) (test code = 26889-0) NEGATIVE NEGATIVE [facility]ownUrine Hignuqn3307-76-11 23:44:00* Test Item Value Reference Range Interpretation Comments Urine Ketones (test code = 18760-9) NEGATIVE NEGATIVE [facility]ownUrine Pkkpkykozrqf5313-34-41 23:44:00* Test Item Value Reference Range Interpretation Comments Urine Urobilinogen (test code = 43661-8) 0.2 0.2-1 [facility]ownUrine Llowcawgz2785-64-54 23:44:00* Test Item Value Reference Range Interpretation Comments Urine Bilirubin (test code = 1977-8) NEGATIVE NEGATIVE [facility]ownUrine Cyctw0423-58-23 23:44:00* Test Item Value Reference Range Interpretation Comments Urine Blood (test code = 01199-2) 1+ NEGATIVE [facility] UptownAmylase Yrnak1031-69-03 23:22:00* Test Item Value Reference Range Interpretation Comments Amylase Level (test code = 1798-8) 60 25-125 [facility] UptownLipase2019-07-17 23:22:00* Test Item Value Reference Range Interpretation Comments Lipase (test code = 3040-3) 36 8-78 [facility]ptownCreatine Kinase BF0076-19-96 23:21:00* Test Item Value Reference Range Interpretation Comments Creatine Kinase MB (test code = 99882-7) 3.10 0-5.0 [facility] UptownTroponin [id number] 23:21:00* Test Item Value Reference Range Interpretation Comments Troponin I (test code = CUS5803) 0.006 0-0.300 [facility] UptownCreatine Eamqhp2222-54-00 23:08:00* Test Item Value Reference Range Interpretation Comments Creatine Kinase (test code = 2157-6) 50 29-168 [facility] UptownCHEST 2 NKLLP6715-54-18 11:57:00 [facility] [address] [place] [address] Patient Name: NIKA BLAKE MR #: [id number] : 1940 Age/Sex: 78/F Req #: [id number] Adm Physician: Ordered by: ARTHUR COLLINS MD Report #: [id number] Location: ER Room/Bed: Procedure: [id number] DX/CHEST 2 VIEWS Exam Date: 08/27/18 Exam Time: 1110 REPORT STATUS: Signed EXAM: EST 2 VIEWS, PA and lateral DATE: 08/27/2018 Time stamp on exam: 10:31 AM IND ICATION: Cough COMPARISON: None FINDINGS: LINES/TUBES: None LUNGS: No consolidations or edema. PLEURA: No effusions or pneumothorax. HE ART AND MEDIASTINUM: Normal size and contour. Calcification within the aorta. BONES AND SOFT TISSUES: No acute findings. Large air-containing middle medi astinal structure compatible with a hiatal hernia. IMPRESSION: No acute thoracic abnormality. Signed by: Dr. Emerson Junior DO on 2018 11:59 AM Dictated By: EMERSON JUNIOR DO 115 Transcribed By: NINO on 08/27/18 1159 COPY TO: ARTHUR COLLINS MD Creatine Kinase [id number] 11:53:00* Test Item Value Reference Range Interpretation Comments Creatine Kinase MB (test code = 92664-1) 0.80 0-5.0 [facility] UptownTroponin [id number] 11:53:00* Test Item Value Reference Range Interpretation Comments Troponin I (test code = VER6458) < 0.001 0-0.300 [facility]ellandodium Bhnws4874-84-75 11:40:00* Test Item Value Reference Range Interpretation Comments Sodium Level (test code = 2951-2) 144 136-145 [facility]ownPotassium Sjbrp2578-33-03 11:40:00* Test Item Value Reference Range Interpretation Comments Potassium Level (test code = 2823-3) 4.0 3.5-5.1 [facility] UptownChloride Vvznk9001-05-06 11:40:00* Test Item Value Reference Range Interpretation Comments Chloride Level (test code = 2075-0) 108 98-107 H [facility] UptownCarbon Dioxide Advjv4077-04-98 11:40:00* Test Item Value Reference Range Interpretation Comments Carbon Dioxide Level (test code = 2028-9) 27 22-29 [facility] UptownAnion Mxp4875-42-41 11:40:00* Test Item Value Reference Range Interpretation Comments Anion Gap (test code = 37812-0) 13.0 8-16 [facility] UptownBlood Urea Aextwehn2270-23-91 11:40:00* Test Item Value Reference Range Interpretation Comments Blood Urea Nitrogen (test code = 3094-0) 8 7-26 [facility] UptownCreatinine2019-03-18 11:40:00* Test Item Value Reference Range Interpretation Comments Creatinine (test code = 2160-0) 0.74 0.57-1.11 [facility] UptownBUN/Creatinine Ufdhq1827-78-66 11:40:00* Test Item Value Reference Range Interpretation Comments BUN/Creatinine Ratio (test code = 3097-3) 11 6-25 [facility] UptownEstimat Glomerular Filtration Rate 2018-08-27 11:40:00* Test Item Value Reference Range Interpretation Comments Estimat Glomerular Filtration Rate (test code = 632607221) > 60 >60 Ranges were taken from the National Kidney Disease Education Program and the [facility] literature.Reference ranges:60 or greater: Cunerq06-67 ( for 3 consecutive months): Chronic kidney disease 15 or less: Kidney failureBaylor Scott & White Medical Center – UptownGlucose Xnzxb4201-94-88 11:40:00* Test Item Value Reference Range Interpretation Comments Glucose Level (test code = CQZ9598) 150 74-118 H [facility] UptownCalcium Uymvg7875-71-46 11:40:00* Test Item Value Reference Range Interpretation Comments Calcium Level (test code = 29442-7) 8.4 8.4-10.2 [facility] UptownTotal Htdoeqmzh9811-15-78 11:40:00* Test Item Value Reference Range Interpretation Comments Total Bilirubin (test code = 1975-2) 0.3 0.2-1.2 [facility] UptownAspartate Amino Transf (AST/SGOT) 2018-08-27 11:40:00* Test Item Value Reference Range Interpretation Comments Aspartate Amino Transf (AST/SGOT) (test code = Aspartate Amino Transf (AST/SGOT)) 13 5-34 [facility] UptownAlanine Aminotransferase (ALT/SGPT) 2018-08-27 11:40:00* Test Item Value Reference Range Interpretation Comments Alanine Aminotransferase (ALT/SGPT) (test code = 1742-6) 6 0-55 [facility] UptownTotal Vgnqnri8393-98-80 11:40:00* Test Item Value Reference Range Interpretation Comments Total Protein (test code = 2885-2) 6.4 6.5-8.1 L [facility] UptownAlbumin2019-03-18 11:40:00* Test Item Value Reference Range Interpretation Comments Albumin (test code = 1751-7) 3.2 3.5-5.0 L [facility] UptownGlobulin2019-03-18 11:40:00* Test Item Value Reference Range Interpretation Comments Globulin (test code = 72821-5) 3.2 2.3-3.5 [facility] UptownAlbumin/Globulin Hocox5382-57-71 11:40:00 * Test Item Value Reference Range Interpretation Comments Albumin/Globulin Ratio (test code = 1759-0) 1.0 0.8-2.0 [facility] UptownAlkaline Zbvxeeqhdnc7209-27-12 11:40:00* Test Item Value Reference Range Interpretation Comments Alkaline Phosphatase (test code = 6768-6) 45 40-150 [facility] UptownCreatine Uhuoyg4266-89-75 11:40:00* Test Item Value Reference Range Interpretation Comments Creatine Kinase (test code = 2157-6) 34 29-168 [facility] UptownWhite Blood Djusc3962-30-52 11:23:00* Test Item Value Reference Range Interpretation Comments White Blood Count (test code = 6690-2) 3.48 4.8-10.8 L [facility] UptownRed Blood Dfmhx3189-07-35 11:23:00* Test Item Value Reference Range Interpretation Comments Red Blood Count (test code = 789-8) 3.96 3.6-5.1 [facility] UptownHemoglobin2019-03-18 11:23:00* Test Item Value Reference Range Interpretation Comments Hemoglobin (test code = 62791-8) 11.4 12.0-16.0 L [facility] UptownHematocrit2019-03-18 11:23:00* Test Item Value Reference Range Interpretation Comments Hematocrit (test code = 4544-3) 37.0 34.2-44.1 [facility] UptownMean Corpuscular Gqoneg8233-41-74 11:23:00* Test Item Value Reference Range Interpretation Comments Mean Corpuscular Volume (test code = 787-2) 93.4 81-99 [facility] UptownMean Corpuscular Imxizlohbp2599-16-03 11:23:00* Test Item Value Reference Range Interpretation Comments Mean Corpuscular Hemoglobin (test code = 785-6) 28.8 28-32 [facility] UptownMean Corpuscular Hemoglobin Concent 2018-08-27 11:23:00* Test Item Value Reference Range Interpretation Comments Mean Corpuscular Hemoglobin Concent (test code = 786-4) 30.8 31-35 L [facility] UptownRed Cell Distribution Hjukx6391-78-97 11:23:00* Test Item Value Reference Range Interpretation Comments Red Cell Distribution Width (test code = 61240-6) 16.7 11.7 -14.4 H [facility] UptownPlatelet Bkzul0236-40-09 11:23:00* Test Item Value Reference Range Interpretation Comments Platelet Count (test code = 777-3) 244 140-360 [facility] UptownNeutrophils (%) (Auto)2018-08-27 11:23:00 * Test Item Value Reference Range Interpretation Comments Neutrophils (%) (Auto) (test code = 59037-8) 67.2 38.7-80.0 [facility] UptownLymphocytes (%) (Auto)2018-08-27 11:23:00 * Test Item Value Reference Range Interpretation Comments Lymphocytes (%) (Auto) (test code = 736-9) 20.7 18.0-39.1 [facility] UptownMonocytes (%) (Auto)2018-08-27 11:23:00* Test Item Value Reference Range Interpretation Comments Monocytes (%) (Auto) (test code = 5905-5) 10.3 4.4-11.3 [facility] UptownEosinophils (%) (Auto)2018-08-27 11:23:00 * Test Item Value Reference Range Interpretation Comments Eosinophils (%) (Auto) (test code = 713-8) 0.9 0.0-6.0 [facility] UptownBasophils (%) (Auto)2018-08-27 11:23:00* Test Item Value Reference Range Interpretation Comments Basophils (%) (Auto) (test code = 706-2) 0.6 0.0-1.0 [facility] UptownIM GRANULOCYTES %2018-08-27 11:23:00* Test Item Value Reference Range Interpretation Comments IM GRANULOCYTES % (test code = IM GRANULOCYTES %) 0.3 0.0- 1.0 [facility] UptownNeutrophils # (Auto)2018-08-27 11:23:00* Test Item Value Reference Range Interpretation Comments Neutrophils # (Auto) (test code = 751-8) 2.3 2.1-6.9 [facility] UptownLymphocytes # (Auto)2018-08-27 11:23:00* Test Item Value Reference Range Interpretation Comments Lymphocytes # (Auto) (test code = 03682-3) 0.7 1.0-3.2 L [facility] UptownMonocytes # (Auto)2018-08-27 11:23:00* Test Item Value Reference Range Interpretation Comments Monocytes # (Auto) (test code = 742-7) 0.4 0.2-0.8 [facility] UptownEosinophils # (Auto)2018-08-27 11:23:00* Test Item Value Reference Range Interpretation Comments Eosinophils # (Auto) (test code = 711-2) 0.0 0.0-0.4 [facility] UptownBasophils # (Auto)2018-08-27 11:23:00* Test Item Value Reference Range Interpretation Comments Basophils # (Auto) (test code = 704-7) 0.0 0.0-0.1 [facility] UptownAbsolute Immature Granulocyte (auto 2018-08-27 11:23:00* Test Item Value Reference Range Interpretation Comments Absolute Immature Granulocyte (auto (orin t code = Absolute Immature Granulocyte (auto) 0.01 0-0.1 [facility] UptownInfluenza Virus Types A,B Antigen 2018-08-27 11:02:00* Test Item Value Reference Range Interpretation Comments Influenza Virus Types A,B Antigen (test code = 66586-8) NEGATIVE NEGATIVE [facility] UptownInfluenza Virus Types A,B Antigen 2018-08-27 11:02:00* Test Item Value Reference Range Interpretation Comments Influenza Virus Types A,B Antigen (test code = 15540-4) NEGATIVE NEGATIVE [facility] UptownInfluenza Virus Types A,B Antigen 2018-08-27 11:02:00* Test Item Value Reference Range Interpretation Comments Influenza Virus Types A,B Antigen (test code = 51678-0) NEGATIVE NEGATIVE [facility]- XR CHEST 2 [id number] 09:17:00 FAX: Arvind Adamson MD [phone] [place]: [place] St: REG FAX: Claudia Gould MD [phone] Name: NIKA BLAKE [facility] FSED : 1940 Age/S: 78/F [address] [facility] Unit #: [id number] Loc: [facility] [address] Phys: Arvind Adamson MD [place], [place] [address] Acct: [id number] Dis Date: Status: REG ER PHONE #: Exam Date: 07/16/2018913 FAX #: Reason: COUGH/FEVER EXAMS: CPT CODE: [id number] XR CHEST 2 V 72893 HISTORY: Cough and fever. COMPARISON: July 14, 2018. AP and lateral view of the chest: No acute inf iltrates, effusion or congestion. Cardiac silhouette is mildly enlarged. DJD of the dorsal spine. IMPRESSION: No acute infiltrates, effusion or congestion. at 0917 Reported and signed b y: Jose Eng M.D. CC: Arvind Adamson MD; Claudia Spann MD Technologist: SD NUR RT(R)(CT) Trnnvrd Date/Time/By: 07/16/2018 (916) : By: [email or web address] Orig Print D/T: S: 07/16/2018 (919) PAGE 1 Signed Report - XR CHEST 2 [id number] 18:51:00 FAX: Deshaun Foote MD [phone] [place]: [place] St: PRE Name: NIKA HUDDLESTON [facility] FSED : [birth year] Age/S: 78/F [address] [facility] [address] Unit #: [id number] [facility] [address] Phys: Deshaun Foote MD [place], [place] [address] Acct: [id number] Dis Date: Status: PRE ER PHONE #: Exam Date: 07/14/2018 1845 FAX #: Reason: COUGH EXAMS: CPT CODE: [id number] XR CHEST 2 V 62386 HISTORY: COUGH TECHN IQUE: AP chest x-ray COMPARISON: 05/01/16 FINDINGS: No airspace consolidation or pleural effusion. Normal heart size. Mediastinal silhouette is unremarkable. Thoracic spondylosis. IMPRESSION: No radiographic evidence of acute cardiopulmonary process. at 1851 Reported and signed by: Millie Acosta D.O. CC: Deshaun Foote MD Techn ologist: Rosario Pettit Trnnvrd Date/Tre e/By: 07/14/2018 (1850) : By: [email or web address] Orig Print D/T: S: 07/14/2018 (1853) PAGE 1 Signed Report TB Test (T-Spot)2017-12-27 13:22:00* Test Item Value Reference Range Interpretation Comments TB Test (T-Spot) (test code = TB Test (T-Spot)) The te st result is Negative because the spot count in (Panel A minus Nil control) and (Panel B minus Nil Control) is less than or equal to 4. This includes values less than zero. Note: Diagnosing or excluding tuberculosis disease, and assessing the probability of LTBI, requires a combination of epidemiological, historical, medical and diagnostic findings that should be taken into account when in terpreting T-SPOT.TB test results. Refer to the most recent CDC guidance for detailed recommendations on diagnosing TB infection and selecting persons for testing. Guidelines set forth by the Centers of Disease Control and Prevention recommend contacts of a person with TB disease who have a negative initial interferon-gamma release assay (IGRA) or TST within 8 weeks of exposure be retested 8-10 weeks after last exposure. Nil (Neg) Control Spot Count 0 Panel A Spot Count 0 Panel B Spot Count 0 Positive Control Spot Count >20 Testing performed by: [facility] [address] [place] [address] Dir: Mario Serrano MD [facility] UptownTissue Transglutaminase IgA Om3961-67-38 06:19:00* Test Item Value Reference Range Interpretation Comments Tissue Transglutaminase IgA Ab (test code = 41890-6) <2 0 -3 Negative 0 - 3 Weak Positive 4 - 10 Positive >10 Tissue Transglutaminase (tTG) has been identified as the endomysial antigen. Studies have demonstr- ated that endomysial IgA antibodies have over 99% specif icity for gluten sensitive enteropathy.[facility] Immunoglobulin L2647-69-42 06:19:00* Test Item Value Reference Range Interpretation Comments Immunoglobulin A (test code = 2458-8) 271 73-551 Performed at: - [facility] [id number] Straightedge Man: Jna Vaz MD, Phone: [phone] at: [address] [id number] Director: Gregg Rivera MD, Phone: [phone] Scott & [facility] Center – UptownEndomysial IgA Antibody 2017-12-27 06:19:00* Test Item Value Reference Range Interpretation Comments Endomysial IgA Antibody (test code = 47373-5) Negative Negative [facility] UptownHepatitis B Surface Unbovgh4865-34-93 08:31:00* Test Item Value Reference Range Interpretation Comments Hepatitis B Surface Antigen (test code = 5196-1) Negative Negat kenia Performed at: [address] [id number] Director: Gregg Rivera MD, Phone: [phone] Scott & White Medical Center – UptownHepatitis B Surface Uoqhots7911-94-39 08:31:00* Test Item Value Reference Range Interpretation Comments Hepatitis B Surface Antigen (test code = 5196-1) Negative Negat kenia Performed at: [address] [id number] Director: Gregg Rivera MD, Phone: [phone] Scott & White [facility] – UptownC-Reactive Saaxpst0823-32-82 06:33:00* Test Item Value Reference Range Interpretation Comments C-Reactive Protein (test code = 1987-) 24.2 0.0-4.9 H Performed at: [address] [id number] Director: Gregg Rivera MD, Phone: [phone] Scott & White Medical Center – UptownC-Reactive Lqdavmr8670-78-39 06:33:00* Test Item Value Reference Range Interpretation Comments C-Reactive Protein (test code = 1987-) 24.2 0.0-4.9 H Performed at: [address] [id number] Director: Gregg Rivera MD, Phone: [phone] Scott & White Medical Center – UptownErythrocyte Sedimentation Khqw6330-75-22 06:03:00* Test Item Value Reference Range Interpretation Comments Erythrocyte Sedimentation Rate (test code = 4537-7) 23 0- 20 H [facility] UptownErythrocyte Sedimentation Nrlf2660-75-81 06:03:00* Test Item Value Reference Range Interpretation Comments Erythrocyte Sedimentation Rate (test code = 4537-7) 23 0- 20 H [facility] UptownCTA ABD/RVAPWC6342-29-88 04:47:00 [facility] [address] [address] Patient Name: NIKA BLAKE MR #: [id number] : 1940 Age/Sex: 77/F Req #: [id number] Adm Physician: LUIZ KERR MD Ordered by: JV COLE MD Report #: [id number] Location: M ED/SURG2 Room/Bed: [facility] Procedure: [id number] CT/CTA ABD/PELVIS Exam Date: 12/23/17 Exam Time: 0350 REPORT STATUS: Signed EXAM: CTA ABD/PELVIS DATE: 12/23/2017 2:52 AM INDICATION: S CT Angio of ABD/Pelvis r/o mesenteric ischemia S [id number] COMPARISON: 12.21.17 TECHNIQUE: The abdomen and pelvis were scanned using a mu ltidetector helical scanner. Coronal and sagittal reformations were obtained. CT angiogram mesenteric ischemia protocol was performed. IV Contrast: 100 ml Isovue 300/370 FINDINGS: Evaluation of abdominal pelvic organs is somewh at degraded due to arterial phase imaging. LOWER THORAX: Increased small eff usions with associated atelectasis. LIVER/BILIARY: No masses. No ductal d ilatation. GALLBLADDER: Cholelithiasis. SPLEEN: Unremarkable PANCREAS: Unremarkable ADRENALS: No nodules KIDNEYS: Symmetric perfusion. No enhanc ing masses. No hydronephrosis. GI TRACT: Stable moderate hiatal hernia. Per sistent distal/ileal small bowel wall segmental thickening and hyperemia, seen over multiple priors. Interval improvement in small bowel dilatation. VE SSELS: Aorta, iliac and visualized femoral arteries are patent, normal caliber . Moderate calcified and noncalcified atherosclerotic plaque of the abdominal aorta and common iliac arteries, mild of the external and internal iliac arter ies. Celiac axis, SMA, bilateral renal arteries, and SEBASTIAN are patent, normal ca liber. PERITONEUM/RETROPERITONEUM: Mild abdominal and mesenteric edema/free fl uid, decreased from prior. No free air. LYMPH NODES: Scattered prominent mes enteric lymph nodes, likely reactive. REPRODUCTIVE ORGANS/BLADDER: Hysterec kamryn. Otherwise unremarkable. SOFT TISSUES: Unremarkable BONES: No suspic ious bone lesions. IMPRESSION: 1. Enteritis, similar in appearance and lo cation over multiple priors from 2013. Favor inflammatory etiology such as Cr ohn's. Improved small bowel dilation and free fluid/edema from most recent pr ior. 2. Central mesenteric arteries are patent, normal caliber. Signed by : Dr Alec Watkins MD on 12/23/2017 5:02 AM Dictated By: ALEC WATKINS MD 050 Transcribed B y: NINO on 12/23/17501 COPY TO: JV COLE MD Sodium Level 2017-12-22 06:00:00* Test Item Value Reference Range Interpretation Comments Sodium Level (test code = 2951-2) 136 136-145 [facility]ownPotassium Vraxy0674-59-52 06:00:00* Test Item Value Reference Range Interpretation Comments Potassium Level (test code = 2823-3) 4.4 3.5-5.1 [facility]ptownChloride Xsetg6668-45-19 06:00:00* Test Item Value Reference Range Interpretation Comments Chloride Level (test code = 2075-0) 108 98-107 H [facility] UptownCarbon Dioxide Dxcdh7626-78-53 06:00:00* Test Item Value Reference Range Interpretation Comments Carbon Dioxide Level (test code = 2028-9) 21 22-29 L [facility] UptownAnion Yxa3715-45-34 06:00:00* Test Item Value Reference Range Interpretation Comments Anion Gap (test code = 97878-5) 11.4 8-16 [facility] UptownBlood Urea Zgfhaujf9923-55-65 06:00:00* Test Item Value Reference Range Interpretation Comments Blood Urea Nitrogen (test code = 3094-0) 9 7-26 [facility] UptownCreatinine2018-07-13 06:00:00* Test Item Value Reference Range Interpretation Comments Creatinine (test code = 2160-0) 0.67 0.57-1.11 [facility]ownBUN/Creatinine Ggjos3819-42-55 06:00:00* Test Item Value Reference Range Interpretation Comments BUN/Creatinine Ratio (test code = 3097-3) 13 6-25 [facility] UptownEstimat Glomerular Filtration Rate 2017-12-22 06:00:00* Test Item Value Reference Range Interpretation Comments Estimat Glomerular Filtration Rate (test code = 80113-8) 60- >60 Ranges were taken from the National Kidney Disease Education Program and the [facility] Foundation literature.Reference ranges:60 or greater: Fjnjbi97-68 ( for 3 consecutive months): Chronic kidney disease 15 or less: Kidney failureB[facility] & [facility] UptownGlucose Plnpx9711-65-06 06:00:00* Test Item Value Reference Range Interpretation Comments Glucose Level (test code = QBT4035) 181 74-118 H [facility]ptownCalcium Qqtqz2224-01-06 06:00:00* Test Item Value Reference Range Interpretation Comments Calcium Level (test code = 46299-3) 7.8 8.4-10.2 L [facility] UptownTotal Yzytoesqw0691-89-75 06:00:00* Test Item Value Reference Range Interpretation Comments Total Bilirubin (test code = 1975-2) 0.6 0.2-1.2 [facility] UptownAspartate Amino Transf (AST/SGOT) 2017-12-22 06:00:00* Test Item Value Reference Range Interpretation Comments Aspartate Amino Transf (AST/SGOT) (test code = Aspartate Amino Transf (AST/SGOT)) 10 5-34 [facility] UptownAlanine Aminotransferase (ALT/SGPT) 2017-12-22 06:00:00* Test Item Value Reference Range Interpretation Comments Alanine Aminotransferase (ALT/SGPT) (test code = 1742-6) -6 0-55 [facility] UptownTotal Isxrfmm5644-01-70 06:00:00* Test Item Value Reference Range Interpretation Comments Total Protein (test code = 2885-2) 5.3 6.5-8.1 L [facility] UptownAlbumin2018-07-13 06:00:00* Test Item Value Reference Range Interpretation Comments Albumin (test code = 1751-7) 2.6 3.5-5.0 L [facility] UptownGlobulin2018-07-13 06:00:00* Test Item Value Reference Range Interpretation Comments Globulin (test code = 82341-9) 2.7 2.3-3.5 [facility] UptownAlbumin/Globulin Xnbgp8368-65-79 06:00:00 * Test Item Value Reference Range Interpretation Comments Albumin/Globulin Ratio (test code = 1759-0) 1.0 0.8-2.0 [facility] UptownAlkaline Eoovulybhnw2144-99-62 06:00:00* Test Item Value Reference Range Interpretation Comments Alkaline Phosphatase (test code = 6768-6) 54 40-150 [facility] UptownWhite Blood Hbjet2392-60-50 05:48:00* Test Item Value Reference Range Interpretation Comments White Blood Count (test code = 6690-2) 8.50 4.8-10.8 [facility] UptownRed Blood Fggoi7677-67-46 05:48:00* Test Item Value Reference Range Interpretation Comments Red Blood Count (test code = 789-8) 3.68 3.6-5.1 [facility]ptownHemoglobin2018-07-13 05:48:00* Test Item Value Reference Range Interpretation Comments Hemoglobin (test code = 52166-8) 10.2 12.0-16.0 L [facility]ptownHematocrit2018-07-13 05:48:00* Test Item Value Reference Range Interpretation Comments Hematocrit (test code = 4544-3) 32.4 34.2-44.1 L [facility] UptownMean Corpuscular Dqvrma1006-20-12 05:48:00* Test Item Value Reference Range Interpretation Comments Mean Corpuscular Volume (test code = 787-2) 88.0 81-99 [facility] UptownMean Corpuscular Nrvhlguiws3041-31-46 05:48:00* Test Item Value Reference Range Interpretation Comments Mean Corpuscular Hemoglobin (test code = 785-6) 27.7 28-32 L [facility] UptownMean Corpuscular Hemoglobin Concent 2017-12-22 05:48:00* Test Item Value Reference Range Interpretation Comments Mean Corpuscular Hemoglobin Concent (test code = 786-4) 31.5 31-35 [facility] UptownRed Cell Distribution Rfowl0963-91-39 05:48:00* Test Item Value Reference Range Interpretation Comments Red Cell Distribution Width (test code = 51961-9) 17.2 11.7 -14.4 H [facility] UptownPlatelet Trpvy8403-24-81 05:48:00* Test Item Value Reference Range Interpretation Comments Platelet Count (test code = 777-3) 249 140-360 [facility] UptownNeutrophils (%) (Auto)2017-12-22 05:48:00 * Test Item Value Reference Range Interpretation Comments Neutrophils (%) (Auto) (test code = 37206-7) 90.9 38.7-80.0 H [facility] UptownLymphocytes (%) (Auto)2017-12-22 05:48:00 * Test Item Value Reference Range Interpretation Comments Lymphocytes (%) (Auto) (test code = 736-9) 5.5 18.0-39.1 L [facility] UptownMonocytes (%) (Auto)2017-12-22 05:48:00* Test Item Value Reference Range Interpretation Comments Monocytes (%) (Auto) (test code = 5905-5) 3.3 4.4-11.3 L [facility]ownEosinophils (%) (Auto)2017-12-22 05:48:00 * Test Item Value Reference Range Interpretation Comments Eosinophils (%) (Auto) (test code = 713-8) 0.0 0.0-6.0 [facility]ptownBasophils (%) (Auto)2017-12-22 05:48:00* Test Item Value Reference Range Interpretation Comments Basophils (%) (Auto) (test code = 706-2) 0.1 0.0-1.0 [facility] UptownIM GRANULOCYTES %2017-12-22 05:48:00* Test Item Value Reference Range Interpretation Comments IM GRANULOCYTES % (test code = IM GRANULOCYTES %) 0.2 0.0- 1.0 [facility]ptownNeutrophils # (Auto)2017-12-22 05:48:00* Test Item Value Reference Range Interpretation Comments Neutrophils # (Auto) (test code = 751-8) 7.7 2.1-6.9 H [facility] UptownLymphocytes # (Auto)2017-12-22 05:48:00* Test Item Value Reference Range Interpretation Comments Lymphocytes # (Auto) (test code = 07102-4) 0.5 1.0-3.2 L [facility] UptownMonocytes # (Auto)2017-12-22 05:48:00* Test Item Value Reference Range Interpretation Comments Monocytes # (Auto) (test code = 742-7) 0.3 0.2-0.8 [facility]ownEosinophils # (Auto)2017-12-22 05:48:00* Test Item Value Reference Range Interpretation Comments Eosinophils # (Auto) (test code = 711-2) 0.0 0.0-0.4 [facility]ptownBasophils # (Auto)2017-12-22 05:48:00* Test Item Value Reference Range Interpretation Comments Basophils # (Auto) (test code = 704-7) 0.0 0.0-0.1 [facility] UptownAbsolute Immature Granulocyte (auto 2017-12-22 05:48:00* Test Item Value Reference Range Interpretation Comments Absolute Immature Granulocyte (auto (orin t code = Absolute Immature Granulocyte (auto) 0.02 0-0.1 [facility] UptownCT ABDOMEN/PELVIS [id number] 13:11:00 [facility] [address] [place] [address] Patient Name: NIKA BLAKE MR #: [id number] : 1940 Age/Sex: 77/F Req #: [id number] Adm Physician: Ordered by: MILLA LEON MD Report #: [id number] Location: ER Room /Bed: Procedure: CT/CT ABDOMEN/PELVIS W Ex am Date: 12/21/17 Exam Time: 1230 REPORT STATUS : Signed PROCEDURE: CT ABDOMEN AND PELVIS WITH CONTRAST TECHNIQUE: T he abdomen and pelvis were scanned utilizing a multidetector helical scanner from the diaphragm to the lesser trochanter after the IV administration of 10 0 cc of Isovue 370 and the oral administration of dilute Gastrografin. Coron al and sagittal multiplanar reformations were obtained. COMPARISON: [facility], CT, CT ABDOMEN/PELVIS W, 11/16/2015, 11:37. Patients [facility], CT, CT ABDOMEN/PELVIS W, 06/21/2017, 5:09. Patients [facility], CT, CT ABDOMEN/PELVIS W, 11/07/2017, 13:48. INDICATIONS: ABDOMINA L PAIN. R/O OBSTRUCTION FINDINGS: LOWER THORAX: Linear atelectatic beck es in the posterior right lower lobe (series 2, image 11). Stable moderate hi atal hernia. Mild cardiomegaly. HEPATOBILIARY: No focal hepatic lesions . Decreased prominence of the central intrahepatic bile ducts. Stable mild di lation of the common bile duct, which measures approximately 7 mm at the port a hepatis. Stable gallstones, with the largest measuring approximate 7 mm in the dependent portion of the gallbladder lumen. No wall thickening. SPLEEN: No splenomegaly. PANCREAS: No focal masses or ductal dilatation. 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 ADRENALS: No adrenal nodules. KIDNEYS/URETERS: No hydronephrosis, stones, or solid mass lesions. PELVIC ORGANS/BLADDER: Ryan dder is moderately distended, without focal lesions. Uterus is not visualized . No adnexal masses. PERITONEUM / RETROPERITONEUM: Small amount of free fl uid in the posterior pelvis (series 2, image 71). No free air. LYMPH NODES: Multiple enlarged lymph nodes are again noted in the central mesentery, which measure 1.1 cm in short axis (series 2, images 51, 53). There are multiple prominent mesenteric lymph nodes which measure approximately 8-9 mm, similar to prior exam, particularly along the ileocolic vessel distribution. No ret roperitoneal, pelvic, or inguinal adenopathy. VESSELS: Moderate calcification of the aorta and iliac vessels. Celiac trunk, superior and inferior mesenteri c, and bilateral renal arteries are patent. Portal, superior mesenteric, and splenic veins are patent. GI TRACT: Multiple loops of moderately dilated s mall bowel involving predominantly the ileum are noted in the anterior perito neum, with a maximal measurement of approximately 3.2 cm (for example series 2, images 41 and 53). Several loops of distal ileum show moderate wall thic kening, prominent wall enhancement and increased vascularity/prominence of th e vasa recta, extending to the terminal ileum (for example, series 2, images 65, 70 and sagittal image 47 and coronal image 35). No obstructing mass. Jejunum, stomach, and duodenum are unremarkable. Large bowel is mostly dec ompressed and unremarkable. BONES AND SOFT TISSUES: No aggressive lytic l esions. Soft tissues are grossly unremarkable.. IMPRESSION: 1. Fi ndings consistent with enteritis involving the ilium and extending to the ter jeannette ileum, similar in appearance to prior exams dated 11/07/2017, 11/16/2015 a nd 06/21/2017. Given the recurrent nature of the findings, inflammatory bowel disease is a primary consideration (particularly Crohn's disease) despite the patient's age. Infectious enteritis is less likely. No evidence of perforati on or adjacent abscess formation. 2. Multiple loops of moderately dilated s mall bowel, without a definite transition point, likely representing a reacti ve ileus. 3. Prominent mesenteric nodes, likely reactive. 4. Small amount of free fluid in the pelvis, likely reactive. 5. Stable cholelithiasis and mild dilation of the common bile duct. No CT evidence of cholecystitis. 6. Stabl e moderate hiatal hernia. Eamon Cole M.D. Dictated by: Austin Cole M.D. on 12/21/2017 at 13:11 Electronically approved by: Eamon Cole M.D. on 12/21/2017 at 13:11 Dictated By: EMANUEL COLE MD 1311 T ranscribed By: MEGHAN on 12/21/17 1311 COPY TO: MILLA LEON MD ABDOMEN ACUTE SERIES W/PA [id number] 10:08:00 [place] [address] Patient Name: NIKA BLAKE MR #: [id number] : 1940 Age/Sex: 77/F Req #: [id number] Adm Physician: Ordered by: MILLA LEON MD Report #: [id number] Location: ER Room/Bed: Procedure: [id number] DX/ABDOMEN ACUTE SERIES W/ PA CXR Exam Date: 12/21/17 Exam Time: 914 REP ORT STATUS: Signed PROCEDURE: X-RAY ABDOMEN, ACUTE SERIES COMPARISON: CT abdomen/pelvis 11/07/17. INDICATIONS: EPIGASTRIC PAIN FINDING S: There are dilated small bowel loops which measure up to 3.7 cm. There is a ir within nondilated large bowel loops. Multiple air-fluid levels are seen on the upright radiograph. Findings are consistent with partial small bowel obs truction. No evidence of free air. Calcifications in the right lower qu adrant represent calcified lymph nodes as seen on prior CT. Single AP radiogr aph of the chest demonstrates clear lungs and unremarkable cardiomediastinal silhouette. Atherosclerotic calcifications are present in the aortic arch. No acute bony findings. CONCLUSION: Findings consistent with partial small bowel obstruction. No evidence of free air. Clear lungs. Dictated by: MEDINA IVAN M.D. on 12/21/2017 at 10:08 Electronically appro titi by: MEDINA IVAN M.D. on 12/21/2017 at 10:08 Dictated By: LOGAN IVAN MD 1008 Transcribed By: MEGHAN on 12/21/17 1008 COPY TO: MILLA LEON MD Uric [id number] 10:05:00* Test Item Value Reference Range Interpretation Comments Uric Acid (test code = 3084-1) 5.0 2.6-8.0 [facility]ownUric Mdsq8211-74-09 10:05:00* Test Item Value Reference Range Interpretation Comments Uric Acid (test code = 3084-1) 5.0 2.6-8.0 [facility] UptownLipase2018-07-12 09:56:00* Test Item Value Reference Range Interpretation Comments Lipase (test code = 3040-3) [facility]ptownLipase2018-07-12 09:56:00* Test Item Value Reference Range Interpretation Comments Lipase (test code = 3040-3) [facility] UptownLactic Acid Rrdlo9894-44-31 09:47:00* Test Item Value Reference Range Interpretation Comments Lactic Acid Level (test code = Lactic Acid Level) 19.8 4.5- 19.8 [facility] UptownLactic Acid Lblra5379-31-83 09:47:00* Test Item Value Reference Range Interpretation Comments Lactic Acid Level (test code = Lactic Acid Level) 19.8 4.5- 19.8 [facility] UptownUrine TSY7419-01-37 09:37:00* Test Item Value Reference Range Interpretation Comments Urine WBC (test code = 5821-4) NONE 0-5 [facility] UptownUrine KZL9424-54-81 09:37:00* Test Item Value Reference Range Interpretation Comments Urine RBC (test code = 96339-5) NONE 0-5 [facility]ptownUrine Squugxro5130-92-67 09:37:00* Test Item Value Reference Range Interpretation Comments Urine Bacteria (test code = 37977-0) NONE NONE [facility] UptownUrine Epithelial Vflul9916-12-40 09:37:00 * Test Item Value Reference Range Interpretation Comments Urine Epithelial Cells (test code = 67685-6) RARE NONE [facility] UptownUrine Uric Acid Yqocwtzt8436-80-97 09:37:00* Test Item Value Reference Range Interpretation Comments Urine Uric Acid Crystals (test code = 5817-2) MODERATE FEW H [facility] UptownUrine HWX7857-63-37 09:37:00* Test Item Value Reference Range Interpretation Comments Urine WBC (test code = 5821-4) NONE 0-5 [facility] MJC4663-95-61 09:37:00* Test Item Value Reference Range Interpretation Comments Urine RBC (test code = 77106-2) NONE 0-5 [facility]ownUrine Izsqkvol3209-78-26 09:37:00* Test Item Value Reference Range Interpretation Comments Urine Bacteria (test code = 87675-8) NONE NONE [facility]ownUrine Epithelial Kyprg0320-78-89 09:37:00 * Test Item Value Reference Range Interpretation Comments Urine Epithelial Cells (test code = 82565-5) RARE NONE [facility] Uric Acid Wyrebexa3591-85-11 09:37:00* Test Item Value Reference Range Interpretation Comments Urine Uric Acid Crystals (test code = 5817-2) MODERATE FEW H [facility]ownUrine Emqoa9838-28-23 09:18:00* Test Item Value Reference Range Interpretation Comments Urine Color (test code = 5778-6) YELLOW YELLOW [facility]ownUrine Dvrmqis8396-18-99 09:18:00* Test Item Value Reference Range Interpretation Comments Urine Clarity (test code = 27386-2) CLOUDY CLEAR H [facility] UptownUrine Specific Xutrapx1779-53-68 09:18:00 * Test Item Value Reference Range Interpretation Comments Urine Specific [place] (test code = 5811-5) 1.030 1.010-1.02 5 H [facility]ownUrine [id number] 09:18:00* Test Item Value Reference Range Interpretation Comments Urine pH (test code = 91531-9) 6 5-7 [facility] Leukocyte Yilgxfun0819-65-33 09:18:00* Test Item Value Reference Range Interpretation Comments Urine Leukocyte Esterase (test code = 5799-2) NEGATIVE NEGATIVE [facility] Mhhhpso7480-88-61 09:18:00* Test Item Value Reference Range Interpretation Comments Urine Nitrite (test code = 61297-2) NEGATIVE NEGATIVE [facility] Hgzchyx8661-24-89 09:18:00* Test Item Value Reference Range Interpretation Comments Urine Protein (test code = 5804-0) NEGATIVE NEGATIVE [facility] Glucose (UA)2017-12-21 09:18:00* Test Item Value Reference Range Interpretation Comments Urine Glucose (UA) (test code = 2349-9) NEGATIVE NEGATIVE [facility] Pzacebb7727-34-64 09:18:00* Test Item Value Reference Range Interpretation Comments Urine Ketones (test code = 16463-3) NEGATIVE NEGATIVE [facility] Uccejyblzeib4994-05-18 09:18:00* Test Item Value Reference Range Interpretation Comments Urine Urobilinogen (test code = 11006-7) 0.2 0.2-1 [facility] Gnvjjvjsp1441-17-04 09:18:00* Test Item Value Reference Range Interpretation Comments Urine Bilirubin (test code = 1978-6) NEGATIVE NEGATIVE [facility] Fqurj4473-22-58 09:18:00* Test Item Value Reference Range Interpretation Comments Urine Blood (test code = 10355-1) NEGATIVE NEGATIVE [facility]ownUrine Fgpub5255-63-32 09:18:00* Test Item Value Reference Range Interpretation Comments Urine Color (test code = 5778-6) YELLOW YELLOW [facility]ownUrine Avtjmkx5756-51-04 09:18:00* Test Item Value Reference Range Interpretation Comments Urine Clarity (test code = 36468-1) CLOUDY CLEAR H [facility] UptownUrine Specific Iyxkbee6054-52-23 09:18:00 * Test Item Value Reference Range Interpretation Comments Urine Specific [place] (test code = 5811-5) 1.030 1.010-1.02 5 H [facility]ptownUrine bP0131-94-22 09:18:00* Test Item Value Reference Range Interpretation Comments Urine pH (test code = 21537-5) 6 5-7 [facility] Leukocyte Ryhoyliq1384-09-12 09:18:00* Test Item Value Reference Range Interpretation Comments Urine Leukocyte Esterase (test code = 5799-2) NEGATIVE NEGATIVE [facility] Tgdybor7933-01-07 09:18:00* Test Item Value Reference Range Interpretation Comments Urine Nitrite (test code = 53397-5) NEGATIVE NEGATIVE [facility] Elkldva2495-87-63 09:18:00* Test Item Value Reference Range Interpretation Comments Urine Protein (test code = 5804-0) NEGATIVE NEGATIVE [facility] Glucose (UA)2017-12-21 09:18:00* Test Item Value Reference Range Interpretation Comments Urine Glucose (UA) (test code = 2349-9) NEGATIVE NEGATIVE [facility]ownUrine Rjhdbvg6853-42-71 09:18:00* Test Item Value Reference Range Interpretation Comments Urine Ketones (test code = 82585-7) NEGATIVE NEGATIVE [facility] Uzuonlqoylti4305-35-91 09:18:00* Test Item Value Reference Range Interpretation Comments Urine Urobilinogen (test code = 50462-5) 0.2 0.2-1 [facility] Elebnlkcu6293-03-86 09:18:00* Test Item Value Reference Range Interpretation Comments Urine Bilirubin (test code = 1978-6) NEGATIVE NEGATIVE [facility] Twocb9757-16-55 09:18:00* Test Item Value Reference Range Interpretation Comments Urine Blood (test code = 14969-2) NEGATIVE NEGATIVE [facility] UptownClostridium Difficile Toxin A & B 2017-11-09 13:18:00* Test Item Value Reference Range Interpretation Comments Clostridium Difficile Toxin A & B (test code = 929862006) NEGATIVE NEGATIVE Testing on stool aspirate specimens is outside rn plastics claims since specime n type not validated on this assay.[facility] Clostridium Difficile Toxin A & [id number] 13:18:00* Test Item Value Reference Range Interpretation Comments Clostridium Difficile Toxin A & B (test code = 932441077) NEGATIVE NEGATIVE Testing on stool aspirate specimens is outside rn [employer] claims since specime n type not validated on this assay.[facility] Clostridium Difficile Toxin A & [id number] 13:18:00* Test Item Value Reference Range Interpretation Comments Clostridium Difficile Toxin A & B (test code = 057773340) NEGATIVE NEGATIVE Testing on stool aspirate specimens is outside rn [employer] claims since specime n type not validated on this assay.[facility] Potassium Naxnh2524-51-46 06:58:00* Test Item Value Reference Range Interpretation Comments Potassium Level (test code = 2823-3) 3.8 3.5-5.1 [facility] Levellandodium Vkjkg6821-92-30 06:38:00* Test Item Value Reference Range Interpretation Comments Sodium Level (test code = 2951-2) 142 136-145 [facility] UptownChloride Takas9854-85-09 06:38:00* Test Item Value Reference Range Interpretation Comments Chloride Level (test code = 2075-0) 114 98-107 H [facility] UptownCarbon Dioxide Bppup2241-20-82 06:38:00* Test Item Value Reference Range Interpretation Comments Carbon Dioxide Level (test code = 2028-9) 20 22-29 L [facility] UptownAnion Znm0715-31-09 06:38:00* Test Item Value Reference Range Interpretation Comments Anion Gap (test code = 38600-7) 11.5 8-16 [facility] UptownBlood Urea Dcjrsgkp2766-38-04 06:38:00* Test Item Value Reference Range Interpretation Comments Blood Urea Nitrogen (test code = 3094-0) 9 7-26 [facility] UptownCreatinine2018-05-30 06:38:00* Test Item Value Reference Range Interpretation Comments Creatinine (test code = 2160-0) 0.59 0.57-1.11 [facility]ptownBUN/Creatinine Tvfgh2890-60-85 06:38:00* Test Item Value Reference Range Interpretation Comments BUN/Creatinine Ratio (test code = 3097-3) 15 6-25 [facility] UptownEstimat Glomerular Filtration Rate 2017-11-08 06:38:00* Test Item Value Reference Range Interpretation Comments Estimat Glomerular Filtration Rate (test code = 72626-7) 60- >60 Ranges were taken from the National Kidney Disease Education Program and the [facility] Kidney Foundation literature.Reference ranges:60 or greater: Onxsku68-25 ( for 3 consecutive months): Chronic kidney disease 15 or less: Kid[facility] failureB[facility] Center – UptownGlucose Dxoxl1856-56-25 06:38:00* Test Item Value Reference Range Interpretation Comments Glucose Level (test code = [id number]) 88 74-118 [facility] UptownCalcium Rdevw9382-15-65 06:38:00* Test Item Value Reference Range Interpretation Comments Calcium Level (test code = 68275-1) 7.5 8.4-10.2 L [facility] UptownTotal Jgzvmyeez1143-96-93 06:38:00* Test Item Value Reference Range Interpretation Comments Total Bilirubin (test code = 1975-2) 0.2 0.2-1.2 [facility] UptownAspartate Amino Transf (AST/SGOT) 2017-11-08 06:38:00* Test Item Value Reference Range Interpretation Comments Aspartate Amino Transf (AST/SGOT) (test code = Aspartate Amino Transf (AST/SGOT)) 9 5-34 [facility] UptownAlanine Aminotransferase (ALT/SGPT) 2017-11-08 06:38:00* Test Item Value Reference Range Interpretation Comments Alanine Aminotransferase (ALT/SGPT) (test code = 1742-6) 6 0-55 [facility] UptownTotal Glvyigo9734-27-65 06:38:00* Test Item Value Reference Range Interpretation Comments Total Protein (test code = 2885-2) 4.7 6.5-8.1 L [facility] UptownAlbumin2018-05-30 06:38:00* Test Item Value Reference Range Interpretation Comments Albumin (test code = 1751-7) 2.1 3.5-5.0 L [facility] UptownGlobulin2018-05-30 06:38:00* Test Item Value Reference Range Interpretation Comments Globulin (test code = 19258-7) 2.6 2.3-3.5 [facility] UptownAlbumin/Globulin Jqhky1930-42-77 06:38:00 * Test Item Value Reference Range Interpretation Comments Albumin/Globulin Ratio (test code = 1759-0) 0.8 0.8-2.0 [facility] UptownAlkaline Ulmjqhwfqxm9908-28-64 06:38:00* Test Item Value Reference Range Interpretation Comments Alkaline Phosphatase (test code = 6768-6) 60 40-150 [facility] UptownWhite Blood Mzqlq6190-25-03 06:20:00* Test Item Value Reference Range Interpretation Comments White Blood Count (test code = 6690-2) 4.75 4.8-10.8 L [facility] UptownRed Blood Tpwla1182-22-18 06:20:00* Test Item Value Reference Range Interpretation Comments Red Blood Count (test code = 789-8) 3.35 3.6-5.1 L [facility] UptownHemoglobin2018-05-30 06:20:00* Test Item Value Reference Range Interpretation Comments Hemoglobin (test code = 82498-4) 8.9 12.0-16.0 L [facility] UptownHematocrit2018-05-30 06:20:00* Test Item Value Reference Range Interpretation Comments Hematocrit (test code = 4544-3) 28.6 34.2-44.1 L [facility] UptownMean Corpuscular Zsvwpc4012-01-07 06:20:00* Test Item Value Reference Range Interpretation Comments Mean Corpuscular Volume (test code = 787-2) 85.4 81-99 [facility] UptownMean Corpuscular Tieizihasi9336-75-21 06:20:00* Test Item Value Reference Range Interpretation Comments Mean Corpuscular Hemoglobin (test code = 785-6) 26.6 28-32 L [facility] UptownMean Corpuscular Hemoglobin Concent 2017-11-08 06:20:00* Test Item Value Reference Range Interpretation Comments Mean Corpuscular Hemoglobin Concent (test code = 786-4) 31.1 31-35 [facility] UptownRed Cell Distribution Tqbeh0017-71-91 06:20:00* Test Item Value Reference Range Interpretation Comments Red Cell Distribution Width (test code = 02219-5) 16.5 11.7 -14.4 H [facility] UptownPlatelet Wdrvo5400-05-73 06:20:00* Test Item Value Reference Range Interpretation Comments Platelet Count (test code = 777-3) 286 140-360 [facility] UptownNeutrophils (%) (Auto)2017-11-08 06:20:00 * Test Item Value Reference Range Interpretation Comments Neutrophils (%) (Auto) (test code = 96980-2) 59.2 38.7-80.0 [facility] UptownLymphocytes (%) (Auto)2017-11-08 06:20:00 * Test Item Value Reference Range Interpretation Comments Lymphocytes (%) (Auto) (test code = 736-9) 22.7 18.0-39.1 [facility] UptownMonocytes (%) (Auto)2017-11-08 06:20:00* Test Item Value Reference Range Interpretation Comments Monocytes (%) (Auto) (test code = 5905-5) 15.2 4.4-11.3 H [facility] UptownEosinophils (%) (Auto)2017-11-08 06:20:00 * Test Item Value Reference Range Interpretation Comments Eosinophils (%) (Auto) (test code = 713-8) 1.9 0.0-6.0 [facility] UptownBasophils (%) (Auto)2017-11-08 06:20:00* Test Item Value Reference Range Interpretation Comments Basophils (%) (Auto) (test code = 706-2) 0.6 0.0-1.0 [facility] UptownIM GRANULOCYTES %2017-11-08 06:20:00* Test Item Value Reference Range Interpretation Comments IM GRANULOCYTES % (test code = IM GRANULOCYTES %) 0.4 0.0- 1.0 [facility] UptownNeutrophils # (Auto)2017-11-08 06:20:00* Test Item Value Reference Range Interpretation Comments Neutrophils # (Auto) (test code = 751-8) 2.8 2.1-6.9 [facility] UptownLymphocytes # (Auto)2017-11-08 06:20:00* Test Item Value Reference Range Interpretation Comments Lymphocytes # (Auto) (test code = 16033-2) 1.1 1.0-3.2 [facility] UptownMonocytes # (Auto)2017-11-08 06:20:00* Test Item Value Reference Range Interpretation Comments Monocytes # (Auto) (test code = 742-7) 0.7 0.2-0.8 [facility] UptownEosinophils # (Auto)2017-11-08 06:20:00* Test Item Value Reference Range Interpretation Comments Eosinophils # (Auto) (test code = 711-2) 0.1 0.0-0.4 [facility] UptownBasophils # (Auto)2017-11-08 06:20:00* Test Item Value Reference Range Interpretation Comments Basophils # (Auto) (test code = 704-7) 0.0 0.0-0.1 [facility] UptownAbsolute Immature Granulocyte (auto 2017-11-08 06:20:00* Test Item Value Reference Range Interpretation Comments Absolute Immature Granulocyte (auto (orin t code = Absolute Immature Granulocyte (auto) 0.02 0-0.1 [facility] UptownUrine [id number] 14:48:00* Test Item Value Reference Range Interpretation Comments Urine WBC (test code = 5821-4) 0-5 0-5 [facility] UptownUrine [id number] 14:48:00* Test Item Value Reference Range Interpretation Comments Urine RBC (test code = 29969-5) 0-5 0-5 [facility] UptownUrine Hxwnuuba5723-81-11 14:48:00* Test Item Value Reference Range Interpretation Comments Urine Bacteria (test code = 33661-1) NONE NONE [facility] UptownUrine Epithelial Tjqnu6515-01-90 14:48:00 * Test Item Value Reference Range Interpretation Comments Urine Epithelial Cells (test code = 95244-1) MANY NONE [facility] UptownUrine Vsana5212-90-35 14:48:00* Test Item Value Reference Range Interpretation Comments Urine Mucus (test code = 8247-9) FEW RARE H [facility] UptownUrine Ifzmy6738-92-36 14:48:00* Test Item Value Reference Range Interpretation Comments Urine Mucus (test code = 8247-9) FEW RARE H [facility] Jcqth6856-41-08 14:48:00* Test Item Value Reference Range Interpretation Comments Urine Mucus (test code = 8247-9) FEW RARE H [facility] UptownUrine Omuyg9895-03-05 14:36:00* Test Item Value Reference Range Interpretation Comments Urine Color (test code = 5778-6) YELLOW YELLOW [facility] UptownUrine Cgkjrbf8528-29-62 14:36:00* Test Item Value Reference Range Interpretation Comments Urine Clarity (test code = 05646-1) CLEAR CLEAR [facility] UptownUrine Specific Pnjnfrt1216-29-14 14:36:00 * Test Item Value Reference Range Interpretation Comments Urine Specific [place] (test code = 5811-5) 1.005 1.010-1.02 5 L [facility] UptownUrine kZ1624-02-43 14:36:00* Test Item Value Reference Range Interpretation Comments Urine pH (test code = 76350-7) 5 5-7 [facility] UptownUrine Leukocyte Ryjwpnfk2533-38-27 14:36:00* Test Item Value Reference Range Interpretation Comments Urine Leukocyte Esterase (test code = 5799-2) NEGATIVE NEGATIVE [facility] Xiqyapv1335-15-04 14:36:00* Test Item Value Reference Range Interpretation Comments Urine Nitrite (test code = 01809-6) NEGATIVE NEGATIVE [facility] UptownUrine Ehfkzyi3949-53-94 14:36:00* Test Item Value Reference Range Interpretation Comments Urine Protein (test code = 5804-0) NEGATIVE NEGATIVE [facility] UptownUrine Glucose (UA)2017-11-07 14:36:00* Test Item Value Reference Range Interpretation Comments Urine Glucose (UA) (test code = 2349-9) NEGATIVE NEGATIVE [facility] UptownUrine Rialnkr9239-77-85 14:36:00* Test Item Value Reference Range Interpretation Comments Urine Ketones (test code = 14540-0) NEGATIVE NEGATIVE [facility] Urhhxtkltypr7236-36-09 14:36:00* Test Item Value Reference Range Interpretation Comments Urine Urobilinogen (test code = 87012-0) 0.2 0.2-1 [facility] Lisdytfyl0769-06-07 14:36:00* Test Item Value Reference Range Interpretation Comments Urine Bilirubin (test code = 1978-6) NEGATIVE NEGATIVE [facility] Ilkfq1242-31-65 14:36:00* Test Item Value Reference Range Interpretation Comments Urine Blood (test code = 57680-0) NEGATIVE NEGATIVE [facility] UptownCreatine Kinase YP8846-61-06 13:28:00* Test Item Value Reference Range Interpretation Comments Creatine Kinase MB (test code = 69762-0) 1.10 0-5.0 [facility] UptownTroponin O9542-20-58 13:28:00* Test Item Value Reference Range Interpretation Comments Troponin I (test code = CCL0875) 0.005 0-0.300 [facility] UptownCreatine Kinase DR8723-90-23 13:28:00* Test Item Value Reference Range Interpretation Comments Creatine Kinase MB (test code = 35651-6) 1.10 0-5.0 [facility] UptownTrmoccasin bend mental health institutenin Q7189-94-08 13:28:00* Test Item Value Reference Range Interpretation Comments Troponin I (test code = ISQ3180) 0.005 0-0.300 [facility] UptownCreatine Profgt7278-69-84 13:23:00* Test Item Value Reference Range Interpretation Comments Creatine Kinase (test code = 2157-6) 47 29-168 [facility] UptownLipase2018-05-29 13:23:00* Test Item Value Reference Range Interpretation Comments Lipase (test code = 3040-3) 12 8-78 [facility] UptownCreatine Sdmerg5740-01-30 13:23:00* Test Item Value Reference Range Interpretation Comments Creatine Kinase (test code = 2157-6) 47 29-168 [facility] Fgjpvdy4093-62-24 20:02:00* Test Item Value Reference Range Interpretation Comments Blood Culture (test code = 95482769) NO GROWTH AFTER 5 DAYS, FINAL REPORT [facility] Vaxwakg1407-23-94 20:02:00* Test Item Value Reference Range Interpretation Comments Blood Culture (test code = 13797765) NO GROWTH AFTER 5 DAYS, FINAL REPORT [facility] Jjkrsmd3035-77-50 20:02:00* Test Item Value Reference Range Interpretation Comments Blood Culture (test code = 27409048) NO GROWTH AFTER 72 HOURS [facility] UptownUrine Pdrdzxj4024-23-61 07:48:00* Test Item Value Reference Range Interpretation Comments Urine Culture (test code = 630-4) Organism: ESCHERICHIA COLI [facility] UptownUrine Aelemfj6013-44-60 07:48:00* Test Item Value Reference Range Interpretation Comments Urine Culture (test code = 630-4) Organism: ESCHERICHIA COLI [facility] UptownUrine Btzczrd9355-38-93 07:48:00* Test Item Value Reference Range Interpretation Comments Urine Culture (test code = 630-4) Organism: ESCHERICHIA COLI [facility] Levellandodium Ixiwk5511-87-16 11:26:00* Test Item Value Reference Range Interpretation Comments Sodium Level (test code = 2951-2) 139 136-145 [facility] UptownPotassium Ifihc7285-83-59 11:26:00* Test Item Value Reference Range Interpretation Comments Potassium Level (test code = 2823-3) 4.1 3.5-5.1 [facility] UptownChloride Xjdnd4250-36-13 11:26:00* Test Item Value Reference Range Interpretation Comments Chloride Level (test code = 2075-0) 111 98-107 H [facility] UptownCarbon Dioxide Spgjw6292-47-94 11:26:00* Test Item Value Reference Range Interpretation Comments Carbon Dioxide Level (test code = 2028-9) 21 22-29 L [facility] UptownAnion Pfj9695-12-06 11:26:00* Test Item Value Reference Range Interpretation Comments Anion Gap (test code = 40284-6) 11.1 8-16 [facility] UptownBlood Urea Jjgkbvti2740-85-03 11:26:00* Test Item Value Reference Range Interpretation Comments Blood Urea Nitrogen (test code = 3094-0) 5 7-26 L [facility] UptownCreatinine2018-04-02 11:26:00* Test Item Value Reference Range Interpretation Comments Creatinine (test code = 2160-0) 0.61 0.57-1.11 [facility] UptownBUN/Creatinine Vveuc6083-39-01 11:26:00* Test Item Value Reference Range Interpretation Comments BUN/Creatinine Ratio (test code = 3097-3) 8 6-25 [facility] UptownEstimat Glomerular Filtration Rate 2017-09-11 11:26:00* Test Item Value Reference Range Interpretation Comments Estimat Glomerular Filtration Rate (test code = 74599-0) 60- >60 Ranges were taken from the National Kidney Disease Education Program and the [facility] Foundation literature.Reference ranges:60 or greater: Nseecy59-11 ( for 3 consecutive months): Chronic kidney disease 15 or less: Kidney failureBaylor Scott & [facility] – UptownGlucose Dmgil7533-02-52 11:26:00* Test Item Value Reference Range Interpretation Comments Glucose Level (test code = GEH0449) 111 74-118 [facility] UptownCalcium Otwma9757-98-73 11:26:00* Test Item Value Reference Range Interpretation Comments Calcium Level (test code = 86399-7) 7.8 8.4-10.2 L [facility] UptownPhosphorus Pifwq0681-97-59 11:26:00* Test Item Value Reference Range Interpretation Comments Phosphorus Level (test code = PTY5923) 2.5 2.3-4.7 [facility] UptownMagnesium Ntbam8927-24-82 11:26:00* Test Item Value Reference Range Interpretation Comments Magnesium Level (test code = 07197-5) 2.0 1.3-2.1 [facility] UptownPhosphorus Vigso3591-09-89 11:26:00* Test Item Value Reference Range Interpretation Comments Phosphorus Level (test code = UVQ3976) 2.5 2.3-4.7 [facility] UptownMagnnaval hospital [facility] Biwje7742-41-29 11:26:00* Test Item Value Reference Range Interpretation Comments Magnesium Level (test code = 19816-6) 2.0 1.3-2.1 [facility] UptownPhosphorus Cyizr3005-03-39 11:26:00* Test Item Value Reference Range Interpretation Comments Phosphorus Level (test code = EXR3281) 2.5 2.3-4.7 [facility] Oscbz9505-39-30 11:26:00* Test Item Value Reference Range Interpretation Comments Magnesium Level (test code = 29987-8) 2.0 1.3-2.1 [facility] UptownCreatine Kinase VY4690-03-51 04:04:00* Test Item Value Reference Range Interpretation Comments Creatine Kinase MB (test code = 88618-1) 3.30 0-5.0 [facility] UptownTroponin K0254-49-60 04:04:00* Test Item Value Reference Range Interpretation Comments Troponin I (test code = FBF8045) 0.355 0-0.300 H [facility] UptownCreatine Zmoopj0709-28-51 03:57:00* Test Item Value Reference Range Interpretation Comments Creatine Kinase (test code = 2157-6) 136 29-168 [facility] UptownDifferential Total Cells Counted 2017-09-10 11:11:00* Test Item Value Reference Range Interpretation Comments Differential Total Cells Counted (test code = Differen tial Total Cells Counted) 100 [facility] UptownNeutrophils % (Manual)2017-09-10 11:11:00 * Test Item Value Reference Range Interpretation Comments Neutrophils % (Manual) (test code = 76712-0) 50 40-74 [facility] UptownBand Neutrophils %2017-09-10 11:11:00* Test Item Value Reference Range Interpretation Comments Band Neutrophils % (test code = 764-1) 24 [facility] UptownLymphocytes % (Manual)2017-09-10 11:11:00 * Test Item Value Reference Range Interpretation Comments Lymphocytes % (Manual) (test code = 737-7) 19 19-48 [facility] UptownMonocytes % (Manual)2017-09-10 11:11:00* Test Item Value Reference Range Interpretation Comments Monocytes % (Manual) (test code = 744-3) 5 3.4-9.0 [facility] UptownEosinophils % (Manual)2017-09-10 11:11:00 * Test Item Value Reference Range Interpretation Comments Eosinophils % (Manual) (test code = 714-6) 2 0-7 [facility] UptownPlatelet Kssfyzhu4719-64-11 11:11:00* Test Item Value Reference Range Interpretation Comments Platelet Estimate (test code = 23629-4) ADEQUATE [facility] UptownPlatelet Morphology Dvhqcry9802-84-07 11:11:00* Test Item Value Reference Range Interpretation Comments Platelet Morphology Comment (test code = 49322-7) NORMAL [facility] UptownRed Cell Morphology Xnbikhx8634-04-04 11:11:00* Test Item Value Reference Range Interpretation Comments Red Cell Morphology Comment (test code = 6742-1) NORMAL [facility] UptownDifferential Total Cells Counted 2017-09-10 11:11:00* Test Item Value Reference Range Interpretation Comments Differential Total Cells Counted (test code = Differen tial Total Cells Counted) 100 [facility] UptownNeutrophils % (Manual)2017-09-10 11:11:00 * Test Item Value Reference Range Interpretation Comments Neutrophils % (Manual) (test code = 67147-6) 50 40-74 [facility] UptownBand Neutrophils %2017-09-10 11:11:00* Test Item Value Reference Range Interpretation Comments Band Neutrophils % (test code = 764-1) 24 [facility] UptownLymphocytes % (Manual)2017-09-10 11:11:00 * Test Item Value Reference Range Interpretation Comments Lymphocytes % (Manual) (test code = 737-7) 19 19-48 [facility] UptownMonocytes % (Manual)2017-09-10 11:11:00* Test Item Value Reference Range Interpretation Comments Monocytes % (Manual) (test code = 744-3) 5 3.4-9.0 [facility] UptownEosinophils % (Manual)2017-09-10 11:11:00 * Test Item Value Reference Range Interpretation Comments Eosinophils % (Manual) (test code = 714-6) 2 0-7 [facility] UptownPlatelet Tcnhqrww1958-90-20 11:11:00* Test Item Value Reference Range Interpretation Comments Platelet Estimate (test code = 72894-8) ADEQUATE [facility] UptownPlatelet Morphology Ovqfscv7390-10-57 11:11:00* Test Item Value Reference Range Interpretation Comments Platelet Morphology Comment (test code = 88918-6) NORMAL [facility] UptownRed Cell Morphology Bfhtlrx4186-32-09 11:11:00* Test Item Value Reference Range Interpretation Comments Red Cell Morphology Comment (test code = 6742-1) NORMAL [facility] UptownDifferential Total Cells Counted 2017-09-10 11:11:00* Test Item Value Reference Range Interpretation Comments Differential Total Cells Counted (test code = Differdominic tial Total Cells Counted) 100 [facility] UptownNeutrophils % (Manual)2017-09-10 11:11:00 * Test Item Value Reference Range Interpretation Comments Neutrophils % (Manual) (test code = 05692-1) 50 40-74 [facility] UptownBand Neutrophils %2017-09-10 11:11:00* Test Item Value Reference Range Interpretation Comments Band Neutrophils % (test code = 764-1) 24 [facility] UptownLymphocytes % (Manual)2017-09-10 11:11:00 * Test Item Value Reference Range Interpretation Comments Lymphocytes % (Manual) (test code = 737-7) 19 19-48 [facility] UptownMonocytes % (Manual)2017-09-10 11:11:00* Test Item Value Reference Range Interpretation Comments Monocytes % (Manual) (test code = 744-3) 5 3.4-9.0 [facility]ptownEosinophils % (Manual)2017-09-10 11:11:00 * Test Item Value Reference Range Interpretation Comments Eosinophils % (Manual) (test code = 714-6) 2 0-7 [facility] UptownPlatelet Dvzztxre8172-77-32 11:11:00* Test Item Value Reference Range Interpretation Comments Platelet Estimate (test code = 48694-3) ADEQUATE [facility] UptownPlatelet Morphology Jnaorvv9944-56-40 11:11:00* Test Item Value Reference Range Interpretation Comments Platelet Morphology Comment (test code = 98413-5) NORMAL [facility] UptownRed Cell Morphology Uyzfdli2357-06-91 11:11:00* Test Item Value Reference Range Interpretation Comments Red Cell Morphology Comment (test code = 6742-1) NORMAL [facility] UptownWhite Blood Nmxdz9093-57-62 09:39:00* Test Item Value Reference Range Interpretation Comments White Blood Count (test code = 6690-2) 7.48 4.8-10.8 [facility] UptownRed Blood Ufgtl0533-71-79 09:39:00* Test Item Value Reference Range Interpretation Comments Red Blood Count (test code = 789-8) 3.31 3.6-5.1 L [facility] UptownHemoglobin2018-04-01 09:39:00* Test Item Value Reference Range Interpretation Comments Hemoglobin (test code = 91806-7) 9.2 12.0-16.0 L [facility] UptownHematocrit2018-04-01 09:39:00* Test Item Value Reference Range Interpretation Comments Hematocrit (test code = 4544-3) 28.9 34.2-44.1 L [facility] UptownMean Corpuscular Tdveve9830-35-76 09:39:00* Test Item Value Reference Range Interpretation Comments Mean Corpuscular Volume (test code = 787-2) 87.3 81-99 [facility] UptownMean Corpuscular Azojobuszp2869-96-01 09:39:00* Test Item Value Reference Range Interpretation Comments Mean Corpuscular Hemoglobin (test code = 785-6) 27.8 28-32 L [facility] UptownMean Corpuscular Hemoglobin Concent 2017-09-10 09:39:00* Test Item Value Reference Range Interpretation Comments Mean Corpuscular Hemoglobin Concent (test code = 786-4) 31.8 31-35 [facility] UptownRed Cell Distribution Uhhcy1368-82-91 09:39:00* Test Item Value Reference Range Interpretation Comments Red Cell Distribution Width (test code = 41517-7) 16.6 11.7 -14.4 H [facility] UptownPlatelet Lvesg0921-48-99 09:39:00* Test Item Value Reference Range Interpretation Comments Platelet Count (test code = 777-3) 267 140-360 [facility] UptownNeutrophils (%) (Auto)2017-09-10 09:39:00 * Test Item Value Reference Range Interpretation Comments Neutrophils (%) (Auto) (test code = 46685-7) 71.1 38.7-80.0 [facility] UptownLymphocytes (%) (Auto)2017-09-10 09:39:00 * Test Item Value Reference Range Interpretation Comments Lymphocytes (%) (Auto) (test code = 736-9) 15.8 18.0-39.1 L [facility] UptownMonocytes (%) (Auto)2017-09-10 09:39:00* Test Item Value Reference Range Interpretation Comments Monocytes (%) (Auto) (test code = 5905-5) 10.3 4.4-11.3 [facility]ptownEosinophils (%) (Auto)2017-09-10 09:39:00 * Test Item Value Reference Range Interpretation Comments Eosinophils (%) (Auto) (test code = 713-8) 1.2 0.0-6.0 [facility] UptownBasophils (%) (Auto)2017-09-10 09:39:00* Test Item Value Reference Range Interpretation Comments Basophils (%) (Auto) (test code = 706-2) 0.5 0.0-1.0 [facility] UptownIM GRANULOCYTES %2017-09-10 09:39:00* Test Item Value Reference Range Interpretation Comments IM GRANULOCYTES % (test code = IM GRANULOCYTES %) 1.1 0.0- 1.0 H [facility] UptownNeutrophils # (Auto)2017-09-10 09:39:00* Test Item Value Reference Range Interpretation Comments Neutrophils # (Auto) (test code = 751-8) 5.3 2.1-6.9 [facility] UptownLymphocytes # (Auto)2017-09-10 09:39:00* Test Item Value Reference Range Interpretation Comments Lymphocytes # (Auto) (test code = 35392-6) 1.2 1.0-3.2 [facility] UptownMonocytes # (Auto)2017-09-10 09:39:00* Test Item Value Reference Range Interpretation Comments Monocytes # (Auto) (test code = 742-7) 0.8 0.2-0.8 [facility]ptownEosinophils # (Auto)2017-09-10 09:39:00* Test Item Value Reference Range Interpretation Comments Eosinophils # (Auto) (test code = 711-2) 0.1 0.0-0.4 [facility]ptownBasophils # (Auto)2017-09-10 09:39:00* Test Item Value Reference Range Interpretation Comments Basophils # (Auto) (test code = 704-7) 0.0 0.0-0.1 [facility] UptownAbsolute Immature Granulocyte (auto 2017-09-10 09:39:00* Test Item Value Reference Range Interpretation Comments Absolute Immature Granulocyte (auto (orin t code = Absolute Immature Granulocyte (auto) 0.08 0-0.1 [facility] UptownTotal Nocgboeku9807-19-89 09:39:00* Test Item Value Reference Range Interpretation Comments Total Bilirubin (test code = 1975-2) 0.2 0.2-1.2 [facility] UptownAspartate Amino Transf (AST/SGOT) 2017-09-10 09:39:00* Test Item Value Reference Range Interpretation Comments Aspartate Amino Transf (AST/SGOT) (test code = Aspartate Amino Transf (AST/SGOT)) 16 5-34 [facility] UptownAlanine Aminotransferase (ALT/SGPT) 2017-09-10 09:39:00* Test Item Value Reference Range Interpretation Comments Alanine Aminotransferase (ALT/SGPT) (test code = 1742-6) 8 0-55 [facility] UptownTotal Ecxurkp4599-31-68 09:39:00* Test Item Value Reference Range Interpretation Comments Total Protein (test code = 2885-2) 4.7 6.5-8.1 L [facility] UptownAlbumin2018-04-01 09:39:00* Test Item Value Reference Range Interpretation Comments Albumin (test code = 1751-7) 2.2 3.5-5.0 L [facility] UptownGlobulin2018-04-01 09:39:00* Test Item Value Reference Range Interpretation Comments Globulin (test code = 79360-1) 2.5 2.3-3.5 [facility] UptownAlbumin/Globulin [id number] 09:39:00 * Test Item Value Reference Range Interpretation Comments Albumin/Globulin Ratio (test code = 1759-0) 0.9 0.8-2.0 [facility] UptownAlkaline Hynpvkkwxhv0603-95-96 09:39:00* Test Item Value Reference Range Interpretation Comments Alkaline Phosphatase (test code = 6768-6) 81 40-150 [facility] UptownThyroid Stimulating Hormone (TSH) 2017-09-10 00:03:00* Test Item Value Reference Range Interpretation Comments Thyroid Stimulating Hormone (TSH) (test code = 52795-5) 1.924 0.350-4.940 [facility] UptownThyroid Stimulating Hormone (TSH) 2017-09-10 00:03:00* Test Item Value Reference Range Interpretation Comments Thyroid Stimulating Hormone (TSH) (test code = 22043-5) 1.924 0.350-4.940 [facility] UptownThyroid Stimulating Hormone (TSH) 2017-09-10 00:03:00* Test Item Value Reference Range Interpretation Comments Thyroid Stimulating Hormone (TSH) (test code = 76282-8) 1.924 0.350-4.940 [facility] UptownLactic Acid Tvmrp5918-65-93 23:44:00* Test Item Value Reference Range Interpretation Comments Lactic Acid Level (test code = Lactic Acid Level) 17.4 4.5- 19.8 [facility] UptownLactic Acid Ohoqq8917-83-01 23:44:00* Test Item Value Reference Range Interpretation Comments Lactic Acid Level (test code = Lactic Acid Level) 17.4 4.5- 19.8 [facility] UptownProthrombin Llsq1406-74-14 23:40:00* Test Item Value Reference Range Interpretation Comments Prothrombin Time (test code = 5902-2) 15.5 11.9-14.5 H [facility] UptownProthromb Time International Ratio 2017-09-09 23:40:00* Test Item Value Reference Range Interpretation Comments Prothromb Time International Ratio (test code = 6301-6) 1.33 Oral Anticoagulant Therapy INR Values:1. Low Intensity Therapy 1.5 - 2.02 . Moderate Intensity Therapy 2.0 - 3.03. High Intensity Therapy(1) 2.5 - 3. 54. High Intensity Therapy(2) 3.0 - 4.05. Panic Value INR > 5.0 [facility] UptownActivated Partial Thromboplast Time 2017-09-09 23:40:00* Test Item Value Reference Range Interpretation Comments Activated Partial Thromboplast Time (test code = 10513-7) 33.2 23.8-35.5 [facility] UptownProthrombin Kbap9084-52-26 23:40:00* Test Item Value Reference Range Interpretation Comments Prothrombin Time (test code = 5902-2) 15.5 11.9-14.5 H [facility] UptownProthromb Time International Ratio 2017-09-09 23:40:00* Test Item Value Reference Range Interpretation Comments Prothromb Time International Ratio (test code = 6301-6) 1.33 Oral Anticoagulant Therapy INR Values:1. Low Intensity Therapy 1.5 - 2.02 . Moderate Intensity Therapy 2.0 - 3.03. High Intensity Therapy(1) 2.5 - 3. 54. High Intensity Therapy(2) 3.0 - 4.05. Panic Value INR > 5.0 [facility] UptownActivated Partial Thromboplast Time 2017-09-09 23:40:00* Test Item Value Reference Range Interpretation Comments Activated Partial Thromboplast Time (test code = 47003-0) 33.2 23.8-35.5 [facility] UptownProthrombin Pnha2860-56-55 23:40:00* Test Item Value Reference Range Interpretation Comments Prothrombin Time (test code = 5902-2) 15.5 11.9-14.5 H [facility] UptownProthromb Time International Ratio 2017-09-09 23:40:00* Test Item Value Reference Range Interpretation Comments Prothromb Time International Ratio (test code = 6301-6) 1.33 Oral Anticoagulant Therapy INR Values:1. Low Intensity Therapy 1.5 - 2.02 . Moderate Intensity Therapy 2.0 - 3.03. High Intensity Therapy(1) 2.5 - 3. 54. High Intensity Therapy(2) 3.0 - 4.05. Panic Value INR > 5.0 [facility] UptownActivated Partial Thromboplast Time 2017-09-09 23:40:00* Test Item Value Reference Range Interpretation Comments Activated Partial Thromboplast Time (test code = 66660-7) 33.2 23.8-35.5 [facility] UptownUrine [id number] 20:44:00* Test Item Value Reference Range Interpretation Comments Urine WBC (test code = 5821-4) 50- 0-5 H [facility] UptownUrine [id number] 20:44:00* Test Item Value Reference Range Interpretation Comments Urine RBC (test code = 78823-6) 21-50 0-5 H [facility] UptownUrine Awtznfam4722-78-28 20:44:00* Test Item Value Reference Range Interpretation Comments Urine Bacteria (test code = 09765-1) MANY NONE H [facility] UptownUrine Epithelial [id number] 20:44:00 * Test Item Value Reference Range Interpretation Comments Urine Epithelial Cells (test code = 47388-4) MANY NONE [facility] UptownAnisocytosis2018-03-31 20:35:00* Test Item Value Reference Range Interpretation Comments Anisocytosis (test code = 702-1) SLIGHT [facility] UptownAnisocytosis2018-03-31 20:35:00* Test Item Value Reference Range Interpretation Comments Anisocytosis (test code = 702-1) SLIGHT [facility] UptownAnisocytosis2018-03-31 20:35:00* Test Item Value Reference Range Interpretation Comments Anisocytosis (test code = 702-1) SLIGHT [facility] UptownUrine Cmgkc0409-19-31 20:25:00* Test Item Value Reference Range Interpretation Comments Urine Color (test code = 5778-6) YELLOW YELLOW [facility] UptownUrine Cgqvimd6329-60-13 20:25:00* Test Item Value Reference Range Interpretation Comments Urine Clarity (test code = 28019-6) CLOUDY CLEAR H [facility] UptownUrine Specific Mwiyiqy9775-93-06 20:25:00 * Test Item Value Reference Range Interpretation Comments Urine Specific [place] (test code = 5811-5) 1.015 1.010-1.02 5 [facility] UptownUrine [id number] 20:25:00* Test Item Value Reference Range Interpretation Comments Urine pH (test code = 26694-0) 5 5-7 [facility] UptownUrine Leukocyte Ofjyhyir7751-53-15 20:25:00* Test Item Value Reference Range Interpretation Comments Urine Leukocyte Esterase (test code = 5799-2) 1+ NEGATIVE H [facility] UptownUrine Zakrxmv1644-63-81 20:25:00* Test Item Value Reference Range Interpretation Comments Urine Nitrite (test code = 87958-9) POSITIVE NEGATIVE H [facility] UptownUrine Pwqkepo7317-23-47 20:25:00* Test Item Value Reference Range Interpretation Comments Urine Protein (test code = 5804-0) TRACE NEGATIVE H [facility] UptownUrine Glucose (UA)2017-09-09 20:25:00* Test Item Value Reference Range Interpretation Comments Urine Glucose (UA) (test code = 2349-9) NEGATIVE NEGATIVE [facility] UptownUrine Xxinbcq8314-14-23 20:25:00* Test Item Value Reference Range Interpretation Comments Urine Ketones (test code = 69521-1) NEGATIVE NEGATIVE [facility] UptownUrine Sazldcyauakj5258-78-54 20:25:00* Test Item Value Reference Range Interpretation Comments Urine Urobilinogen (test code = 66472-4) 0.2 0.2-1 [facility] UptownUrine Oxpjtycme6187-71-04 20:25:00* Test Item Value Reference Range Interpretation Comments Urine Bilirubin (test code = 1978-6) NEGATIVE NEGATIVE [facility] UptownUrine Kgwqf5842-87-35 20:25:00* Test Item Value Reference Range Interpretation Comments Urine Blood (test code = 15522-5) 4+ NEGATIVE H [facility] UptownInfluenza Virus Types A,B Antigen 2017-09-09 19:43:00* Test Item Value Reference Range Interpretation Comments Influenza Virus Types A,B Antigen (test code = 41240-7) NEGATIVE NEGATIVE [facility] UptownInfluenza Virus Types A,B Antigen 2017-09-09 19:43:00* Test Item Value Reference Range Interpretation Comments Influenza Virus Types A,B Antigen (test code = 03341-5) NEGATIVE NEGATIVE [facility] UptownInfluenza Virus Types A,B Antigen 2017-09-09 19:43:00* Test Item Value Reference Range Interpretation Comments Influenza Virus Types A,B Antigen (test code = 54018-7) NEGATIVE NEGATIVE [facility] UptownBasophils % (Manual)2017-09-08 11:20:00* Test Item Value Reference Range Interpretation Comments Basophils % (Manual) (test code = 38519-3) 1 0-1.5 [facility] UptownReactive Altsrughcyq4950-61-90 11:20:00* Test Item Value Reference Range Interpretation Comments Reactive Lymphocytes (test code = 02449-9) 1 [facility] UptownBasophils % (Manual)2017-09-08 11:20:00* Test Item Value Reference Range Interpretation Comments Basophils % (Manual) (test code = 39810-3) 1 0-1.5 [facility] UptownReactive Yoolhtdvjue5148-45-86 11:20:00* Test Item Value Reference Range Interpretation Comments Reactive Lymphocytes (test code = 46665-4) 1 [facility] UptownBasophils % (Manual)2017-09-08 11:20:00* Test Item Value Reference Range Interpretation Comments Basophils % (Manual) (test code = 19025-6) 1 0-1.5 [facility] UptownReactive Vtqmhspmlwg2840-75-95 11:20:00* Test Item Value Reference Range Interpretation Comments Reactive Lymphocytes (test code = 60328-2) 1 [facility] UptownUrine Uric Acid Uinikhqf5276-87-87 11:06:00* Test Item Value Reference Range Interpretation Comments Urine Uric Acid Crystals (test code = 5817-2) MANY FEW H [facility] UptownUrine Uric Acid Wtwhxmcn1938-56-81 11:06:00* Test Item Value Reference Range Interpretation Comments Urine Uric Acid Crystals (test code = 5817-2) MANY FEW H [facility] Uptownp-ANCA Fukti4901-86-36 21:20:00* Test Item Value Reference Range Interpretation Comments p-ANCA Titer (test code = 05098-0) -1:20 Neg:<1:20 The presence of positive fluorescence exhibiting P-ANCA orC-ANCA patterns alone is not specific for the diagnosis ofWegener's Granulomatosis (WG) or microscopic polyangiitis.Decisions about treatment should not be based solely onANCA IFA margarita boyer. [employer] Consensusrecommends follow up testing of po sitive sera with both MT-3 and MPO-ANCA enzyme immunoassays. As many as 5% serum samples are positive only by EIA. Ref. AM J Clin Olhrkc3835;111:507-513.[facility] Uptownc-ANCA Mbbsw9257-29-56 21:20:00* Test Item Value Reference Range Interpretation Comments c-ANCA Titer (test code = 21020-9) -1:20 Neg:<1:20 [facility] UptownAtypical f-[id number] 21:20:00* Test Item Value Reference Range Interpretation Comments Atypical p-ANCA (test code = 60196-1) -1:20 Neg:<1:20 The atypical pANCA pattern has been observed in asignificant percentage of patie nts with ulcerative colitis,primary sclerosing cholangitis and autoimmune hepati tis.Performed at: [facility] [place] [id number] Director: Jan Vaz MD, Phone: [phone] Scott & [facility] Center – Uptownp-ANCA Cefwe8228-69-80 21:20:00* Test Item Value Reference Range Interpretation Comments p-ANCA Titer (test code = 09801-4) -1:20 Neg:<1:20 The presence of positive fluorescence exhibiting P-ANCA orC-ANCA patterns alone is not specific for the diagnosis ofWegener's Granulomatosis (WG) or microscopic polyangiitis.Decisions about treatment should not be based solely onANCA IFA re sults. [employer] Consensusrecommends follow up testing of po sitive sera with both MT-3 and MPO-ANCA enzyme immunoassays. As many as 5% serum samples are positive only by EIA. Ref. AM J Clin Ksulal1622;111:507-513.[facility] Uptownc-ANCA Uryps8776-33-63 21:20:00* Test Item Value Reference Range Interpretation Comments c-ANCA Titer (test code = 39111-8) -1:20 Neg:<1:20 [facility] UptownAtypical b-[id number] 21:20:00* Test Item Value Reference Range Interpretation Comments Atypical p-ANCA (test code = 00887-4) -1:20 Neg:<1:20 The atypical pANCA pattern has been observed in asignificant percentage of patie nts with ulcerative colitis,primary sclerosing cholangitis and autoimmune hepati tis.Performed at: [facility] [id number] Director: Jan Vaz MD, Phone: [phone] Scott & [facility] – Uptownp-ANCA Mdxhi7955-98-19 21:20:00* Test Item Value Reference Range Interpretation Comments p-ANCA Titer (test code = 52695-0) -1:20 Neg:<1:20 The presence of positive fluorescence exhibiting P-ANCA orC-ANCA patterns alone is not specific for the diagnosis ofWegener's Granulomatosis (WG) or microscopic polyangiitis.Decisions about treatment should not be based solely onANCA IFA re sults. [employer] Consensusrecommends follow up testing of po sitive sera with both MT-3 and MPO-ANCA enzyme immunoassays. As many as 5% serum samples are positive only by EIA. Ref. AM J Clin Ecqwmw9412;111:507-513.[facility] Uptownc-ANCA Ifgis9029-38-01 21:20:00* Test Item Value Reference Range Interpretation Comments c-ANCA Titer (test code = 66769-6) -1:20 Neg:<1:20 [facility] UptownAtypical i-[id number] 21:20:00* Test Item Value Reference Range Interpretation Comments Atypical p-ANCA (test code = 59885-2) -1:20 Neg:<1:20 The atypical pANCA pattern has been observed in asignificant percentage of patie nts with ulcerative colitis,primary sclerosing cholangitis and autoimmune hepati tis.Performed at: [address] [id number] Director: Jan Vaz MD, Phone: [phone] Scott & [facility] – UptownPoikilocytosis2018-01-12 21:02:00* Test Item Value Reference Range Interpretation Comments Poikilocytosis (test code = 779-9) MODERATE [facility] UptownTear Drop Xtbvz4580-59-76 21:02:00* Test Item Value Reference Range Interpretation Comments Tear Drop Cells (test code = 7791-7) FEW [facility] UptownElliptocytes2018-01-12 21:02:00* Test Item Value Reference Range Interpretation Comments Elliptocytes (test code = 84383-6) MODERATE [facility] UptownPoikilocytosis2018-01-12 21:02:00* Test Item Value Reference Range Interpretation Comments Poikilocytosis (test code = 779-9) MODERATE [facility] UptownTear Drop Ptkjs0007-55-55 21:02:00* Test Item Value Reference Range Interpretation Comments Tear Drop Cells (test code = 7791-7) FEW [facility] UptownElliptocytes2018-01-12 21:02:00* Test Item Value Reference Range Interpretation Comments Elliptocytes (test code = 81672-4) MODERATE [facility] UptownPoikilocytosis2018-01-12 21:02:00* Test Item Value Reference Range Interpretation Comments Poikilocytosis (test code = 779-9) MODERATE [facility] UptownTear Drop Xnkgs2045-52-41 21:02:00* Test Item Value Reference Range Interpretation Comments Tear Drop Cells (test code = 7791-7) FEW [facility] UptownElliptocytes2018-01-12 21:02:00* Test Item Value Reference Range Interpretation Comments Elliptocytes (test code = 72586-8) MODERATE [facility] UptownErythrocyte Sedimentation Jzxu2783-89-18 13:10:00* Test Item Value Reference Range Interpretation Comments Erythrocyte Sedimentation Rate (test code = 4537-7) 16 0- 20 [facility] UptownErythrocyte Sedimentation Ykqi5973-72-59 13:10:00* Test Item Value Reference Range Interpretation Comments Erythrocyte Sedimentation Rate (test code = 4537-7) 16 0- 20 [facility] UptownC-Reactive Jfkmtkb2685-52-59 10:22:00* Test Item Value Reference Range Interpretation Comments C-Reactive Protein (test code = 1988-5) 110.5 0.0-4.9 H Performed at: - [facility] [id number] Director: Gregg Rivera MD, Phone: [phone] Scott & [facility] Medical Center – UptownC-Reactive Focsiqb6429-73-05 10:22:00* Test Item Value Reference Range Interpretation Comments C-Reactive Protein (test code = 1988-5) 110.5 0.0-4.9 H Performed at: [facility] [address] [id number] Director: Gregg Rivera MD, Phone: [phone] Scott & White Medical Center – UptownUrine Fbxsvqo0794-54-63 08:22:00* Test Item Value Reference Range Interpretation Comments Urine Culture (test code = 630-4) Organism: ESCHERICHIA COLI [facility] Zqfofon8500-38-24 08:22:00* Test Item Value Reference Range Interpretation Comments Urine Culture (test code = 630-4) Organism: ESCHERICHIA COLI [facility] Vlwhvld2796-13-26 08:22:00* Test Item Value Reference Range Interpretation Comments Urine Culture (test code = 630-4) Organism: ESCHERICHIA COLI [facility] UptownClostridium Difficile Toxin A & B 2017-06-22 13:01:00* Test Item Value Reference Range Interpretation Comments Clostridium Difficile Toxin A & B (test code = 114980309) NEGATIVE NEGATIVE Testing on stool aspirate specimens is outside rn [employer] claims since specime n type not validated on this assay.[facility] UptownUrine Opiates Wlsawc4127-25-24 08:37:00* Test Item Value Reference Range Interpretation Comments Urine Opiates Screen (test code = 48398-5) NEGATIVE NEGATIVE [facility] UptownUrine Barbiturates Nuyoot7455-10-26 08:37:00* Test Item Value Reference Range Interpretation Comments Urine Barbiturates Screen (test code = 974550330) NEGATIVE NEGA TIVE [facility] UptownUrine Phencyclidine Nwcfiy6000-26-04 08:37:00* Test Item Value Reference Range Interpretation Comments Urine Phencyclidine Screen (test code = 24504-3) POSITIVE NEGAT KENIA H This test provides only a screen. Positive results should be repeated by a confi rmatory test.[facility] UptownUrine Amphetamines Screen 2017-06-21 08:37:00* Test Item Value Reference Range Interpretation Comments Urine Amphetamines Screen (test code = 45051-0) NEGATIVE NEGATI VE [facility] UptownUrine Benzodiazepines Zljvjw7618-19-12 08:37:00* Test Item Value Reference Range Interpretation Comments Urine Benzodiazepines Screen (test code = 40977-9) POSITIVE NEG ATIVE H This test provides only a screen. Positive results should be repeated by a confi rmatory test.[facility] UptownUrine Cocaine Screen 2017-06-21 08:37:00* Test Item Value Reference Range Interpretation Comments Urine Cocaine Screen (test code = 3398-5) NEGATIVE NEGATIVE [facility] UptownUrine Cannabinoids Blaagi2478-21-79 08:37:00* Test Item Value Reference Range Interpretation Comments Urine Cannabinoids Screen (test code = 13282-5) NEGATIVE NEGATI VE THESE RESULTS ARE FOR MEDICAL TREATMENT ONLYTHIS REPORT CONTAINS UNCONFIR MED SCREENING RESULTS*POSITIVE RESULTS WILL BE CONFIRMED BY REFERENCE LAB UPON R EQUEST CUT-OFFDRUG CLASS CONCENTRATION ng/mLAmphetamines 1000Methamphetamines 1000Cocaine 300Opiate 300Phencyc lidine 25Cannabinoid 50Barbiturates 300Benzodiazepine 300Methadone 300[facility]entonUrine Opiates Dyjcje7742-22-86 08:37:00* Test Item Value Reference Range Interpretation Comments Urine Opiates Screen (test code = 86682-4) NEGATIVE NEGATIVE [facility] UptownUrine Barbiturates Pviiol6247-59-36 08:37:00* Test Item Value Reference Range Interpretation Comments Urine Barbiturates Screen (test code = 851820364) NEGATIVE NEGA TIVE [facility] UptownUrine Phencyclidine Udrynr9029-71-56 08:37:00* Test Item Value Reference Range Interpretation Comments Urine Phencyclidine Screen (test code = 61362-8) POSITIVE NEGAT KENIA H This test provides only a screen. Positive results should be repeated by a confi rmatory test.[facility] UptownUrine Amphetamines Screen 2017-06-21 08:37:00* Test Item Value Reference Range Interpretation Comments Urine Amphetamines Screen (test code = 21954-5) NEGATIVE NEGATI VE [facility] UptownUrine Benzodiazepines Tuqwqj7593-86-94 08:37:00* Test Item Value Reference Range Interpretation Comments Urine Benzodiazepines Screen (test code = 99418-8) POSITIVE NEG ATIVE H This test provides only a screen. Positive results should be repeated by a confi rmatory test.[facility] UptownUrine Cocaine Screen 2017-06-21 08:37:00* Test Item Value Reference Range Interpretation Comments Urine Cocaine Screen (test code = 3398-5) NEGATIVE NEGATIVE [facility] UptownUrine Cannabinoids Jgexkd0647-00-20 08:37:00* Test Item Value Reference Range Interpretation Comments Urine Cannabinoids Screen (test code = 29687-7) NEGATIVE NEGATI VE THESE RESULTS ARE FOR MEDICAL TREATMENT ONLYTHIS REPORT CONTAINS UNCONFIR MED SCREENING RESULTS*POSITIVE RESULTS WILL BE CONFIRMED BY REFERENCE LAB UPON R EQUEST CUT-OFFDRUG CLASS CONCENTRATION ng/mLAmphetamines 1000Methamphetamines 1000Cocaine 300Opiate 300Phencyc lidine 25Cannabinoid 50Barbiturates 300Benzodiazepine 300Methadone 300[facility] Opiates Xdqwhr6757-57-43 08:37:00* Test Item Value Reference Range Interpretation Comments Urine Opiates Screen (test code = 12312-7) NEGATIVE NEGATIVE [facility] Barbiturates Ggvthk7580-26-13 08:37:00* Test Item Value Reference Range Interpretation Comments Urine Barbiturates Screen (test code = 643294947) NEGATIVE NEGA TIVE [facility] Phencyclidine Jaofey6521-06-05 08:37:00* Test Item Value Reference Range Interpretation Comments Urine Phencyclidine Screen (test code = 01578-7) POSITIVE NEGAT KENIA H This test provides only a screen. Positive results should be repeated by a confi rmatory test.[facility] Amphetamines Screen 2017-06-21 08:37:00* Test Item Value Reference Range Interpretation Comments Urine Amphetamines Screen (test code = 59011-9) NEGATIVE NEGATI VE [facility] Benzodiazepines Bwqpjs7854-73-26 08:37:00* Test Item Value Reference Range Interpretation Comments Urine Benzodiazepines Screen (test code = 75920-3) POSITIVE NEG ATIVE H This test provides only a screen. Positive results should be repeated by a confi rmatory test.[facility] Cocaine Screen 2017-06-21 08:37:00* Test Item Value Reference Range Interpretation Comments Urine Cocaine Screen (test code = 3398-5) NEGATIVE NEGATIVE [facility] Cannabinoids Kyggqe2074-67-84 08:37:00* Test Item Value Reference Range Interpretation Comments Urine Cannabinoids Screen (test code = 59457-6) NEGATIVE NEGATI VE THESE RESULTS ARE FOR MEDICAL TREATMENT ONLYTHIS REPORT CONTAINS UNCONFIR MED SCREENING RESULTS*POSITIVE RESULTS WILL BE CONFIRMED BY REFERENCE LAB UPON R EQUEST CUT-OFFDRUG CLASS CONCENTRATION ng/mLAmphetamines 1000Methamphetamines 1000Cocaine 300Opiate 300Phencyc lidine 25Cannabinoid 50Barbiturates 300Benzodiazepine 300Methadone 300[facility] Bwdcg0394-68-78 05:48:00* Test Item Value Reference Range Interpretation Comments Stool Occult Blood (test code = 2335-8) POSITIVE NEGATIVE [facility] Occult Qebzf4245-84-90 05:48:00* Test Item Value Reference Range Interpretation Comments Stool Occult Blood (test code = 2335-8) POSITIVE NEGATIVE [facility] Occult Bcwqg9584-49-78 05:48:00* Test Item Value Reference Range Interpretation Comments Stool Occult Blood (test code = 2335-8) [facility] Vaysegp2343-96-36 04:55:00* Test Item Value Reference Range Interpretation Comments B-Type Natriuretic Peptide (test code = 39835-6) 95.6 0-100 [facility] Natri[facility]tic Ovzusgb0916-98-02 04:55:00* Test Item Value Reference Range Interpretation Comments B-Type Natriuretic Peptide (test code = 54209-0) 95.6 0-100 [facility] Nat[facility]tic Iqdvzkh1285-18-71 04:55:00* Test Item Value Reference Range Interpretation Comments B-Type Natriuretic Peptide (test code = 19755-8) 95.6 0-100 [facility]ownAmylase Jrmgv6871-48-40 04:51:00* Test Item Value Reference Range Interpretation Comments Amylase Level (test code = 1798-8) 51 25-125 [facility]ownLipase2018-01-10 04:51:00* Test Item Value Reference Range Interpretation Comments Lipase (test code = 3040-3) 17 8-78 [facility]ownAmylase Rrmak6663-52-37 04:51:00* Test Item Value Reference Range Interpretation Comments Amylase Level (test code = 1798-8) 51 25-125 [facility]ownAmylase Rsrvm8619-31-67 04:51:00* Test Item Value Reference Range Interpretation Comments Amylase Level (test code = 1798-8) 51 25-125 [facility]ownCHEMISTRY2011-09-15 01:45:009.0[facility] KqicubjEMCBHRJTV6794-39-73 01:45:000.7[facility] ZeoqypaXNGEOQFRO4730-34-50 01:45:73509.0[facility] HzjepcmVPQSEQWND6589-33-46 01:45:44937.0[facility] [place] OEKXYQOJE5992-74-05 01:45:003.6[facility] MctycwzWDQKYVSMQ3730-91-89 01:45:0055.0 [facility] MreqkghQWAHZRRGL1199-08-16 01:45:000.3[facility] HermannCHEMISTRY 2011-02-24 01:45:10259.0[facility] VqvljquVWVSETDDS1946-43-73 01:45:0012.0[facility] EnpeajsYOXZOTYFM3442-71-85 01:45:0025.0[facility] HnpkfwoTIBFEEGDK9223-90-01 01:45:003.0[facility] RfalytlQURUDPPWJ6551-29-28 01:45:0014.0[facility] Ok FKSEEQXUP3411-20-13 01:45:008.2[facility] YomdobsQCPHLRDSO2998-79-01 01:45:007.0 [facility] DxyxonfKUAGUFOQR5313-56-32 01:45:004.0[facility] HermannCHEMISTRY 2011-02-24 01:45:00* Test Item Value Reference Range Interpretation Comments A/G Ratio (test code = A/G Ratio) 0.8 1 0.7-1.6 N [facility] BqobptfPKDCPVCUC7656-30-25 01:45:00* Test Item Value Reference Range Interpretation Comments B/C Ratio (test code = B/C Ratio) 13.0 1 6-25 N [facility] HysoedaXTHLQEAVV2089-96-72 01:45:0012.6[facility] HermannHEMATOLOGY 2011-02-24 01:45:00* Test Item Value Reference Range Interpretation Comments INR (test code = INR) 1.04 1 0.85-1.17 N [facility] FmdgdvvTVOKCONPHF4391-34-58 01:45:00* Test Item Value Reference Range Interpretation Comments PT (test code = PT) 13.6 s 12.0-14.7 N [facility] XnxxjjdGKMQMPHONZ3267-49-32 01:45:00* Test Item Value Reference Range Interpretation Comments PTT (test code = PTT) 27.5 s 22.9-35.8 N [facility] UpqyatzIWIYFALXLU3240-83-94 01:45:009.3[facility] HermannHEMATOLOGY 2011-02-24 01:45:0081.2[facility] BbtxcvbNILESJLGMY1255-14-44 01:45:0028.7[facility] AagxxkjRBYHDKYKHN6277-52-27 01:45:0032.4[facility] VsdidacEFDFKOUTNE2773-41-36 01:45:00* Test Item Value Reference Range Interpretation Comments MCH (test code = MCH) 26.3 pg 27.0-31.0 L [facility] MmknjpnRXRDDWFOSO2396-25-04 01:45:0018.8[facility] HermannHEMATOLOGY 2011-02-24 01:45:007.6[facility] DqpbvvxVHWQRBMRLL5666-41-93 01:45:44117.0[facility] LraknbqVUQEUVFRKG8498-17-47 01:45:007.3[facility] ChibeocBNGSXMLTHU8650-07-98 01:45:003.54[facility] EwsisreOWALLVZGCA1047-41-76 01:45:000.0[facility] [place] ESXRDTFFQW9350-87-41 01:45:000.4[facility] QvgbdqbALVLOUDVRX4292-06-53 01:45:000.0 [facility] GhtsiwbNDESUBKYZV4746-45-95 01:45:0077.9[facility] HermannHEMATOLOGY 2011-02-24 01:45:000.7[facility] NqjyruwFMWWYIICYG0756-82-28 01:45:005.7[facility] EzreyiwJJPQLWDNMY6254-41-43 01:45:000.7[facility] GehvscmVJLDTNLQKM1845-35-56 01:45:001.1[facility] TjvxdjyMFDBLVWEKA0477-01-52 01:45:005.7[facility] [place] BNCAZXEZYT8755-97-22 01:45:0015.0[facility] XmdqthrMWPYEUCHNG1447-17-76 01:45:00?? [facility] WqtbtvlLCLCLDGVJV4809-22-33 01:45:00Small *ABN*(02/23/2011 20:45:00) ?? [facility] ZevhkilUMMQJMVUVC3407-98-06 01:45:00Negative (02/23/2011 20:45:00) ?? [facility] YjmaihjBRPWXJVIOW8046-03-67 01:45:001.0[facility] HermannURINALYSIS 2011-02-24 01:45:004.0[facility] HnehfggUIPEQBBVXP0962-95-60 01:45:00Many /LPF *ABN*(02/23/2011 20:45:00) ??[facility] JysyhceXATJKIKRDS3294-76-95 01:45:00 Occasional /HPF *NA*(02/23/2011 20:45:00) ??[facility] VucsybgOIPLXVZQFB5496-24-75 01:45:00Few /LPF *NA*(02/23/2011 20:45:00) ??[facility] HermannURINALYSIS 2011-02-24 01:45:00Negative *NA*(02/23/2011 20:45:00) ??[facility] UWGWMEOZUB6061-97-84 01:45:00Negative (02/23/2011 20:45:00) ??[facility] XZLRXWFRAR0354-03-91 01:45:00Negative mg/dL *NA*(02/23/2011 20:45:00) ??[facility] BozmrcvXBRASDQYWR9338-77-52 01:45:00Slight *ABN*(02/23/2011 20:45:00) ??[facility]icsAaikywpGREOEIXCYR5250-85-07 01:45:00* Test Item Value Reference Range Interpretation Comments UA Spec Grav (test code = UA Spec Grav) 1.02 1 N [facility]icsPtpdepxWCFAQLVUDB3860-38-73 01:45:00Yellow *NA*(02/23/2011 20:45:00) ?? [facility] ClinicsOcxolkxNCAGAFRPYD4710-07-29 01:45:00* Test Item Value Reference Range Interpretation Comments UA pH (test code = UA pH) 6.5 1 5.0-8.0 N [facility] ClinicsAmgxulqRFLDCLRVYJ8759-74-20 01:45:00Negative mg/dL (02/23/2011 20:45:00) ??[facility]icsVrkjkdsDLBJIHABMV7285-95-66 01:45:00Negative mg/dL *NA*(02/23/2011 20:45:00) ??[facility]icsann[facility]BDOM[facility]PELVIS W [place] [address] Patient Name: NIKA BLAKE MR #: [id number] : 1940 Age/Sex: 77/F Req #: [id number] Adm Physician: Ordered by: ARTHUR COLLINS MD Report #: [id number] Location: ER Room/Bed: Procedure: [id number] CT/CT ABDOMEN/PELVIS W Ex am Date: 11/07/17 Exam Time: 1340 REPORT STATUS : Signed PROCEDURE: CT ABDOMEN AND PELVIS WITH CONTRAST TECHNIQUE: T he abdomen and pelvis were scanned utilizing a multidetector helical scanner from the diaphragm to the lesser trochanter after the IV administration of 10 0 cc of Isovue 370 and the oral administration of water. Coronal and sagitta l multiplanar reformations were obtained. COMPARISON: Patients [facility], CT, CT ABDOMEN/PELVIS W, 12/25/2014, 23:02. Patients [facility] [place], CT, CT ABDOMEN/PELVIS W, 06/21/2017, 5:09. INDICATIONS: ABDOMEN PAIN FINDINGS: LOWER THORAX: Stable moderate hiatal hernia. Mild atelectatic bjorn nges in bilateral lower lobes. Mild cardiomegaly. HEPATOBILIARY: No foc al hepatic lesions. Stable mild central intrahepatic biliary ductal dilatatio n and mild dilation of the common bile duct. No intraluminal filling defects. Cholelithiasis. No wall thickening or pericholecystic fluid.. SPLEEN: No s plenomegaly. PANCREAS: No focal masses or ductal dilatation. 2.4 x 3.0 cm duod enal diverticulum between the second portion of the duodenum and pancreatic head (series 2, image 35). ADRENALS: No adrenal nodules. KIDNEYS/URETE RS: No hydronephrosis, stones, or solid mass lesions. PELVIC ORGANS/BLADDER: M oderately distended bladder, without focal lesions. Uterus is not visualized. No adnexal masses. PERITONEUM / RETROPERITONEUM: Trace free fluid in the pelvic cul-de-sac. LYMPH NODES: Enlarged mesenteric node, measuring 1.1 cm in short axis (series 2, image 52). There are multiple prominent mesenteric n odes, which measure 0.8-0.9 cm in short axis (for example series 2, images 55, 51, 57 and, 59). VESSELS: Moderate calcification of the aorta and iliac vessels. Celiac trunk, superior and inferior mesenteric, and bilateral renal arteries are patent. Portal, superior mesenteric, and splenic veins are paten t. GI TRACT: Multiple loops of distal ileum, extending to the terminal ileum show moderate to marked wall thickening with mucosal enhancement, incre ased vascularity and mild surrounding stranding, similar in appearance to von or CT dated 06/21/2017, 12/25/2014 and 06/19/2015. No foci of extraluminal air or well-defined enhancing fluid collections. Duodenum and jejunum show no wall thickening. Large bowel is unremarkable. No bowel obstruction or dilation. BONES AND SOFT TISSUES: Unremarkable. IMPRESSION: 1. Findings co nsistent with enteritis involving the ilium and extending to the terminal ile um. Given the recurrent nature of the findings, as noted on prior CTs, inflam matory bowel disease (particularly Crohn's) is a primary consideration, despi te the patient's advanced age. No evidence of perforation or abscess formatio n. 2. Prominent and single enlarged mesenteric nodes, likely reactive. 3. St able mild central intrahepatic biliary ductal dilation and mild dilation of t he common bile duct. Cholelithiasis, without CT evidence of cholecystitis. 4. Stable moderate hiatal hernia. Eamon Cole M.D. Dict ated by: Eamon Cole M.D. on 11/07/2017 at 15:00 Electronically ap proved by: Eamon Cole M.D. on 11/07/2017 at 15:00 Dict ated By: EAMON COLE MD 1500 COPY TO: MASOUD COLLINS MD IR CONSULT [place] [address] Patient Name: NIKA BLAKE MR #: [id number] : 1940 Age/Sex: 77/F Req #: [id number] Adm Physician: LUIZ KERR MD Ordered by: DRE TAVERA MD Report #: [id number] Location: MED/SURG3 Room/Bed: [facility] Procedure: [id number] DX/I R CONSULT Exam Date: Exam Time: REPORT STATU S: Signed Non-tunneled Central Venous Catheter Revision 09/11/2017 Pre-Pro cedure Diagnosis: Malpositioned right subclavian central venous catheter. Po st-procedure Diagnosis:Malpositioned right subclavian central venous catheter Quality Management Coordinator: [employer] Manufacturing Technician: None Sedation: None. 1% lidocaine local anesthesia. Radiation Dose:1.12 mGy (cumulative air kerma) Fluoroscopy time:0.3 minutes Estimate blood loss: <5 mL Blood administered: None Complications: None Implants/Grafts: 16 cm 7-Spanish 3 lumen CVC Specimen: None Procedure: Informed consent was obtained and the patient positioned supine in the fluoroscopy suite. The indwelling subclavian central venous catheter was prepped and draped in standard fashion. The indwelling catheter was removed over an 035 wire. The wire was repositioned from the right internal jugular vein to the superior vena cava under fluoroscopic guidance. A new 7-Spanish 16 cm 3 lm central venous catheter was positioned at the low SVC/superior atrial-caval junction under fluoroscopy. At the end of the procedure the catheter was flushed, secured to the skin and a sterile dressing applied. The patient tolerated the procedure well and without immediate complication. Findings: Initial radiograph demonstrated the previously placed subclavian central venous catheter was malpositioned in the right internal jugular vein. Impression: Successful repositioning/excha nge of a non-tunneled right subclavian central venous catheter using fluorosco pic guidance. This report was generated with voice-recognition techno logy. Errors in medical office technician can occur. Please interpret accordingly and cont act a radiologist if there are any questions regarding the report. Marylou d by: Dr. Mima Vaz M.D. on 09/11/2017 10:59 AM Dictated By: MIMA BEVERLY MD 1059 Transcr ibed By: NINO on 09/11/17 1059 COPY TO: DRE TAVERA MD NON- TUNNELLED CVC CATH REPLACE [place] [address] Patient Name: NIKA BLAKE MR #: [id number] : 1940 Age/Sex: 77/F Req #: [id number] Adm Physician: LUIZ KERR MD Ordered by: DRE TAVERA MD Report #: [id number] Location: MED/SURG3 Room/Bed: [facility] Procedure: [id number] IR/N ON-TUNNELLED CVC CATH REPLACE Exam Date: 09/11/17 Ex am Time: 0915 REPORT STATUS: Signed Non-tunneled Central Venous Cathete r Revision 09/11/2017 Pre-Procedure Diagnosis: Malpositioned right subclavian central venous catheter. Post-procedure Diagnosis:Malpositioned right subcl albina central venous catheter Quality Management Coordinator: [employer] Manufacturing Technician: Keiko S edation: None. 1% lidocaine local anesthesia. Radiation Dose:1.12 mGy (cumu lative air kerma) Fluoroscopy time:0.3 minutes Estimate blood loss: <5 mL Blood administered: None Complications: None Implants/Grafts: 16 cm 7-Spanish 3 lumen CVC Specimen: None Procedure: Informed consent was obtained and the patient positioned supine in the fluoroscopy suite. The indwelling subclavian central venous catheter was prepped and draped in standard fashion. The indwelling catheter was removed over an 035 wire. The wire was repo sitioned from the right internal jugular vein to the superior vena cava under fluoroscopic guidance. A new 7-Spanish 16 cm 3 lm central venous catheter was positioned at the low SVC/superior atrial-caval junction under fluoroscopy. At the end of the procedure the catheter was flushed, secured to the skin and a sterile dressing applied. The patient tolerated the procedure well and without immediate complication. Findings: Initial radiograph demonstrated the previously placed subclavian central venous catheter was malpositioned in the right internal jugular vein. Impression: Successful repositioning/excha nge of a non-tunneled right subclavian central venous catheter using fluorosco pic guidance. This report was generated with voice-recognition techno logy. Errors in medical office technician can occur. Please interpret accordingly and cont act a radiologist if there are any questions regarding the report. Marylou d by: Dr. Mima Vaz M.D. on 09/11/2017 10:59 AM Dictated By: MIMA BEVERLY MD 58 Transcr ibed By: NINO on 09/11/171058 COPY TO: DRE TAVERA MD CHEST SINGLE (PORTABLE) [place] [address] Patient Name: NIKA BLAKE MR #: [id number] : 1940 Age/Sex: 77/F Req #: [id number] Adm Physician: LUIZ KERR MD Ordered by: DRE TAVERA MD Report #: [id number] Location: ICU Room/Bed: [place] [address] Procedure: [id number] DX/ADAM ST SINGLE (PORTABLE) Exam Date: Exam Time: R EPORT STATUS: Signed CHEST SINGLE (PORTABLE), 09/10/2017 12:54 AM Techniqu e: CHEST SINGLE (PORTABLE) Comparison: Previous day Clinical history: S RIG HT SC CENTRAL LINE PLACEMENT Findings: See Impression Impression: 1. Lines/Tubes: Right subclavian central venous catheter placement with tip ov erlying the jugular vein; recommend repositioning. 2. Otherwise stable chest. No pneumothorax. Signed by: Dr Alec Watkins MD on 09/10/2017 1:30 AM Dictated By: ALEC WATKINS MD 9 Transcribed By: NINO on 09/10/17129 COPY TO: DRE TAVERA MD CT BRAIN WO [address], [place], [place] [address] Patient Name: NIKA BLAKE MR #: [id number] : 1940 Age/Sex: 77/F Req #: [id number] Adm Physician: Ordered by: MARIO LO NP Report #: [id number] Location: ER Room/Bed: Procedure: [id number] CT/CT BRAIN WO Exam Date: Exam Time: REPORT STATUS: Signed EXAMINATIO N: Head CT HISTORY: Status post fall, dizziness, weakness, fever COMPARI SON: Head CT on 08/29/2017 TECHNIQUE: Multidetector axial images were obtained without contrast from the foramen magnum to the vertex . The images were recon structed using brain and bone algorithms. Thin section brain images were refo rmatted into coronal and sagittal planes. Intravenous contrast: None. Mot ion/streaking artifact limits the evaluation of the skull base and posterior c ranial fossa. FINDINGS: Parenchyma: 1. Persistent moderate co nfluent chronic microvascular ischemic changes in the supratentorial white mat ter. 2. No mass or hemorrhage. No CT evidence of acute territorial vascular i nsult. Extra-axial spaces:No abnormal density. No extra-axial f luid collections Brain volume: Normal for age. Ventricles: No hy drocephalus or displacement. Arteries: No density suggestive of thrombu s. Dural sinuses: No abnormal density. Extra-axial spaces: No ab normal density. Foramen magnum: No mass, Chiari malformation, or basilar invagination. Sella: No obvious mass. Paranasal/mastoid sinuse s: Imaged portions unremarkable. Skull/Scalp: Unchanged previously descr ibed bilateral sphenoid demineralization with lytic changes, no associated sof t tissue mass IMPRESSION: 1. No acute intracranial hemorrhage or cortical infarct. 2. Moderate chronic microvascular ischemic changes, sta ble when compared to recent head CTs on 09/08/2017 and 06/21/2017 Signed by : Dr. Kb Maxwell M.D. on 09/09/2017 7:22 PM Dictated By: KB MAXWELL MD 21 Transcribed By: SHEFALI MARC on 09/09/171921 COPY TO: MARIO LO UNDERGROUND UTILITY LOCATOR CHEST SINGLE (PORTABLE) [place] [address] Patient Name: NIKA BLAKE MR #: [id number] : 1940 Age/Sex: 77/F Req #: [id number] Adm Physician: Ordered by: MARIO LO UNDERGROUND UTILITY LOCATOR Report #: [id number] Location: ER Room/Bed: Procedure: [id number] DX/CHEST SINGLE (PORTABLE) Exam Date: 09/09/17 Exam Time: 1914 REPORT STAT US: Signed CHEST SINGLE (PORTABLE), 09/09/2017 6:32 PM Technique: CHEST S JESSICA (PORTABLE) Comparison: 09/08/2017 Clinical history: Fall, weakness, fev er Findings: Heart/mediastinum: Mildly enlarged cardiomediastinal silhoue tte, accentuated by portable technique. Aortic calcifications. Hiatal hernia. Lungs/pleural spaces: No consolidation or edema. No effusion or pneumothorax. Impression: 1. Lines/Tubes: None 2. No acute abnormality. Signed by: Dr Alec Watkins MD on 09/09/2017 7:24 PM Dictated By: ALEC Vera MD 23 Transcribed By: NINO on 09/09/171923 COPY TO: MARIO LO NP CT BRAIN WO [facility] [address] [place] [address] Patient Name: NIKA BLAKE MR #: [id number] : 1940 Age/Sex: 77/F Req #: [id number] Adm Physician: Ordered by: RASHID PAT UNDERGROUND UTILITY LOCATOR Report #: [id number] Location: ER Room/Bed: Procedure: [id number] CT/CT BRAIN WO Exam Date: 09/08/17 Exam Time: 1010 REPORT STATUS: Signed EXAMINATION: Head CT HISTORY: Weakness, vertigo, pain COMPARISON: Head CT on 06/21/2017 TECHNIQUE: Multidetector axial images were obtained without contrast from the foramen magnum to the vertex . The images were reconstructed using brain and bone algorithms. Thin section brain images were reformatted into coronal and sagittal planes. Intravenous contrast: None. Motion/str eaking artifact limits the evaluation of the skull base and posterior cranial fossa. FINDINGS: Parenchyma: 1. Unchanged nonspecific moderat e confluent white matter chronic microvascular ischemic changes. 2. No mass or hemorrhage. No CT evidence of acute territorial vascular insult. Extra-axial spaces:No abnormal density. No extra-axial fluid collections Brain volume: Normal for age. Ventricles: No hydrocephalus or dis placement. Arteries: No density suggestive of thrombus. Dural s inuses: No abnormal density. Extra-axial spaces: No abnormal density. Foramen magnum: No mass, Chiari malformation, or basilar invagination. Sella: No obvious mass. Paranasal/mastoid sinuses: Imaged portions unremarkable. Skull/Scalp: Unchanged previously described bilateral sph enoid demineralization with lytic changes, no associated soft tissue mass IMPRESSION: 1. No acute intracranial hemorrhage or CT evidence of acute territorial cortical vascular insults. 2. Stable moderate chronic microv ascular ischemic changes. 3. Unchanged nonspecific lytic lesions in the sp henoid bone bilaterally compared to head CT on 06/21/2017. Correlation with pas t medical history and/or bone scan is recommended for further evaluation if cl inically indicated. Signed by: Dr. Kb Maxwell M.D. on 09/08/2017 10:58 AM Dictated By: KB MAXWELL MD 105 Transcribed By: NINO on 09/08/17 1058 COPY TO: RASHID PAT NP CHEST 2 VIEWS [place] [address] Patient Name: NIKA BLAKE MR #: [id number] : 1940 Age/Sex: 77/F Req #: [id number] Adm Physician: Ordered by: RASHID PAT UNDERGROUND UTILITY LOCATOR Report #: [id number] Location: ER Room/Bed: Procedure: [id number] DX/CHEST 2 VIEWS Exam Rey e: 09/08/17 Exam Time: 1033 REPORT STATUS: Sign ed PROCEDURE: Frontal and lateral views of the chest. COMPARISON: Por table chest 06/21/2017. INDICATIONS: WEAKNESS, RIGHT ARM PAIN F INDINGS: Lines/tubes: None. Lungs: The lungs are well inflated and iglesia ar. There is no evidence of pneumonia or pulmonary edema. Pleura: Ther e is no pleural effusion or pneumothorax. Heart and mediastinum: The hear t and the mediastinum are normal. Atherosclerotic calcifications. Bones : No acute bony abnormality. Degenerative changes of the thoracic spine. IMPRESSION: No acute radiographic abnormality. Dictated by: William Shah M.D. on 09/08/2017 at 11:32 Electronically approved by: Usha kate M.D. on 09/08/2017 at 11:32 Dictated By: USHA SHAH MD [place] ctronically Signed By: USHA SHAH MD on 09/08/171131 Transcribed By: MEGHAN on 09/08/171131 COPY TO: RASHID PAT UNDERGROUND UTILITY LOCATOR SMALL BOWEL SERIES [place] [address] Patient Name: NIKA BLAKE MR #: [id number] : 1940 Age/Sex: 77/F Req #: [id number] Adm Physician: LUIZ KERR MD Ordered by: TAYA ARTHUR MD Report #: [id number] Locatio n: [facility] Room/Bed: [place] [address] Procedure: [id number] DX/ SMALL BOWEL SERIES Exam Date: 06/21/17 Exam Time: 14 00 REPORT STATUS: Signed PROCEDURE: SMALL BOWEL SERIES COMPARISON: [facility], CT, CT ABDOMEN/PELVIS W, 06/21/2017, 5:09. INDICA TIONS: ENTERITIS TEQUNIQUE: A chair car driver radiograph was performed. The patien t was given barium to drink and sequential images of the abdomen were obtaine d through 90 minutes until the contrast had reached the colon. Spot images of the small bowel and terminal ileum were obtained. Fluoro time: 3.3 minutes FINDINGS: Automotive Quality Engineer: Nonobstructive bowel gas pattern. Contrast is noted in the bladder. Small bowel: Multiple focal outpouchings are noted in the duodenum, consistent with diverticula. Evaluation of the proximal small bowel is limited by flocculation of contrast. Transit time is normal. Th ere are several loops of distal ileum which show long segments of luminal red uction and cobblestoning of the mucosa, corresponding to previously visualize d thickened ileum on CT dated 06/21/2017 The terminal ileum is not well-visual ized. No focal mass is seen. CONCLUSION: Findings in the distal ileum consistent with previously visualized enteritis on CT dated 06/21/2017. Inflammatory bowel disease (particularly Crohn's) is a consideration despite the patient's age, given the history of prior episodes. Infectious enteritis is less likely. Eamon Cole M.D. Dictated by: Eamon tolbert M.D. on 06/21/2017 at 19:40 Electronically approved by: Eamon Cole M.D. on 06/21/2017 at 19:40 Dictated By: EAMON MARIE MD 39 Transcribed By: MEGHAN on 06/21/171939 COPY TO: TAYA ARTHUR MD CHEST XRAY LINE PLACEMENT [place] [address] Patient Name: NIKA BLAKE MR #: [id number] : 1940 Age/Sex: 77/F Req #: [id number] Adm Physician: LUIZ KERR MD Ordered by: MILLA LEON MD Report #: [id number] Location: [facility] Room/Bed: [place] [address] Procedure: [id number] DX/CHEST XRAY LINE PLACEMENT Exam Date: Exam Time: REPORT STATUS: Signed PROCEDURE: A single AP view of the chest. COMPARISON: Chest 2 views 06/21/2017. INDICATIONS: CENTRAL LINE PLACEMENT FINDINGS: Lines/tubes: Right internal jugular temporary central v enous catheter with tip projecting over the expected region of the right atri um. Lungs: The lungs are well inflated and clear. There is no evidence of pneumonia or pulmonary edema. Pleura: There is no pleural effusion or pneumothorax. Heart and mediastinum: The heart and the mediastinum are u nremarkable. Atherosclerotic calcifications. Bones: No acute bony abno rmality. Degenerative changes of the thoracic spine. IMPRESSION: No acute radiographic abnormality. Dictated by: Usha Shah M.D. on 06/12 at 8:29 Electronically approved by: Usha Shah M.D. on 8 at 8:29 Dictated By: USHA SHAH MD 8 Transcribed By: MEGHAN on 06/21/17828 CO PY TO: MILLA LEON MD CHEST 2 VIEWS [place] [address] Patient Name: NIKA BLAKE MR #: [id number] : 1940 Age/Sex: 77/F Req #: [id number] Adm Physician: Ordered by: DRE TAVERA MD Report #: [id number] Location: ER Room/Bed: Procedure: [id number] DX/CHEST 2 VIEWS Exam Date: Exam Time: REPORT STATUS: Signed EXAM: CHEST 2 VIEWS, PA and lateral DATE: 06/21/2017 4:08 AM Time stamp on exam: 0421 ho urs INDICATION: Nausea, vomiting COMPARISON: None FINDINGS: LINES/TUB ES: None LUNGS: No consolidations or edema. PLEURA: No effusions or p neumothorax. HEART AND MEDIASTINUM: Normal size and contour. BONES AND SOFT TISSUES: No acute findings. Hiatal hernia. IMPRESSION: No acute tho racic abnormality. Signed by: Dr. Taryn Jessica M.D. on 5:05 AM Dictated By: TARYN JESSICA MD 4 Transcribed By: NINO on 06/21/17504 COPY TO: DRE TAVERA MD CT ABDOMEN/PELVIS W [place] [address] Patient Name: NIKA BLAKE MR #: [id number] : 1940 Age/Sex: 77/F Req #: [id number] Adm Physician: Ordered by: DRE TAVERA MD Report #: [id number] Location: ER Room/Bed: Procedure: [id number] CT/CT ABDOMEN/PELVIS W Exam D ate: Exam Time: REPORT STATUS: Signed EXAM : CT ABDOMEN AND PELVIS with IV CONTRAST DATE: 06/21/2017 4:08 AM Time stamp o n Exam: 0512 hours INDICATION: Abdominal pain COMPARISON: None available TECHNIQUE: The abdomen and pelvis were scanned using a multidetector helical scanner. Coronal and sagittal reformations were obtained. Routine protocol per formed. IV Contrast: 100 cc Isovue-370 Oral Contrast: Water CTDIvol has be en reviewed. It is below the limits set by the Radiation Protocol Committee (R PC). FINDINGS: LOWER THORAX: No consolidations LIVER: No masses BI LIARY: Cholelithiasis. No wall thickening or ductal dilation. SPLEEN: No m asses PANCREAS: No masses ADRENALS: No nodules KIDNEYS: Symmetric perfu barbara. No enhancing masses. No hydronephrosis. GI TRACT: Several loops of sm all bowel with enhancing thickened fletcher and adjacent vascular engorgement. No bowel obstruction. Moderate to large hiatal hernia. Incidental duodenal diver ticulum. VESSELS: Marked atherosclerotic change of the abdominal aorta and branches. PERITONEUM/RETROPERITONEUM: Trace free pelvic fluid. LYMPH NODES: Prominent mesenteric lymph nodes. REPRODUCTIVE ORGANS: The uterus and ovari es are not visualized. BLADDER: Unremarkable SOFT TISSUES: Unremarkable BONES: No suspicious bone lesions. IMPRESSION: Nonspecific enteritis inv olving the distal and terminal ileum with associated vascular congestion and m esenteric lymphadenopathy. These findings were described in a report of a CT o f the abdomen and pelvis in 2013 (images not available for comparison), making inflammatory enteritis (Crohn's) a likely cause. Signed by: Dr. Taryn Jessica M.D. on 06/21/2017 5:44 AM Dictated By: TARYN JESSICA MD Elect ronically Signed By: TARYN JESSICA MD on 06/21/17543 Transcribed By: NINO on 06/21/17543 COPY TO: DRE TAVERA MD CT BRAIN WO [place] [address] Patient Name: NIKA BLAKE MR #: [id number] : 1940 Age/Sex: 77/F Req #: [id number] Adm Physician: Ordered by: DRE TAVERA MD Report #: [id number] Location: ER Room/Bed: Procedure: [id number] CT/CT BRAIN WO Exam Date: Exam Time: REPORT STATUS: Signed Exam: Head CT without contrast History: Nausea, vomiting, headache Comparison studies: Previous head CT of 01/07/2014 is currently unavailable on the PACS for compar ivan. Technique: Axial images were obtained from the skull base to the ve rtex. Coronal and sagittal images reconstructed from the axial data. Intrave nous contrast: None Findings: Scalp: No abnormalities. Bones: The sp henoid wings are demineralized bilaterally with lytic changes. No associated s oft tissue mass is identified. Brain sulci: Appropriate for age. Ventricl es: Normal in size and configuration. No hydrocephalus. Extra-axial spaces: Mi ldly prominent axial spaces of CSF density along the right anterior temporal c onvexity is most likely represents a small arachnoid cyst. Parenchyma: No mass, acute hemorrhage or acute cortical vascular insults. Scattered hypo densities in the supratentorial white matter are nonspecific but most compatib le with chronic small vessel ischemic changes. Sellar/suprasellar region : No abnormalities. Craniocervical junction: Patent foramen magnum. No Chiari one malformation. Included paranasal sinuses: Mild inflammatory mucosal thi ckening in the left maxillary sinus. Incidental findings: Atherosclero tic calcifications in the carotid siphons and intradural vertebral arteries. B ilateral lens replacements related to previous cataract surgery. IMPRESS ION: 1. No acute intracranial abnormalities. 2. Mild generalized volum e loss. 3. Moderate supratentorial chronic microvascular ischemic changes. 4. Incidental bilateral sphenoid demineralization with lytic changes. Sign ed by: Dr. Claudia Ram M.D. on 06/21/2017 5:47 AM Dictated By: CLAUDIA RAM MD 6 Trans cribed By: NINO on 06/21/17546 COPY TO: DRE TAVERA MD
[2020-02-08 11:53] LABS: PROTHROMBIN TIME 13.7 seconds (11.9-14.5)
[2020-02-08 11:54] LABS: PARTIAL THROMBOPLASTIN TIME 26.3 seconds (23.8-35.5)
[2020-02-08 11:55] LABS: RBC,URINE 0-5 /HPF (0-5); WBC,URINE (MAN) 0-5 /HPF (0-5)
[2020-02-08 11:56] LABS: BACTERIA,URINE MANY /HPF; EPITHELIAL CELLS,URINE FEW /LPF; MUCUS,URINE FEW (RARE)
[2020-02-08] MEDS ORDERED: PANTOPRAZOLE 40 MG 10ML VIAL IV ONE (12:00)
[2020-02-08 12:04] LABS: ALANINE AMINOTRANSFERASE 12 IU/L (0-55); ALBUMIN 2.7 g/dL (3.5-5.0); ALBUMIN/GLOBULIN RATIO 0.8 (0.8-2.0); ALKALINE PHOSPHATASE 64 IU/L (40-150); ANION GAP 17.8 mmol/L (8-16); BLOOD UREA NITROGEN 14 mg/dL (7-26); BUN/CREATININE RATIO 19 (6-25); CALCIUM 8.1 mg/dL (8.4-10.2); CARBON DIOXIDE 19 mmol/L (22-29); CHLORIDE 109 mmol/L (98-107); CREATINE KINASE 53 IU/L (29-168); CREATININE, SERUM 0.73 mg/dL (0.57-1.11); EST GLOMERULAR FILTRATION RATE > 60 ML/MIN (60-); GLUCOSE 122 mg/dL (74-118); MAGNESIUM 1.4 MG/DL (1.3-2.1); POTASSIUM 3.8 mmol/L (3.5-5.1); SODIUM 142 mmol/L (136-145)
--- NOTE | 2020-02-08 12:50 | Emergency Department Note ---
History of Present Illnes History of Present Illness Chief Complaint: Abdominal Complaints History of Present Illness This is a 79 year old female PATIENT IN FROM HOME WITH COMPLAINTS OF ABDOMINAL PAIN, NAUSEA, VOMITING, AND DIARRHEA X 2 DAYS; PATIENT STATES THAT SHE HAS HAD THIS PAIN MANY OTHER TIMES. Historian: Patient Arrival Mode: Car Draw In Hand Required: No Onset (how long ago): day(s) (2) Location: RLQ ABD Quality: PAIN Radiation: Reports non-radiation Severity: moderate Onset quality: gradual Timing of current episode: intermittent Chronicity: recurrent Context: Denies recent illness Relieving factors: none Exacerbating factors: none Associated symptoms: Reports nausea/vomiting, Reports other (DIARRHEA) Treatments prior to arrival: none Past Medical/Family History Physician Review I have reviewed the patient's past medical and family history. Any updates have been documented here. Past Medical History Recent Fever: Yes Clinical Suspicion of Infectio: Yes New/Unexplained Change in Ment: No Past Medical History: Hypertension, UTI's, Anemia, GERD, Hyperlipedemia, Osteoarthritis Other Medical History: ARTHRITIS Past Surgical History: Appendectomy, Hysterectomy, Cataract Removal Other Surgery: L KNEE surgery ( 10 yrs ago) Colonoscopy lens implant Social History Smoking Cessation: Never Smoker Counseling Performed: No Alcohol Use: None Any Illegal Drug Use: No TB Exposure/Symptoms: No Physically hurt or threatened: No Family History Family history of heart diseas: No Other Last Tetanus: 2014 Any Pre-Existing Lines (PICC,: No Review of Systems Review of Systems Constitutional: Reports no symptoms EENTM: Reports no symptoms Cardiovascular: Reports no symptoms Respiratory: Reports no symptoms Gastrointestinal: Reports as per HPI, Reports abdominal pain, Reports diarrhea, Reports nausea, Reports vomiting Genitourinary: Reports no symptoms Musculoskeletal: Reports no symptoms Integumentary: Reports no symptoms Neurological: Reports no symptoms Psychological: Reports no symptoms Endocrine: Reports no symptoms Hematological/Lymphatic: Reports no symptoms Physical Exam Related Data Allergies: Coded Allergies: latex (Verified Allergy, Intermediate, Rahses, 02/08/20) pregabalin (Verified Adverse Reaction, Intermediate, Drowsiness, 02/08/20) Triage Vital Signs Vital Signs Date Time Temp Pulse Resp B/P (MAP) Pulse Ox O2 Delivery O2 Flow Rate FiO2 02/08/20 10:54 98.1 79 20 115/59 98 Room Air Vital signs reviewed: Yes Physical Exam CONSTITUTIONAL Constitutional: Present well-developed, Present well-nourished HENT HENT: Present normocephalic, Present atraumatic, Present oropharynx clear/moist, Present nose normal HENT L/R: Present left ext ear normal, Present right ext ear normal EYES Eyes: Reports PERRL, Reports conjunctivae normal NECK Neck: Present ROM normal PULMONARY Pulmonary: Present effort normal, Present breath sounds normal CARDIOVASCULAR Cardiovascular: Present regular rhythm, Present heart sounds normal, Present capillary refill normal, Present normal rate GASTROINTESTINAL Abdominal: Present soft, Present bowel sounds normal, Present tender (MILD TENDERNESS RLQ WITHOUT R/G); Absent guarding, Absent rebound, Absent left CVA tenderness, Absent right CVA tenderness GENITOURINARY Genitourinary: Present exam deferred SKIN Skin: Present warm, Present dry MUSCULOSKELETAL Musculoskeletal: Present ROM normal NEUROLOGICAL Neurological: Present alert, Present oriented x 3, Present no gross motor or sensory deficits PSYCHOLOGICAL Psychological: Present mood/affect normal, Present judgement normal Results Laboratory Result Diagram: 02/08/20 1124 02/08/20 1124 Laboratory Laboratory Tests Test 02/08/20 11:24 02/08/20 11:04 White Blood Count 7.69 x10e3/uL (4.8-10.8) Red Blood Count 3.76 x10e6/uL (3.6-5.1) Hemoglobin 10.4 g/dL (12.0-16.0) Hematocrit 33.2 % (34.2-44.1) Mean Corpuscular Volume 88.3 fL (81-99) Mean Corpuscular Hemoglobin 27.7 pg (28-32) Mean Corpuscular Hemoglobin Concent 31.3 g/dL (31-35) Red Cell Distribution Width 16.0 % (11.7-14.4) Platelet Count 334 x10e3/uL (140-360) Neutrophils (%) (Auto) 75.5 % (38.7-80.0) Lymphocytes (%) (Auto) 12.5 % (18.0-39.1) Monocytes (%) (Auto) 9.9 % (4.4-11.3) Eosinophils (%) (Auto) 0.9 % (0.0-6.0) Basophils (%) (Auto) 0.7 % (0.0-1.0) Neutrophils # (Auto) 5.8 (2.1-6.9) Lymphocytes # (Auto) 1.0 (1.0-3.2) Monocytes # (Auto) 0.8 (0.2-0.8) Eosinophils # (Auto) 0.1 (0.0-0.4) Basophils # (Auto) 0.1 (0.0-0.1) Absolute Immature Granulocyte (auto 0.04 x10e3/uL (0-0.1) Prothrombin Time 13.7 seconds (11.9-14.5) Prothromb Time International Ratio 1.00 Activated Partial Thromboplast Time 26.3 seconds (23.8-35.5) Sodium Level 142 mmol/L (136-145) Potassium Level 3.8 mmol/L (3.5-5.1) Chloride Level 109 mmol/L (98-107) Carbon Dioxide Level 19 mmol/L (22-29) Anion Gap 17.8 mmol/L (8-16) Blood Urea Nitrogen 14 mg/dL (7-26) Creatinine 0.73 mg/dL (0.57-1.11) Estimat Glomerular Filtration Rate > 60 ML/MIN (60-) BUN/Creatinine Ratio 19 (6-25) Glucose Level 122 mg/dL (74-118) Calcium Level 8.1 mg/dL (8.4-10.2) Magnesium Level 1.4 MG/DL (1.3-2.1) Total Bilirubin 0.3 mg/dL (0.2-1.2) Aspartate Amino Transf (AST/SGOT) 17 IU/L (5-34) Alanine Aminotransferase (ALT/SGPT) 12 IU/L (0-55) Alkaline Phosphatase 64 IU/L (40-150) Creatine Kinase 53 IU/L (29-168) Creatine Kinase MB 1.60 ng/mL (0-5.0) Troponin I 0.002 ng/mL (0-0.300) Total Protein 5.9 g/dL (6.5-8.1) Albumin 2.7 g/dL (3.5-5.0) Globulin 3.2 g/dL (2.3-3.5) Albumin/Globulin Ratio 0.8 (0.8-2.0) Urine Color Yellow (YELLOW) Urine Clarity Clear (CLEAR) Urine pH 6 (5 - 7) Urine Specific [place] >=1.030 (1.010-1.025) Urine Protein 1+ (NEGATIVE) Urine Glucose (UA) Negative (NEGATIVE) Urine Ketones Trace (NEGATIVE) Urine Blood Trace (NEGATIVE) Urine Nitrite Negative (NEGATIVE) Urine Bilirubin Small (NEGATIVE) Urine Urobilinogen 0.2 mg/dL (0.2 - 1) Urine Leukocyte Esterase Negative (NEGATIVE) Urine RBC 0-5 /HPF (0-5) Urine WBC 0-5 /HPF (0-5) Urine Epithelial Cells Few /LPF (NONE) Urine Bacteria Many /HPF (NONE) Urine Mucus Few (RARE) Lab results reviewed: Yes Imaging Imaging results reviewed: Yes Impressions EXAM: CT Abdomen and Pelvis WITH contrast INDICATION: RLQ ABD PAIN (H/O APPENDECTOMY YRS AGO) N/V/D COMPARISON: Multiple prior CTs of the abdomen/pelvis including most recent on 06/22/2019. TECHNIQUE: Abdomen and pelvis were scanned utilizing a multidetector helical scanner from the lung base to the pubic symphysis after administration of IV contrast. Coronal and sagittal reformations were obtained. Routine protocol was performed. Scan was performed when during portal venous phase. IV CONTRAST: 100 mL of Isovue 370 ORAL CONTRAST: None COMPLICATIONS: None RADIATION DOSE: Total DLP: 567.89 mGy*cm Estimated effective dose: (DLP x 0.015 x size factor) mSv CTDIvol has been reviewed. It is below the limits set by the Radiation Protocol Committee (RPC). Dose modulation, iterative reconstruction, and/or weight based adjustment of the mA/kV was utilized to reduce the radiation dose to as low as reasonably achievable. FINDINGS: LINES and TUBES: None. LOWER THORAX: Left atrial enlargement, aortic annular and coronary artery calcification. Bibasilar atelectasis. HEPATOBILIARY: No focal hepatic lesions. No biliary ductal dilation. GALLBLADDER: There are multiple stones in the gallbladder. The gallbladder wall is thickened, likely due to underdistention. No significant pericholecystic fluid. No interval changes from prior examinations. SPLEEN: No splenomegaly. \Filling focus in the spleen which may represent a hemangioma. There are multiple subcentimeter hypodensities throughout the spleen, too small to characterize by CT but likely benign. PANCREAS: No focal masses or ductal dilatation. ADRENALS: No adrenal nodules KIDNEYS/URETERS: Kidneys enhance symmetrically. No hydronephrosis. No cystic or solid mass lesions. No stones. GI TRACT: There is a moderate-sized hiatal hernia. There is mucosal thickening and mild dilatation of multiple central and distal loops of small bowel with engorgement of the mesenteric vasculature. These findings are similar to prior examination. 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 There is no large bowel distention or wall thickening. The appendix is not visualized. PELVIC ORGANS/BLADDER: Unremarkable. LYMPH NODES: There is redemonstration of multiple mildly enlarged mesenteric lymph nodes measuring up to 1 cm (series 2 image 44). No pelvic sidewall or retroperitoneal lymphadenopathy. VESSELS: There is moderate atherosclerotic disease in the aorta and major arterial branches. PERITONEUM / RETROPERITONEUM: No free air or fluid. BONES: There are degenerative changes in the spine. SOFT TISSUES: Unremarkable. IMPRESSION: 1. Mucosal wall thickening and mild dilatation of multiple central and distal loops of small bowel with engorgement of the mesenteric vasculature. These findings are similar to prior examinations and remain concerning for inflammatory bowel disease such as Crohn's disease. 2. Cholelithiasis without evidence of acute cholecystitis. 3. Moderate-sized hiatal hernia. Signed by: Mil Delgado MD on 02/08/2020 2:45 PM Procedures 12 Lead ECG Interpretation ECG Interpretation : ECG: ECG 1 Draw In Hand: Interpreted by ED physician Date: Feb 08, 2020 Time: 10:59 Rhythm: sinus rhythm Rate: normal (78) QRS axis: normal ST segments normal: Yes T waves normal: Yes Clinical Impression: normal ECG Assessment & Plan Medical Decision Making MDM ABD PAIN, N/V/D - CHECK CBC, CHEM, UA/CX, CT ABD/PELVIS - EVAL COLITIS, GASTROENTERITIS, DIVERTICULITIS, LEUKOCYTOSIS, UTI, SBO, INFLAMMATORY BOWEL Reassessment Reassessment DC HOME ON CIPRO/FLAGYL, ZOFRAN/BENTYL, F/U PCP AND GI DR Taylor CALZADA Assessment & Plan Final Impression: (1) Nausea & vomiting (2) Abdominal pain (3) Vomiting and diarrhea Depart Disposition: HOME, SELF-CARE Last Vital Signs Date Time Temp Pulse Resp B/P (MAP) Pulse Ox O2 Delivery O2 Flow Rate FiO2 02/08/20 11:47 98.0 67 18 126/29 98 Room Air Home Meds Active Scripts Cephalexin Monohydrate (KEFLEX) 500 Mg Capsule, 500 MG PO Q12H, #10 Prov:GITA KERR MD 12/28/18 Dicyclomine Hcl (DICYCLOMINE HCL) 10 Mg Capsule, 10 MG PO TID for 10 Days, #30 Prov:BRITTNEY HORTON NP 12/24/17 Rifaximin (XIFAXAN) 200 Mg Tablet, 500 MG PO Q12HR for 10 Days, #10 Prov:BRITTNEY HORTON NP 12/24/17 [Mesalamine] 400 MG CAP No Conflict Check, 400 MG PO DAILY for 10 Days, #10 Prov:BRITTNEY HORTON NP 12/24/17 Prednisone (PREDNISONE) 20 Mg Tab, 20 MG PO DAILY for 7 Days, TAB Prov:GITA KERR MD 11/09/17 Potassium Chloride (POTASSIUM CHLORIDE) 20 Meq Tab.er.prt, 20 MEQ PO DAILY for 10 Days Prov:GITA KERR MD 06/30/17 Ondansetron (ZOFRAN ODT) 4 Mg Tab.rapdis, 4 MG PO Q6H for 10 Days, TAB Prov:GITA KERR MD 06/30/17 Nifedipine (NIFEDIPINE ER) 30 Mg Tab.er.24, 30 MG PO Q12HR for 30 Days Prov:GITA KERR MD 06/30/17 Hydralazine Hcl (HYDRALAZINE HCL) 25 Mg Tab, 25 MG PO Q8H for 30 Days, TAB Prov:GITA KERR MD 06/30/17 [Apixaban] 2.5 MG TABLET No Conflict Check, 5 MG PO Q12HR for 30 Days, 2 Refills Prov:RICHY DASILVA MD 11/20/15 Reported Medications Metronidazole (METRONIDAZOLE) 500 Mg Tablet, 500 MG PO Q8HR for 5 Days, TAB 12/28/18 Sertraline Hcl (SERTRALINE HCL) 50 Mg Tablet, 25 MG PO DAILY, #30 TAB 12/27/18 Zolpidem Tartrate (AMBIEN) 10 Mg Tablet, 10 MG PO HS PRN for INSOMNIA, #30 TAB 12/27/18 Azathioprine (AZATHIOPRINE) 50 Mg Tab, 150 MG PO DAILY, #30 TAB 12/27/18 Famotidine (FAMOTIDINE) 20 Mg Tab, 20 MG PO BID, #30 TAB 06/21/17 Tolterodine Tartrate (DETROL LA) 4 Mg Cap.er.24h, 4 MG PO DAILY, #30 CAP 02/16/15 Lovastatin (LOVASTATIN) 20 Mg Tablet, 20 MG PO DAILY 12/10/13 Lisinopril (LISINOPRIL) 10 Mg Tablet, 10 MG PO DAILY, #30 TAB 12/09/13 Ferrous Sulfate (FERROUS SULFATE) 325 Mg Tablet.dr, 325 MG PO DAILY, TAB 12/09/13 Calcium Citrate/Vitamin D3 (CITRACAL + D MAXIMUM CAPLET) 1 Each Tablet, 1 TAB PO DAILY 12/08/13 Medications in the ED Pantoprazole Sodium 40 mg ONCE ONCE IV Last administered on 02/08/20at 11:44; Admin Dose 40 MG; Start 02/08/20 at 12:00; Stop 02/08/20 at 12:01; Status DC Ondansetron HCl 4 mg ONCE ONCE IV Last administered on 02/08/20at 11:44; Admin Dose 4 MG; Start 02/08/20 at 11:30; Stop 02/08/20 at 11:31; Status DC Sodium Chloride 1,000 ml @ 0 mls/hr Q0M STAT IV Last administered on 02/08/20at 11:44; Admin Dose 999 MLS/HR; Start 02/08/20 at 11:10; Stop 02/08/20 at 11:13; Status DC DRE TAVERA MD Feb 08, 2020 12:50
[2020-02-08] MEDS ORDERED: SODIUM CHLORIDE 0.9% 50ML 50 ML ONE (14:10)
[2020-02-08] MEDS ORDERED: IOPAMIDOL 370 MG/ML 200 ML INFUS..BTL INJ ONE (14:10)
--- NOTE | 2020-02-08 14:49 | Diagnostic Imaging Report ---
EXAM: CT Abdomen and Pelvis WITH contrast INDICATION: RLQ ABD PAIN (H/O APPENDECTOMY YRS AGO) N/V/D COMPARISON: Multiple prior CTs of the abdomen/pelvis including most recent on 06/22/2019. TECHNIQUE: Abdomen and pelvis were scanned utilizing a multidetector helical scanner from the lung base to the pubic symphysis after administration of IV contrast. Coronal and sagittal reformations were obtained. Routine protocol was performed. Scan was performed when during portal venous phase. IV CONTRAST: 100 mL of Isovue 370 ORAL CONTRAST: None COMPLICATIONS: None RADIATION DOSE: Total DLP: 567.89 mGy*cm Estimated effective dose: (DLP x 0.015 x size factor) mSv CTDIvol has been reviewed. It is below the limits set by the Radiation Protocol Committee (RPC). Dose modulation, iterative reconstruction, and/or weight based adjustment of the mA/kV was utilized to reduce the radiation dose to as low as reasonably achievable. FINDINGS: LINES and TUBES: None. LOWER THORAX: Left atrial enlargement, aortic annular and coronary artery calcification. Bibasilar atelectasis. HEPATOBILIARY: No focal hepatic lesions. No biliary ductal dilation. GALLBLADDER: There are multiple stones in the gallbladder. The gallbladder wall is thickened, likely due to underdistention. No significant pericholecystic fluid. No interval changes from prior examinations. SPLEEN: No splenomegaly. \Filling focus in the spleen which may represent a hemangioma. There are multiple subcentimeter hypodensities throughout the spleen, too small to characterize by CT but likely benign. PANCREAS: No focal masses or ductal dilatation. ADRENALS: No adrenal nodules KIDNEYS/URETERS: Kidneys enhance symmetrically. No hydronephrosis. No cystic or solid mass lesions. No stones. GI TRACT: There is a moderate-sized hiatal hernia. There is mucosal thickening and mild dilatation of multiple central and distal loops of small bowel with engorgement of the mesenteric vasculature. These findings are similar to prior examination. 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 There is no large bowel distention or wall thickening. The appendix is not visualized. PELVIC ORGANS/BLADDER: Unremarkable. LYMPH NODES: There is redemonstration of multiple mildly enlarged mesenteric lymph nodes measuring up to 1 cm (series 2 image 44). No pelvic sidewall or retroperitoneal lymphadenopathy. VESSELS: There is moderate atherosclerotic disease in the aorta and major arterial branches. PERITONEUM / RETROPERITONEUM: No free air or fluid. BONES: There are degenerative changes in the spine. SOFT TISSUES: Unremarkable. IMPRESSION: 1. Mucosal wall thickening and mild dilatation of multiple central and distal loops of small bowel with engorgement of the mesenteric vasculature. These findings are similar to prior examinations and remain concerning for inflammatory bowel disease such as Crohn's disease. 2. Cholelithiasis without evidence of acute cholecystitis. 3. Moderate-sized hiatal hernia. Signed by: Mil Delgado MD on 02/08/2020 2:45 PM
[2020-02-08 16:00] VITALS: BP 128/60
== END 2020-02-08 16:04 | disposition home or self-care (01) ==
LOC: ER 11:00
DX: R10.31 Right lower quadrant pain (principal); R11.2 Nausea with vomiting, unspecified; R19.7 Diarrhea, unspecified; I10 Essential (primary) hypertension; E78.5 Hyperlipidemia, unspecified; K21.9 Gastro-esophageal reflux disease without esophagitis; D64.9 Anemia, unspecified
CPT/HCPCS: 36415; 74177; 80053; 81001; 82550; 82553; 83735; 84484; 85025; 85610; 85730; 87086; 87186; 93005; 99284; C9113; J2405; J7030; Q9967

== ENCOUNTER 2020-10-12 12:51 | Inpatient (IN) | payer MEDICARE ==
[~2020-10-12] VITALS: Ht 157.5 cm; Wt 45.4 kg
[2020-10-12] MEDS ORDERED: SODIUM CHLORIDE 0.9% 1000ML 1,000 ML IV STA (13:42)
[2020-10-12] MEDS ORDERED: ONDANSETRON HCL INJ 2MG/ML 2ML 2 MG/ML VIAL IV PRN (13:45)
[2020-10-12 14:30] LABS: BASOPHILS # (AUTO) 0.1 (0.0-0.1); BASOPHILS % 0.9 % (0.0-1.0); EOSINOPHILS % 0.1 % (0.0-6.0); HEMOGLOBIN 11.2 g/dL (12.0-16.0); LYMPHOCYTES % 12.5 % (18.0-39.1); MEAN CORPUSCULAR HEMOGLOBIN 28.8 pg (28-32); MONOCYTES # (AUTO) 0.9 (0.2-0.8); MONOCYTES % 11.1 % (4.4-11.3); NEUTROPHILS # (AUTO) 6.1 (2.1-6.9); PLATELET COUNT 349 x10e3/uL (140-360); RED BLOOD COUNT 3.89 x10e6/uL (3.6-5.1); RED CELL DISTRIBUTION WIDTH 17.6 % (11.7-14.4)
[2020-10-12 14:57] LABS: ALBUMIN 2.4 g/dL (3.5-5.0); ALBUMIN/GLOBULIN RATIO 0.6 (0.8-2.0); ANION GAP 17.1 mmol/L (8-16); CALCIUM 7.5 mg/dL (8.4-10.2); CREATININE, SERUM 1.35 mg/dL (0.57-1.11); POTASSIUM 3.1 mmol/L (3.5-5.1)
[2020-10-12] MEDS ORDERED: IOPAMIDOL 370 MG/ML 200 ML INFUS..BTL INJ ONE (15:58)
[2020-10-12] MEDS ORDERED: SODIUM CHLORIDE 0.9% 50ML 50 ML ONE (15:58)
[2020-10-12] MEDS ORDERED: LACTATED RINGER'S 1,000 ML INJ ONE ×2 (17:15)
[2020-10-12 18:43] LABS: CLARITY,URINE CLEAR (CLEAR); COLOR,URINE YELLOW (YELLOW); KETONES,URINE NEGATIVE (NEGATIVE); LEUKOCYTE ESTERASE ,URINE TRACE (NEGATIVE); NITRITE,URINE POSITIVE (NEGATIVE); PROTEIN,URINE DIPSTICK NEGATIVE (NEGATIVE); URINE UROBILINOGEN 0.2 mg/dL (0.2 - 1)
[2020-10-12 18:53] LABS: BACTERIA,URINE MODERATE /HPF; EPITHELIAL CELLS,URINE FEW /LPF; RBC,URINE 0-5 /HPF (0-5)
[2020-10-12] MEDS ORDERED: CEFTRIAXONE SOD 1 GM/50 ML BAG IV SCH (20:00)
[2020-10-12 21:28] VITALS: BP 103/89
[2020-10-12] MEDS ORDERED: METRONIDAZOLE 500MG/NS 100ML 100 ML IV ONE (21:39)
[2020-10-12] MEDS ORDERED: CEFTRIAXONE SOD 1 GM VIAL ONE (21:39)
[2020-10-12] MEDS: SODIUM CHLORIDE 0.45% 1,000 ML IV SCH (21:42)
[2020-10-12] MEDS: DICYCLOMINE HCL 10 MG CAP PO SCH (21:47)
[2020-10-12] MEDS: POTASSIUM CHLORIDE 20 MEQ TAB CR PO SCH (21:48)
[2020-10-12] MEDS: NIFEDIPINE CR 30 MG TAB PO SCH (21:48)
[2020-10-12 22:00] VITALS: BP 103/86
[2020-10-12 22:20] VITALS: BP 103/86
[2020-10-12] MEDS: HYDRALAZINE HCL 25 MG TAB PO SCH (22:30)
[2020-10-12] MEDS: METRONIDAZOLE 250MG/NS 50ML 50 ML IV SCH (22:30)
[2020-10-12] MEDS: ZOLPIDEM TARTRATE 10 MG TAB PO PRN (22:36)
[2020-10-12] MEDS: ONDANSETRON HCL 4 MG ORAL DISINTEGRATING TAB PO SCH (23:52)
[2020-10-13] VITALS (7 sets, daily range): BP systolic 92–120; BP diastolic 43–66
[2020-10-13 05:24] LABS: BASOPHILS % 0.5 % (0.0-1.0); EOSINOPHILS % 0.7 % (0.0-6.0); HEMATOCRIT 28.4 % (34.2-44.1); HEMOGLOBIN 9.1 g/dL (12.0-16.0); LYMPHOCYTES # (AUTO) 0.8 (1.0-3.2); LYMPHOCYTES % 14.9 % (18.0-39.1); MEAN CORPUSCULAR HEMOGLOBIN 28.8 pg (28-32); MEAN CORPUSCULAR VOLUME 89.9 fL (81-99); MONOCYTES # (AUTO) 0.8 (0.2-0.8); MONOCYTES % 13.6 % (4.4-11.3); NEUTROPHILS % 70.1 % (38.7-80.0); PLATELET COUNT 256 x10e3/uL (140-360); RED BLOOD COUNT 3.16 x10e6/uL (3.6-5.1); RED CELL DISTRIBUTION WIDTH 17.6 % (11.7-14.4)
[2020-10-13 05:40] LABS: ANION GAP 10.9 mmol/L (8-16); BLOOD UREA NITROGEN 18 mg/dL (7-26); BUN/CREATININE RATIO 28 (6-25); CARBON DIOXIDE 22 mmol/L (22-29); CHLORIDE 111 mmol/L (98-107); CREATININE, SERUM 0.65 mg/dL (0.57-1.11); EST GLOMERULAR FILTRATION RATE > 60 ML/MIN (60-); GLUCOSE 90 mg/dL (74-118); SODIUM 141 mmol/L (136-145)
[2020-10-13 05:42] LABS: CALCIUM 6.9 mg/dL (8.4-10.2); POTASSIUM 2.9 mmol/L (3.5-5.1)
[2020-10-13] MEDS ORDERED: POTASSIUM CHLORIDE 20MEQ/100ML 100 ML IV ONE (06:00)
[2020-10-13] MEDS ORDERED: LOPERAMIDE HCL 2 MG CAP PO PRN (06:00)
[2020-10-13] MEDS: HYDRALAZINE HCL 25 MG TAB PO SCH ×3 (06:00→21:53)
[2020-10-13] MEDS: METHYLPREDNISOLONE SOD SUCC 40 MG/ML VIAL 1ML IV SCH ×3 (06:16→21:52)
[2020-10-13] MEDS: ONDANSETRON HCL 4 MG ORAL DISINTEGRATING TAB PO SCH ×3 (06:17→17:44)
[2020-10-13] MEDS: METRONIDAZOLE 250MG/NS 50ML 50 ML IV SCH ×3 (06:21→22:44)
[2020-10-13] MEDS ORDERED: POTASSIUM CHLORIDE 10MEQ EA PO ONE (06:30)
[2020-10-13 07:21] LABS: MAGNESIUM 1.3 MG/DL (1.3-2.1); PHOSPHORUS 3.6 MG/DL (2.3-4.7)
[2020-10-13] MEDS: NIFEDIPINE CR 30 MG TAB PO SCH ×2 (08:30→21:00)
[2020-10-13] MEDS: SERTRALINE HCL 50 MG TAB PO SCH (08:30)
[2020-10-13] MEDS: APIXABAN 5 MG TABLET PO SCH ×2 (08:30→21:52)
[2020-10-13] MEDS: POTASSIUM CHLORIDE 20 MEQ TAB CR PO SCH (08:30)
[2020-10-13] MEDS: TOLTERODINE TARTRATE 4 MG CAPCR PO SCH (08:30)
[2020-10-13] MEDS: FERROUS SULFATE 325 MG TAB PO SCH (08:30)
[2020-10-13] MEDS: DICYCLOMINE HCL 10 MG CAP PO SCH ×3 (08:30→21:52)
[2020-10-13] MEDS: PANTOPRAZOLE 40 MG 10ML VIAL IV SCH (08:30)
[2020-10-13] MEDS ORDERED: POTASSIUM CHLORIDE 10MEQ/100ML 100 ML IV ONE (10:00)
[2020-10-13 11:55] LABS: MAGNESIUM 1.3 MG/DL (1.3-2.1); POTASSIUM 4.7 mmol/L (3.5-5.1)
[2020-10-13] MEDS: SODIUM CHLORIDE 0.45% 1,000 ML IV SCH (16:16)
[2020-10-13] MEDS: CEFTRIAXONE SOD 1 GM in SODIUM CHLORIDE 0.9% 50ML 50 ML IV SCH (21:53)
[2020-10-13] MEDS: ZOLPIDEM TARTRATE 10 MG TAB PO PRN (21:53)
[2020-10-14] VITALS (9 sets, daily range): BP systolic 135–150; BP diastolic 68–82
[2020-10-14] MEDS: SODIUM CHLORIDE 0.45% 1,000 ML IV SCH ×2 (04:50→21:30)
[2020-10-14] MEDS: METRONIDAZOLE 250MG/NS 50ML 50 ML IV SCH ×3 (05:27→21:42)
[2020-10-14] MEDS: ONDANSETRON HCL 4 MG ORAL DISINTEGRATING TAB PO SCH ×5 (05:27→23:34)
[2020-10-14] MEDS: HYDRALAZINE HCL 25 MG TAB PO SCH ×3 (05:27→21:42)
[2020-10-14] MEDS: PANTOPRAZOLE 40 MG 10ML VIAL IV SCH (08:20)
[2020-10-14] MEDS: APIXABAN 5 MG TABLET PO SCH ×2 (08:21→20:58)
[2020-10-14] MEDS: DICYCLOMINE HCL 10 MG CAP PO SCH ×3 (08:22→20:58)
[2020-10-14] MEDS: FERROUS SULFATE 325 MG TAB PO SCH (08:22)
[2020-10-14] MEDS: TOLTERODINE TARTRATE 4 MG CAPCR PO SCH (08:23)
[2020-10-14] MEDS: POTASSIUM CHLORIDE 20 MEQ TAB CR PO SCH (08:23)
[2020-10-14] MEDS: NIFEDIPINE CR 30 MG TAB PO SCH ×2 (08:24→20:58)
[2020-10-14] MEDS: SERTRALINE HCL 50 MG TAB PO SCH (08:24)
[2020-10-14] MEDS: METHYLPREDNISOLONE SOD SUCC 40 MG/ML VIAL 1ML IV SCH ×2 (08:28→20:58)
[2020-10-14 08:44] LABS: BASOPHILS % 0.1 % (0.0-1.0); HEMATOCRIT 33.1 % (34.2-44.1); HEMOGLOBIN 10.7 g/dL (12.0-16.0); LYMPHOCYTES # (AUTO) 0.9 (1.0-3.2); LYMPHOCYTES % 11.1 % (18.0-39.1); MEAN CORPUSCULAR HEMOGLOBIN 29.2 pg (28-32); MEAN CORPUSCULAR HGB CONC 32.3 g/dL (31-35); MEAN CORPUSCULAR VOLUME 90.2 fL (81-99); MONOCYTES # (AUTO) 0.5 (0.2-0.8); NEUTROPHILS # (AUTO) 6.7 (2.1-6.9); NEUTROPHILS % 82.2 % (38.7-80.0); PLATELET COUNT 335 x10e3/uL (140-360); RED BLOOD COUNT 3.67 x10e6/uL (3.6-5.1); RED CELL DISTRIBUTION WIDTH 17.8 % (11.7-14.4)
[2020-10-14 09:09] LABS: MAGNESIUM 1.4 MG/DL (1.3-2.1)
[2020-10-14 09:13] LABS: ANION GAP 14.1 mmol/L (8-16); BLOOD UREA NITROGEN 10 mg/dL (7-26); BUN/CREATININE RATIO 15 (6-25); CALCIUM 7.5 mg/dL (8.4-10.2); CARBON DIOXIDE 21 mmol/L (22-29); CHLORIDE 108 mmol/L (98-107); CREATININE, SERUM 0.66 mg/dL (0.57-1.11); EST GLOMERULAR FILTRATION RATE > 60 ML/MIN (60-); GLUCOSE 214 mg/dL (74-118); POTASSIUM 4.1 mmol/L (3.5-5.1); SODIUM 139 mmol/L (136-145)
[2020-10-14] MEDS ORDERED: METOPROLOL TARTRATE INJ 1 MG/ML VIAL IV PRN (13:00)
[2020-10-14] MEDS: CEFTRIAXONE SOD 1 GM in SODIUM CHLORIDE 0.9% 50ML 50 ML IV SCH (20:58)
[2020-10-14] MEDS: ZOLPIDEM TARTRATE 10 MG TAB PO PRN (23:34)
[2020-10-15] VITALS (11 sets, daily range): BP systolic 115–139; BP diastolic 63–98
[2020-10-15] MEDS: ONDANSETRON HCL 4 MG ORAL DISINTEGRATING TAB PO SCH ×4 (05:45→23:34)
[2020-10-15] MEDS: HYDRALAZINE HCL 25 MG TAB PO SCH ×3 (05:45→21:01)
[2020-10-15] MEDS: METRONIDAZOLE 250MG/NS 50ML 50 ML IV SCH ×3 (05:45→21:01)
[2020-10-15 06:31] LABS: BASOPHILS % 0.2 % (0.0-1.0); HEMATOCRIT 33.5 % (34.2-44.1); HEMOGLOBIN 10.8 g/dL (12.0-16.0); LYMPHOCYTES # (AUTO) 1.1 (1.0-3.2); LYMPHOCYTES % 8.8 % (18.0-39.1); MEAN CORPUSCULAR HGB CONC 32.2 g/dL (31-35); MEAN CORPUSCULAR VOLUME 89.8 fL (81-99); MONOCYTES # (AUTO) 0.5 (0.2-0.8); NEUTROPHILS # (AUTO) 10.2 (2.1-6.9); NEUTROPHILS % 86.1 % (38.7-80.0); PLATELET COUNT 358 x10e3/uL (140-360); RED BLOOD COUNT 3.73 x10e6/uL (3.6-5.1); RED CELL DISTRIBUTION WIDTH 17.7 % (11.7-14.4)
[2020-10-15 06:54] LABS: ANION GAP 12.4 mmol/L (8-16); BLOOD UREA NITROGEN 11 mg/dL (7-26); BUN/CREATININE RATIO 19 (6-25); CALCIUM 7.8 mg/dL (8.4-10.2); CARBON DIOXIDE 26 mmol/L (22-29); CHLORIDE 105 mmol/L (98-107); CREATININE, SERUM 0.59 mg/dL (0.57-1.11); EST GLOMERULAR FILTRATION RATE > 60 ML/MIN (60-); GLUCOSE 159 mg/dL (74-118); POTASSIUM 4.4 mmol/L (3.5-5.1); SODIUM 139 mmol/L (136-145)
[2020-10-15 07:10] LABS: MAGNESIUM 1.5 MG/DL (1.3-2.1); PHOSPHORUS 3.1 MG/DL (2.3-4.7)
[2020-10-15] MEDS: METHYLPREDNISOLONE SOD SUCC 40 MG/ML VIAL 1ML IV SCH ×2 (08:34→21:01)
[2020-10-15] MEDS: PANTOPRAZOLE 40 MG 10ML VIAL IV SCH (08:34)
[2020-10-15] MEDS: DICYCLOMINE HCL 10 MG CAP PO SCH ×3 (08:35→21:00)
[2020-10-15] MEDS: SERTRALINE HCL 50 MG TAB PO SCH (08:35)
[2020-10-15] MEDS: TOLTERODINE TARTRATE 4 MG CAPCR PO SCH (08:35)
[2020-10-15] MEDS: POTASSIUM CHLORIDE 20 MEQ TAB CR PO SCH (08:35)
[2020-10-15] MEDS: FERROUS SULFATE 325 MG TAB PO SCH (08:35)
[2020-10-15] MEDS: APIXABAN 5 MG TABLET PO SCH ×2 (08:36→21:00)
[2020-10-15] MEDS: NIFEDIPINE CR 30 MG TAB PO SCH ×2 (08:36→21:13)
[2020-10-15] MEDS: SODIUM CHLORIDE 0.45% 1,000 ML IV SCH (13:47)
[2020-10-15] MEDS: MESALAMINE 500 MG CAPCR PO SCH ×2 (18:05→21:00)
[2020-10-15] MEDS: ZOLPIDEM TARTRATE 10 MG TAB PO PRN (20:59)
[2020-10-15] MEDS: CEFTRIAXONE SOD 1 GM in SODIUM CHLORIDE 0.9% 50ML 50 ML IV SCH (21:58)
[2020-10-16] VITALS (7 sets, daily range): BP systolic 107–172; BP diastolic 56–93
[2020-10-16] MEDS: METRONIDAZOLE 250MG/NS 50ML 50 ML IV SCH ×3 (05:28→21:58)
[2020-10-16] MEDS: HYDRALAZINE HCL 25 MG TAB PO SCH ×2 (05:29→14:45)
[2020-10-16] MEDS: SODIUM CHLORIDE 0.45% 1,000 ML IV SCH ×2 (05:32→18:30)
[2020-10-16] MEDS: ONDANSETRON HCL 4 MG ORAL DISINTEGRATING TAB PO SCH ×5 (05:32→23:28)
[2020-10-16] MEDS: FERROUS SULFATE 325 MG TAB PO SCH (10:17)
[2020-10-16] MEDS: METHYLPREDNISOLONE SOD SUCC 40 MG/ML VIAL 1ML IV SCH (10:17)
[2020-10-16] MEDS: TOLTERODINE TARTRATE 4 MG CAPCR PO SCH (10:17)
[2020-10-16] MEDS: PANTOPRAZOLE 40 MG 10ML VIAL IV SCH (10:17)
[2020-10-16] MEDS: DICYCLOMINE HCL 10 MG CAP PO SCH ×3 (10:17→21:04)
[2020-10-16] MEDS: APIXABAN 5 MG TABLET PO SCH ×2 (10:17→21:04)
[2020-10-16] MEDS: MESALAMINE 500 MG CAPCR PO SCH ×4 (10:18→21:04)
[2020-10-16] MEDS: POTASSIUM CHLORIDE 20 MEQ TAB CR PO SCH (10:18)
[2020-10-16] MEDS: SERTRALINE HCL 50 MG TAB PO SCH (10:18)
[2020-10-16] MEDS: NIFEDIPINE CR 30 MG TAB PO SCH (10:18)
[2020-10-16] MEDS: ZOLPIDEM TARTRATE 10 MG TAB PO PRN (21:03)
[2020-10-16] MEDS: CEFTRIAXONE SOD 1 GM in SODIUM CHLORIDE 0.9% 50ML 50 ML IV SCH (21:10)
[2020-10-17] VITALS: BP 136/80
[2020-10-17 04:00] VITALS: BP 141/72
[2020-10-17] MEDS: METRONIDAZOLE 250MG/NS 50ML 50 ML IV SCH (05:13)
[2020-10-17] MEDS: ONDANSETRON HCL 4 MG ORAL DISINTEGRATING TAB PO SCH ×2 (05:14→12:34)
[2020-10-17] MEDS ORDERED: NIFEDIPINE CR 30 MG TAB PO SCH (09:00)
[2020-10-17] MEDS ORDERED: PREDNISONE 20 MG TAB PO SCH (09:00)
[2020-10-17] MEDS ORDERED: METOPROLOL SUCCINATE 25 MG TAB XL PO SCH (09:00)
[2020-10-17] MEDS: FERROUS SULFATE 325 MG TAB PO SCH (09:34)
[2020-10-17] MEDS: POTASSIUM CHLORIDE 20 MEQ TAB CR PO SCH (09:34)
[2020-10-17] MEDS: TOLTERODINE TARTRATE 4 MG CAPCR PO SCH (09:34)
[2020-10-17] MEDS: PANTOPRAZOLE 40 MG 10ML VIAL IV SCH (09:34)
[2020-10-17] MEDS: MESALAMINE 500 MG CAPCR PO SCH ×2 (09:34→12:34)
[2020-10-17] MEDS: DICYCLOMINE HCL 10 MG CAP PO SCH (09:34)
[2020-10-17] MEDS: APIXABAN 5 MG TABLET PO SCH (09:34)
[2020-10-17] MEDS: SERTRALINE HCL 50 MG TAB PO SCH (09:35)
[2020-10-17 09:45] VITALS: BP 150/81
[2020-10-17 10:24] VITALS: BP 150/81
[2020-10-17 13:30] VITALS: BP 144/83
[2020-10-17] MEDS ORDERED: IMODIUM2 MG PO (13:57)
[2020-10-17] MEDS ORDERED: PREDNISONE20 MG PO (13:57)
[2020-10-17] MEDS ORDERED: PANTOPRAZOLE SO40 MG PO (13:57)
[2020-10-17] MEDS ORDERED: FLAGYL500 MG PO (13:57)
== END 2020-10-17 14:24 | disposition home or self-care (01) | DRG 386 ==
LOC: ER 13:49 → ERHOLD 17:12 → MED/SURG2 21:19
PROVIDERS: ADMIT Internal Medicine; ATTEND Internal Medicine
DX: K50.918 Crohn's disease, unspecified, with other complication (principal); N39.0 Urinary tract infection, site not specified; N17.9 Acute kidney failure, unspecified; I47.1 Supraventricular tachycardia; K50.119 Crohn's disease of large intestine with unspecified complications; Z20.822 Contact with and (suspected) exposure to COVID-19; K50.90 Crohn's disease, unspecified, without complications; E78.5 Hyperlipidemia, unspecified; I25.10 Atherosclerotic heart disease of native coronary artery without angina pectoris; D64.9 Anemia, unspecified; E87.6 Hypokalemia; I10 Essential (primary) hypertension; I48.0 Paroxysmal atrial fibrillation; B96.89 Other specified bacterial agents as the cause of diseases classified elsewhere; K52.9 Noninfective gastroenteritis and colitis, unspecified
CPT/HCPCS: 36415; 74177; 80048; 80053; 81001; 83690; 83735; 84100; 84132; 85025; 87086; 87186; 93005; 93306; 96360; 96361; 97139; 99251; 99284; J0696; J2405; J2920; J3480; J7030; J7121; J7512; Q0162; Q9967; U0002

== ENCOUNTER 2021-04-28 20:09 | Inpatient (IN) | payer MEDICARE ==
[~2021-04-28] VITALS: Ht 157.5 cm; Wt 49.9 kg
[~2021-04-28 20:09] MED LIST changes: +IMODIUM2 MG PO
[2021-04-28] MEDS ORDERED: ADENOSINE 6 MG/2 ML VIAL IV ONE (20:45)
[2021-04-28 20:46] LABS: BASOPHILS # (AUTO) 0.1 (0.0-0.1); BASOPHILS % 0.5 % (0.0-1.0); EOSINOPHILS # (AUTO) 0.1 (0.0-0.4); EOSINOPHILS % 0.3 % (0.0-6.0); HEMATOCRIT 33.6 % (34.2-44.1); HEMOGLOBIN 10.3 g/dL (12.0-16.0); LYMPHOCYTES # (AUTO) 1.2 (1.0-3.2); MEAN CORPUSCULAR HEMOGLOBIN 27.5 pg (28-32); MEAN CORPUSCULAR HGB CONC 30.7 g/dL (31-35); MEAN CORPUSCULAR VOLUME 89.6 fL (81-99); MONOCYTES # (AUTO) 0.7 (0.2-0.8); MONOCYTES % 4.1 % (4.4-11.3); NEUTROPHILS # (AUTO) 15.1 (2.1-6.9); NEUTROPHILS % 87.5 % (38.7-80.0); PLATELET COUNT 350 x10e3/uL (140-360); RED BLOOD COUNT 3.75 x10e6/uL (3.6-5.1); RED CELL DISTRIBUTION WIDTH 18.4 % (11.7-14.4)
[2021-04-28] MEDS ORDERED: SODIUM CHLORIDE 0.9% 1000ML 1,000 ML IV STA (20:53)
[2021-04-28] MEDS ORDERED: PIPERACILLIN/TAZOBACTAM 3.375 GM in SODIUM CHLORIDE 0.9% 50ML 50 ML IV ONE (21:00)
[2021-04-28 21:06] LABS: ALBUMIN 3.1 g/dL (3.5-5.0); ALBUMIN/GLOBULIN RATIO 0.9 (0.8-2.0); ANION GAP 15.5 mmol/L (8-16); CALCIUM 8.5 mg/dL (8.4-10.2); CREATININE, SERUM 0.75 mg/dL (0.57-1.11); POTASSIUM 3.5 mmol/L (3.5-5.1)
[2021-04-28 21:12] LABS: CREATINE KINASE MB 1.7 ng/mL (0-5.0)
[2021-04-28] MEDS ORDERED: IOPAMIDOL 370 MG/ML 200 ML INFUS..BTL INJ ONE (21:40)
[2021-04-28] MEDS ORDERED: SODIUM CHLORIDE 0.9% 50ML 50 ML ONE (21:40)
[2021-04-28] MEDS ORDERED: DIGOXIN INJ 0.25 MG/ML 2 ML AMP IV STA (22:03)
[2021-04-28] MEDS ORDERED: DILTIAZEM HCL 5 MG/ML 5 ML VIAL IV STA (22:11)
[2021-04-28] MEDS ORDERED: METOPROLOL TARTRATE INJ 1 MG/ML VIAL IV ONE (22:15)
[2021-04-28] MEDS ORDERED: ONDANSETRON HCL INJ 2MG/ML 2ML 2 MG/ML VIAL IV STA (22:54)
[2021-04-28] MEDS ORDERED: Morphine 4mg Syringe 4 MG/ML INJ IV STA (22:54)
[2021-04-28] MEDS ORDERED: ONDANSETRON HCL INJ 2MG/ML 2ML 2 MG/ML VIAL IV PRN (23:00)
[2021-04-28] MEDS ORDERED: Morphine 4mg Syringe 4 MG/ML INJ IV PRN (23:00)
[2021-04-29 02:18] VITALS: BP 133/72
[2021-04-29 02:30] VITALS: BP 133/72
[2021-04-29 03:01] LABS: CLARITY,URINE SL CLOUDY (CLEAR); COLOR,URINE YELLOW (YELLOW); KETONES,URINE NEGATIVE (NEGATIVE); LEUKOCYTE ESTERASE ,URINE NEGATIVE (NEGATIVE); NITRITE,URINE NEGATIVE (NEGATIVE); PROTEIN,URINE DIPSTICK NEGATIVE (NEGATIVE); URINE UROBILINOGEN 0.2 mg/dL (0.2 - 1)
[2021-04-29 03:03] LABS: BACTERIA,URINE FEW /HPF; EPITHELIAL CELLS,URINE MANY /LPF; RBC,URINE 0-5 /HPF (0-5); WBC,URINE (MAN) 0-5 /HPF (0-5)
[2021-04-29 03:04] LABS: AMORPHOUS SEDIMENT,URINE FEW (FEW)
[2021-04-29] MEDS ORDERED: LEVOTHYROXINE50 MCG PO (05:48)
[2021-04-29] MEDS ORDERED: LEVOTHYROXINE SODIUM 50 MCG TAB PO ONE (07:15)
[2021-04-29 07:39] LABS: BASOPHILS % 0.5 % (0.0-1.0); EOSINOPHILS # (AUTO) 0.1 (0.0-0.4); EOSINOPHILS % 0.8 % (0.0-6.0); HEMATOCRIT 28.5 % (34.2-44.1); HEMOGLOBIN 8.7 g/dL (12.0-16.0); LYMPHOCYTES # (AUTO) 1.1 (1.0-3.2); LYMPHOCYTES % 14.6 % (18.0-39.1); MEAN CORPUSCULAR HEMOGLOBIN 27.4 pg (28-32); MEAN CORPUSCULAR HGB CONC 30.5 g/dL (31-35); MEAN CORPUSCULAR VOLUME 89.6 fL (81-99); MONOCYTES # (AUTO) 0.5 (0.2-0.8); NEUTROPHILS # (AUTO) 5.8 (2.1-6.9); NEUTROPHILS % 77.6 % (38.7-80.0); PLATELET COUNT 279 x10e3/uL (140-360); RED BLOOD COUNT 3.18 x10e6/uL (3.6-5.1); RED CELL DISTRIBUTION WIDTH 18.3 % (11.7-14.4)
[2021-04-29] MEDS ORDERED: METOPROLOL TARTRATE INJ 1 MG/ML VIAL IV PRN (07:45)
[2021-04-29 07:57] LABS: ALBUMIN 2.4 g/dL (3.5-5.0); ALBUMIN/GLOBULIN RATIO 0.8 (0.8-2.0); ANION GAP 11.1 mmol/L (8-16); CALCIUM 7.9 mg/dL (8.4-10.2); CREATININE, SERUM 0.65 mg/dL (0.57-1.11); POTASSIUM 3.1 mmol/L (3.5-5.1)
[2021-04-29 09:19] VITALS: BP 133/72
[2021-04-29 09:19] LABS: CREATINE KINASE MB 1.3 ng/mL (0-5.0)
[2021-04-29] MEDS: PIPERACILLIN/TAZOBACTAM 3.375 GM in SODIUM CHLORIDE 0.9% 50ML 50 ML IV SCH ×2 (12:59→18:14)
[2021-04-29] MEDS ORDERED: SENNA-S TABLET PO SCH (13:45)
[2021-04-29] MEDS ORDERED: DOCUSATE SODIUM 100 MG CAP PO SCH (13:45)
[2021-04-29 15:37] LABS: CREATINE KINASE MB 1.1 ng/mL (0-5.0)
[2021-04-29] MEDS ORDERED: SENNA LAX8.6 MG PO (15:40)
[2021-04-29] MEDS ORDERED: METRONIDAZOLE250 MG PO (15:40)
[2021-04-29] MEDS ORDERED: ONDANSETRON HCL 4 MG ORAL DISINTEGRATING TAB PO PRN (16:15)
[2021-04-29] MEDS ORDERED: METOPROLOL TARTRATE 25 MG TAB PO SCH (17:00)
[2021-04-29] MEDS ORDERED: POTASSIUM CHLORIDE 20 MEQ TAB CR PO ONE (17:00)
[2021-04-30] MEDS ORDERED: LEVOTHYROXINE SODIUM 50 MCG TAB PO SCH (06:00)
[2021-04-30] MEDS ORDERED: PANTOPRAZOLE SOD 40 MG TABEC PO SCH (07:30)
== END 2021-04-29 21:23 | disposition home or self-care (01) | DRG 389 ==
LOC: ER 20:29 → ERHOLD 22:57 → MED/SURG2 04-29 02:24
PROVIDERS: ADMIT Internal Medicine; ATTEND Internal Medicine
DX: K56.600 Partial intestinal obstruction, unspecified as to cause (principal); K50.90 Crohn's disease, unspecified, without complications; I48.0 Paroxysmal atrial fibrillation; Z79.01 Long term (current) use of anticoagulants; I10 Essential (primary) hypertension; Z20.822 Contact with and (suspected) exposure to COVID-19
CPT/HCPCS: 36415; 71046; 74018; 74177; 80053; 81001; 82550; 82553; 83605; 84484; 85025; 87040; 93005; 93306; 94799; 99284; J1160; J2543; J7030; Q0162; Q9967; U0002

== ENCOUNTER 2021-07-05 12:57 | Observation (INO) | payer MEDICARE ==
[~2021-07-05] VITALS: Ht 157.5 cm; Wt 49.9 kg
[~2021-07-05 12:57] MED LIST changes: +LEVOTHYROXINE50 MCG PO; +METRONIDAZOLE250 MG PO; +SENNA LAX8.6 MG PO
[2021-07-05 13:36] LABS: BASOPHILS % 0.4 % (0.0-1.0); EOSINOPHILS % 0.6 % (0.0-6.0); HEMATOCRIT 34.2 % (34.2-44.1); HEMOGLOBIN 10.3 g/dL (12.0-16.0); LYMPHOCYTES % 18.5 % (18.0-39.1); MEAN CORPUSCULAR HEMOGLOBIN 27.3 pg (28-32); MEAN CORPUSCULAR HGB CONC 30.1 g/dL (31-35); MEAN CORPUSCULAR VOLUME 90.7 fL (81-99); MONOCYTES # (AUTO) 0.5 (0.2-0.8); NEUTROPHILS # (AUTO) 3.6 (2.1-6.9); NEUTROPHILS % 70.3 % (38.7-80.0); PLATELET COUNT 266 x10e3/uL (140-360); RED BLOOD COUNT 3.77 x10e6/uL (3.6-5.1); RED CELL DISTRIBUTION WIDTH 16.6 % (11.7-14.4)
[2021-07-05 13:59] LABS: CLARITY,URINE CLEAR (CLEAR); COLOR,URINE YELLOW (YELLOW)
[2021-07-05 14:00] LABS: KETONES,URINE NEGATIVE (NEGATIVE); LEUKOCYTE ESTERASE ,URINE TRACE (NEGATIVE); NITRITE,URINE NEGATIVE (NEGATIVE); PROTEIN,URINE DIPSTICK 1+ (NEGATIVE); URINE UROBILINOGEN 0.2 mg/dL (0.2 - 1)
[2021-07-05 14:06] LABS: BACTERIA,URINE RARE /HPF; EPITHELIAL CELLS,URINE RARE /LPF; MUCUS,URINE FEW (RARE); WBC,URINE (MAN) 0-5 /HPF (0-5)
[2021-07-05 14:32] LABS: ALBUMIN 2.7 g/dL (3.5-5.0); ALBUMIN/GLOBULIN RATIO 0.8 (0.8-2.0); ANION GAP 16.1 mmol/L (8-16); CALCIUM 7.5 mg/dL (8.4-10.2); CREATININE, SERUM 1.05 mg/dL (0.57-1.11); POTASSIUM 3.1 mmol/L (3.5-5.1)
[2021-07-05] MEDS ORDERED: SODIUM CHLORIDE 0.9% 1000ML 500 ML IV ONE (15:30)
[2021-07-05] MEDS ORDERED: POTASSIUM CHLORIDE 10MEQ EA PO ONE (15:30)
[2021-07-05] MEDS ORDERED: MAGNESIUM SULFATE 2GM/50ML 50 ML IV ONE (15:30)
[2021-07-05 15:33] LABS: INR 1.12; PROTHROMBIN TIME 15.2 seconds (11.9-14.5)
[2021-07-05 15:34] LABS: PARTIAL THROMBOPLASTIN TIME 34.9 seconds (23.8-35.5)
[2021-07-05] MEDS ORDERED: ONDANSETRON HCL INJ 2MG/ML 2ML 2 MG/ML VIAL IV PRN (16:00)
[2021-07-05] MEDS ORDERED: PROMETHAZINE 12.5MG/ NACL 0.9% 12.5 MG/50 ML BAG IV PRN (16:45)
[2021-07-05] MEDS: NIFEDIPINE CR 30 MG TAB PO SCH (17:51)
[2021-07-05] MEDS: FERROUS SULFATE 325 MG TAB PO SCH (17:51)
[2021-07-05] MEDS: SODIUM CHLORIDE 0.9% 1000ML 1,000 ML IV SCH ×2 (18:24→23:14)
[2021-07-05] MEDS: PIPERACILLIN/TAZOBACTAM 2.25 GM in SODIUM CHLORIDE 0.9% 50ML 50 ML IV SCH (18:24)
[2021-07-05 20:00] VITALS: BP 151/88
[2021-07-05] MEDS: SIMVASTATIN 20 MG TAB PO SCH (20:52)
[2021-07-05] MEDS: DICYCLOMINE HCL 10 MG CAP PO SCH (20:52)
[2021-07-05 21:00] VITALS: BP 151/88
[2021-07-05] MEDS ORDERED: NON-FORMULARY MEDICATION ([Apixaban] 5 MG) PO SCH (21:00)
[2021-07-05] MEDS ORDERED: APIXABAN 5 MG TABLET PO SCH (21:00)
[2021-07-05] MEDS ORDERED: METRONIDAZOLE 500MG/NS 100ML 100 ML IV SCH (22:00)
[2021-07-05] MEDS: ZOLPIDEM TARTRATE 10 MG TAB PO PRN (22:40)
[2021-07-05 22:41] VITALS: BP 151/88
[2021-07-05] MEDS: HYDRALAZINE HCL 25 MG TAB PO SCH (23:14)
[2021-07-06] VITALS (8 sets, daily range): BP systolic 95–178; BP diastolic 55–84
[2021-07-06] MEDS: PIPERACILLIN/TAZOBACTAM 2.25 GM in SODIUM CHLORIDE 0.9% 50ML 50 ML IV SCH ×4 (00:30→17:48)
[2021-07-06] MEDS ORDERED: NEXIUM40 MG PO (04:15)
[2021-07-06] MEDS ORDERED: FLOMAX0.4 MG PO (04:15)
[2021-07-06] MEDS ORDERED: FOSAMAX70 MG (04:15)
[2021-07-06 05:34] LABS: BASOPHILS % 0.6 % (0.0-1.0); EOSINOPHILS % 0.9 % (0.0-6.0); HEMATOCRIT 27.9 % (34.2-44.1); HEMOGLOBIN 8.7 g/dL (12.0-16.0); LYMPHOCYTES % 21.9 % (18.0-39.1); MEAN CORPUSCULAR HEMOGLOBIN 27.1 pg (28-32); MEAN CORPUSCULAR HGB CONC 31.2 g/dL (31-35); MEAN CORPUSCULAR VOLUME 86.9 fL (81-99); MONOCYTES # (AUTO) 0.6 (0.2-0.8); MONOCYTES % 12.7 % (4.4-11.3); NEUTROPHILS % 63.7 % (38.7-80.0); PLATELET COUNT 248 x10e3/uL (140-360); RED BLOOD COUNT 3.21 x10e6/uL (3.6-5.1); RED CELL DISTRIBUTION WIDTH 16.3 % (11.7-14.4)
[2021-07-06 05:58] LABS: ANION GAP 10.4 mmol/L (8-16); CALCIUM 7.2 mg/dL (8.4-10.2); CREATININE, SERUM 0.6 mg/dL (0.57-1.11)
[2021-07-06 06:05] LABS: POTASSIUM 2.4 mmol/L (3.5-5.1)
[2021-07-06] MEDS: HYDRALAZINE HCL 25 MG TAB PO SCH ×3 (06:08→21:33)
[2021-07-06] MEDS: LEVOTHYROXINE SODIUM 50 MCG TAB PO SCH (06:08)
[2021-07-06] MEDS ORDERED: POTASSIUM CHLORIDE 10MEQ/100ML 100 ML IV ONE (07:30)
[2021-07-06] MEDS ORDERED: NON-FORMULARY MEDICATION (Lovastatin 20 MG) PO SCH (09:00)
[2021-07-06] MEDS: NIFEDIPINE CR 30 MG TAB PO SCH (09:00)
[2021-07-06] MEDS ORDERED: MESALAMINE 400 MG PO SCH (09:00)
[2021-07-06] MEDS: TOLTERODINE TARTRATE 4 MG CAPCR PO SCH (09:44)
[2021-07-06] MEDS: DICYCLOMINE HCL 10 MG CAP PO SCH ×3 (09:44→21:32)
[2021-07-06] MEDS: MESALAMINE 400 MG CAP PO SCH (09:44)
[2021-07-06] MEDS: SODIUM CHLORIDE 0.9% 1000ML 1,000 ML IV SCH ×3 (09:44→21:47)
[2021-07-06] MEDS: POTASSIUM CHLORIDE 20 MEQ TAB CR PO SCH (09:44)
[2021-07-06] MEDS: SERTRALINE HCL 50 MG TAB PO SCH (09:45)
[2021-07-06] MEDS: PANTOPRAZOLE SOD 40 MG TABEC PO SCH (09:45)
[2021-07-06] MEDS ORDERED: LIDOCAINE 4% PATCH TP SCH (11:30)
[2021-07-06] MEDS ORDERED: PIPERACILLIN/TAZOBACTAM SOD 2.25 GM VIAL ONE (17:29)
[2021-07-06] MEDS ORDERED: POTASSIUM CHLORIDE 20 MEQ TAB CR PO NR (18:00)
[2021-07-06] MEDS: ZOLPIDEM TARTRATE 10 MG TAB PO PRN (21:30)
[2021-07-06] MEDS: SIMVASTATIN 20 MG TAB PO SCH (21:32)
[2021-07-06] MEDS ORDERED: METOPROLOL TARTRATE INJ 1 MG/ML VIAL IV PRN (22:15)
[2021-07-06] MEDS: METOPROLOL TARTRATE 50 MG TAB PO SCH (22:30)
[2021-07-07] VITALS: BP 148/86
[2021-07-07] MEDS: PIPERACILLIN/TAZOBACTAM 2.25 GM in SODIUM CHLORIDE 0.9% 50ML 50 ML IV SCH ×2 (00:05→06:34)
[2021-07-07 04:00] VITALS: BP 161/95
[2021-07-07 05:21] LABS: BASOPHILS % 0.6 % (0.0-1.0); EOSINOPHILS % 0.5 % (0.0-6.0); HEMATOCRIT 30.2 % (34.2-44.1); HEMOGLOBIN 9.4 g/dL (12.0-16.0); LYMPHOCYTES # (AUTO) 0.9 (1.0-3.2); LYMPHOCYTES % 12.8 % (18.0-39.1); MEAN CORPUSCULAR HEMOGLOBIN 27.4 pg (28-32); MEAN CORPUSCULAR HGB CONC 31.1 g/dL (31-35); MONOCYTES # (AUTO) 0.7 (0.2-0.8); MONOCYTES % 10.7 % (4.4-11.3); NEUTROPHILS % 75.1 % (38.7-80.0); PLATELET COUNT 288 x10e3/uL (140-360); RED BLOOD COUNT 3.43 x10e6/uL (3.6-5.1); RED CELL DISTRIBUTION WIDTH 16.3 % (11.7-14.4)
[2021-07-07 05:53] LABS: ANION GAP 10.7 mmol/L (8-16); CALCIUM 7.3 mg/dL (8.4-10.2); CREATININE, SERUM 0.58 mg/dL (0.57-1.11); POTASSIUM 3.7 mmol/L (3.5-5.1)
[2021-07-07] MEDS: SODIUM BICARBONATE 650 MG TAB PO SCH ×2 (06:35→09:58)
[2021-07-07] MEDS: LEVOTHYROXINE SODIUM 50 MCG TAB PO SCH (06:35)
[2021-07-07] MEDS: METOPROLOL TARTRATE 50 MG TAB PO SCH (06:35)
[2021-07-07 07:50] VITALS: BP 157/84
[2021-07-07] MEDS: SODIUM CHLORIDE 0.9% 1000ML 1,000 ML IV SCH (08:00)
[2021-07-07] MEDS ORDERED: CEFUROXIME250 MG PO (08:16)
[2021-07-07] MEDS ORDERED: SODIUM BICARBO650 MG PO (08:16)
[2021-07-07] MEDS ORDERED: ONDANSETRON ODT4 MG PO (08:16)
[2021-07-07 08:29] VITALS: BP 157/84
[2021-07-07] MEDS ORDERED: LIDOCAINE 4% PATCH TP SCH (09:00)
[2021-07-07] MEDS: MESALAMINE 400 MG CAP PO SCH (09:51)
[2021-07-07] MEDS: FERROUS SULFATE 325 MG TAB PO SCH (09:51)
[2021-07-07] MEDS: POTASSIUM CHLORIDE 20 MEQ TAB CR PO SCH (09:51)
[2021-07-07] MEDS: DICYCLOMINE HCL 10 MG CAP PO SCH (09:57)
[2021-07-07] MEDS: TOLTERODINE TARTRATE 4 MG CAPCR PO SCH (09:58)
[2021-07-07] MEDS: SERTRALINE HCL 50 MG TAB PO SCH (09:58)
[2021-07-07] MEDS: PANTOPRAZOLE SOD 40 MG TABEC PO SCH (09:58)
[2021-07-07 11:28] VITALS: BP 158/86
== END 2021-07-07 14:01 | disposition home or self-care (01) ==
LOC: ER 13:15 → ERHOLD 16:15 → MED/SURG3 18:37
PROVIDERS: ADMIT Internal Medicine; ATTEND Internal Medicine
DX: A09 Infectious gastroenteritis and colitis, unspecified (principal); E87.6 Hypokalemia; E83.42 Hypomagnesemia; R00.2 Palpitations; Z20.822 Contact with and (suspected) exposure to COVID-19; K50.90 Crohn's disease, unspecified, without complications; I48.0 Paroxysmal atrial fibrillation; Z79.01 Long term (current) use of anticoagulants; N17.9 Acute kidney failure, unspecified
CPT/HCPCS: 36415 ×3; 71045; 74018; 80048 ×2; 80053; 81001; 83735 ×2; 84132; 84484; 85025 ×3; 85610; 85730; 93005; 94799 ×2; 96360; 96361; 97161; 97530; 99284; G0378 ×3; J2543 ×3; J3475; J3480; J7030 ×3; S0164 ×2; U0002

== ENCOUNTER 2022-01-15 12:00 | Inpatient (IN) | payer MEDICARE ==
[~2022-01-15] VITALS: Ht 157.5 cm; Wt 46.3 kg
[~2022-01-15 12:00] MED LIST changes: +CEFUROXIME250 MG PO; +FLOMAX0.4 MG PO; +FOSAMAX70 MG PO; +NEXIUM40 MG PO; +ONDANSETRON ODT4 MG PO; +SODIUM BICARBO650 MG PO
[2022-01-15] MEDS ORDERED: SODIUM CHLORIDE 0.9% 1000ML 500 ML IV ONE (13:15)
[2022-01-15] MEDS ORDERED: DILTIAZEM HCL 5 MG/ML 5 ML VIAL IV ONE (13:15)
[2022-01-15] MEDS ORDERED: SODIUM CHLORIDE FLUSH 10 ML SYR IV PRN (13:15)
[2022-01-15 13:39] LABS: BASOPHILS % 0.6 % (0.0-1.0); EOSINOPHILS % 0.3 % (0.0-6.0); HEMATOCRIT 32.7 % (34.2-44.1); HEMOGLOBIN 10.1 g/dL (12.0-16.0); LYMPHOCYTES % 14.7 % (18.0-39.1); MEAN CORPUSCULAR HEMOGLOBIN 27.3 pg (28-32); MEAN CORPUSCULAR HGB CONC 30.9 g/dL (31-35); MEAN CORPUSCULAR VOLUME 88.4 fL (81-99); MONOCYTES # (AUTO) 0.5 (0.2-0.8); MONOCYTES % 7.2 % (4.4-11.3); NEUTROPHILS # (AUTO) 4.9 (2.1-6.9); NEUTROPHILS % 75.7 % (38.7-80.0); PLATELET COUNT 341 x10e3/uL (140-360); RED CELL DISTRIBUTION WIDTH 16.6 % (11.7-14.4)
[2022-01-15 13:59] LABS: ALBUMIN 2.7 g/dL (3.5-5.0); ALBUMIN/GLOBULIN RATIO 0.6 (0.8-2.0); ANION GAP 14.8 mmol/L (8-16); CALCIUM 7.9 mg/dL (8.4-10.2); CREATININE, SERUM 1.01 mg/dL (0.57-1.11); POTASSIUM 3.8 mmol/L (3.5-5.1)
[2022-01-15] MEDS ORDERED: IOPAMIDOL 370 MG/ML 100 ML INFUS..BTL INJ ONE (14:29)
[2022-01-15] MEDS ORDERED: ASPIRIN 81 MG CHEW TAB PO ONE (15:00)
[2022-01-15] MEDS ORDERED: ONDANSETRON HCL INJ 2MG/ML 2ML 2 MG/ML VIAL IV PRN (15:00)
[2022-01-15] MEDS ORDERED: METOPROLOL SUCC50 MG PO (16:08)
[2022-01-15] MEDS ORDERED: CHLORPHENIRAMINE4 MG PO (16:08)
[2022-01-15] MEDS ORDERED: LOW DOSE ASPIRI81 MG PO (16:08)
[2022-01-15] MEDS ORDERED: TOLTERODINE TART4 MG PO (16:08)
[2022-01-15] MEDS ORDERED: ELIQUIS5 MG PO (16:08)
[2022-01-15] MEDS ORDERED: B12 ACTIVE1000 MCG PO (16:08)
[2022-01-15] MEDS: DILTIAZEM HCL 30 MG TAB PO SCH ×2 (17:09→22:42)
[2022-01-15 17:40] VITALS: BP 118/65
[2022-01-15 20:00] VITALS: BP 103/53
[2022-01-15 21:16] LABS: CREATINE KINASE MB 1.8 ng/mL (0-5.0)
[2022-01-15] MEDS: SODIUM CHLORIDE 0.45% 1,000 ML IV SCH (22:41)
[2022-01-15] MEDS: MELATONIN 3 MG TAB PO SCH (22:42)
[2022-01-16] VITALS (7 sets, daily range): BP systolic 95–118; BP diastolic 50–58
[2022-01-16 05:18] LABS: BASOPHILS % 0.5 % (0.0-1.0); EOSINOPHILS % 0.5 % (0.0-6.0); HEMATOCRIT 25.7 % (34.2-44.1); LYMPHOCYTES # (AUTO) 1.1 (1.0-3.2); LYMPHOCYTES % 13.9 % (18.0-39.1); MEAN CORPUSCULAR HEMOGLOBIN 27.1 pg (28-32); MEAN CORPUSCULAR HGB CONC 31.1 g/dL (31-35); MEAN CORPUSCULAR VOLUME 87.1 fL (81-99); MONOCYTES # (AUTO) 0.7 (0.2-0.8); MONOCYTES % 9.3 % (4.4-11.3); NEUTROPHILS # (AUTO) 5.7 (2.1-6.9); NEUTROPHILS % 75.3 % (38.7-80.0); PLATELET COUNT 256 x10e3/uL (140-360); RED BLOOD COUNT 2.95 x10e6/uL (3.6-5.1); RED CELL DISTRIBUTION WIDTH 16.6 % (11.7-14.4)
[2022-01-16 05:35] LABS: ALBUMIN 2.1 g/dL (3.5-5.0); ALBUMIN/GLOBULIN RATIO 0.7 (0.8-2.0); ANION GAP 11.5 mmol/L (8-16); CREATININE, SERUM 0.7 mg/dL (0.57-1.11); POTASSIUM 3.5 mmol/L (3.5-5.1)
[2022-01-16] MEDS: DILTIAZEM HCL 30 MG TAB PO SCH ×2 (06:00→12:10)
[2022-01-16 06:03] LABS: BAND NEUTROPHILS % (MANUAL) 18 %; EOSINOPHILS % (MANUAL) 1 % (0-7); LYMPHOCYTES % (MANUAL) 18 % (19-48); MONOCYTES % (MANUAL) 3 % (3.4-9.0); NEUTROPHILS % (MANUAL) 59 % (40-74); PHOSPHORUS 3.7 MG/DL (2.3-4.7)
[2022-01-16 06:10] LABS: PLATELET MORPHOLOGY COMMENT FEW LARGE; RBC MORPHOLOGY COMMENT NORMAL
[2022-01-16 06:12] LABS: CREATINE KINASE MB 1.3 ng/mL (0-5.0)
[2022-01-16] MEDS: METOPROLOL SUCCINATE 50 MG TAB XL PO SCH (14:10)
[2022-01-16] MEDS: SODIUM CHLORIDE 0.45% 1,000 ML IV SCH (14:10)
[2022-01-16 14:22] LABS: CREATINE KINASE MB 1.1 ng/mL (0-5.0)
[2022-01-16] MEDS ORDERED: MAGNESIUM SULFATE 2GM/50ML 50 ML IV ONE (15:00)
[2022-01-16] MEDS: MELATONIN 3 MG TAB PO SCH (21:00)
[2022-01-16] MEDS: ZOLPIDEM TARTRATE 5 MG TAB PO PRN (22:41)
[2022-01-16 22:45] LABS: % IRON SATURATION 12 % (15-50); IRON 31 ug/dL (50-170); TOTAL IRON BINDING CAPACITY 256 ug/dL (261-478); TRANSFERRIN 183 mg/dL (180-382)
[2022-01-17 00:50] VITALS: BP 113/62
[2022-01-17] MEDS ORDERED: MESALAMINE 500 MG CAPCR PO STA (00:55)
[2022-01-17 05:27] LABS: BASOPHILS # (AUTO) 0.1 (0.0-0.1); BASOPHILS % 0.6 % (0.0-1.0); EOSINOPHILS % 0.5 % (0.0-6.0); HEMATOCRIT 24.3 % (34.2-44.1); HEMOGLOBIN 7.9 g/dL (12.0-16.0); LYMPHOCYTES % 12.2 % (18.0-39.1); MEAN CORPUSCULAR HEMOGLOBIN 27.4 pg (28-32); MEAN CORPUSCULAR HGB CONC 32.5 g/dL (31-35); MEAN CORPUSCULAR VOLUME 84.4 fL (81-99); MONOCYTES # (AUTO) 0.6 (0.2-0.8); MONOCYTES % 7.5 % (4.4-11.3); NEUTROPHILS # (AUTO) 6.6 (2.1-6.9); NEUTROPHILS % 78.6 % (38.7-80.0); PLATELET COUNT 262 x10e3/uL (140-360); RED BLOOD COUNT 2.88 x10e6/uL (3.6-5.1); RED CELL DISTRIBUTION WIDTH 16.6 % (11.7-14.4)
[2022-01-17 06:03] LABS: ANION GAP 9.6 mmol/L (8-16); CREATININE, SERUM 0.6 mg/dL (0.57-1.11); MAGNESIUM 1.7 MG/DL (1.3-2.1); PHOSPHORUS 2.7 MG/DL (2.3-4.7); POTASSIUM 3.6 mmol/L (3.5-5.1)
[2022-01-17 06:05] LABS: CALCIUM 6.8 mg/dL (8.4-10.2)
[2022-01-17] MEDS: SODIUM CHLORIDE 0.45% 1,000 ML IV SCH ×2 (06:58→21:19)
[2022-01-17 08:05] VITALS: BP 121/61
[2022-01-17 08:36] VITALS: BP 121/61
[2022-01-17] MEDS: MESALAMINE 500 MG CAPCR PO SCH ×4 (09:55→21:00)
[2022-01-17] MEDS: METOPROLOL SUCCINATE 50 MG TAB XL PO SCH (09:55)
[2022-01-17] MEDS: IRON SUCROSE 100 MG in SODIUM CHLORIDE 0.9% 100 ML IV SCH (09:56)
[2022-01-17 11:54] VITALS: BP 155/72
[2022-01-17 14:28] LABS: WBC,FECAL (FECAL LACTOFERRIN) POSITIVE (NEGATIVE)
[2022-01-17 16:11] VITALS: BP 157/74
[2022-01-17 20:00] VITALS: BP 163/71
[2022-01-17] MEDS: MELATONIN 3 MG TAB PO SCH (21:00)
[2022-01-17] MEDS: ZOLPIDEM TARTRATE 5 MG TAB PO PRN (21:10)
[2022-01-18] VITALS (8 sets, daily range): BP systolic 117–149; BP diastolic 57–80
[2022-01-18] MEDS ORDERED: METRONIDAZOLE 500MG/NS 100ML 100 ML IV STA (01:33)
[2022-01-18] MEDS: METRONIDAZOLE 500MG/NS 100ML 100 ML IV SCH ×3 (06:00→17:26)
[2022-01-18] MEDS: IRON SUCROSE 100 MG in SODIUM CHLORIDE 0.9% 100 ML IV SCH (08:30)
[2022-01-18] MEDS: MESALAMINE 500 MG CAPCR PO SCH ×5 (08:30→21:41)
[2022-01-18] MEDS: METOPROLOL SUCCINATE 50 MG TAB XL PO SCH ×3 (08:31→21:42)
[2022-01-18 10:35] LABS: HEMATOCRIT 26.6 % (34.2-44.1); HEMOGLOBIN 8.2 g/dL (12.0-16.0)
[2022-01-18] MEDS: NIFEDIPINE CR 30 MG TAB PO SCH ×2 (10:48→21:43)
[2022-01-18] MEDS: SODIUM CHLORIDE 0.45% 1,000 ML IV SCH (15:14)
[2022-01-18] MEDS: MELATONIN 3 MG TAB PO SCH (21:47)
[2022-01-19] MEDS: METRONIDAZOLE 500MG/NS 100ML 100 ML IV SCH ×2 (00:11→05:17)
[2022-01-19 04:00] VITALS: BP 97/50
[2022-01-19 07:45] VITALS: BP 103/54
[2022-01-19 08:07] VITALS: BP 103/54
[2022-01-19] MEDS: METOPROLOL SUCCINATE 50 MG TAB XL PO SCH (09:00)
[2022-01-19] MEDS: NIFEDIPINE CR 30 MG TAB PO SCH (09:00)
[2022-01-19] MEDS ORDERED: METRONIDAZOLE250 MG PO (09:16)
[2022-01-19] MEDS ORDERED: FERROUS SULFAT325 M1 PO (09:16)
[2022-01-19] MEDS ORDERED: PENTASA500 MG PO (09:16)
[2022-01-19] MEDS ORDERED: ONDANSETRON ODT4 MG PO (09:16)
[2022-01-19] MEDS ORDERED: NIFEDIPINE ER30 M1 PO (09:16)
[2022-01-19] MEDS: MESALAMINE 500 MG CAPCR PO SCH (09:32)
[2022-01-19 11:57] VITALS: BP 102/57
== END 2022-01-19 12:12 | disposition home or self-care (01) | DRG 389 ==
LOC: ER 12:50 → ERHOLD 15:02 → MED/SURG3 17:29
PROVIDERS: ADMIT Internal Medicine; ATTEND Internal Medicine
DX: K56.600 Partial intestinal obstruction, unspecified as to cause (principal); I48.20 Chronic atrial fibrillation, unspecified; K50.90 Crohn's disease, unspecified, without complications; N17.9 Acute kidney failure, unspecified; K92.2 Gastrointestinal hemorrhage, unspecified; I10 Essential (primary) hypertension; Z79.01 Long term (current) use of anticoagulants; R01.1 Cardiac murmur, unspecified; I35.0 Nonrheumatic aortic (valve) stenosis; Z96.652 Presence of left artificial knee joint; D64.9 Anemia, unspecified; E03.9 Hypothyroidism, unspecified; R00.0 Tachycardia, unspecified; R15.2 Fecal urgency; E86.0 Dehydration; Z20.822 Contact with and (suspected) exposure to COVID-19
CPT/HCPCS: 0223U; 36415; 74177; 80048; 80053; 82270; 82550; 82553; 82607; 82746; 83540; 83630; 83690; 83735; 83993; 84100; 84466; 84484; 85014; 85018; 85025; 85045; 85651; 86140; 86256; 86671; 87045; 87177; 87324; 87449; 93005; 93306; 94760; 96361; 99284; J1756; J2405; J2543; J3475; J7030; J7050; Q9967